=== PATIENT | female | born 1945 | race Caucasian/White ===

== ENCOUNTER 2018-06-12 16:43 | Observation (INO) | payer MEDICARE ==
--- NOTE | 2018-06-12 18:15 | RAD ---
CHEST ONE VIEW: INDICATIONS: Chest pressure. Back pain. Shortness of breath. COMPARISON: Prior exam dated 12/14/2016. FINDINGS: There is severe COPD change and moderate cardiomegaly. There is pleural and parenchymal scarring anahi aterally that is stable. A multilead pacemaker is stable. There is new blunting of the right costop hrenic angle. There is diffuse osteopenia. Scattered degenerative change. There is some ACDF invol ving the cervical spine. There is mild thoracolumbar scoliosis. The bowel gas pattern of the upper abdomen is unremarkable. IMPRESSION: 1. New suspected small right pleural effusion. 2. Stable chronic obstructive pulmonary disease change. 3. Stable cardiomegaly without pulmonary vascular congestion. 4. Stable pacemaker. 5. Stable ununited right distal clavicle fracture. POS: [facility]
[2018-06-12 18:31] LABS: CKMB 0.9 ng/mL (0-6.6); Troponin I Less than 0.010 ng/mL (< 0.028)
[2018-06-12 18:34] LABS: ALT (SGPT) 7 U/L (8-55); AST (SGOT) 14 U/L (5-34); Albumin 3.7 g/dL (3.4-4.8); Alkaline Phosphatase 54 U/L (40-150); Anion Gap 15 mmol/L (10-20); BUN (Urea Nitrogen) 14 mg/dL (9.8-20.1); Bilirubin, Total 0.5 mg/dL (0.2-1.2); Calc. Creatinine Clearance 0 mL/min (70-130); Calcium 8.9 mg/dL (7.8-10.44); Carbon Dioxide 20 mmol/L (23-31); Chloride 107 mmol/L (98-107); Estimated GFR-MDRD 72; Globulin 2.8 g/dL (2.4-3.5); Glucose 83 mg/dL (83-110); Potassium 4.4 mmol/L (3.5-5.1); Protein, Total 6.5 g/dL (6.0-8.3); Sodium 138 mmol/L (136-145)
[2018-06-12] MEDS ORDERED: HYDROcodone/Acetaminophen 5/325 mg Tablet ONE (18:44)
[2018-06-12 18:52] LABS: Anisocytosis SLIGHT = 6-15 cells (100X) (0-5/hpf); Band 1 % (5-11); Eosinophils 1 % (0-10); Hemoglobin 13.3 g/dL (12.0-16.0); Lymphocytes 31 % (21-51); MDiff Complete? YES; Macrocytosis SLIGHT = 6-15 cells (100X) (0-5/hpf); Mean Corpuscular HGB CONC 31.9 g/dL (32.0-36.0); Mean Corpuscular Hemoglobin 36.7 pg (27.0-31.0); Mean Platelet Volume 6.9 fL (7.4-10.4); Monocytes 8 % (0-10); Neutrophil 56 % (42-75); PLT Morphology Comment Appears Adequate; Platelet Count 257 thou/uL (130-400); Polychromasia SLIGHT = 2-3 cells (100X) (0-2/hpf); Reactive Lymphocytes 2 % (0-10); Red Blood Cell (RBC) Count 3.61 mill/uL (4.20-5.40); White Blood Cell (WBC) Count 8.3 thou/uL (4.8-10.8)
[2018-06-12] MEDS ORDERED: Lorazepam 1 MG TAB PO PRN (21:33)
[2018-06-12] MEDS ORDERED: traMADol HCl 50 MG TAB PO PRN (21:33)
[2018-06-12] MEDS ORDERED: Ondansetron PF 4 MG/2 ML Vial IVP PRN (21:34)
[2018-06-12] MEDS ORDERED: Ondansetron ODT 4 MG TAB PO PRN (21:34)
[2018-06-12 21:39] LABS: Troponin I Less than 0.010 ng/mL (< 0.028)
[2018-06-13 00:33] LABS: #Lymphocytes 2.4 thou/uL (1.20-3.40); #Monocytes 0.4 thou/uL (0.11-0.59); #Neutrophils 2.6 thou/uL (1.40-6.50); %Basophils 0.3 % (0.0-1.0); %Eosinophils 0.8 % (0.0-10.0); %Lymphocytes 43.6 % (21.0-51.0); %Monocytes 7.9 % (0.0-10.0); %Neutrophils 47.4 % (42.0-75.0); Hemoglobin 15.1 g/dL (12.0-16.0); Mean Corpuscular HGB CONC 30.2 g/dL (32.0-36.0); Mean Platelet Volume 6.9 fL (7.4-10.4); Platelet Count 249 thou/uL (130-400); RBC Distribution Width 17.8 % (11.5-14.5); White Blood Cell (WBC) Count 5.5 thou/uL (4.8-10.8)
[2018-06-13 00:46] LABS: Troponin I Less than 0.010 ng/mL (< 0.028)
[2018-06-13 00:53] LABS: Anion Gap 14 mmol/L (10-20); BUN (Urea Nitrogen) 11 mg/dL (9.8-20.1); Calc. Creatinine Clearance 40 mL/min (70-130); Calcium 9.7 mg/dL (7.8-10.44); Carbon Dioxide 21 mmol/L (23-31); Chloride 106 mmol/L (98-107); Estimated GFR-MDRD 79; Glucose 111 mg/dL (83-110); Potassium 4.1 mmol/L (3.5-5.1); Sodium 137 mmol/L (136-145)
[2018-06-13] MEDS ORDERED: tiZANidine HCl 4 MG TAB PO PRN (00:55)
[2018-06-13] MEDS: HYDROcodone/Acetaminophen 7.5/325 mg Tablet PO PRN ×3 (01:08→18:06)
--- NOTE | 2018-06-13 06:27 | HP ---
CHIEF COMPLAINT: Chest pain. HISTORY OF PRESENT ILLNESS: This is a 73-year-old female with past medical history significant for atrial fibrillation treated with ablation, status post pacemaker, hypertension, COPD, chronic back pain, presenting with chest pain. Per patient, she had chest pain on the day of admission around 1500 when the patient was sitting in her recliner. The patient stated that the chest pain was associated with dizziness and shortness of breath. The patient described chest pain as pressure-like in nature, which radiated to her back. Patient also has some numbness and tingling sensation in her feet. Per patient, severity of her pain was 8/10 and it was sudden and intermittent. Of note, the patient had NE 2 years ago. Denies any stent placement. Per record, patient was in the hospital on 08/10/2016 and was seen by Dr. Arriola. Per records, the patient had sinus bradycardia and pauses that were documented and left ventricular ejection fraction at that time was estimated to be about 30%. On JUAN, the patient's ejection fraction was estimated to be about 40% and the patient has a left bundle branch block at that time. During that time, the patient underwent AV susan ablation procedure. The patient denies any fevers, chills, vision changes, nausea, vomiting, palpitations, abdominal pain, dysuria , hematuria, constipation, diarrhea. REVIEW OF SYSTEMS: Positive for shortness of breath, chest pain, dizziness, lightheadedness, otherwise as documented in the HPI. All other systems were reviewed and are negative. PAST MEDICAL HISTORY: Atrial fibrillation, status post pacemaker, GERD, diverticulitis, hypertension, seizure, COPD, chronic back pain, cardiomyopathy status post pacemaker. PAST SURGICAL HISTORY: Bilateral cataract removal, bilateral trigger fingers surgery, surgical history of , hysterectomy, and neck surgery. FAMILY HISTORY: reviewed and noncontributory PSYCHIATRIC HISTORY: Anxiety. SOCIAL HISTORY: Patient denies alcohol use. The patient denies any drug use and the patient uses tobacco, smokes cigarettes occasionally. ALLERGIES: ERYTHROMYCIN, PENICILLIN, XANAX. CURRENT MEDICATIONS: Lisinopril 20 mg, nitroglycerin 0.4 mg tab, amiodarone 200 mg daily, amlodipine 10 mg daily, Symbicort, buspirone 5 mg p.o. b.i.d., carvedilol 25 mg p.o. b.i.d., gabapentin 600 mg p.o. t.i.d., N[place]ezi t.i.d. and tizanidine 2 mg p.o. t.i.d. PHYSICAL EXAMINATION: VITAL SIGNS: Blood pressure is 95/59, pulse 82, respiratory rate of 14, O2 sat is 99 on 4 liter oxygen. GENERAL: The patient is lying in bed, states that she is very sleepy, does not want the lights on. Alert and oriented x3. HEENT: Normocephalic, atraumatic. Pupils are equal, round, react to light. Extraocular movements are intact. No scleral icterus. Mucous membranes are moist. NECK: Supple. Trachea midline. No tenderness. LUNGS: Clear to auscultation bilaterally. No wheezing, no rales, no rhonchi appreciated. CARDIOVASCULAR: Positive S1, S2, regular rate and rhythm. No murmurs, no gallops or rubs appreciated. ABDOMEN: Soft, nontender, nondistended, positive bowel sounds in all quadrants. EXTREMITIES: The patient has 5/5 upper extremity strength, good pulses bilaterally at the radial pulse. Lower extremity, 5/5 lower extremity strength. Good pulses bilaterally in the lower extremities. NEUROLOGIC: Cranial nerves II through XII grossly intact. No neurologic deficits noted. SKIN: Warm, dry, and intact. IMAGING: EKG shows ventricular paced rhythm. LABORATORY DATA: WBC is 8.3, hemoglobin is 13.3, hematocrit is 41.6, MCV 115.0 , RDW is 18.0, platelet count is 257. Sodium 138, potassium is 4.4, chloride 107, carbon dioxide of 20, BUN is 14, creatinine 0.7, AST 14, ALT 7. Troponin is less than 0.010. ASSESSMENT AND PLAN: This is a 73-year-old female with multiple comorbidities being admitted for: 1. Chest pain, rule out acute coronary syndrome. At this point, we started the patient on her home medications of aspirin, carvedilol. We will continue these medications. We have consulted Cardiology. We referred Cardiology for their recommendations. 1. History of atrial fibrillation, status post ablation. Patient states that she does not take anticoagulation at this time due to her frequent bleed. At this point, we are going to hold off patient's anticoagulation. We will follow up with Cardiology regarding further evaluation on the patient's history of atrial fibrillation. 2. Cardiomyopathy with ejection fraction of 35%, status post pacemaker. At this point, the patient is stable. We are going to continue current management. 3. History of chronic obstructive pulmonary disease. We will continue patient on current management. 4. Dyslipidemia. We will continue the patient on current management. 5. Hypertension. We will monitor the patient's blood pressure closely and we will continue to treat the patient accordingly. 6. Deep venous thrombosis and gastrointestinal prophylaxis. MTDD
[2018-06-13] MEDS: Mometasone/Formoterol 120 PUFF INHALER INH SCH ×2 (07:34→19:28)
[2018-06-13] MEDS ORDERED: Carvedilol 3.125 MG TAB PO SCH (08:00)
[2018-06-13] MEDS ORDERED: Apixaban 5 MG TAB PO SCH (09:00)
[2018-06-13] MEDS ORDERED: Non-Formulary Item 1 EACH (Budesonide-Formoterol [Symbicort 160-4.5] 2 PUFF) INH SCH (09:00)
[2018-06-13] MEDS: Amlodipine 10 MG TAB PO SCH (09:08)
[2018-06-13] MEDS: Amiodarone 200 MG TAB PO SCH (09:08)
[2018-06-13] MEDS: busPIRone HCl 5 MG TAB PO SCH ×2 (09:09→20:38)
[2018-06-13] MEDS: Aspirin 81 mg Enteric Coated Tablet PO SCH (09:09)
[2018-06-13] MEDS: Gabapentin 300 MG CAP PO SCH ×3 (09:09→20:38)
[2018-06-13] MEDS: Docusate 100 MG CAP PO SCH (09:10)
[2018-06-13] MEDS: Carvedilol 25 MG TAB PO SCH ×2 (09:21→20:38)
--- NOTE | 2018-06-13 14:43 | CON ---
DATE OF CONSULTATION: 06/13/2018 CARDIOLOGY CONSULTATION INDICATION FOR CONSULTATION: A 72-year-old female with a history of chest pain. HISTORY OF PRESENT ILLNESS: This is a 73-year-old female who has had a past medical history of cardioversion due to atrial fibrillation. There is some question of ablation for atrial flutter in the past. Perhaps done in [place]. She has also had a biventricular pacemaker placed. She has multiple medical problems, which include chronic back pain, COPD, chest pain. She continues to smoke. Yesterday, she said that around 3:00 in the afternoon when she was sitting down, she noticed some chest tightness or heaviness in her chest with pressure. She described it to be more of a pressure. It radiated to the back and then she had some nausea associated with it, but she has had some recent nausea and vomiting. She also complains of occasional tingling. She said that the pain became more severe and she became somewhat worried. Her son called 911. She states that she did have a heart attack about 2 years ago; however, she did have a cardiac catheterization by Dr. Tamez in 12/2015, which showed only mild disease noted in the right coronary artery and no indication of significant stenosis was noted. Ejection fraction at that time was 35%-40%. She did undergo an ablation for atrial fibrillation. She was noted to have some flutter. She has actually undergone a cardioversion of the flutter and she also had a biventricular pacemaker placed due to the cardiomyopathy. She seems to think that she has had a myocardial infarction in the past and she has also had a recent cardiac catheterization she says about a year ago, but there was no intervention performed. She was routinely followed by a dial lathe operator in [place] and I assume that he is also the one who has been checking her biventricular pacemaker. She also has a history of a left bundle branch block in the past and as noted, she has possibly undergone an AV susan ablation due to the atrial fibrillation. REVIEW OF SYSTEMS: A 12-point review of systems is positive for the COPD, shortness of breath, occasional nausea and vomiting. She has lost more weight. She has been actually down to 70 something pounds, but she is now back up to the 80s. She appears to be very emaciated, ill-appearing female. Unfortunately , she continues to smoke. She denied any significant coughing. She does have some shortness of breath and she describes a tightness in her chest. Otherwise , her review of systems is unremarkable. PAST SURGICAL HISTORY: She has had bilateral cataract surgery. She has had finger surgeries performed due to trigger fingers. She has had a , hysterectomy and neck surgery. Atrial fib/flutter with cardioversion and possible ablation in the past. PAST MEDICAL HISTORY: She has a history of diverticulitis. She has a history of anxiety. SOCIAL HISTORY: She continues to smoke 1/4 pack a day. She smoked up to 50 years and as much as 2 packs a day. She has no significant alcohol use. ALLERGIES: She is allergic to PENICILLIN, ERYTHROMYCIN and XANAX. MEDICATIONS PRIOR TO ADMISSION: Included lisinopril, nitroglycerin, amlodipine , amiodarone, Symbicort, Coreg, [place], gabapentin, tizanidine. PHYSICAL EXAMINATION: GENERAL: Reveals a well-developed, well-nourished female, in no acute distress. VITAL SIGNS: Her blood pressure is 118/64, heart rate is 77 and shows 100% pacing at the time I am seeing her and this is ventricular pacing, respiratory rate is 20. She is afebrile. HEENT: Shows the head to be normocephalic and atraumatic. She has bilateral carotid bruits, the left being more significant than the right. CHEST: Has decreased breath sounds throughout. She did have some left basilar rales. CARDIOVASCULAR: Reveals a regular rate and rhythm at this time. She has a well -healed surgical incision over the pacemaker site. ABDOMEN: Soft, flat and nontender. EXTREMITIES: Showed no clubbing, cyanosis or edema. I cannot palpate any pulses in the right lower extremity from the groin all the way down to the foot. NEUROLOGIC: The patient appears to be intact. SKIN: Warm and dry. IMAGING: Her EKG shows ventricular pacing. There are some P waves noted, but this may be underlying atrial fibrillation also. It is hard to determine. LABORATORY DATA: Shows no evidence of myocardial infarction and her creatinine is 0.72. Sodium is 137. Hemoglobin is 15.1, WBC of 5.5. Her platelet count was 249,000. Cardiac enzymes show a troponin I of less than 0.01. IMPRESSION AND PLAN: 1. Elderly female with chest pain, which most likely is noncardiac in nature. We will try to obtain the records from [facility] in regard to her last cardiac catheterization, which she says was within the last year and see whether or not there is any indication that she has any coronary disease. As I noted above, she did have a cardiac catheterization in 12/2015, which showed mild plaque in the right coronary artery. 2. Decrease in left ventricular systolic function with cardiomyopathy. We will obtain an echocardiogram for evaluation of left ventricular systolic function to see whether or not this is improved status post a biventricular pacemaker, which was implanted by Dr. Arriola also back in, I believe, August 2016 and see whether her ejection fraction has improved after implanting the biventricular device. 3. History of tobacco abuse. She was encouraged to stop smoking. 4. History of atrial fibrillation. It appears that she may have again underlying atrial fibrillation. We will ask the pacemaker technicians to perform interrogation of the pacemaker to see whether or not she is having significant bouts of atrial fibrillation and whether or not she remains in chronic atrial fibrillation. If so, we will need to reset the monitor to the VVIR mode unless this has already been performed. 5. Chronic obstructive pulmonary disease. Unfortunately, the patient continues to smoke. 6. Deconditioning and weight loss. This lady weighs under 100 pounds. She weighs actually about 82 pounds. We will be more than happy to continue to follow the patient with you, but at this time, she does not appear to be having any acute cardiac events from what I can determine. [facility] CENTERAgustin
--- NOTE | 2018-06-13 15:12 | PDOC.PN ---
- Subjective Encounter Start Date: 06/13/18 Encounter Start Time: 10:00 -: f/u on admission for chest pain -: Denies chest pain currently - Objective Vital Signs & Weight: Vital Signs (12 hours) Temp Pulse Resp BP BP Pulse Ox 06/13/18 11:23 98.0 F 77 20 118/64 93 L 06/13/18 09:08 92 136/66 06/13/18 07:34 92 16 93 L 06/13/18 07:02 97.8 F 89 24 H 136/66 92 L 06/13/18 04:19 98.8 F 97 19 110/52 L 93 L Weight Admit Weight 37.603 kg Weight 37.603 kg I&O: 06/12/18 06/13/18 06/14/18 06:59 06:59 06:59 Intake Total 450 240 Output Total 700 Balance -250 240 Result Diagrams: 06/13/18 00:19 06/13/18 00:19 Phys Exam - Physical Examination HEENT: PERRLA Neck: no nodes, no JVD Respiratory: no rhonchi, clear to auscultation bilateral Cardiovascular: RRR Gastrointestinal: soft, non-tender Musculoskeletal: no edema, pulses present Neurological: non-focal Lymphatic: no nodes Psychiatric: normal affect, A&O x 3 Skin: no rash, normal turgor, cap refill <2 seconds Dx/Plan (1) Chest pain Code(s): R07.9 - CHEST PAIN, UNSPECIFIED Status: Acute (2) SSS (sick sinus syndrome) Code(s): I49.5 - SICK SINUS SYNDROME Status: Chronic Comment: s/p pacemaker/ DIRECTOR DRUG 08/10/16 (3) CAD (coronary artery disease) Code(s): I25.10 - ATHSCL HEART DISEASE OF [place] CORONARY ARTERY W/O ANG PCTRS Status: Chronic Qualifiers: (4) COPD (chronic obstructive pulmonary disease) Status: Chronic Qualifiers: (5) Atrial fibrillation and flutter Code(s): I48.91 - UNSPECIFIED ATRIAL FIBRILLATION; I48.92 - UNSPECIFIED ATRIAL FLUTTER Status: Chronic Comment: s/p ablation in sinus - Plan cont current plan of care -: Cardiology and EP consult -: Dr. Spann requesting records from [facility] -: Echo done, pending results -: Will monitor labs, * .
--- NOTE | 2018-06-13 16:26 | PDOC.EVN ---
Event Note - Event Note Event Note: clinical course reviewed with Agustin Campbell SOLE CONDITIONER. agree with management
--- NOTE | 2018-06-13 17:39 | ULT ---
BILATERAL CAROTID DUPLEX ULTRASOUND: DATE: 06/13/18 HISTORY: Bilateral carotid bruits. TECHNIQUE: Tamez scale ultrasound with color flow and spectral Doppler imaging of the extracranial carotid artery systems performed bilaterally. FINDINGS: There is plaque formation on either side. The peak systolic velocity in the right ICA measures 69 cm/second with an end-diastolic velocity of 1 9 cm/second and a systolic ratio of 0.87. The peak systolic velocity in the left ICA measures 75 cm/second with an end-diastolic velocity of 17 cm/second and a systolic ratio of 0.95. Flow in both vertebral arteries remains antegrade. IMPRESSION: No evidence of hemodynamically significant stenosis. POS: [facility]
[2018-06-13] MEDS: Apixaban 2.5 MG TAB PO SCH (20:38)
[2018-06-14] MEDS: HYDROcodone/Acetaminophen 7.5/325 mg Tablet PO PRN ×3 (04:09→23:21)
[2018-06-14] MEDS: Mometasone/Formoterol 120 PUFF INHALER INH SCH ×2 (08:00→18:18)
[2018-06-14] MEDS: Amiodarone 200 MG TAB PO SCH (08:57)
[2018-06-14] MEDS: Aspirin 81 mg Enteric Coated Tablet PO SCH (08:57)
[2018-06-14] MEDS: Gabapentin 300 MG CAP PO SCH ×3 (08:58→20:09)
[2018-06-14] MEDS: Docusate 100 MG CAP PO SCH (08:58)
[2018-06-14] MEDS: Apixaban 2.5 MG TAB PO SCH ×2 (08:58→20:10)
[2018-06-14] MEDS: busPIRone HCl 5 MG TAB PO SCH ×2 (08:58→20:09)
[2018-06-14] MEDS: Carvedilol 25 MG TAB PO SCH ×2 (08:58→20:09)
[2018-06-14] MEDS: Amlodipine 10 MG TAB PO SCH (08:58)
--- NOTE | 2018-06-14 16:01 | PDOC.PN ---
- Subjective Encounter Start Date: 06/14/18 Encounter Start Time: 10:00 Subjective: f/u on admission for chest pain -: Cardiology/EP was pt yesterday, requested records -: Patient with no c/o today other than being hungry - Objective MAR Reviewed: Yes Vital Signs & Weight: Vital Signs (12 hours) Temp Pulse Resp BP Pulse Ox 06/14/18 11:11 97.9 F 67 16 101/54 L 92 L 06/14/18 08:58 91 06/14/18 08:00 91 20 92 L 06/14/18 07:23 97.5 F L 73 20 156/74 H 93 L 06/14/18 04:00 98.1 F 66 16 106/58 L 92 L Weight Admit Weight 37.603 kg Weight 37.376 kg I&O: 06/13/18 06/14/18 06/15/18 06:59 06:59 06:59 Intake Total 450 1980 720 Output Total 700 1350 Balance -250 630 720 Result Diagrams: 06/13/18 00:19 06/13/18 00:19 Phys Exam - Physical Examination HEENT: PERRLA, moist MMs Neck: no nodes, no JVD Respiratory: no rhonchi, clear to auscultation bilateral Cardiovascular: RRR, no rub Gastrointestinal: soft, non-tender, positive bowel sounds Musculoskeletal: no edema, pulses present Neurological: non-focal, normal sensation, moves all 4 limbs Lymphatic: no nodes Psychiatric: normal affect, A&O x 3 Skin: no rash, normal turgor Dx/Plan (1) Chest pain Code(s): R07.9 - CHEST PAIN, UNSPECIFIED Status: Acute (2) SSS (sick sinus syndrome) Code(s): I49.5 - SICK SINUS SYNDROME Status: Chronic Comment: s/p pacemaker/ BRAND COMMUNICATIONS MANAGER 08/10/16 (3) CAD (coronary artery disease) Code(s): I25.10 - ATHSCL HEART DISEASE OF [place] CORONARY ARTERY W/O ANG PCTRS Status: Chronic Qualifiers: (4) COPD (chronic obstructive pulmonary disease) Status: Chronic Qualifiers: (5) Atrial fibrillation and flutter Code(s): I48.91 - UNSPECIFIED ATRIAL FIBRILLATION; I48.92 - UNSPECIFIED ATRIAL FLUTTER Status: Chronic Comment: s/p ablation in sinus - Plan -: Records requested/sent from [facility] and are on chart -: We are awaiting cardiology recommendations after record review -: Meal supplements ordered per pt request -: Will continue to monitor * .
[2018-06-14] MEDS ORDERED: Loperamide HCl 2 MG CAP PO PRN (17:43)
--- NOTE | 2018-06-14 19:49 | CON ---
DATE OF CONSULTATION: 06/13/2018 ELECTROPHYSIOLOGY CONSULTATION REFERRING PHYSICIAN: Jaymie Spann M.D. REASON FOR CONSULTATION: Atrial arrhythmias. HISTORY OF PRESENT ILLNESS: Ms. Villa is a 73-year-old woman who was initially referred to our servi ce in 07/2016. She has a history of atrial arrhythmias and in 2016 was diagnosed with typical atrial flutter. She was also found to have mild cardiomyopathy with an ejection fraction of 40%-45% with a bifascicular block and underwent biventricular pacemaker placement at that time. The plan was for h er to recover from the pacemaker implantation and then undergo either CTI or AV susan ablation, but u nfortunately, she never followed up with our clinic for further treatment and management of her arrhy thmias. Today, she has been referred back to our service for ongoing atrial arrhythmias and palpitat ions. She came into the hospital reporting chest pain. She continues to smoke. She had some tightn ess in her chest with dizziness and when she stood up to put her sandwich back in the fridge, she jessica rly fell over, but did not pass out. The pain became more severe and her son called 911. When EMS a rrived, they brought her to the emergency room for further evaluation. She also reports that she has had a left heart catheterization by a dairy nutrition consultant in [place] who now we assume has also been checki ng her pacemaker and has possibly done an ablation. We have requested those records, but they are no t currently available for review. Currently, Ms. Villa is feeling well. She denies any current chest pain, heart racing, palpitations, chest pain or pressure, syncope or stroke-like symptoms. She has had recent near syncope. REVIEW OF SYSTEMS: Positive for chronic shortness of breath secondary to chronic obstructive pulmona ry disease and heart failure. Positive for occasional nausea and vomiting. Positive for weight loss , unintentional. Positive for continued tobacco habituation. Positive for recent chest pain. REVIEW OF SYSTEMS: Otherwise, a 12-point review of systems was conducted and is negative other than the above-mentioned and as per HPI. PAST MEDICAL HISTORY: 1. Chronic congestive heart failure with nonischemic cardiomyopathy, LVEF 35%-40% in 12/2015 by left heart catheterization also revealing normal coronary arteries. 2. Chronic COPD. 3. Typical atrial flutter. ALLERGIES: Include PENICILLIN and AZITHROMYCIN. HOME MEDICATIONS: [place] p.r.n., gabapentin 600 t.i.d., amiodarone 100 mg daily, lisinopril 20 mg arcadio ly, Zanaflex 2 mg t.i.d., Norvasc 10 mg daily, buspirone 5 mg b.i.d., Symbicort b.i.d., Nitrostat p.r .n. and carvedilol 25 mg b.i.d. FAMILY HISTORY: Negative for sudden cardiac or early onset coronary artery disease. SOCIAL HISTORY: Negative for alcohol or drug use. Positive for continued tobacco habituation greate r than a [id number] history, currently 1/4 pack a day. OBJECTIVE: VITAL SIGNS: Today, temperature 98.0, pulse 77, blood pressure 118/64, respirations 20, oxygen is 93 % on room air. GENERAL: This is a very petite, frail woman who appears much older than her stated age. She is aler t and oriented. Her speech is clear. Her affect is appropriate. NECK: Supple without jugular venous distention. CHEST: Clear to auscultation bilaterally, but do exhibit chronic COPD changes with inspiration and s cattered rhonchi throughout. Heart rate is regular. PMI is nondisplaced. Pacemaker is seated at th e left infraclavicular fossa and is quite prominent under her frail stature and thin skin and has hea led nicely and there are no open areas. Wires are quite prominent and high risk for . ABDOMEN: Soft and nontender without palpable masses. Hepatojugular reflex is negative. NEUROLOGIC: Grossly intact and nonfocal. EXTREMITIES: Warm and dry to touch without clubbing, cyanosis or edema. DATABASE: EKG and telemetry were all personally reviewed, which reflect atypical atrial flutter with biventricular pacing. LABORATORY DATA: Hematology was reviewed and is unremarkable. Chemistry, potassium 4.1, creatinine 0.72. TSH 2.38. Serial troponins were negative. Chest x-ray did not reveal any acute abnormalities . Carotid Doppler was essentially normal exam. IMPRESSION: 1. Near syncope. 2. Atypical chest pain. 3. History of nonischemic cardiomyopathy with left ventricular ejection fraction of 35%-40% in 2016. 4. Status post biventricular pacemaker implantation in 07/2016. 5. Atypical atrial flutter. 6. Chronic obstructive pulmonary disease. RECOMMENDATIONS: 1. We will have the pacemaker interrogated for further information about the events with any further arrhythmias. 2. Recommend having a 2-dimensional echocardiogram performed to reassess her LV systolic function. 3. Agree with the request for prior records from her dairy nutrition consultant in [place]. She has not had an ab lation with our group, though she may have followed up with her dairy nutrition consultant or group in [place] or [facility] and have this done. We will continue to follow after the following results are available. Thank you for allowing us to participate in the care of this patient.
[2018-06-15] MEDS: Mometasone/Formoterol 120 PUFF INHALER INH SCH ×2 (07:03→18:07)
[2018-06-15] MEDS ORDERED: Amiodarone 200 MG TAB PO SCH (09:00)
[2018-06-15] MEDS: Docusate 100 MG CAP PO SCH (09:04)
[2018-06-15] MEDS: Aspirin 81 mg Enteric Coated Tablet PO SCH (09:05)
[2018-06-15] MEDS: Apixaban 2.5 MG TAB PO SCH (09:05)
[2018-06-15] MEDS: busPIRone HCl 5 MG TAB PO SCH ×2 (09:05→20:10)
[2018-06-15] MEDS: Amlodipine 10 MG TAB PO SCH (09:06)
[2018-06-15] MEDS: HYDROcodone/Acetaminophen 7.5/325 mg Tablet PO PRN ×2 (09:08→20:09)
[2018-06-15] MEDS: Gabapentin 300 MG CAP PO SCH ×3 (09:10→20:10)
[2018-06-15] MEDS: Amiodarone 200 MG TAB PO SCH (09:10)
[2018-06-15] MEDS: Carvedilol 25 MG TAB PO SCH ×2 (09:11→20:10)
[2018-06-15 13:42] VITALS: BMI 15.7
--- NOTE | 2018-06-15 15:20 | PDOC.CTH ---
Cardiology Progress Note - Subjective EP progress note: Patient seen and evaluated. Feeling well today. No cardiac complaints - Objective Vital Signs Temp Pulse Resp BP BP Pulse Ox 06/15/18 11:15 98.3 F 71 18 113/55 L 92 L 06/15/18 09:06 66 124/77 06/15/18 07:17 97.8 F 69 22 H 124/77 92 L 06/15/18 05:19 97.8 F 71 18 101/54 L 93 L Admit Weight 82 lb 14.4 oz Weight 86 lb 06/14/18 06/15/18 06/16/18 06:59 06:59 06:59 Intake Total 1980 1740 Output Total 1350 Balance 630 1740 - Physical Examination General/Neuro: alert & oriented x3, NAD Neck: carotid US brisk, no JVD present Lungs: CTA, unlabored respirations Heart: other: (irreg irreg) Abdomen: NT/ND, soft Other PE findings: thin frail skin. Prominent PPM and wires - Labs Result Diagrams: 06/13/18 00:19 06/13/18 00:19 Troponin/CKMB CK-MB (CK-2) 0.9 ng/mL (0-6.6) 06/12/18 17:54 Troponin I Less than 0.010 ng/mL (< 0.028) 06/13/18 00:19 - Assessment/Plan 1. Atrial arrhythmias - Atypical atrial flutter and atrial fibrillation with occasional RVR 2. CHADS2-VASC: 4 (age, gender, heart failure) -Suboptimal eliquis dose. Increased to 5mg BID. patient has not been taking eliquis at home and refusing in hospital 3. Chronic systolic heart failure -Last EF 35-40%, now 30-35%. Recommend recheck in 3 months after medical management and offering the patient a lifevest in the interrim. 4. Non ischemic cardiomyopathy -Normal LHC according to [place] records 5. Bi Ventricular pacemaker -Suboptimal MODELING ANALYST pacing from AF 6. Chronic Amiodarone - increased to 200mg PO QD. Continue amiodarone. If she will take Eliquis faithfully she can have CV in 4 weeks. Consider AVJ in future if afib recurs and rate control difficult to achieve. Limited PVAI candidate-which option she declines at this point.
--- NOTE | 2018-06-15 16:38 | PDOC.PN ---
- Subjective Encounter Start Date: 06/15/18 Encounter Start Time: 16:30 Subjective: f/u for chest pain, atrial fib and cardiomyopathy -: denies complaints today - Objective Vital Signs & Weight: Vital Signs (12 hours) Temp Pulse Resp BP BP Pulse Ox 06/15/18 15:32 97.4 F L 74 21 H 110/63 91 L 06/15/18 11:15 98.3 F 71 18 113/55 L 92 L 06/15/18 09:06 66 124/77 06/15/18 07:17 97.8 F 69 22 H 124/77 92 L 06/15/18 05:19 97.8 F 71 18 101/54 L 93 L Weight Admit Weight 37.603 kg Weight 39.009 kg I&O: 06/14/18 06/15/18 06/16/18 06:59 06:59 06:59 Intake Total 1980 1740 Output Total 1350 Balance 630 1740 Result Diagrams: 06/13/18 00:19 06/13/18 00:19 Phys Exam - Physical Examination Constitutional: NAD HEENT: PERRLA, moist MMs Neck: no nodes, no JVD Respiratory: no wheezing, no rales, no rhonchi Cardiovascular: RRR, no significant murmur Gastrointestinal: soft, non-tender Musculoskeletal: no edema, pulses present Neurological: non-focal, normal sensation Lymphatic: no nodes Psychiatric: normal affect, A&O x 3 Skin: no rash, normal turgor Dx/Plan (1) Chest pain Code(s): R07.9 - CHEST PAIN, UNSPECIFIED Status: Acute (2) SSS (sick sinus syndrome) Code(s): I49.5 - SICK SINUS SYNDROME Status: Chronic Comment: 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 Arriola and Dr. Spann saw patient today -: Patient initally refused Xarelto but Dr. Spann talked her into taking it -: Will watch overnight, DC in am * .
[2018-06-15] MEDS: Apixaban 5 MG TAB PO SCH (20:10)
[2018-06-16] MEDS: HYDROcodone/Acetaminophen 7.5/325 mg Tablet PO PRN ×2 (05:25→14:12)
[2018-06-16] MEDS: Mometasone/Formoterol 120 PUFF INHALER INH SCH (07:57)
[2018-06-16] MEDS: Amlodipine 10 MG TAB PO SCH (08:13)
[2018-06-16] MEDS: Docusate 100 MG CAP PO SCH (08:13)
[2018-06-16] MEDS: Amiodarone 200 MG TAB PO SCH (08:13)
[2018-06-16] MEDS: Apixaban 5 MG TAB PO SCH (08:13)
[2018-06-16] MEDS: Gabapentin 300 MG CAP PO SCH ×2 (08:14→14:12)
[2018-06-16] MEDS: busPIRone HCl 5 MG TAB PO SCH (08:14)
[2018-06-16] MEDS: Aspirin 81 mg Enteric Coated Tablet PO SCH (08:14)
[2018-06-16] MEDS: Carvedilol 25 MG TAB PO SCH (08:14)
--- NOTE | 2018-06-16 09:36 | PDOC.CTH ---
Cardiology Progress Note - Subjective Feeling good today. Planning to be discharged. - ROS chest pain (none), dizziness (none) - Objective Vital Signs Temp Pulse Resp BP Pulse Ox 06/16/18 07:57 80 12 06/16/18 07:00 99.0 F 73 16 134/60 91 L 06/16/18 04:00 97.6 F 85 18 104/58 L 90 L Admit Weight 82 lb 14.4 oz Weight 86 lb 3.2 oz 06/15/18 06/16/18 06/17/18 06:59 06:59 06:59 Intake Total 1740 500 Balance 1740 500 - Physical Examination General/Neuro: alert & oriented x3, NAD Neck: no JVD present Lungs: CTA Heart: RRR, other: Abdomen: NT/ND, soft - Telemetry Telemetry Rhythm: afib with V pacing - Labs Result Diagrams: 06/13/18 00:19 06/13/18 00:19 Troponin/CKMB CK-MB (CK-2) 0.9 ng/mL (0-6.6) 06/12/18 17:54 Troponin I Less than 0.010 ng/mL (< 0.028) 06/13/18 00:19 - Assessment/Plan 1. Atrial arrhythmias - Atypical atrial flutter and atrial fibrillation with occasional RVR 2. CHADS2-VASC: 4 (age, gender, heart failure) -Suboptimal eliquis dose. Increased to 5mg BID. patient has not been taking eliquis at home and refusing in hospital 3. Chronic systolic heart failure -Last EF 35-40%, now 30-35%. Recommend recheck in 3 months after medical management and offering the patient a lifevest in the interrim. 4. Non ischemic cardiomyopathy -Normal LHC according to [facility] records 5. 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 Chronic Amiodarone - increased to 200mg PO QD. Continue amiodarone 200mg a day. If she will take Eliquis faithfully she can have CV in 4 weeks. Consider AVJ in future if afib recurs and rate control difficult to achieve. Limited PVAI candidate-which option she declines at this point. Plan to see her as outpt in 4-6 weeks after CV by dr Spann. Would sign off. Please call if questions.
[2018-06-16 11:50] VITALS: BP 102/64; TEMP 98.3
--- NOTE | 2018-06-17 01:40 | DIS ---
DATE OF ADMISSION: 06/12/2018 DATE OF DISCHARGE: 06/16/2018 PRIMARY CARE PHYSICIAN: Ryan Potts MD CONSULTANTS: Jaymie Spann MD and Rambo Arriola MD PROCEDURES: The patient had an echocardiogram, which showed a small pericardial effusion, ejection fraction at 30%-35%. EF was difficult to assess due to the atrial fibrillation in this patient. Pacer wire was visualized in the right ventricle. Left atrium is mildly dilated. Normal right atrium size. Pacemaker AICD leads visualized. Mild mitral regurgitation is present. Structurally normal aortic valve, mild tricuspid regurgitation. Carotid Doppler was performed and impression is no evidence of hemodynamically significant stenosis. DISCHARGE DIAGNOSES: 1. Chest pain, most likely noncardiac in nature. 2. Decrease in left ventricular systolic function with cardiomyopathy. 3. History of tobacco abuse. 4. History of atrial fibrillation. 5. Chronic obstructive pulmonary disease. 6. Deconditioning and weight loss. 7. Chronic systolic heart failure, last ejection fraction was 35%-40%. On this visit, it was down to 30%-35%. REVIEW OF SYSTEMS: The patient was examined by me this morning prior to discharge. She denied any shortness of breath, chest pain, dizziness, lightheadedness. All other systems were reviewed and negative. PHYSICAL EXAMINATION: VITAL SIGNS: Temperature 97.8, pulse 71, respirations are 18, blood pressure 110/54, pulse ox 93% on room air. GENERAL: The patient is alert, oriented x3, eating her breakfast. HEENT: Head is normocephalic and atraumatic. Pupils are equal, round, and reactive to light. Extraocular muscles are intact. No scleral icterus. Mucous membranes are moist. NECK: Supple. Trachea midline. No tenderness. LUNGS: Clear to auscultation bilaterally. No wheezes, no rales, no rhonchi appreciated. CARDIOVASCULAR: Positive S1, S2. ABDOMEN: Soft, nontender, nondistended. EXTREMITIES: The patient has 5/5 upper extremity strength and good pulses bilaterally at the radial pulse. Lower extremity, 5/5 lower extremity strength and good pulses bilaterally. No edema noted to lower extremities. NEUROLOGIC: Cranial nerves II-XII are grossly intact. No neurological deficits are noted. SKIN: Warm, dry, and intact. HOSPITAL COURSE: This is a 73-year-old female with a past medical history significant for atrial fibrillation treated with an ablation, status post pacemaker; hypertension; COPD; chronic back pain. The patient on day of admission describes chest pressure that radiated to her back, had some recent nausea and vomiting. She complains of occasional tingling. Her son called 911 at that point. Reports that she did have a heart attack about [address] Tamez performed a cardiac catheterization in 12/2015, which showed only mild disease noted in the right coronary artery. She also had an ejection fraction at that time of 35%-40%. She was admitted to the Observation Unit for further testing, had a carotid Doppler study and an echo, and was seen by Dr. Spann and Dr. Arriola. She was placed on Eliquis in the past, but [place] and has been afraid to take it due to bleeding concerns. On this visit, Dr. Spann was able to talk her into starting it with the idea of doing a cardioversion for her atrial fibrillation in [address] Arriola agreed with that assessment and plan. She was given Eliquis last night, tolerated it well overnight, and she will be discharged home with Eliquis. Dr. Arriola also increased her amiodarone from 100 mg to 200 mg. On day of discharge, the patient denied any complaints. Vital signs have been stable and she will be discharged home. Discharge plan was discussed with Dr. Love, who also agrees with plan. HOME MEDICATIONS: Norvasc 10 mg p.o. daily, budesonide and formoterol 2 puffs b.i.d., buspirone 5 mg p.o. b.i.d., carvedilol 25 mg p.o. b.i.d., gabapentin 600 mg p.o. t.i.d., hydrocodone and Tylenol 1 tab 7.5/325 as needed t.i.d., Zanaflex 2 mg p.o. t.i.d. as needed, Cordarone was increased from 100 mg to 200 mg p.o. daily, Eliquis 5 mg p.o. b.i.d., aspirin 81 mg p.o. daily, lisinopril 20 mg p.o. at noon, Nitrostat 0.4 mg p.o. q.5 minutes as needed for anginal chest pain. ALLERGIES: PENICILLIN, ALPRAZOLAM, AZITHROMYCIN, DOXYCYCLINE, TORADOL, and TRAMADOL. CONDITION: Stable. DISCHARGE INSTRUCTIONS: The patient will be discharged to home. Referred back to see Dr. Potts within the next week. Should call and make an appointment with Dr. Spann and Dr. Arriola in the next 3 to 4 weeks. [facility]
== END 2018-06-16 16:25 | disposition home or self-care (01) ==
LOC: ERS 16:43 → 2SW 21:44
PROVIDERS: ADMIT Internal Medicine; ATTEND Internal Medicine
DX: R07.89 Other chest pain (principal); J44.9 Chronic obstructive pulmonary disease, unspecified; G89.29 Other chronic pain; M54.9 Dorsalgia, unspecified; I25.2 Old myocardial infarction; R56.9 Unspecified convulsions; F41.9 Anxiety disorder, unspecified; F17.210 Nicotine dependence, cigarettes, uncomplicated; I48.2 Chronic atrial fibrillation; I48.3 Typical atrial flutter; I49.5 Sick sinus syndrome; I25.10 Atherosclerotic heart disease of native coronary artery without angina pectoris; R42 Dizziness and giddiness; I11.0 Hypertensive heart disease with heart failure; I50.22 Chronic systolic (congestive) heart failure; I42.8 Other cardiomyopathies; I48.4 Atypical atrial flutter; I31.3 Pericardial effusion (noninflammatory); R63.4 Abnormal weight loss; Z68.1 Body mass index [BMI] 19.9 or less, adult; Z79.51 Long term (current) use of inhaled steroids; Z79.899 Other long term (current) drug therapy; Z88.0 Allergy status to penicillin; Z88.1 Allergy status to other antibiotic agents; Z88.5 Allergy status to narcotic agent; Z88.8 Allergy status to other drugs, medicaments and biological substances; Z95.0 Presence of cardiac pacemaker; Z98.890 Other specified postprocedural states
CPT/HCPCS: 71045; 80048; 82553; 84443; 84484 ×3; 85025; 93005; 93306; 93880; 94640 ×4; 94664; 99285; 99406; G0378 ×3; 36415; 80053; Q0162

== ENCOUNTER 2018-09-26 04:28 | Inpatient (IN) | payer MEDICARE ==
[2018-09-26] MEDS ORDERED: Ondansetron PF 4 MG/2 ML Vial ONE (04:50)
[2018-09-26 05:17] LABS: Bilirubin Small (Negative); Blood, Urine Negative (Negative); Clarity CLOUDY (Clear); Glucose, Urine (Dipstick) Negative (Negative); Leukocyte Negative (Negative); Nitrite Negative (Negative); Protein, Urine (Dipstick) Trace mg/dL (Neg-Trace); Specific Gravity, Urine 1.026 (1.002-1.036); Urobilinogen 0.2 mg/dL (0.2-1.0)
[2018-09-26 05:28] LABS: ALT (SGPT) 7 U/L (8-55); AST (SGOT) 16 U/L (5-34); Albumin 3.8 g/dL (3.4-4.8); Alkaline Phosphatase 63 U/L (40-150); Anion Gap 26 mmol/L (10-20); BUN (Urea Nitrogen) 57 mg/dL (9.8-20.1); Bilirubin, Total 0.2 mg/dL (0.2-1.2); Calc. Creatinine Clearance 0 mL/min (70-130); Calcium 8.5 mg/dL (7.8-10.44); Chloride 105 mmol/L (98-107); Estimated GFR-MDRD 24; Globulin 2.7 g/dL (2.4-3.5); Glucose 191 mg/dL (83-110); Potassium 5.4 mmol/L (3.5-5.1); Protein, Total 6.5 g/dL (6.0-8.3); Sodium 134 mmol/L (136-145)
[2018-09-26 05:31] LABS: Anisocytosis SLIGHT = 6-15 cells (100X) (0-5/hpf); Band 1 % (5-11); Hemoglobin 13.7 g/dL (12.0-16.0); Lymphocytes 23 % (21-51); MDiff Complete? YES; Macrocytosis MODERATE=16-30 cells (100X) (0-5/hpf); Mean Corpuscular HGB CONC 32.4 g/dL (32.0-36.0); Mean Platelet Volume 7.1 fL (7.4-10.4); Monocytes 6 % (0-10); Neutrophil 70 % (42-75); Platelet Count 227 thou/uL (130-400); RBC Distribution Width 16.4 % (11.5-14.5); Red Blood Cell (RBC) Count 3.43 mill/uL (4.20-5.40)
[2018-09-26 05:40] LABS: Carbon Dioxide 8 mmol/L (23-31)
[2018-09-26] MEDS ORDERED: Norepinephrine 8 MG/0.9% NS 250 ML ONE (06:19)
--- NOTE | 2018-09-26 07:36 | ULT ---
ULTRASOUND WITH DOPPLER DUPLEX VENOUS LOWER EXTREMITY RIGHT CPT: 98310 ICD-10-PCS: B54D HISTORY: Pain and edema. TECHNIQUE: Color flow Doppler, spectral waveform analysis of pulsed Doppler, and abraham-scale imaging with clay ursula and augmentation, were used to evaluate the bilateral common femoral, femoral, popliteal, mathematics lecturer ior tibial, and superficial femoral, veins; and the proximal portions of the profunda femoral and gre ater saphenous, veins. FINDINGS: There is appropriate compressibility and flow within the imaged deep vein system of the right lower e xtremity. IMPRESSION: No deep vein thrombosis. POS: TAMARA
--- NOTE | 2018-09-26 07:48 | RAD ---
SINGLE VIEW OF THE CHEST: COMPARISON: 08/14/2018. HISTORY: Chest pain and shortness of breath. FINDINGS: A single view of the chest shows an enlarged but stable cardiomediastinal silhouette. The pacemaker is unchanged in position. There is a right IJ central venous catheter with its tip at the aortocaval junction. No pneumothorax is seen. Increased interstitial lung markings and hyperexpansion of the lungs is likely secondary to COPD. Biapical pleural thickening is stable. IMPRESSION: Cardiomegaly. POS: LATASHA
[2018-09-26] MEDS ORDERED: MEROPENEM 1 GM/50 ML 1 GM in Premix Bag 1 BAG IVPB SCH (08:00)
[2018-09-26] MEDS ORDERED: Acetaminophen 500 MG TAB PO PRN (08:23)
[2018-09-26] MEDS ORDERED: Hydrocortisone Sod Succ/PF 100 mg/2 ml Vial IVP SCH (08:45)
[2018-09-26] MEDS ORDERED: Vasopressin 40 UNIT, Admixture Fee 1 EACH in Sodium Chloride 0.9% 100 ML IV SCH (08:45)
[2018-09-26] MEDS ORDERED: Norepinephrine 8 MG/0.9% NS 250 ML IVPB SCH (09:00)
[2018-09-26] MEDS ORDERED: Morphine 4 MG/ML VIAL SLOW IVP PRN (09:03)
[2018-09-26 09:15] LABS: Actual Bicarbonate (HCO3a) 9.7 mEq/L (22-28); CO2 Tension 36.4 mmHg (35.0-45.0); Calcium, Ionized 1.16 mmol/L (1.12-1.30); Carboxyhemoglobin (COHb) 4.9 gm% (0.0-3.0); O2 Tension (PaO2) 89.3 mmHg (> 70.0); Potassium - ABG Lab 4.78 mmol/L (3.70-5.30)
[2018-09-26 09:17] LABS: Puncture Site L.R.; pH, Arterial 7.04 (7.35-7.45)
[2018-09-26] MEDS ORDERED: Sodium Bicarb 50 MEQ/50 ML VIAL ONE (09:17)
[2018-09-26] MEDS ORDERED: Lactated Ringer's 1,000 ML IV SCH (09:45)
--- NOTE | 2018-09-26 10:04 | CON ---
DATE OF CONSULTATION: 09/26/2018 SERVICE: Pulmonary Medicine. REASON FOR CONSULTATION: Shock. HISTORY OF PRESENT ILLNESS: The patient is a 73-year-old white female with past medical history significant for severe peripheral vascular disease. She was in her usual state of health until about 3 days prior to admission. She noticed that whenever she get up and use the bathroom, she had leg discomfort. It is worse in the right leg compared to the left. She was also having a little bit of nausea without vomiting. She had a couple of episodes of diarrhea started yesterday. Ultimately, she had a food aversion for the last 3 or 4 days. She presented to the emergency department because of the severe discomfort in her back, and her right extremity and a little bit of discomfort in the left extremity. Originally, it only occurred whenever she was walking around, but at this point , it is happening at rest. She has exquisite tenderness to palpation in the right lower extremity at both the calf, and the quadriceps. She also has tenderness to palpation at the lumbar region. She denies having any fevers, cough, sputum production, shortness of breath, or chest pain. She denies having abdominal discomfort, though she clearly has some tenderness there. She has no hot, red swollen joints or arthralgias. PAST MEDICAL HISTORY: 1. Atrial fibrillation, status post pacemaker. 2. Gastroesophageal reflux disease. 3. Diverticulosis with history of diverticulitis. 4. Hypertension. 5. Dyslipidemia. 6. Cardiomyopathy. 7. COPD. 8. Chronic back pain. 9. Peripheral vascular disease. PAST SURGICAL HISTORY: 1. Cataract surgery, bilateral. 2. Trigger finger surgery, bilateral. 3. section. 4. Hysterectomy. 5. Neck surgery. FAMILY HISTORY: Noncontributory. SOCIAL HISTORY: Negative for alcohol. She has greater than a 50-pack year history of smoking and continues to smoke occasionally. Denies any illicit drug use. She has no exposure to chemicals, dust, asbestos, or tuberculosis. ALLERGIES: ERYTHROMYCIN, PENICILLIN, AND XANAX. MEDICATIONS: Inpatient medications was reviewed and modified. PHYSICAL EXAMINATION: VITAL SIGNS: Afebrile, pulse 82 and irregular, blood pressure 89/46, respirations 23, and saturation 96% on room air. CVP 10. HEENT: Normocephalic, atraumatic. Sclerae white. Conjunctivae pink. Oral mucosa is dry. No lesions are identified. NECK: Trachea soft and midline. Pacemaker is on the left anterior chest, which is under the pectoralis muscle. LUNGS: Decent air entry. Minimally prolonged expiratory phase. No wheezing or crackles are appreciated. HEART: Normal rate. Irregular. ABDOMEN: Soft, nontender, and nondistended. Bowel sounds are positive. MUSCULOSKELETAL: No cyanosis or clubbing. There is no pitting in the bilateral lower extremities. SKIN: Tenting is present throughout. I cannot get a pulse in the right DP or in the right foot. I do get a posterior tibialis pulse in the left foot, but no DP pulse. NEUROLOGIC: Nonfocal. GENITOURINARY: Arndt catheter in place. LABORATORY DATA: WBC 5.0, hemoglobin 13.7, platelets 227,000. Neutrophil count is normal with a very low band count. Bicarb 8, potassium 5.4, sodium 134. Creatinine 2.02, significantly increased from baseline of 0.6, less than 2 weeks ago. Liver function studies are essentially unremarkable. Troponin is negative x1. Urinalysis is completely unremarkable. IMAGING STUDIES: 1. Chest x-ray demonstrates no acute cardiopulmonary abnormality. 2. Ultrasound of the right lower extremity demonstrates no evidence of DVT. ASSESSMENT: 1. Leg pain. 2. Back pain. 3. Peripheral vascular disease, severe. 4. Low blood pressure (no SIRS criteria are met). 5. Acute kidney injury associated with significant volume depletion. DISCUSSION AND PLAN: I really do not think we have an infectious process going on here. I agree with panculture, and empiric antibiotic. That being said, I think this is more of a chronic vascular issue. Her claudication is so severe that she is now essentially bed bound. We will get Cardiology involved and get some vascular studies in the lower extremities. Once she clears her acute kidney injury, we will be able to get a CTA of the pelvis and the legs. She has a severe acidosis. We will get a stat ABG to make certain that she is she is compensated well. If she is not, several doses of bicarb will be provided, and we will consider intubating her. It is not lactate in origin. As such, we may need to investigate this further. Pulmonary/Critical Care will continue to follow very closely. We put her on stress dose of steroids, and titrated up the Levophed. Vasopressin is also on board. We will watch her very closely. Critical care time: 30 minutes. Job ID: [id number] [email or web address]
[2018-09-26 10:15] LABS: Magnesium 1.6 mg/dL (1.6-2.6); Phosphorus 5.8 mg/dL (2.3-4.7)
[2018-09-26] MEDS ORDERED: Amiodarone 200 MG TAB PO SCH (10:15)
[2018-09-26] MEDS ORDERED: Sodium Bicarb 50 MEQ/50 ML VIAL IVP SCH (10:15)
[2018-09-26] MEDS: Morphine 2 MG/ML SYRINGE SLOW IVP PRN ×3 (10:17→20:59)
[2018-09-26] MEDS: Amiodarone 200 MG TAB PO SCH (10:19)
[2018-09-26] MEDS: Sodium Bicarbonate 150 MEQ in Dextrose 5% in Water 1,000 ML IV SCH (10:54)
--- NOTE | 2018-09-26 11:21 | HP ---
CHIEF COMPLAINT: Back pain radiating to the lower extremities, generalized weakness, and hypoglycemia. HISTORY OF PRESENT ILLNESS: The patient is a 73-year-old female, who was not doing well for the last few days. Apparently, she started having some chills and no fever. Apparently, her furnace broke at home and it was very cold for several days. She was not able to have anybody to come and fix it. This morning, her son, who lives with her called the EMS, because she was still complaining about a lot of pain and EMS found her to have hypoglycemia and hypotensive, complained about right leg pain. She was given D10, was taken to the emergency room. In the emergency room, first vital signs; blood pressure 108/49, pulse 71, respirations 16, pain 7, and O2 saturation 96% on room air. Her blood pressure gradually went down to 50s and 60s and 70s systolic. She was found to be hypothermic with a rectal temperature down to 95. She was given IV fluids with mild improvement of her blood pressure. She was started on Levophed, but this did not change her blood pressure much. She is getting admitted to the intensive care unit for further management of most likely her sepsis. PAST MEDICAL HISTORY: Positive for; 1. Atrial fibrillation. 2. Pacemaker. 3. GERD. 4. History of diverticulitis. 5. Hypertension. 6. Seizures. 7. COPD. 8. Chronic back pain. 9. Cardiomyopathy. PAST SURGICAL HISTORY: 1. Bilateral cataract removal. 2. Bilateral trigger finger surgery. 3. . 4. Hysterectomy. 5. Neck surgery. FAMILY HISTORY: Reviewed and noncontributory. SOCIAL HISTORY: She denies use any alcohol. Denies any drug use. She smokes cigarettes occasionally. ALLERGIES: ALPRAZOLAM, AZITHROMYCIN, DOXYCYCLINE, KETORALAC, PENICILLIN, AND TRAMADOL. HOME MEDICATIONS: 1. Gabapentin 600 mg 3 times a day. 2. Amiodarone 200 mg tablets 0.5 tablet once a day. 3. Carvedilol 25 mg twice a day. 4. Eliquis 5 mg once a day. 5. Lisinopril 20 mg once a day. 6. Amlodipine 10 mg once a day. 7. Pantoprazole 40 mg once a day. REVIEW OF SYSTEMS: This will be reviewed later, since she is in critical condition and she is about to be moved to intensive care unit as we speak. PHYSICAL EXAMINATION: VITAL SIGNS: Blood pressure is 77/33, pulse is 87, respiratory rate is 29, and O2 saturation 94%. HEENT: Head is atraumatic and normocephalic. Eyes are PERRLA. Sclerae are nonicteric. Oral mucosa is dry. NECK: Supple. There is a central line in the right side of the neck. LUNGS: Emphysematous. No wheezing. No rales. HEART: S1 and S2, somewhat irregular. No S3. No S4. Left upper chest pacer in place. ABDOMEN: Soft and nontender. EXTREMITIES: No clubbing, cyanosis, or edema. She has significant amount of pain on palpation in her lower back and especially left hip area. NEUROLOGIC: She is able to answer my questions. She moves her all 4 extremities. There is no any sensory or motor deficits. Cranial nerves are intact grossly. SKIN: No rash or erythema. LABORATORY DATA: Labs showed white count of 5.0, hemoglobin 13.7, hematocrit 42.3, and platelet count is 227,000. Chemistry showed sodium of 134, potassium 5.4, chloride 105, CO2 of 8, BUN 57, creatinine 2.02, glucose 191, lactic acid 1.1, AST 16, and ALT 7. The rest of chemistry within normal limits. Urinalysis showed trace of ketones and a small amount of bilirubin, otherwise within normal limits. Chest x-ray showed just cardiomegaly and COPD. Vascular Doppler of lower extremities, no DVTs. EKG showed left ventricular pacemaker with regular function. IMPRESSION: 1. Hypothermia with hypoglycemia and hypotension, very likely sepsis, unclear etiology. Apparently, she had some cough in the last several days. She complains about increased back pain. This could be a source of her sepsis. 2. History of atrial fibrillation. 3. Pacemaker. 4. Acute renal failure, most likely secondary to hypotension. 5. Cardiomyopathy with left ventricular ejection fraction of 30% to 35%. 6. Chronic obstructive pulmonary disease. 7. Deconditioning. 8. Hypoglycemia secondary to most likely sepsis. PLAN: She is full code. She is going to be admitted to intensive care unit. Condition is critical. IV fluids. We will keep her on maintenance fluids until the third bolus is completed. She continue to be on Levophed. agricultural specialist, Dr. Desai was called and informed about the case. She is started on meropenem. We will continue the dosing per Pharmacy. Blood cultures and urine cultures to be done. Echocardiogram to assess LVEF and she will have to have some scanning done on her back to rule out abscess, but this is when she is stable hemodynamically and SCDs for DVT prophylaxis. Job ID: [id number]
[2018-09-26] MEDS: Hydrocortisone Sod Succ/PF 100 mg/2 ml Vial IVP SCH ×3 (12:36→23:13)
--- NOTE | 2018-09-26 14:15 | CON ---
DATE OF CONSULTATION: 09/26/2018 INDICATION FOR CONSULTATION: This is a 73-year-old female with right leg pain. We were asked to see her for possible peripheral vascular disease. HISTORY OF PRESENT ILLNESS: This is a very unfortunate 73-year-old female, I have followed for some time now. She was seen by Dr. Tamez, but after his departure, she has now became my patient. She does have a history of atrial fibrillation. She has undergone pacemaker insertion in the past. She has what appears to be chronic atrial fibrillation or flutter. She has had a cardioversion in the past, but looks like she has converted back to her atrial fibrillation. The underlying rhythm appears to be majority of the time in atrial fibrillation with pacing most of the time almost 100% in the ventricle. She was seen previously back in 2016, and had a cardiac catheterization, which showed normal coronary arteries with ejection fraction of 35% to 40% of uncertain etiology. She also had small pericardial effusion at that time. She has been on Eliquis since noting that she has had atrial fibrillation and cardiomyopathy. She had been on amiodarone in the past also. She underwent cardioversion and I believe that was back in 2018. She has also had a chronic cough due to severe COPD. She continues to smoke. She has been counseled many times of stopping smoking, unfortunately she continues to do that. She has carotid artery disease, but had no significant stenosis by a carotid Doppler in June of 2018. At this time, she presented to the emergency room, where she complains of lower back pain and also right leg pain. She is almost unable to walk due to excruciating pain. The leg is also pain painful to touch. Does not appear to be ischemic, and most having just pain from the back and the leg. She also was found to be acidotic with a pH of 7.04, pCO2 of 36, and a pO2 of 89 with 95%. Her bicarbonate is 8 with a potassium of 5.4 and BUN of 57 with a creatinine of 2.02. Blood sugar is 191. At this time, she mainly says that she has not been eating very well. She has not been feeling well for several days. She does have some nausea and also was having some shortness of breath as usual. Does not appear to be worse, but mainly complains of the pain. She also has had some diarrhea. At this time, she denies any cardiac problems such as chest pain, but again she is not having significant coronary artery disease in the past. She has a pacemaker insertion and continues to be pacing. PAST MEDICAL HISTORY: Her past medical history is significant for hypertension, dyslipidemia, cardiomyopathy, atrial fibrillation, status post pacemaker insertion, gastroesophageal reflux disease, history of diverticulosis in the past. She has COPD, chronic back pain, and some peripheral vascular disease. We do not have any vascular studies previously. She did have a venous Doppler performed in the emergency room, which showed no evidence of DVT. The leg does not appear to be edematous or swollen at this time, the leg is actually still warm. PAST SURGICAL HISTORY: Significant for , hysterectomy, cataract surgery. She has had a hand surgery and neck surgery. FAMILY HISTORY: Noncontributory. SOCIAL HISTORY: She continues to smoke. She smoked more than 50-pack year history. She still smokes 4 to 5 cigarettes a day. She has had no significant alcohol use. ALLERGIES: SHE IS ALLERGIC TO PENICILLIN, XANAX, AND ERYTHROMYCIN. MEDICATIONS: Prior to admission included; 1. Pantoprazole. 2. Buspirone. 3. Lisinopril. 4. Amlodipine. 5. Gabapentin. 6. Coreg. 7. Aspirin. 8. Symbicort. 9. Aerosol. 10. Amiodarone. 11. Eliquis. REVIEW OF SYSTEMS: She mainly complains of the leg pain, lower back pain, and some nausea with some recent diarrhea. No vomiting. She was nauseated but did not have any vomiting. She has had no seizures or syncope. No history of depression or hallucinations. She did have some bites on her hands, which she says she does not know what bit her, but she has some necrotic areas on the left hand, which are now wrapped in surgical type dressings. Otherwise, review of systems unremarkable. PHYSICAL EXAMINATION: GENERAL: Reveals an elderly, fragile, ill-appearing female. VITAL SIGNS: Her blood pressure is 97/44, heart rate 80s to 90s and shows ventricular pacing, respiratory rate 28, O2 saturation 95%. HEENT: Shows head to be normocephalic and atraumatic. Bilateral carotid bruits are present. CHEST: Clear. I do not hear any significant rales, rhonchi, or wheezing. CARDIOVASCULAR: Heart sounds were somewhat distant, but she does have an irregular rhythm at this time, but appears to be pacing. She has a systolic murmur of the aortic area, which radiates up to the carotids. She is very thin-chested lady. I did not hear any bruits or S3 nor an S4, but difficult to determine with most likely underlying atrial fibrillation. ABDOMEN: Soft and nontender. Positive bowel sounds are present. Abdominal exam otherwise did not exhibit any palpable mass. She does have some mild tenderness, but no significant abnormalities are noted. EXTREMITIES: Femoral pulses are difficult to palpate, and I do not palpate them as she has significant peripheral vascular disease with most likely calcifications. Extremities show no clubbing or cyanosis. Extremities are warm. I do not see any mottling or any discoloration at this time. I cannot palpate pedal pulses. No popliteal pulses. NEUROLOGICAL: She appears to be grossly intact. SKIN: Warm and dry. LABORATORY DATA: As noted above. WBC was 5.0, hemoglobin 13.7. IMPRESSION: Elderly female with multiple medical problems. 1. Chronic obstructive pulmonary disease. She continues to smoke. 2. Paroxysmal atrial fibrillation. She appears to be back in atrial fibrillation. She is pacing from the ventricle majority of the time. She seems to be tolerating this quite well. We will just ensure that the heart rate remains stable. She has been on Eliquis in the past. We will continue this medicine unless we plan some surgical interventions. 3. Peripheral vascular disease. She does have carotid artery stenosis, but this has not been clinical. She did have a carotid Doppler within the last year or two I believe, did not show any significant stenosis. She has a normal coronary arteries in 2016. 4. Cardiomyopathy, ejection fraction 35% to 40%. We will obtain an echocardiogram for evaluation of left ventricular systolic function. As far as her peripheral vascular disease is concerned that she does have decreased pulses, but I would not think this would account for the presentation and she does have pain on palpation even in the right groin and says she has shooting pains down the legs. We will obtain an arterial Doppler on this lady to see exactly how bad her peripheral vascular disease may be, whether or not she is a candidate for any type of intervention is yet to be determined as she certainly is very ill and feeble elderly lady. 5. Atrial fibrillation. We will continue her medications for the atrial fibrillation. As far as her cardiomyopathy is concerned, she has a biventricular pacemaker, which had been placed previously. We will evaluate further by the echocardiogram to see the exact function of the heart. Her chest x-ray does show some small bilateral pleural effusions, but otherwise, no acute findings were noted on the chest x-ray to indicate her symptoms and also the echocardiogram today showed ejection fraction about 55% to 60% with mild mitral and tricuspid valve regurgitation, very small pericardial effusion without evidence of tamponade. She has dilated left atrium and right atrium, most likely compatible with diastolic dysfunction as well as aortic valve sclerosis but no severe stenosis noted across the aortic valve and she probably has diastolic dysfunction, which cannot be determined with the patient due to the atrial fibrillation. We will be more than happy to continue to follow the patient with you, and further recommendations will depend on the results of the Doppler evaluation. Job ID: [id number]
[2018-09-26] MEDS ORDERED: Magnesium 2 GM/50 ML 2 GM in Premix Bag 1 BAG IVPB SCH (14:30)
[2018-09-26] MEDS: Meropenem 500 MG in Sodium Chloride 0.9% 100 ML IVPB SCH ×2 (15:02→23:13)
[2018-09-26] MEDS ORDERED: VANCOMYCIN IVPB PRN (15:59)
[2018-09-26 16:08] LABS: Anion Gap 21 mmol/L (10-20); BUN (Urea Nitrogen) 29 mg/dL (9.8-20.1); Calc. Creatinine Clearance 67 mL/min (70-130); Calcium 7.5 mg/dL (7.8-10.44); Carbon Dioxide 13 mmol/L (23-31); Chloride 109 mmol/L (98-107); Estimated GFR-MDRD 53; Glucose 246 mg/dL (83-110); Potassium 4.8 mmol/L (3.5-5.1); Sodium 138 mmol/L (136-145)
--- NOTE | 2018-09-26 16:27 | ULT ---
BILATERAL LOWER EXTREMITY ARTERIAL ULTRASOUND WITH DOPPLER: HISTORY: Diminished pulses. Pain. COMPARISON: None. TECHNIQUE: Tamez-scale, color-flow, and Doppler imaging with spectral wave-form analysis was performed in the lef t and right lower extremity arterial system. FINDINGS: There is monophasic flow involving the entire left and right lower extremity arterial system. RIGHT LOWER EXTREMITY PEAK SYSTOLIC VELOCITY COMMON FEMORAL ARTERY 69.0 cm per second PROFUNDAL FEMORAL ARTERY 34.9 cm per second SFA PROXIMAL 34.6 cm per second SFA MID 50.6 cm per second SFA DISTAL 23.3 cm per second POPLITEAL ARTERY 26.0 cm per second ANTERIOR TIBIAL ARTERY 8.3 cm per second POSTERIOR TIBIAL ARTERY 7.8 cm per second DORSALIS PEDIS ARTERY 9.8 cm per second LEFT LOWER EXTREMITY PEAK SYSTOLIC VELOCITY COMMON FEMORAL ARTERY 214.7 cm per second PROFUNDA FEMORAL ARTERY 164.7 cm per second SFA PROXIMAL 164.7 cm per second SFA MID 202.0 cm per second SFA DISTAL 124.6 cm per second POPLITEAL ARTERY 102 cm per second ANTERIOR TIBIAL ARTERY 63.7 cm per second POSTERIOR TIBIAL ARTERY: 68 cm per second DORSALIS PEDIS ARTERY: 11 cm per second IMPRESSION: Significant stenosis of the bilateral lower extremity arterial systems. Conventional angiography is recommended. POS: [facility]
[2018-09-26] MEDS: Vancomycin HCl 750 MG in Sodium Chloride 0.9% 250 ML 250 ML IVPB SCH (17:01)
--- NOTE | 2018-09-26 20:57 | CON ---
DATE OF CONSULTATION: 09/26/2018 REASON FOR CONSULTATION: Acute kidney injury. REASON FOR ADMISSION: Back pain. HISTORY OF PRESENT ILLNESS: A 73-year-old female with a history of atrial fibrillation, hypertension, seizure, COPD, came to the hospital with the above complaints and was found to have acute kidney injury with elevated creatinine of 2.02 from a baseline of 0.6 and severe acidosis with a bicarb of 8 and a pH of 7.04. The patient started on IV hydration and is feeling better. She is making urine, but she is more hungry and is asking for dinner. PAST MEDICAL HISTORY: Positive for atrial fibrillation, hypertension, seizure, COPD, chronic back pain, cardiomyopathy. PAST SURGICAL HISTORY: Pacemaker placement, cataract surgery, trigger finger release, , hysterectomy, neck surgery. HOME MEDICATIONS: Include; 1. Gabapentin. 2. Amiodarone. 3. Carvedilol. 4. Eliquis. 5. Lisinopril. 6. Amlodipine. 7. Pantoprazole. ALLERGIES: ALPRAZOLAM, AZITHROMYCIN, DOXYCYCLINE, KETORALAC, PENICILLIN, AND TRAMADOL. SOCIAL HISTORY: No smoking, alcohol, or illicit drug abuse. FAMILY HISTORY: No history of kidney disease. REVIEW OF SYSTEMS: CONSTITUTIONAL: Negative for weight loss or gain, ability to conduct usual activities. SKIN: Negative for rash, itching. EYES: Negative for double vision, pain. ENT/MOUTH: Negative for nose bleeding, neck stiffness, pain, tenderness. CARDIOVASCULAR: Negative for palpitations, dyspnea on exertion, orthopnea. RESPIRATORY: Negative for shortness of breath, wheezing, cough, hemoptysis, fever or night sweats. GASTROINTESTINAL: Negative for poor appetite, abdominal pain, heartburn, nausea, vomiting, constipation, or diarrhea. GENITOURINARY: Negative for urgency, frequency, dysuria, nocturia. MUSCULOSKELETAL: Negative for pain, swelling. NEUROLOGIC/PSYCHIATRIC: Negative for anxiety, depression. ALLERGY/IMMUNOLOGIC: Negative for skin rash, bleeding tendency. PHYSICAL EXAMINATION: GENERAL: The patient is a thin-built female, in no apparent distress. VITAL SIGNS: Temperature 96.8, pulse 96, respirations 20, blood pressure 112/51. HEENT: Atraumatic and normocephalic. Oral mucosa is moist. NECK: Supple. CVS: S1 and S2 heard. . RESPIRATORY: Clear. GASTROINTESTINAL: Abdomen is soft. MUSCULOSKELETAL: 1+ edema. DERMATOLOGIC: No skin rash. NEUROLOGIC: Alert and awake. PSYCHIATRIC: Normal mood and affect. LABORATORY DATA: Hemoglobin is 13.7, potassium is 4.8, bicarb is 13, BUN is 29, creatinine is 1.01, pH is 7.04. ASSESSMENT AND PLAN: 1. Acute kidney injury, much better. Continue hydration. 2. Metabolic acidosis. Check lactate and monitor. Rule out other causes. Agree with hydration. 3. Edema, controlled. 4. Hypertension, stable. Overall, it seems like renal function seems to be getting better. Monitor bicarb level and monitor her closely in ICU. Avoid nephrotoxins. We will continue to follow. Thank you for the consult. Job ID: [id number]
[2018-09-26] MEDS: busPIRone HCl 5 MG TAB PO SCH (20:59)
[2018-09-27] MEDS: Morphine 2 MG/ML SYRINGE SLOW IVP PRN ×2 (02:35→05:57)
[2018-09-27] MEDS: Sodium Bicarbonate 150 MEQ in Dextrose 5% in Water 1,000 ML IV SCH (05:03)
[2018-09-27] MEDS: Hydrocortisone Sod Succ/PF 100 mg/2 ml Vial IVP SCH ×4 (05:04→23:26)
[2018-09-27] MEDS: Meropenem 500 MG in Sodium Chloride 0.9% 100 ML IVPB SCH ×3 (05:04→21:04)
[2018-09-27 05:29] LABS: Anion Gap 12 mmol/L (10-20); BUN (Urea Nitrogen) 12 mg/dL (9.8-20.1); Calc. Creatinine Clearance 43 mL/min (70-130); Calcium 8.1 mg/dL (7.8-10.44); Carbon Dioxide 30 mmol/L (23-31); Chloride 104 mmol/L (98-107); Estimated GFR-MDRD 67; Glucose 292 mg/dL (83-110); Sodium 143 mmol/L (136-145)
[2018-09-27 05:35] LABS: Potassium 2.9 mmol/L (3.5-5.1)
[2018-09-27 05:44] LABS: Anisocytosis SLIGHT = 6-15 cells (100X) (0-5/hpf); Hemoglobin 11.3 g/dL (12.0-16.0); Lymphocytes 8 % (21-51); MDiff Complete? YES; Macrocytosis SLIGHT = 6-15 cells (100X) (0-5/hpf); Mean Corpuscular HGB CONC 32.3 g/dL (32.0-36.0); Mean Corpuscular Hemoglobin 39.1 pg (27.0-31.0); Mean Platelet Volume 7.3 fL (7.4-10.4); Monocytes 11 % (0-10); Neutrophil 81 % (42-75); Nucleated RBC 1 % (0); Platelet Count 179 thou/uL (130-400); RBC Distribution Width 16.6 % (11.5-14.5); Red Blood Cell (RBC) Count 2.89 mill/uL (4.20-5.40)
[2018-09-27] MEDS ORDERED: Potassium Chloride 40 MEQ in Premix Bag 1 BAG IVPB SCH (07:00)
[2018-09-27] MEDS: Ondansetron ODT 4 MG TAB PO PRN ×2 (07:20→17:46)
[2018-09-27] MEDS: Potassium Chloride 20 MEQ TAB PO SCH ×2 (07:20→12:54)
--- NOTE | 2018-09-27 07:25 | PRG ---
DATE OF SERVICE: 09/27/2018 SERVICE: Pulmonary Medicine. INTERVAL HISTORY: The patient is doing really well from respiratory standpoint. She has been weaned off both pressors. I believe she is maintaining her blood pressure, and her urine output has been excellent. Her only complaint is her chronic discomforts. She has back pain and leg pain. It seems to be a little bit less severe today. That being said, she is frequently asking for her pain medications. PHYSICAL EXAMINATION: VITAL SIGNS: Afebrile, pulse 92, blood pressure 129/68, respirations 23, saturation 95% on room air. GENERAL: The patient is awake and alert, in no apparent distress. LUNGS: Excellent air entry. There is no prolonged expiratory phase or wheezing present. HEART: Normal rate, regular. ABDOMEN: Soft. There is a little bit of guarding. No rebound is present. Diffuse tenderness is present with palpation, but she indicates to me this is chronic ever since she was a baby. Bowel sounds are present. MUSCULOSKELETAL: No cyanosis or clubbing. There is less skin tenting today. GENITOURINARY: Arndt catheter in place. NEUROLOGIC: Grossly nonfocal. LABORATORY DATA: WBC 8.0, hemoglobin 11.3, and platelets 179,000. Potassium 2.9, bicarb 30, anion gap 12. Jerome culture is unremarkable today. IMAGING: Lower extremity ultrasound demonstrates significant stenosis of the bilateral lower extremity arterial systems. Conventional angiography is recommended. ASSESSMENT: 1. Acute kidney injury, resolved. 2. Hypokalemia. 3. Chronic pain. 4. Peripheral vascular disease, severe. 5. Low blood pressure (no SIRS criteria met), resolved. DISCUSSION AND PLAN: We can proceed with a CT of the abdomen and pelvis and also the aorta with an appropriate runoff so that we can more clearly evaluate where her peripheral lesions are located. If they are severe, Cardiothoracic Surgery consultation will be entertained. My suspicion is that much of her presentation is associated with chronic pain in her lower extremities and the bed-bound status that resulted from this. This resulted in her taking in less p.o. intake and increasing her narcotic use. Most likely, that is the reason for her presentation. We will continue our empiric antibiotics, but truthfully, I do not see any evidence of infectious process occurring here. Adrenal insufficiency is a distinct possibility. If this recurs, we may need to consider cosyntropin stimulation test, but she is already on hydrocortisone and so this test would not be accurate. Job ID: [id number]
[2018-09-27] MEDS ORDERED: Aspirin 325 MG TAB PO SCH (09:00)
--- NOTE | 2018-09-27 09:55 | PDOC.CTH ---
Cardiology Progress Note - Subjective The pt seen and examined. No overnight events. No cardiac complaints. She is refusing to drink contrast for CT ABD/Pelvic. - Objective Vital Signs Temp Pulse Ox 09/27/18 08:04 96 09/27/18 08:00 96 09/27/18 07:00 98.2 F 09/27/18 00:00 98.2 F Weight 102 lb 8.239 oz 09/26/18 09/27/18 09/28/18 06:59 06:59 06:59 Intake Total 3709.2 Output Total 4635 310 Balance -925.8 -310 - Physical Examination General/Neuro: alert & oriented x3 Neck: no JVD present Lungs: other: (coarses and wheezing) Heart: other: (irregular) Extremities: other: (no edema) - Telemetry Telemetry Rhythm: AFib with v paced - Labs Result Diagrams: 09/27/18 05:00 09/27/18 05:00 Troponin/CKMB Troponin I 0.019 ng/mL (< 0.028) 09/26/18 04:50 - Assessment/Plan 1. PAD with severe stenosis to BLE by atrial doppler study on 09/26/2018 - Plan for CT with AFRO 2. Afib - well controlled HR with Amiodarone; on ASA 325mg qd for OAC now 3. HTN - stable 4. Hyperlipidemia - 5. COPD - managed by sr. manager corporate communications 6. Current smoker 4-5 cigaretts/day - smoking cessation education given 7. Back and ABD pain - plan for CT ABD/Pelvic today MAR reviewed * Echo on 09/26/2018 showed EF 55-60%, mild MR and TR; dilated bilat. atrium, and diastolic dysfunction. Pt. seen and eval. by me. I agree with the A/P by the TOUCH UP PAINTER. Chest clear. RRR. CT scan indicates severe right iliac-> [employer] DISABLED stenosis. The foot is still warm. She still complains of pain in the leg but this does not appear to be vascular pain. I will ask the CV surgeons for their opinion. Review of Systems - Review of Systems Constitutional: reports: no symptoms reported EENTM: reports: no symptoms reported Respiratory: reports: no symptoms reported Cardiac (ROS): reports: no symptoms reported ABD/GI: reports: no symptoms reported : reports: no symptoms reported Musculoskeletal: reports: no symptoms reported
[2018-09-27] MEDS: HYDROcodone/Acetaminophen 10/325 mg Tablet PO PRN ×3 (10:02→21:05)
[2018-09-27] MEDS: Amiodarone 200 MG TAB PO SCH (10:02)
[2018-09-27] MEDS: Aspirin 325 mg Enteric Coated Tablet PO SCH (10:02)
[2018-09-27] MEDS: busPIRone HCl 5 MG TAB PO SCH ×2 (10:03→21:06)
[2018-09-27] MEDS: Lorazepam 0.5 MG TAB PO PRN ×2 (10:03→21:06)
[2018-09-27] MEDS ORDERED: ISOVUE-370 76%-LOCM 1 ML ONE (10:11)
[2018-09-27] MEDS: Sodium Chloride 0.45% 1,000 ML IV SCH ×2 (10:31→21:04)
--- NOTE | 2018-09-27 11:51 | CT ---
CT ANGIOGRAM OF THE ABDOMINAL AORTA WITH BILATERAL LOWER EXTREMITY RUNOFF: HISTORY: Abnormal bilateral lower extremity arterial ultrasound. Claudication. Diminished pulses. COMPARISON: None. TECHNIQUE: CT angiogram of the abdominal aorta and bilateral lower extremity runoff is performed in the axial pl ane. Three-dimensional reformatted images are submitted for interpretation. FINDINGS: ABDOMEN: Small right and moderate left pleural effusion with adjacent lung parenchymal changes, like ly representing atelectasis or pneumonia. The heart is enlarged. No significant pericardial fluid. There is appropriate arterial phase imaging of the liver, spleen, pancreas, and adrenal glands. Atro phy of the pancreas is noted. Symmetric enhancement of the kidneys. No obstructive uropathy. defined hypodensity in the r ight kidney, measuring 0.7 cm, cannot be further assessed. Bilateral extrarenal pelves are noted. N o obstructive uropathy. Decreased intraabdominal fat limits evaluation for inflammatory change. No mesenteric mass, lymphade nopathy, free air, or free fluid. Small amount of pericholecystic fluid, nonspecific. The visualized alimentary canal is unremarkable. The ileocecal junction is normal. There is fecal m aterial in a nondistended, nondilated colon. Limited evaluation of the alimentary canal due to lack of adequate contrast opacification. There do appear to be diverticula in the sigmoid colon. No defi nite diverticulitis. PELVIS: Arndt catheter decompresses the urinary bladder. Hysterectomy changes are noted. No pelvic mass, lymphadenopathy, free air, or free fluid. No lytic or blastic lesion in the osseous structures. Mild and likely chronic compression deformity at L1. CT ANGIOGRAM: There is atherosclerosis of the descending thoracic aorta. Atherosclerosis of the abd ominal aorta is identified. Atherosclerosis of the aortic bifurcation is noted. No significant sten osis or occlusion in the visualized aorta or aortic bifurcation. The celiac artery origin, superior mesenteric artery origin, and inferior mesenteric artery origin are unremarkable. There is no signif icant stenosis of the left or right renal artery ostium. There appear to be two right and two left r enal arteries. Both common iliac arteries demonstrate atherosclerotic disease with mild stenosis. The left internal iliac artery does have moderate stenosis. There is severe stenosis of the distal right internal faiza ac artery. The right external iliac artery does not have any contrast opacification. Absence of con trast extends into the common femoral artery on the right. The left external iliac artery has multis egment mild stenosis. RIGHT LOWER EXTREMITY: Absence of contrast enhancement involving the common femoral artery. There i s enhancement of the proximal superficial femoral artery and the proximal profunda femoral artery due to collaterals. The mid and distal superficial femoral artery have long-segment moderate stenosis. There is severe stenosis involving the distal superficial femoral artery. Moderate stenosis is note d in multiple segments of the popliteal artery. The arterial trifurcation is patent. There does not appear to be any adequate contrast opacification of the anterior tibial or posterior tibial artery. There is some contrast opacifying the peroneal artery. LEFT LOWER EXTREMITY: Atherosclerosis with at least short-segment mild to moderate narrowing of the common femoral artery. The proximal profunda femoral artery is unremarkable. The proximal superfici al femoral artery is patent. Short-segment moderate narrowing of the mid superficial femoral artery. Additional areas of short-segment mild to moderate narrowing of the mid to distal superficial femor al artery. Mild short-segment stenosis involving the popliteal artery. Arterial trifurcation is unr emarkable. There is calcified plaque at the origin of the peroneal artery. There is good single-ves niurka supply of the left foot by the posterior tibial artery. There is probably multifocal short-segme nt stenosis involving the left anterior tibial artery. The peroneal artery also has areas of stenosi s. IMPRESSION: Extensive atherosclerosis, as detailed above. There is occlusion of the right external iliac artery, down to the level of the common femoral artery. Additional multifocal occlusion involving the left and right lower extremity arterial system, as above. POS: [facility]
--- NOTE | 2018-09-27 13:10 | CON ---
DATE OF CONSULTATION: 09/27/2018 REASON FOR CONSULTATION: Possible sepsis. HISTORY OF PRESENT ILLNESS: A 73-year-old patient who has a history of COPD and probably ischemic cardiomyopathy with atrial fibrillation and a pacemaker, who has had issues with maintenance at home and lack of heating system, and for the past several days before admission, she felt cold and subsequently developed general malaise, pain in various parts of her body. EMS was activated and she was found to have hypoglycemia and hypotension with pain in the right lower extremity. The patient was given D10 and brought to the emergency room. On arrival, she was hypotensive. Initially, systolic 108 and dropped to 70, pulse 71, respirations 16, and O2 saturation 96%. She was hypothermic with a rectal temp of 95, given IV fluids and then started on pressors and admitted to the ICU with broad-spectrum antimicrobial coverage. The patient denied any headaches. No visual symptoms, sore throat, odynophagia, or dysphagia. No vomiting. No diarrhea. No bleeding. No genitourinary symptoms. No back pain. She continued with pain in the right lower extremity as described below in the physical examination section. PAST MEDICAL HISTORY: Atrial fibrillation, pacemaker, probably ischemic cardiomyopathy, probable peripheral vascular disease, which had not been identified in the past. There is a history of diverticulitis, hypertension, seizures, COPD, and chronic current smoking. PAST SURGICAL HISTORY: Cataracts, trigger finger, , hysterectomy, and neck surgery. FAMILY HISTORY: Noncontributory. ALLERGIES: ALPRAZOLAM, DOXYCYCLINE, PENICILLIN, KETORALAC, AND TRAMADOL. SOCIAL HISTORY: Current smoker. CURRENT MEDICATIONS: Include: 1. [place]. 2. DuoNeb. 3. Cordarone. 4. Ecotrin. 5. BuSpar. 6. Solu-Cortef. 7. Meropenem. 8. Electrolytes. 9. Vancomycin. PHYSICAL EXAMINATION: VITAL SIGNS: T-max 98.2, blood pressure 124/64, pulse 84, respirations 16, and O2 saturation 96%. SKIN: With 2 areas of ulceration covered by what appears to be a blister in the left hand ulnar aspect at the fifth MPJ skin site and another one more dorsally located in the same lateral location of the same hand. Actually, it is more likely in the palmar location of the radial aspect of the thenar eminence skin site. GENERAL: The patient has an IJ central line and had a Arndt catheter inserted. The I's and O's have been positive for the past 48 hours. She is disheveled, appears chronically ill. She knows her name, did not know the date. She thought she was in [place] initially, had to be reoriented. A few areas of bruising in the upper extremities. HEAD AND NECK: No lymphadenopathy. Some element of temporal wasting. Ocular movements conjugate. The conjunctivae are somewhat pale. Sclerae are white. Pupils are equal, about 2 mm and reactive, round-shaped and symmetric. Nasal passages are patent. Oral cavity with numerous missing teeth, the remaining ones with marked decay discoloration, lower gum disease. No oral cavity lesions are noted. No jugular venous distention. No thyromegaly. LUNGS: Symmetric air entry with no obvious crackles or wheezing. CHEST: The pacer pocket site, which is under the pectoralis major left-sided, does not have any inflammatory changes. She has a sticking wire of the pacemaker, but that is not compromising the skin on the left side. HEART: The apex impulse is not palpable, though she has S1 and S2 somewhat diminished. A soft aortic murmur. No S3 or S4. Regular rate. ABDOMEN: Flat, soft. No distention. No ascites. No bladder distention. No organomegaly. EXTREMITIES: She has a very tender right thigh along the entire thigh, mostly in the lateral aspect, but also somewhat in the medial aspect. It appears that the muscle substance is the most tender structure during palpation. The patient is able to move the knee and hip joints without major pain elicited. There does not appear to be any joint inflammatory process at this time. No effusion. The remainder aspects of her lower extremities are not painful to palpation. I could not feel any popliteal or dorsalis pedis pulses, although the extremity skin temperature appears to be normal. The cap refill is delayed. She is able to move extremities equally, but she is diffusely weak. Plantar responses are indifferent. No evidence of clonus. NEUROLOGIC: She is awake, knows her name, but somewhat confused regarding her location and time. Recollection is somewhat limited. She follows commands. LABORATORY DATA: White cell count 5.0, hemoglobin 13.7, platelets 227, with 70% neutrophils, 1% bands, 22% lymphocytes. There is moderate macrocytosis. MCV of 123. The blood gas initially with pH 7.04, pCO2 of 36, pO2 of 89. Chemistries; sodium 138, creatinine 1.01, glucose 246, phosphorus was 5.8, magnesium 1.6, bilirubin 0.2, AST 16, ALT 7, alkaline phosphatase was 63. CK was 89. Troponin 0.019. Total protein 6.5, albumin 3.8, globulin 2.7. Cortisol 18. TSH 1.044. Urinalysis fairly unremarkable except for small bilirubin. Microbiology, thus far negative blood cultures at 48 hours. There is a swab from the hand lesions, which we have preliminary results with moderate wbc's, no organisms seen. IMAGING STUDIES: Include a chest x-ray which showed cardiomegaly, but no infiltrates. There is evidence of pleural thickening in the apices. There is an aortic runoff. CTA which is pending at this time. There is a vascular ultrasound of lower extremities, which is venous ultrasound, with no evidence of deep vein thrombosis. There is a lower extremity arterial duplex ultrasound which demonstrates significant blockage of the bilateral lower extremity arterial systems with monophasic flow in the entire left and right lower extremity arterial system. ASSESSMENT: 1. Coronary artery disease with ischemic cardiomyopathy and atrial fibrillation. 2. Likely severe peripheral vascular disease with evidence of lack of triphasic flow in the entire lower extremity system, which points to an upper area of obstruction. 3. General malaise and severe hypotension, requiring IV fluids and vasopressors. 4. Hypothermia. 5. Severe macrocytosis and right lower extremity pain. 6. Skin lesions with ulceration, necrosis, and blistering in the left hand. DISCUSSION: The differential diagnosis includes acute infection associated with sepsis with bacteremia with possible colonization of the pacemaker lead versus noninfective cause of hypotension with hypothermia associated with cardiomyopathy and ischemia in lower extremities with pain in the right lower extremity. In addition to that, the patient has those lesions which could reflect embolic lesions or vasculitis, which could be implicated in the lower extremity symptoms as well, for example, if she has a middle-sized vessel vasculitis. In addition to that, the patient has severe macrocytosis, which could be secondary to vitamin B12 or folate deficiency or chronic liver disease with cirrhosis. Hemolysis appears to be less likely. We will continue monitoring blood cultures and broad-spectrum coverage to be continued until those are finalized. If they are negative, then I would advise discontinuation of antimicrobial therapy. She may need a biopsy of the skin lesions in the left hand to rule out vasculitis and she needs to have probably imaging studies of the liver and the pelvis. We will have to see what the angiogram shows and proceed from there in terms of vascular interventions if felt necessary. Finally, B12 levels will be ordered as well as folate. Job ID: [id number]
--- NOTE | 2018-09-27 13:26 | PRG ---
DATE OF SERVICE: 09/27/2018 SUBJECTIVE: The patient is seen and examined at the bedside. She is tearful. She complains about a lot of medical problems and things going on in her life for the last 2 years. Now, she is asked to drink oral contrast to get ready for the CAT scan of the abdomen and pelvis, and she says that she cannot take this any longer. She is anxious and nervous during my visit. OBJECTIVE: VITAL SIGNS: Blood pressure is 123/86, pulse is 85, respiratory rate is 16, temperature is 98.2, O2 saturation is 95%. HEENT: Her pupils are responding to light properly. Sclerae nonicteric. Oral mucosa is somewhat dry. NECK: Supple. LUNGS: Breath sounds diminished at both bases. HEART: S1, S2, somewhat irregular. No S3. No S4. ABDOMEN: Somewhat tender to palpation all over. There are no masses. Bowel sounds present. EXTREMITIES: No clubbing, cyanosis, or edema. Her left hand is wrapped. NEUROLOGICAL: As I mentioned above, she is tearful. She follows my commands. She is able to answer my questions properly. LABORATORY STUDIES: White count of 8.0, hemoglobin 11.3, hematocrit 35.1, platelet count is 179. Sodium of 143, potassium 2.9, chloride 104, CO2 30, creatinine is 0.83, BUN 12, glucose 292, ranging from 191-292, calcium 8.1, cortisol level 18. Microbiology; bacterial culture from the hand showed Gram stain, few epithelial cells, moderate WBCs, RBCs present. No organisms seen. Urine culture, no growth in 24 hours and blood cultures no growth in 24 hours. Lower extremity ultrasound showed significant stenosis of the bilateral lower extremity arterial systems and angiography was recommended. A CT angiogram of aorta with runoff was done which showed extensive atherosclerosis and occlusion of the right external iliac artery down to the level of the common femoral artery with additional multifocal occlusion involving the left and right lower extremity arterial system. IMPRESSION: 1. Severe sepsis of unclear source. The patient is scheduled for CT of the abdomen and pelvis. ID consultation was requested with Dr. Clements. She is on vancomycin and meropenem. Her blood cultures came back negative so far, urine culture is negative. 2. Atrial fibrillation, well controlled with amiodarone. 3. Pacemaker. 4. Acute renal failure, resolved. 5. Cardiomyopathy with history of left ventricular ejection fraction down to 30% and improved on the echo done yesterday up to 55% left ventricular ejection fraction. 6. Chronic obstructive pulmonary disease. 7. Deconditioning. 8. Anxiety. 9. Hyperglycemia secondary to sepsis. PLAN: As mentioned above, continue both antibiotics. Obtain ID consult. The patient is off Levophed and vasopressin. We will obtain CT of the abdomen and pelvis if the patient allows us. We will start her on lorazepam 0.5 mg twice a day for her anxiety and she will remain in intensive care unit for close monitoring since she is still quite sick, although her general status improved. Job ID: [id number]
[2018-09-27 15:40] LABS: Vancomycin, Random 3.6 ug/mL (See Comment)
[2018-09-27] MEDS ORDERED: Vancomycin HCl 1 GM in Premix Bag 1 BAG IVPB SCH (15:45)
[2018-09-27] MEDS: Vancomycin HCl 750 MG in Sodium Chloride 0.9% 250 ML 250 ML IVPB SCH (16:11)
--- NOTE | 2018-09-27 16:53 | PRG ---
DATE OF SERVICE: 09/27/2018 SUBJECTIVE: Allen is still in the ICU. She had the angiogram, which is described below. She is still having pain in the right lower extremities somewhat in the back as well, some abdominal pain as well. No respiratory symptoms. OBJECTIVE: VITAL SIGNS: T-max 98.2, blood pressure 140/70, heart rate 96, and O2 saturation 94%. GENERAL: Still with skin lesions with little more ulcerative today than before. LABORATORY DATA: White cell count 8.0, hemoglobin 11, platelets 179. Sodium 143, creatinine 0.83. Cortisol 18. Microbiology with negative blood cultures thus far. DIAGNOSTIC DATA: CT angiogram showed atherosclerosis of descending thoracic aorta, abdominal aorta, and aortic bifurcation without any stenosis or occlusion. Celiac artery, superior mesenteric artery, and inferior mesenteric artery origins appear unremarkable. Renal artery ostium without stenosis. The iliac arteries show atherosclerotic disease with mild stenosis. The left internal iliac artery does have moderate stenosis, and then there is severe stenosis of the distal right internal iliac artery. The right external iliac artery does not have any contrast opacification. There is absence of contrast, which extends to the common femoral artery on the right side and the left external iliac artery has multisegment mild stenosis. There is absence of contrast of the common femoral artery. There was enhancement of the proximal superior femoral artery and the proximal profunda femoral artery due to collaterals. The mid and distal superficial femoral artery have long segment moderate stenosis, severe stenosis involving the distal superficial femoral artery, and moderate stenosis noted in the multiple segments of popliteal artery. Arterial trifurcation is patent. There is no adequate contrast opacification of the anterior tibial, posterior tibial artery. ASSESSMENT AND DISCUSSION: Coronary artery disease, ischemic cardiomyopathy, atrial fibrillation, severe peripheral vascular disease with most involvement localized to the right lower extremity with multiple areas of severe obstruction. It does not appear that likely the patient has an infectious process going on at this time. By tomorrow, if blood cultures are negative, we would advise discontinuation of antimicrobial therapy. Not sure she would be eligible for any surgical intervention. Consultation with Vascular Surgery to be considered. Job ID: [id number] MTDD
--- NOTE | 2018-09-27 17:20 | PRG ---
DATE OF SERVICE: 09/27/2018 SUBJECTIVE: Patient was seen and examined at bedside and overnight events noted. Patient denies any shortness of breath or chest pain or palpitation. No history of nausea or vomiting or diarrhea or fever or chills or cramps. OBJECTIVE: GENERAL: This is a well-built female, in no apparent distress. VITAL SIGNS: Temperature 97.8. Heart rate 96. Respiratory rate . HEENT: Atraumatic, normocephalic. Oral mucosa is moist NECK: Supple. CARDIOVASCULAR: S1, S2 heard. Rate and rhythm regular. RESPIRATORY: Clear to auscultation. GASTROINTESTINAL: Abdomen is soft. MUSCULOSKELETAL: No tenderness. No edema. DERMATOLOGIC: No skin rash. NEUROLOGIC: Alert and awake and oriented X3. No focal neurologic deficits. Moving all the extremities. PSYCHIATRIC: Mood and affect normal. LABORATORY DATA: Potassium is 2.9, BUN is 12, and creatinine is 0.8. ASSESSMENT: 1. Acute kidney injury, which is better. 2. Metabolic acidosis, better. 3. Hyperkalemia, replaced. 4. Edema, controlled. 5. Hypertension, stable. PLAN: Renal function is back to normal. Replace potassium. I will sign off. Please call back with any questions. Job ID: [id number]
[2018-09-27] MEDS ORDERED: Ondansetron PF 4 MG/2 ML Vial SLOW IVP SCH (19:15)
--- NOTE | 2018-09-28 01:37 | CON ---
DATE OF CONSULTATION: 09/27/2018 OTHER CONSULTING PHYSICIANS: Dr. Desai and Dr. Narayan. CHIEF COMPLAINT: Back and leg pain. HISTORY OF PRESENT ILLNESS: The patient is a 73-year-old woman who is a long- term heavy smoker in spite of having COPD that at times requires oxygen. She has a history of atrial fibrillation and decreased LV function, although she apparently had a heart catheterization in 2016 that demonstrated normal coronaries. She has been maintained on amiodarone and Eliquis and has had a biventricular pacemaker placed. For quite sometime, she has had problems with low back pain with pain going down into her right leg wrapping around the outer aspect of the hip and thigh. She apparently for sometime was maintained on narcotic-based pain medications, but over the last 2 months has been relying on generic Tylenol. Although she apparently has been taking about 300 of those a month, she has not been taking any other nonsteroidals or [id number] preparations with salicylates. Over the last few days leading up to presentation, her back and leg had been hurting her quite a bit more and she was starting to develop some nausea, while she cannot give a very detailed history because of her distress. She apparently had very poor p.o. intake for 2 or even 3 days. It reached a point, where family insisted she seek medical attention and EMS was summoned. She, by report, was hypoglycemic and hypotensive upon arrival. Her blood sugar was 40 that came up to 160 with dextrose. Her systolic blood pressure was initially in the 60s, but was 108/49 upon initial arrival in the emergency room. However, over the next very few minutes, her blood pressure drifted on down as far as 64/36 and then on down to 59/28. She had an anion gap of 26 and a CO2 of 8 with a chloride of 105 on her initial chemistries and a blood gas that was done just a few hours later showed a pH of 7.04, pCO2 of 36 , O2 of 89.3, and a base excess of -20. Her lactate, however, was normal initially at 1.1 on followup, at the time the blood gas was 0.6 . She was started on pressors and volume resuscitated and now roughly 36 hours later is hemodynamically stable , off pressors. PAST MEDICAL HISTORY: Significant for atrial fibrillation, GE reflux disease, diverticulosis, hypertension, COPD, chronic back pain, and peripheral vascular disease. She has undergone previous cataract extractions, section, and hysterectomy. MEDICATIONS: Her home medications are listed as; 1. Eliquis 5 mg b.i.d. 2. Baby aspirin a day. 3. Coreg 25 mg b.i.d. 4. Norvasc 10 mg a day. 5. Lisinopril 20 mg a day. 6. Amiodarone 200 mg a day. 7. Symbicort inhaler b.i.d. 8. Dulera inhaler b.i.d. 9. Zanaflex p.r.n. 10. BuSpar 5 mg b.i.d. 11. P.r.n. Zofran. ALLERGIES: SHE REPORTS ALLERGIES TO PENICILLIN. HER SON ESTIMATES THAT SHE SMOKES A PACK OF CIGARETTES A DAY. FAMILY HISTORY: Significant for both of her parents having heart attacks. REVIEW OF SYSTEMS: Notable for some black fluctuant areas on her left hand having recently developed, positive for her chronic back pain, positive for shortness of breath. She occasionally has chest pressure. Her legs hurt when she walks, the right is worse than the left. She has had nausea of late. She has had some diarrhea of late. PHYSICAL EXAMINATION: GENERAL: She is 5 feet 2 inches, weighs 102.5 pounds. Heart rate is 93, blood pressure 118/68, nasal cannula O2 saturations are 94%. Her temperature 97.9, and the T-max this hospitalization is 98.2. GENERAL: She has wasting and is almost inconsolable related to the combination of nausea with dry heaves and back and leg pain. NECK: She has no obvious carotid bruits, but I could not get her to hold her breath. LUNGS: She has distant breath sounds. HEART: Fairly regular rate and rhythm, but I was not able to assess for gallops because her intercostal spaces were sunken. ABDOMEN: Soft and nontender. She had no peritoneal signs on abdominal exam. EXTREMITIES: She has a palpable left femoral pulse. I was not able to palpate a right femoral pulse. She initially said that it was exquisitely tender; when distracted, however, I was able to palpate it and she has a Doppler pulse there. She has a palpable left popliteal, fairly strong palpable left posterior tibial , and a faintly palpable left dorsalis pedis. I was not able to palpate pedal pulses or popliteal pulses on the right leg. I was able to get a modest signal in her right posterior tibial and a strong signal in her right dorsalis pedis with a doppler, while the veins in the left foot and ankle are obviously hazel than on the right. Both feet are pink with brisk capillary refill. Compartments are soft and nontender and ankles are freely mobile. She is able to actively move her toes. She has no obvious edema. LABORATORY DATA: Initially, her white count was 5.0 and this morning it was 8.0 ; hemoglobin was 13.7 initially and is 11.3 this morning; hematocrit 42.3 fell to 35.1; platelets went from 227,000 to 179,000. On initial chemistries, her sodium is 134, potassium 5.4, chloride 105, CO2 of 8, glucose 191, BUN 57, creatinine 2.02. Lactate 1.1. Calcium 8.5, bilirubin 0.2, alkaline phosphatase 63, AST 16, ALT 7. Protein 6.5, albumin 3.8. Phosphorus is 5.8, magnesium 1.6. Followup chemistries later in the day showed a potassium falling to 4.8, BUN 29, and creatinine 1.01 and this morning, sodium is 143, potassium 2.9, chloride 104, CO2 of 30, BUN 12, creatinine 0.83. TSH was 1.0442. Her blood gas yesterday morning pH 7.04, pCO2 of 36.4, pO2 of 89.3, base excess -20 on 2 L nasal cannula. Chest x-ray is consistent with COPD, has a biventricular pacemaker in place. Arterial doppler described monophasic flow throughout both legs yesterday. CT angiography showed extensive plaquing throughout the aortoiliac system with probable chronic occlusion of the distal right iliac system, has network of collaterals, that level could be appreciated. There is extensive amount of bowel gas that mostly appears to be colonic but she has bowel gas that essentially fills her pelvis. I am not able to appreciate any bowel gas going outside the pelvis or any obvious bowel gas going down the femoral sheath. IMPRESSION AND RECOMMENDATIONS: I think her back and leg pain is neuropathic pain. This does not really explain her metabolic disorders; however, I will defer that to Critical Care. Job ID: [id number] [facility]
[2018-09-28] MEDS: HYDROcodone/Acetaminophen 10/325 mg Tablet PO PRN ×3 (02:59→15:18)
[2018-09-28] MEDS: Lorazepam 0.5 MG TAB PO PRN ×2 (02:59→15:19)
[2018-09-28] MEDS ORDERED: Vancomycin HCl 500 MG in Sodium Chloride 0.9% 100 ML IVPB SCH (04:00)
[2018-09-28] MEDS: Meropenem 500 MG in Sodium Chloride 0.9% 100 ML IVPB SCH (05:00)
[2018-09-28] MEDS: Hydrocortisone Sod Succ/PF 100 mg/2 ml Vial IVP SCH ×3 (05:26→17:15)
[2018-09-28 06:52] LABS: BUN (Urea Nitrogen) 5 mg/dL (9.8-20.1); Calc. Creatinine Clearance 55 mL/min (70-130); Calcium 9.1 mg/dL (7.8-10.44); Estimated GFR-MDRD 89; Glucose 148 mg/dL (83-110); Magnesium 1.3 mg/dL (1.6-2.6); Phosphorus 1.4 mg/dL (2.3-4.7)
[2018-09-28 07:06] LABS: Anion Gap 18 mmol/L (10-20); Carbon Dioxide 39 mmol/L (23-31); Chloride 86 mmol/L (98-107); Sodium 140 mmol/L (136-145)
[2018-09-28 07:16] LABS: #Lymphocytes 0.9 thou/uL (1.20-3.40); #Monocytes 0.6 thou/uL (0.11-0.59); #Neutrophils 6.1 thou/uL (1.40-6.50); %Basophils 0.2 % (0.0-1.0); %Eosinophils 0.1 % (0.0-10.0); %Lymphocytes 11.5 % (21.0-51.0); %Monocytes 8.1 % (0.0-10.0); %Neutrophils 80.2 % (42.0-75.0); Hemoglobin 12.5 g/dL (12.0-16.0); Mean Corpuscular HGB CONC 30.9 g/dL (32.0-36.0); Mean Platelet Volume 7.9 fL (7.4-10.4); Platelet Count 161 thou/uL (130-400); RBC Distribution Width 16.5 % (11.5-14.5); White Blood Cell (WBC) Count 7.6 thou/uL (4.8-10.8)
[2018-09-28] MEDS: Ondansetron ODT 4 MG TAB PO PRN ×2 (08:09→13:08)
[2018-09-28] MEDS: Amiodarone 200 MG TAB PO SCH (08:12)
[2018-09-28] MEDS: busPIRone HCl 5 MG TAB PO SCH ×2 (08:14→20:57)
[2018-09-28] MEDS: Aspirin 325 mg Enteric Coated Tablet PO SCH (08:27)
[2018-09-28] MEDS ORDERED: Magnesium Sulfate 4 GM in Sodium Chloride 0.9% 250 ML 250 ML IVPB SCH (08:45)
[2018-09-28] MEDS ORDERED: Potassium Phosphate 30 MMOL in Sodium Chloride 0.9% 250 ML 250 ML IVPB SCH (09:15)
--- NOTE | 2018-09-28 09:19 | PDOC.CTH ---
Cardiology Progress Note - Subjective The pt seen and examined. No cardiac complaints. No overnight events. She cont chronic severe back pain. - Objective Vital Signs Temp Pulse Resp Pulse Ox 09/28/18 08:00 98.2 F 93 L 09/28/18 04:00 98.6 F 09/27/18 23:12 89 22 H 99 Admit Weight 102 lb 8.239 oz Weight 102 lb 8.239 oz 09/27/18 09/28/18 09/29/18 06:59 06:59 06:59 Intake Total 3709.2 2673 100 Output Total 4635 4285 775 Balance -925.8 -9223 -795 - Physical Examination General/Neuro: alert & oriented x3 Neck: no JVD present Lungs: other: (coarses and diminihsed at bases) Heart: other: (irregular) Abdomen: soft Extremities: other: (No edema) - Telemetry Telemetry Rhythm: AFib with V paced - Labs Result Diagrams: 09/28/18 06:16 09/28/18 06:16 Troponin/CKMB Troponin I 0.019 ng/mL (< 0.028) 09/26/18 04:50 - Assessment/Plan 1. PAD with plaque throughout the aortoiliac system with severe chronic right iliac-> [employer] stenosis. - already consulted by Dr Yanez 2. Afib - well controlled HR with Amiodarone; on ASA 325mg qd for OAC now (may resume Eliquis 5mg BID if no procedure/Sx) 3. HTN - stable 4. Hyperlipidemia - 5. COPD - managed by licensed psychologist 6. Current smoker 4-5 cigaretts/day - smoking cessation education given 7. Back and ABD pain - MAR reviewed * Echo on 09/26/2018 showed EF 55-60%, mild MR and TR; dilated bilat. atrium, and diastolic dysfunction. Pt. seen and eval. by me. I agree with the A/P by the TOGGLER. Continue rate control with the Afib. Poor prognosis. Chest: decreased BS throughout. Irreg. rhythm. No edema. Hurts everywhere. Review of Systems - Review of Systems Respiratory: reports: no symptoms reported Cardiac (ROS): reports: no symptoms reported ABD/GI: reports: no symptoms reported Musculoskeletal: reports: no symptoms reported Skin: reports: no symptoms reported
[2018-09-28] MEDS: Potassium Chloride 20 MEQ TAB PO SCH ×2 (09:29→12:20)
[2018-09-28] MEDS: Gabapentin 300 MG CAP PO SCH ×3 (09:33→20:56)
[2018-09-28] MEDS ORDERED: Metoprolol Tartrate 25 MG TAB PO SCH (10:45)
[2018-09-28] MEDS ORDERED: Enoxaparin Sodium 30 MG/0.3 ML SYRINGE SC SCH (10:45)
[2018-09-28] MEDS ORDERED: Famotidine 20 MG TAB PO SCH (10:45)
[2018-09-28] MEDS ORDERED: Lactated Ringer's 1,000 ML IV SCH (10:45)
[2018-09-28] MEDS: Sodium Chloride 0.45% 1,000 ML IV SCH (11:29)
--- NOTE | 2018-09-28 14:20 | PRG ---
DATE OF SERVICE: 09/28/2018 SUBJECTIVE: The patient is seen and examined at bedside. She is still in ICU C2. She is not very happy. She does not want to do things we asked her to do. Her appetite is not good. She tries to drink some supplements. She complains about back pain. OBJECTIVE: VITAL SIGNS: Blood pressure is 109/88, pulse is 97, respiratory rate is 22, and O2 saturation is 100%. HEENT: Pupils are responding to light properly. Sclerae nonicteric. Conjunctivae somewhat palish. LUNGS: Breath sounds somewhat diminished at both bases. HEART: S1 and S2. Irregularly irregular. No S3. No S4. ABDOMEN: Soft. Somewhat tender on palpation. Bowel sounds are present. EXTREMITIES: No clubbing, cyanosis, or edema. NEUROLOGICAL: She is able to follow my commands, but she is very reluctant to do anything. She states that her some anxiety is improved. LABORATORY DATA: Labs showed white count of 7.6, hemoglobin 12.5, hematocrit 40.5, and platelet count is 161,000. Sodium 140, potassium 3.0, chloride 86, CO2 of 39, BUN 5, creatinine 0.65, glucose 148, phosphorus 1.4, and magnesium 1.3. IMAGING STUDIES: Echocardiogram showed LVEF of 50% to 55%, restrictive filling pattern suggestive of some diastolic dysfunction, twmlicmz-[id number] dilated left atrium, moderately enlarged right atrium. Pacemaker/AICD leads in place in right atrium cavity. Also, there was mild mitral regurgitation and wjjg-[id number]-[id number] tricuspid regurgitation. IMPRESSION: 1. Hypotension with hypothermia, felt to be secondary to sepsis, but after a consultation with Infectious Disease and negative cultures, brass pourer stopped antibiotics. 2. Atrial fibrillation, controlled on amiodarone. 3. Pacemaker. 4. Acute renal failure, resolved. 5. Cardiomyopathy with recent echo read at left ventricular ejection fraction of 55%, which is improved compared to the previous one. 6. Chronic obstructive pulmonary disease. 7. Deconditioning. 8. Chronic back pain. 9. Anxiety. 10. Hypomagnesemia. 11. Hypokalemia for replacement. PLAN: The patient is not doing well. She does not eat much. We are replacing her magnesium and potassium, going to get medical consult with Pain Management doctor, Dr. Vieira. I am going to start her on Movantik 25 mg once a day to prevent her constipation from opiates. We are using opioids p.r.n. for the pain control. She has very extensive atherosclerotic disease in her vessels, but based on consultation with a cardiothoracic surgeon, this is less likely cause of her pain located in the back and the right leg. Being so, follow up with serial magnesium levels and BMP levels. Job ID: [id number]
--- NOTE | 2018-09-28 14:28 | PRG ---
DATE OF SERVICE: 09/28/2018 SERVICE: Pulmonary Medicine. INTERVAL HISTORY: The patient is doing poorly from a pain standpoint. She denies any current chest pain, fevers, or chills. Otherwise, there has been no interval change to her condition. She is breathing comfortably. Overnight, she has gone in and out of a nonsustained ventricular tachycardia. We have an echocardiogram for review otherwise. She had multiple electrolyte abnormalities, which were being corrected as we speak. PHYSICAL EXAMINATION: VITAL SIGNS: Afebrile, pulse 97, blood pressure 109/88, respirations 22, and saturation 100% on 4 L nasal cannula. GENERAL: The patient is awake and alert, in no apparent distress. LUNGS: Decent air entry. There is a slightly prolonged expiratory phase. I do not hear any wheezing. Rhonchi are present, but clear with cough. No crackles. HEART: Normal rate, regular. ABDOMEN: Soft, nontender, and nondistended. Bowel sounds are positive. MUSCULOSKELETAL: No cyanosis or clubbing. No pitting in the bilateral lower extremities. NEUROLOGIC: Grossly nonfocal. LABORATORY DATA: WBC 7.6, hemoglobin 12.5, and platelets 161,000. Potassium 3.0, chloride 86, bicarb 39, and creatinine 0.65. Phosphorus and magnesium are both reduced. Cortisol was 18.0. I confirmed with the lab and this was ran off the specimen that predated her first dose of hydrocortisone. Blood cultures x2. Urine culture negative to date. ASSESSMENT: 1. Peripheral vascular disease, horrendous. 2. Chronic back pain. 3. Hypokalemia. 4. Hypomagnesemia. 5. Hypophosphatemia. 6. Non-sustained ventricular tachycardia. DISCUSSION AND PLAN: We will proceed with an MRI of the lumbar spine. Our vascular surgeon believes that her pain is not related to any type of ischemia, or claudication. Her urine output has simply been way too robust and now she has a contraction alkalosis despite the fact that we are not giving anything to precipitate polyuria. I will give her a liter of fluid and increase her IV fluids to 75 mL/h. Pulmonary Critical Care will continue to follow along. Because she is having nonsustained ventricular tachycardia, I will initiate a small dose of metoprolol. I want a shy away from any significant tight blood pressure control as this will decrease her perfusion of her legs. Job ID: [id number] [facility]ALTH SYSTEMAgustin
--- NOTE | 2018-09-28 15:53 | RAD ---
THREE VIEWS LEFT HAND: COMPARISON: None. HISTORY: Tender to palpation in the left base of the 5th digit. FINDINGS: Three views of the left hand show no evidence of acute fracture or dislocation. Swelling is seen emy rounding the metacarpal phalangeal joint of the small finger. No osseous erosions are seen. IMPRESSION: No evidence of acute osseous abnormality. POS: C
[2018-09-28] MEDS: Famotidine 20 MG TAB PO SCH (20:56)
[2018-09-28] MEDS: Metoprolol Tartrate 25 MG TAB PO SCH (20:57)
[2018-09-29] MEDS: Sodium Chloride 0.45% 1,000 ML IV SCH ×2 (00:06→15:29)
[2018-09-29] MEDS: Hydrocortisone Sod Succ/PF 100 mg/2 ml Vial IVP SCH ×4 (00:07→18:14)
[2018-09-29] MEDS: Lorazepam 0.5 MG TAB PO PRN ×2 (01:34→08:12)
[2018-09-29] MEDS: HYDROcodone/Acetaminophen 10/325 mg Tablet PO PRN ×2 (01:49→08:13)
[2018-09-29 03:47] LABS: BUN (Urea Nitrogen) 12 mg/dL (9.8-20.1); Calc. Creatinine Clearance 64 mL/min (70-130); Calcium 9.1 mg/dL (7.8-10.44); Estimated GFR-MDRD Greater than 90; Glucose 172 mg/dL (83-110); Magnesium 2.1 mg/dL (1.6-2.6)
[2018-09-29 03:56] LABS: Anion Gap 12 mmol/L (10-20); Carbon Dioxide 40 mmol/L (23-31); Chloride 87 mmol/L (98-107); Potassium 3.4 mmol/L (3.5-5.1); Sodium 136 mmol/L (136-145)
[2018-09-29 04:04] LABS: #Lymphocytes 0.5 thou/uL (1.20-3.40); #Monocytes 0.4 thou/uL (0.11-0.59); #Neutrophils 5.2 thou/uL (1.40-6.50); %Basophils 0.1 % (0.0-1.0); %Eosinophils 0.1 % (0.0-10.0); %Lymphocytes 8.6 % (21.0-51.0); %Monocytes 6.6 % (0.0-10.0); %Neutrophils 84.6 % (42.0-75.0); Mean Corpuscular HGB CONC 30.2 g/dL (32.0-36.0); Mean Corpuscular Hemoglobin 37.8 pg (27.0-31.0); Mean Platelet Volume 7.7 fL (7.4-10.4); Platelet Count 150 thou/uL (130-400); RBC Distribution Width 16.2 % (11.5-14.5); Red Blood Cell (RBC) Count 3.45 mill/uL (4.20-5.40); White Blood Cell (WBC) Count 6.1 thou/uL (4.8-10.8)
[2018-09-29] MEDS: Metoprolol Tartrate 25 MG TAB PO SCH ×3 (07:56→20:40)
[2018-09-29] MEDS ORDERED: Potassium Phosphate 30 MMOL in Sodium Chloride 0.9% 500 ML IVPB SCH (08:00)
[2018-09-29] MEDS ORDERED: Enoxaparin Sodium 30 MG/0.3 ML SYRINGE SC SCH (09:00)
[2018-09-29] MEDS: busPIRone HCl 5 MG TAB PO SCH ×2 (09:13→20:40)
[2018-09-29] MEDS: Gabapentin 300 MG CAP PO SCH ×3 (09:14→20:40)
[2018-09-29] MEDS: Famotidine 20 MG TAB PO SCH ×2 (09:17→20:40)
[2018-09-29] MEDS: Aspirin 325 mg Enteric Coated Tablet PO SCH (09:18)
[2018-09-29] MEDS: Amiodarone 200 MG TAB PO SCH (09:18)
[2018-09-29] MEDS: Potassium Chloride 20 MEQ TAB PO SCH ×2 (09:24→13:16)
--- NOTE | 2018-09-29 09:40 | PRG ---
DATE OF SERVICE: 09/29/2018 SERVICE: Pulmonary Medicine. INTERVAL HISTORY: The patient is doing great from respiratory standpoint. Breathing comfortably. There has been no interval change to her condition. She has been having runs of tachyarrhythmias on and off. She did not have any chest pain with this, is not experiencing any shortness of breath. PHYSICAL EXAMINATION: VITAL SIGNS: Afebrile. Pulse 95, blood pressure 145/93, respirations 21, saturation 100% on 1 L nasal cannula. GENERAL: The patient is awake and alert, in no apparent distress. LUNGS: Excellent air entry. Slightly prolonged expiratory phase, but no rhonchi or crackles are appreciated. HEART: Normal rate, regular. ABDOMEN: Soft, nontender, nondistended. Bowel sounds are positive. MUSCULOSKELETAL: No cyanosis or clubbing. There is no pitting in the bilateral lower extremities. Pulses are absent from the right lower extremity. I can only get the DP pulse on the left lower extremity. LABORATORY DATA: WBC 6.1, hemoglobin 13.0, platelets 150,000. Potassium 3.4. Basic metabolic profile is otherwise unremarkable. Phosphorus is 2.0 and improving. Blood cultures x2, urine culture are negative. IMAGING: Hand x-ray demonstrates no evidence of osseous abnormalities. ASSESSMENT: 1. Peripheral vascular disease, horrendous. 2. Chronic back pain. 3. Hypokalemia, improved. 4. Hypomagnesemia, resolved. 5. Hypophosphatemia, improved. DISCUSSION AND PLAN: The MRI of the back should be at some point today. I will escalate her dose of metoprolol because of her ongoing tachyarrhythmias. Eliquis will be resumed. Fentanyl patch will be placed. Hopefully, this will decrease our dependence on [place]. Pulmonary Critical Care will continue to follow but from my perspective, she is stable for transition to the intermediate care unit. Job ID: [id number]
--- NOTE | 2018-09-29 09:53 | CON ---
DATE OF CONSULTATION: 09/28/2018 REASON FOR CONSULTATION: Back pain and right lower extremity pain. HISTORY OF PRESENT ILLNESS: This is a 73-year-old female, admitted on 09/26/2018, after EMS was called to her home due to decline, poor oral intake, decline in function and complaints of right leg pain. She was found to be hypotensive and hypothermic on admission, admitted for possible sepsis. She has been evaluated by multiple disciplines including Cardiology, Pulmonary, Nephrology, Vascular Surgery as well as Infectious Disease. She has required vasopressor therapy initially for hypotension and has been treated prophylactically with antibiotic therapy for possible sepsis until this was recently ruled out. The patient does have a history of COPD, atrial fib, peripheral vascular disease, and the patient was considered critical, has been admitted to critical care for management. Since her admission, she has reported pain in bilateral low back and right lower extremity and continues to report pain in the lateral, anterior right thigh that is constant, dull, achy pain that does not improve with any factors noted in the history as well as reported today. She reports that the pain has been chronic for greater than 6 months. She has been taking gabapentin 1800 mg at home as well as occasional narcotic medications for the pain with some relief reported. Most recently, she has been taking igkw-odb-suzutow acetaminophen with her pain not being controlled. She denies any weakness in the right lower extremity, however, she reports the need for assistive devices at home for ambulation due to instability in the lower extremities and increase in that right leg pain. The low back hurts bilaterally across the back in a band like pattern that typically is chronic for her. The right lower extremity pain radiates down again anterior, lateral, right lower extremity just passed the right knee. There is no reports of bowel or bladder dysfunction or incontinence in her previous history to suggest any cauda equina symptoms. Lumbar CT scan from 2017 indicates multilevel degenerative changes in the lumbar spine with some chronic-appearing vertebral compression fractures, most noted at L1. At L1-L2, there is a broad-based disk osteophyte with paracentral disk protrusion, however, she has patent neuroforaminal narrowing openings on that side. At L2-L3, there is loss of disk space, degenerative changes with mild narrowing of central spinal canal and mild left neuroforaminal narrowing. At L2-L3, there is mild left-sided neuroforaminal narrowing with minimal right-sided neuroforaminal narrowing. At L3-L4, she has some degenerative disk with loss of height, mild narrowing of central spinal canal. At L4-L5, there is a broad-based disk osteophyte with some facet hypertrophy with associated mild narrowing of central canal and bilateral neuroforaminal narrowing, which is greater on the right versus left. PAST MEDICAL HISTORY: Atrial fibrillation, pacemaker placement, cardiomyopathy, GERD, diverticulitis, hypertension, COPD, seizures, chronic pain, and peripheral vascular disease. PAST SURGICAL HISTORY: , bilateral cataract removal, bilateral trigger finger, hysterectomy, and a neck surgery. FAMILY HISTORY: Positive for heart disease in both parents. ALLERGIES: TO ALPRAZOLAM, DOXYCYCLINE, PENICILLIN, KETOROLAC, AND TRAMADOL. SOCIAL HISTORY: Apparently, the patient lives at home with the son, ambulates with use of assistive device at most times. She does have history of smoking. No EtOH or drug use reported. MEDICATIONS: Medications reviewed as well as home medications from previous documentation and E-clinical, it appears that the patient was taking gabapentin 1800 mg at home, this has been resumed since admission as well as hydrocodone tablet 1 tablet as needed q.4 to 6 hours for pain. She has required 2 tablets today in the last 24 hours for pain. REVIEW OF SYSTEMS: Negative except for above HPI. PHYSICAL EXAMINATION: VITAL SIGNS: Blood pressure 119/72, heart rate is 89, temperature is 98.6, respirations 18, and she has oxygen per nasal cannula at 96%. GENERAL: The patient is resting comfortably with her eyes closed. She appears to be in no distress. She is difficult to arouse due to sedation. She is thin, chronically-ill appearance. She does have a dressing to her left hand. LUNGS: She has bilateral breath sounds diminished bilaterally. CARDIOVASCULAR: No edema. There is an S1 and S2. ABDOMEN: Thin. Bowel sounds x4. There is no distention. No abdominal pain. Soft and nontender. SPINE ASSESSMENT: Cervical spine; she has central line noted to the right side. She appears to be able to have full range of motion of the cervical spine. She has resistance against upper extremity testing due to her increased sedation. Thoracic spine; range of motion is limited due to her physician in bed. There is no thoracic tenderness on the vertebral bodies. No paraspinal tenderness as well. Lumbar spine; she does have some pain in bilateral low backs, starting at L2 to about L5. No SI pain. Lumbar facet pain bilaterally. EXTREMITIES: She does have some tenderness with touch to the right lateral lower extremity as well as the right anterior thigh, hypersensitivity. Plantar flexion and dorsiflexion bilaterally are intact. Reflexes are not assessed due to the patient's inability to participate in assessment secondary to sedation. There is diminished sensation to right lower extremity as well. NEUROLOGICAL: She is alert and oriented x2. She seems a bit confused, however, drowsy. Again, difficult to assess. No clonus. DIAGNOSTIC DATA: Imaging and labs reviewed. Previous lumbar Ct review is noted in HPI. CTA that indicates peripheral vascular disease as hsxqizhz-lc-eywyla with reports of severe peripheral stenosis to right distal internal iliac artery in addition of the vessels. Vascular has been consulted and is following the patient. IMPRESSION AND PLAN: Lumbar radicular pain versus peripheral vascular disease. The patient has a history of lumbar degenerative disk with history of old vertebral compression fracture at L1 and foraminal narrowing at multiple area in lumbar spine with foraminal narrowing on the right at L4, L5 as well as L2 and L3 with a right paracentral disk. This was noted in [address] In light of these findings, her pain could be stemming from radiculopathy, however, vascular studies indicate deficits in the right lower extremity as well. There is a new lumbar image that is pending for the a.m. We will review for any changes and further recommendations to follow. For now, continue neuropathic medications. Increasing gabapentin to 600 mg t.i.d. as she was managed at home as well as adding a mild narcotic for her pain. I would not recommend any extended release narcotic medications at this time to her pulmonary comorbidities and the patient's current fragile state of health. At this time as well, she appears not to be a candidate for interventional injection until she further stabilizes. Further recommendations to follow after new lumbar imaging in the a.m. We will continue to follow. Job ID: [id number]
[2018-09-29] MEDS ORDERED: Metoprolol Tartrate 25 MG TAB PO SCH (10:30)
[2018-09-29] MEDS: fentaNYL 50 mcg/hour Patch TD SCH (11:10)
[2018-09-29] MEDS ORDERED: Digoxin 0.5 MG/2 ML AMP SLOW IVP SCH (12:30)
[2018-09-29] MEDS ORDERED: Digoxin 0.5 MG/2 ML AMP ONE ×3 (12:56→23:16)
--- NOTE | 2018-09-29 13:27 | PDOC.CTH ---
Cardiology Progress Note - Subjective The pt seen and examined. No cardiac complaints. Several Afib/Aflutter with RVR episodes this AM when she was moving and/or having pain. She cont chronic severe back pain. - Objective Vital Signs Temp Pulse Resp Pulse Ox 09/29/18 13:18 98.6 F 09/29/18 12:59 107 H 09/29/18 12:34 107 H 18 100 09/29/18 08:06 95 09/29/18 08:00 98.3 F 95 Admit Weight 102 lb 8.239 oz Weight 87 lb 8.376 oz 09/28/18 09/29/18 09/30/18 06:59 06:59 06:59 Intake Total 2673 4577 150 Output Total 4285 4485 775 Balance -1612 92 -625 - Physical Examination General/Neuro: other: (confused) Lungs: other: (corases and diminished at bases) Heart: other: (irregular) Abdomen: soft Extremities: other: (No edema) - Telemetry Telemetry Rhythm: AFib/ V paced - Labs Result Diagrams: 09/29/18 03:22 09/29/18 03:22 Troponin/CKMB Troponin I 0.019 ng/mL (< 0.028) 09/26/18 04:50 - Assessment/Plan 1. PAD with plaque throughout the aortoiliac system with severe chronic right iliac-> MEDICAL INFORMATION SPECIALIST stenosis. - Cont. medical tx. 2. Afib with several episodes of Afib/Aflutter with RVR on 09/29/2018 - Digoxin 0.5mg IV push x 1 now, 0.25mg IV q6hrs x2, and change to PO 0.125mg qd; On Amiodarone 200mg qd; on ASA 325mg qd for OAC now (may resume Eliquis 5mg BID if no procedure/Sx) 3. HTN - stable 4. Hyperlipidemia - 5. COPD - managed by outside solar sales consultant 6. Current smoker 4-5 cigaretts/day - smoking cessation education given 7. Back and ABD pain - MAR reviewed * Echo on 09/26/2018 showed EF 55-60%, mild MR and TR; dilated bilat. atrium, and diastolic dysfunction. Pt. seen and eval. by me. I agree with the A/P by the RETAIL DIRECTOR. She received pain medications today and is more fatigued. She has multiple medical problems and a poor prognosis. She continue to have atrial arrhythmias and atrial fibrillation. Continue with rate control and OAC. Chest: poor inspiratory effort. Irreg/irreg. rhythm. No edema.
--- NOTE | 2018-09-29 13:40 | PRG ---
DATE OF SERVICE: 09/29/2018 SUBJECTIVE: Ms. Delmy Villa has been transferred to the [facility]. She is awake, a bit drowsy. Denied any pain at this time. It is not very easy to get a review of systems from her. OBJECTIVE: VITAL SIGNS: Temperature max 98.6, blood pressure 130/70, pulse 107, respirations 18, O2 saturation 100%. GENERAL: Thin, does not appear in acute distress, but she is chronically ill appearing. LUNGS: Symmetric air entry with no obvious crackles or wheezing. HEART: S1, S2. Diminished heart sounds. ABDOMEN: Not distended or tender. EXTREMITIES: Tender in the right thigh region is less than before. She is able to move extremities. The lower extremities are cooler than before. LABORATORY DATA: White cell count 6.1, hemoglobin 13, platelets 150, 84% neutrophils. Chemistry with a sodium 136, creatinine 0.56, phosphorus 2.0, albumin 3.8, globulin 2.7. The microbiology data with negative blood cultures. The patient had a hand x-ray, which did not show any osseous abnormality. ASSESSMENT: 1. Peripheral vascular disease. 2. Coronary artery disease, ischemic cardiomyopathy, atrial fibrillation. 3. Hypothermia. 4. Hypotension, which has resolved. 5. Malnutrition. DISCUSSION: The patient again without evidence of infectious source at this point in time. She does have the episode of hypothermia that probably precipitated to all the hemodynamic changes on top of her severe peripheral vascular disease. Apparently, Palliative Care has been consulted and decision to be made regarding the aggressiveness of care. Job ID: [id number]
--- NOTE | 2018-09-29 13:53 | PRG ---
DATE OF SERVICE: 09/29/2018 SUBJECTIVE: The patient is seen and examined at bedside. She is tearful. She complains about the back pain. OBJECTIVE: VITAL SIGNS: Blood pressure is 132/70, pulse is 107, respiratory rate is 18, and O2 saturation is 100% on 2.5 L by nasal cannula. HEENT: Her sclerae are nonicteric. Pupils are responding to light. Oral mucosa is somewhat dry. NECK: Supple. LUNGS: Clear. HEART: S1 and S2. Tachycardic. Not regular. ABDOMEN: Soft. Tender all over. EXTREMITIES: No clubbing, cyanosis, or edema. NEUROLOGIC: She is able to move all four extremities. Very difficult to finish examination because she is tearful and she does not want to be touched. LABORATORY DATA: Labs showed white count of 6.1, hemoglobin of 13.0, hematocrit of 43.2, and platelet count of 150,000. Sodium of 136, potassium 3.4, chloride 87, CO2 of 40, BUN 12, creatinine 0.56, glucose 172, and phosphorus 2.0. X-ray of the right hand did not show any abnormalities. IMPRESSION: 1. Hypotension with hypothermia, felt to be secondary not to sepsis, but to a situation in which she stayed in her house for several days without any heating. 2. Atrial fibrillation. 3. Pacemaker. 4. Peripheral vascular disease, very severe. 5. Cardiomyopathy with recent echo read at left ventricular ejection fraction of 55%. 6. Chronic obstructive pulmonary disease. 7. Chronic back pain, still unclear etiology. The patient is going to have MRI of the spine sometime today. 8. Anxiety. 9. Hypomagnesemia. 10. Hypokalemia. PLAN: Dr. Desai recommends to transfer her to [facility]. The patient was seen by Pain Management Services. Her gabapentin was increased to 600 mg three times a day and she will continue on her p.r.n. opioids plus fentanyl patch. Her antibiotics were stopped yesterday and continue her benzodiazepines for her anxiety. Job ID: [id number]
[2018-09-29] MEDS: Digoxin 0.5 MG/2 ML AMP SLOW IVP SCH (18:14)
[2018-09-29] MEDS: Apixaban 5 MG TAB PO SCH (20:40)
[2018-09-30] MEDS: Hydrocortisone Sod Succ/PF 100 mg/2 ml Vial IVP SCH ×5 (00:21→23:53)
[2018-09-30] MEDS: Digoxin 0.5 MG/2 ML AMP SLOW IVP SCH (00:22)
--- NOTE | 2018-09-30 03:19 | CON ---
DATE OF CONSULTATION: 09/29/2018 DATE OF SURGERY: 09/29/2018. CHIEF COMPLAINT: Left hand wound. HISTORY OF PRESENT ILLNESS: The patient is now in the neuro CCU for evaluation of cardiac rhythm abnormality after being in the other portion ICU for the last 4 days. We were consulted because of possibility of wound with underlying structural damage. Radiographs were already taken, did not show any evidence of fracture, but at her left hand over the direct ulna small finger metacarpal head, there is an excoriation, which appears to have intact dermis, erythema, and had a dressing from the wound care team when I evaluated her, but no infection, lymphangitis, or fluctuance. There is no visible tendon. No Tinel's. She has nearly full digit motion at the MP joint, IP joint, and wrist. ASSESSMENT AND RECOMMENDATION: Probable wound down to and maybe including dermis, but no exposed bone: If the patient does not respond to dressing changes as ordered, we will recommend without a small skin graft. We will follow the patient in approximate 48 to 72 hours. Continue present regimen for dressing changes as ordered by Job ID: [id number]
[2018-09-30] MEDS: Sodium Chloride 0.45% 1,000 ML IV SCH ×2 (04:30→20:58)
[2018-09-30 04:48] LABS: #Lymphocytes 0.7 thou/uL (1.20-3.40); #Monocytes 0.8 thou/uL (0.11-0.59); #Neutrophils 8.3 thou/uL (1.40-6.50); %Basophils 0.1 % (0.0-1.0); %Eosinophils 0.1 % (0.0-10.0); %Lymphocytes 7.1 % (21.0-51.0); %Monocytes 8.3 % (0.0-10.0); %Neutrophils 84.4 % (42.0-75.0); Hemoglobin 13.8 g/dL (12.0-16.0); Mean Corpuscular HGB CONC 30.6 g/dL (32.0-36.0); Mean Corpuscular Hemoglobin 37.8 pg (27.0-31.0); Mean Platelet Volume 7.8 fL (7.4-10.4); Platelet Count 177 thou/uL (130-400); RBC Distribution Width 15.8 % (11.5-14.5); Red Blood Cell (RBC) Count 3.66 mill/uL (4.20-5.40); White Blood Cell (WBC) Count 9.8 thou/uL (4.8-10.8)
[2018-09-30 04:58] LABS: BUN (Urea Nitrogen) 13 mg/dL (9.8-20.1); Calc. Creatinine Clearance 55 mL/min (70-130); Calcium 9.6 mg/dL (7.8-10.44); Estimated GFR-MDRD Greater than 90; Glucose 142 mg/dL (83-110); Magnesium 1.6 mg/dL (1.6-2.6)
[2018-09-30 05:07] LABS: Anion Gap 13 mmol/L (10-20); Carbon Dioxide 38 mmol/L (23-31); Chloride 90 mmol/L (98-107); Sodium 137 mmol/L (136-145)
[2018-09-30] MEDS ORDERED: Calcium Carbonate 500 MG ChewTAB PO PRN (10:48)
[2018-09-30] MEDS ORDERED: Sodium Chloride 0.9% (PF) 10 ML VIAL FS PRN (10:51)
--- NOTE | 2018-09-30 10:51 | PDOC.PN ---
- Subjective Encounter Start Date: 09/30/18 (f/u abd pain) Encounter Start Time: 10:49 Subjective: Pt moaning in pain this morning, nurse notes she is intermittently -: responsive - no change from yesterday. She has n/v -: normal bp reported this morning - Objective Resuscitation Status - Order Detail: 09/26/18 07:52 Resuscitation Status Routine Resuscitation Status: FULL: Full Resuscitation Vital Signs & Weight: Vital Signs (12 hours) Temp Pulse Resp Pulse Ox 09/30/18 09:48 99 09/30/18 09:45 74 23 H 99 09/30/18 07:30 98 09/30/18 07:26 98.2 F 09/30/18 03:48 99.0 F 09/30/18 00:22 82 09/29/18 23:38 98.3 F 09/29/18 23:09 82 16 100 Weight Admit Weight 102 lb 8.239 oz Weight 85 lb 9 oz Most Recent Monitor Data Heart Rate from ECG 75 NIBP 130/71 NIBP BP-Mean 90 Respiration from ECG 14 SpO2 100 I&O: 09/29/18 09/30/18 10/01/18 06:59 06:59 06:59 Intake Total 4577 2534 Output Total 7285 3275 Balance 92 -741 Result Diagrams: 09/30/18 04:22 09/30/18 04:22 EKG Reviewed by me: Yes (a fib/flutter with paced rhythm 80's) Phys Exam - Physical Examination Constitutional: NAD cachectic, appears uncomfortable Respiratory: no wheezing, no rales, no rhonchi distant breath sounds Cardiovascular: no significant murmur, irregular Gastrointestinal: soft ttp throughout, unable to adequately assess due to pain Musculoskeletal: no edema Deviation from normal: unable to adequately assess Dx/Plan (1) Abdominal pain Code(s): R10.9 - UNSPECIFIED ABDOMINAL PAIN Status: Acute Qualifiers: Abdominal location: generalized Qualified Code(s): R10.84 - Generalized abdominal pain (2) Chronic pain Code(s): G89.29 - OTHER CHRONIC PAIN Status: Acute Qualifiers: Chronic pain type: chronic pain syndrome Qualified Code(s): G89.4 - Chronic pain syndrome (3) Atrial fibrillation Code(s): I48.91 - UNSPECIFIED ATRIAL FIBRILLATION Status: Acute Qualifiers: Atrial fibrillation type: chronic Qualified Code(s): I48.2 - Chronic atrial fibrillation (4) Peripheral vascular disease Code(s): I73.9 - PERIPHERAL VASCULAR DISEASE, UNSPECIFIED Status: Acute (5) Cardiomyopathy Code(s): I42.9 - CARDIOMYOPATHY, UNSPECIFIED Status: Acute (6) COPD (chronic obstructive pulmonary disease) Status: Chronic Qualifiers: Chronic bronchitis type: unspecified - Plan * abd pain - uncertain if new as pt's son reports this is chronic as well as diarrhea, and pt takes diarrhea med frequently at home. manage nausea with tums prn, holding on zofran/phenergan as she is on amiodarone to avoid prolonging QT interval. Will order low dose reglan as it does not have that potential - although can cause other problems. Start IV protonix - is on this at home but not ordered here. Obtain non-contrast CT of abdomen to eval for critical process. Pt with renal issues on admission - hold on contrast study * chronic back/leg pain - has fentanyl patch and prn meds, and gabapentin * continue home meds as ordered * oxygen supplementation - add inhaler as pt takes symbicort at home * pt with cachexia likely secondary to co-morbidities - when able to take PO will need dietary recommendations * * discussed with patient's son what is occurring today, that I'm concerned pt may not improve from this and may continue to get worse. [facility] has met with him - encouraged continuing the discussions. Son notes that pt was on hospice 2 years ago and survived. He does note the last 2 years have been difficulty for her * * appreciate multiple specialty involvement in care * * dvt prophy - on eliquis * gi prophy - add pantoprazole IV * code status full for now - will need to continue to ask and work with son who reports he is the MPOA - there is some handwritten documentation in the chart * pt at high risk of decompensation to include in-hospital * * reviewed plan of care with son, no questions or further needs at end of eval.
[2018-09-30] MEDS ORDERED: Metoclopramide HCl 10 MG/2 ML VIAL IVP PRN (10:57)
--- NOTE | 2018-09-30 10:59 | PRG ---
DATE OF SERVICE: 09/30/2018 SUBJECTIVE: The patient is doing okay, had no acute complaints. OBJECTIVE: VITAL SIGNS: Temperature 98.2, pulse 79, blood pressure 133/74, sats 98%. HEENT: Unremarkable. NECK: No JVD. CHEST: Clear. CARDIAC: S1, S2. Regular. ABDOMEN: Soft. EXTREMITIES: No edema. LABORATORY DATA: White blood cell count 9.8, hematocrit 45, platelet count 177. Sodium 137, potassium 4, chloride 92, CO2 38, BUN 13, creatinine 0.5 glucose 142. ASSESSMENT: 1. Peripheral vascular disease. 2. Chronic back pain. 3. Hypokalemia. 4. Hypomagnesemia. 5. Hypophosphatemia. PLAN: Can transfer out to telemetry. Telemetry is needed because of problems with tachyarrhythmias. Job ID: [id number]
[2018-09-30] MEDS: Apixaban 5 MG TAB PO SCH ×2 (11:34→20:44)
[2018-09-30] MEDS: Amiodarone 200 MG TAB PO SCH (11:34)
[2018-09-30] MEDS: Digoxin 0.125 MG TAB PO SCH (11:35)
[2018-09-30] MEDS: Aspirin 325 mg Enteric Coated Tablet PO SCH (11:35)
[2018-09-30] MEDS: busPIRone HCl 5 MG TAB PO SCH ×2 (11:35→20:44)
[2018-09-30] MEDS: Gabapentin 300 MG CAP PO SCH ×3 (11:36→20:44)
[2018-09-30] MEDS: Famotidine 20 MG TAB PO SCH ×2 (11:36→20:44)
[2018-09-30] MEDS: Metoprolol Tartrate 25 MG TAB PO SCH ×2 (11:37→20:44)
--- NOTE | 2018-09-30 12:52 | CT ---
CT ABDOMEN WITHOUT CONTRAST CT PELVIS WITHOUT CONTRAST: HISTORY: Abdominal pain. Nausea and vomiting. History of diverticulitis. COMPARISON: CT angiogram aorta 09/27/2018. FINDINGS: ABDOMEN CT: Chronic changes in the left lung base. A small left-sided effusion. Heart is enlarged. There is pe ricardial fluid. Atherosclerosis of a nonaneurysmal aorta. Limited evaluation of the solid organs due to lack of IV contrast. Hepatomegaly is noted. The dimin utive spleen is again identified. No gastrohepatic, retrocrural, or periportal lymphadenopathy. Unremarkable gallbladder. Stable atrophy of the pancreas. Bilaterally, no obstructive uropathy. Ri ght renal cyst is redemonstrated. No mesenteric mass, lymphadenopathy, free air, or free fluid. Limited evaluation of the alimentary canal by lack of oral contrast. Rectal contrast was administere d. Gastric mucosa and small bowel loops are unremarkable. Ileocecal junction is normal. Appendix i s not appreciated. No inflammation of the cecal apex. There is diffuse colonic mucosal thickening which may in part be due to inadequate distention. Refer ence is made to previous CT, done 3 days ago, does not demonstrate any mucosal thickening. Correlate for an infection, or inflammatory process. There is also thickening of the rectal mucosa. CT PELVIS: No mass, lymphadenopathy, free air, or significant free fluid. A Arndt catheter is noted in the urin jimmy bladder. There is air in the nondependent portion. Correlate for recent manipulation of the Fol ey catheter. No lytic or blastic lesions in the osseous structures. IMPRESSION: Diffuse colonic wall thickening which may be due to infectious or inflammatory process. Ischemic pro cess is less favored given involvement of the majority of the colon. POS: LATASHA
[2018-09-30] MEDS: Pantoprazole 40 MG VIAL IVP SCH (12:56)
--- NOTE | 2018-09-30 15:04 | PDOC.EVN ---
Event Note - Event Note Event Note: Reviewed CT scan - thickening of colon wall throughout colon, uncertain etiology. pt is complicated - is already on hydrocortisone started earlier in this hospitalization - will lower to half (hydrocortisone 25 mg IV Q6h) .. Hold on antibiotics and await GI consult.
--- NOTE | 2018-09-30 15:13 | PRG ---
DATE OF SERVICE: 09/29/2018 SUBJECTIVE: The patient is examined in CCU bed, no family presenting at bedside. The patient is more alert to verbal commands today. Continues to report chronic pain all over her body, greater in the low back. Rates her pain as 10/10. She is drowsy, yet communicable. Fentanyl 50 mcg (Duragesic) patch was started this a.m. by [facility]. The patient reports no change in her pain level thus far with addition of Duragesic patch. OBJECTIVE: VITAL SIGNS: Stable. Blood pressure is 143/90. Heart rate is 107. She is 98% oxygen saturation on room air. Temperature is 98.6. GENERAL: The patient is drowsy. Eyes closed, yet opens her eyes on command. Remains drowsy, yet able to communicate. She does follow commands. HEENT: Normocephalic and atraumatic. RESPIRATORY: Respirations are symmetric and nonlabored. EXTREMITIES: She is able to move all extremities, however, feels like her lower extremities are becoming a bit more contracted. ABDOMEN: Soft, nontender, and nondistended. MUSCULOSKELETAL: Again, moving all extremities against gravity. Lumbar pain with palpation. No definite vertebral body tenderness on exam. Diffuse pain in the lumbar, thoracic spine. Bilateral lower extremity plantar, dorsiflexion intact against resistance. Bilateral straight leg from the supine position is negative for radicular pain, positive for low back pain. NEUROLOGIC: Arouses with verbal stimulation, oriented x2. IMAGING DATA: No new imaging on lumbar spine. This continues to be pending. ASSESSMENT: Lumbar degenerative disk disease with history of lumbar foraminal stenosis. PLAN: Recommend to continue with medication management at this time. Continue to wait further lumbar imaging for any interventional recommendations that can be made; however, the patient remains high risk for any type of interventional procedure for lumbar pain. Agree with fentanyl (Duragesic) as well as hydrocodone for breakthrough pain and continue neuropathic medications for continued medication management. Apparently, palliative care is a consideration for the patient at this time as well. We will continue to follow as needed after lumbar imaging has been completed, and we will review this, consider interventions if applicable. It appears Medicine is covering her medication regimen at this time. Plan to continue. Of note, it appears also the patient was on hospice 2 years ago, this may be another consideration for the patient given her current state of health. Job ID: [id number]
[2018-09-30] MEDS: Lorazepam 2 MG/ML VIAL SLOW IVP PRN (15:26)
--- NOTE | 2018-09-30 16:31 | PDOC.CTH ---
Cardiology Progress Note - Subjective No new issues. - Objective Vital Signs Temp Pulse Resp Pulse Ox 09/30/18 13:28 81 20 95 09/30/18 12:00 99.0 F 09/30/18 09:48 99 09/30/18 09:45 74 23 H 99 09/30/18 07:30 98 09/30/18 07:26 98.2 F Admit Weight 102 lb 8.239 oz Weight 85 lb 9 oz 09/29/18 09/30/18 10/01/18 06:59 06:59 06:59 Intake Total 3905 3034 Output Total 9044 0955 Balance 92 -741 - Physical Examination General/Neuro: NAD Neck: no JVD present Lungs: unlabored respirations Heart: other: Abdomen: NT/ND Extremities: other: (no edema) - Labs Result Diagrams: 09/30/18 04:22 09/30/18 04:22 Troponin/CKMB Troponin I 0.019 ng/mL (< 0.028) 09/26/18 04:50 - Assessment/Plan 1. PAD 2. Afib/flutter. 3. HTN 4. Hyperlipidemia 5. COPD 6. Current smoker 4-5 cigaretts/day 7. Back and ABD pain PLAN: - Continue amiodarone, Eliquis and digoxin. - Stable.
[2018-09-30] MEDS: Budesonide 0.5 MG/2 ML NEB INH SCH (19:05)
--- NOTE | 2018-09-30 20:11 | PDOC.EVN ---
Event Note - Event Note Event Note: Called to check on patient - RN reports she was c/o chest pain and asking for help. Some intermittent tachy to 150's on monitor and remains in a fib. Will order troponins, prn ntg, and RN to continue checking on patient. Pt with chronic pain, abd pain/n/v earlier today. To page hospital doc tonight with any concerns.
[2018-09-30] MEDS: Lorazepam 0.5 MG TAB PO PRN (20:44)
[2018-09-30] MEDS: Nitroglycerin 0.4 MG TAB (25 Tab Bottle) SL PRN ×3 (20:53→21:03)
[2018-09-30 20:54] LABS: Troponin I 0.017 ng/mL (< 0.028)
--- NOTE | 2018-09-30 21:00 | CON ---
DATE OF CONSULTATION: 09/30/2018 REASON FOR CONSULTATION: Diarrhea, abnormal GI imaging, abdominal pain. CONSULTING PHYSICIAN: Yamilka Guerin MD HISTORY OF PRESENT ILLNESS: The patient is a 73-year-old female with past medical history of atrial fibrillation, GERD, hypertension, seizures, COPD, cardiomyopathy status post pacemaker placement, chronic lower back pain, diverticulitis, and peripheral arterial disease, who initially presented to the hospital with increased pain. During my interview with the patient this afternoon, she was fairly unresponsive to questioning and repeatedly answering either no or I do not know to the majority of the questions. She would not follow commands nor was she amenable to further questioning, so all information was obtained through chart review and interview with nursing staff. Per chart review, the patient was initially admitted for increasing whole-body pain and right leg pain. With this increasing pain, she was brought by EMS to [facility] where in the emergency room, she experienced significant hypotension with systolic blood pressure going as low as in the 50s that required aggressive IV fluid resuscitation, as well as pressor support. This was felt to be due to a septic type picture with no discernible etiology least initially. During the course of this hospitalization, she has improved with fairly aggressive resuscitation and was ultimately transferred to the floor today. However, she did complain of increased diarrhea and abdominal pain for the last 24 to 48 hours during this admission, which prompted the ordering of a CT of the abdomen and pelvis. CT showed diffuse colonic wall thickening throughout the entire colon, as well as within the rectal mucosa concerning for possible infectious versus inflammatory process. When coupled with her chronic diarrhea, Gastroenterology was consulted for further evaluation. As above, the patient was not amenable to questioning and was not answering review of systems questions as well. Per review of the patient's chart, she has had approximately 3 to 4 bowel movements within the last 24 hours of unknown consistency. REVIEW OF SYSTEMS: Could not be obtained due to the patient's agitation and/or noncompliance with further interview. PAST MEDICAL HISTORY: Per HPI. PAST SURGICAL HISTORY: Bilateral cataract repair, bilateral trigger finger surgery, , hysterectomy and neck surgery. FAMILY HISTORY: No mention of any GI malignancies. SOCIAL HISTORY: Denies any alcohol or illicit drug use. However, there is mentioned that she continues to smoke cigarettes occasionally. ALLERGIES: ALPRAZOLAM, AZITHROMYCIN, DOXYCYCLINE, KETORALAC, PENICILLIN, AND TRAMADOL. OUTPATIENT MEDICATIONS: Reviewed. PHYSICAL EXAMINATION: VITAL SIGNS: Temperature 98.8, pulse 83, blood pressure 122/58, respiratory rate 16, saturating 98% on 2 L nasal cannula. GENERAL: The patient was lying in bed, in no acute distress, unable to determine sensorium due to lack of cooperation for interview. HEENT: Normocephalic, atraumatic. NECK: Supple with no JVD or scleral icterus noted. CARDIOVASCULAR: Regular rate and rhythm with no discernible murmurs, gallops, or rubs. RESPIRATORY: Clear to auscultation bilaterally with no discernible wheezes or rales. ABDOMEN: Normoactive bowel sounds. Soft, nontender, nondistended. EXTREMITIES: Cachectic in appearance but no cyanosis, clubbing, or edema. LABORATORY DATA: CBC with a white blood cell count of 9.8, hemoglobin 13.8, hematocrit 45.2, platelets 177. Chemistry with a sodium of 137, potassium 4, chloride 90, CO2 of 38, BUN 13, creatinine 0.55, glucose 142. IMAGING DATA: CT of the abdomen and pelvis was obtained on September 30, 2018, which showed cardiomegaly with existing pericardial fluid. Hepatomegaly was also noted along with atrophic pancreas. However, diffuse colonic wall thickening was seen, which may have been due to under distention but may reflect an inflammatory infectious process. Thickening of the rectal mucosa was also seen. ASSESSMENT AND PLAN: The patient is a 73-year-old female with past medical history of atrial fibrillation, gastroesophageal reflux disease, hypertension, seizures, chronic obstructive pulmonary disease, cardiomyopathy status post pacemaker, chronic lower back pain, diverticulitis, and peripheral arterial disease, presenting with abdominal pain and abnormal GI imaging. Abdominal pain/abnormal GI imaging. The patient is presenting with a recent change in her clinical status, characterized as increased whole-body pain. On admission, she was noted to have significant hypotension that required aggressive IV fluid resuscitation as well as pressor support to maintain normotensive pressures. She has responded well to therapy and is currently been downgraded from the IMCU as a result. However, over the last 24 to 48 hours, per chart review, the patient had been complaining of increased abdominal pain that was not reflected upon interview with the patient today nor on her physical exam. There was also mention of diarrhea per chart review, but the patient did not endorse this toward the nursing staff and per ins and outs evaluation within the last 24 hours, she has had approximately 3 to 4 bowel movements during that time. Along with this, she did have a CT of the abdomen and pelvis obtained today that showed diffuse colonic wall thickening throughout the entire colon, but mention was also made that the wall thickening may have been due to underdistention due to lack of oral contrast. CT scan obtained on September 27, 2018, did not see the colonic wall thickening that was seen today. At this time, the etiology of this colonic wall thickening and her abdominal pain is unclear with the differential including radiological artifact (more likely) ischemic colitis affecting the entire colon due to significant hypotension on admission and the patient already with peripheral arterial disease, infectious etiology, inflammatory bowel disease and/or GI neoplasm (much less likely given the diffuse nature of the thickening). RECOMMENDATIONS: 1. We would obtain infectious stool studies given her debilitated status and hospitalizations, which could potentially raise the possibility of infectious etiology of her diarrhea including Clostridium difficile. 2. We would consider repeating the CT scan, but with oral contrast if the patient is amenable to administration. 3. We would continue to maintain normotensive pressures given the possibility of ischemic colitis. 4. Given the patient's recent hypotension and debilitated status, colonoscopic evaluation is not necessarily indicated at this time, especially in light of a possible infectious etiology, which could increase the risk of perforation. 5. We will continue to follow. Please call with any questions. Job ID: [id number]
[2018-10-01 03:11] LABS: Troponin I 0.019 ng/mL (< 0.028)
[2018-10-01] MEDS: Hydrocortisone Sod Succ/PF 100 mg/2 ml Vial IVP SCH ×2 (06:00→11:59)
[2018-10-01 06:43] LABS: BUN (Urea Nitrogen) 10 mg/dL (9.8-20.1); Calc. Creatinine Clearance 56 mL/min (70-130); Calcium 9.8 mg/dL (7.8-10.44); Estimated GFR-MDRD Greater than 90; Glucose 116 mg/dL (83-110); Magnesium 1.7 mg/dL (1.6-2.6); Phosphorus 2.8 mg/dL (2.3-4.7)
[2018-10-01 06:53] LABS: Anion Gap 15 mmol/L (10-20); Carbon Dioxide 37 mmol/L (23-31); Chloride 90 mmol/L (98-107); Potassium 3.6 mmol/L (3.5-5.1); Sodium 138 mmol/L (136-145)
[2018-10-01 06:57] LABS: #Lymphocytes 1.5 thou/uL (1.20-3.40); #Neutrophils 11.7 thou/uL (1.40-6.50); %Basophils 0.1 % (0.0-1.0); %Eosinophils 0.1 % (0.0-10.0); %Lymphocytes 10.3 % (21.0-51.0); %Monocytes 6.7 % (0.0-10.0); %Neutrophils 82.8 % (42.0-75.0); Hemoglobin 13.9 g/dL (12.0-16.0); Mean Corpuscular HGB CONC 30.5 g/dL (32.0-36.0); Mean Corpuscular Hemoglobin 38.2 pg (27.0-31.0); Mean Platelet Volume 8.3 fL (7.4-10.4); Platelet Count 173 thou/uL (130-400); RBC Distribution Width 15.6 % (11.5-14.5); Red Blood Cell (RBC) Count 3.64 mill/uL (4.20-5.40); White Blood Cell (WBC) Count 14.1 thou/uL (4.8-10.8)
[2018-10-01 08:19] LABS: Troponin I 0.019 ng/mL (< 0.028)
[2018-10-01] MEDS: Amiodarone 200 MG TAB PO SCH (08:34)
[2018-10-01] MEDS: Budesonide 0.5 MG/2 ML NEB INH SCH ×2 (08:55→19:02)
[2018-10-01] MEDS: Sodium Chloride 0.45% 1,000 ML IV SCH ×2 (10:29→14:56)
[2018-10-01] MEDS: Apixaban 5 MG TAB PO SCH ×2 (10:33→19:59)
[2018-10-01] MEDS: Digoxin 0.125 MG TAB PO SCH (10:45)
[2018-10-01] MEDS: Gabapentin 300 MG CAP PO SCH ×4 (10:45→19:59)
[2018-10-01] MEDS: Aspirin 325 mg Enteric Coated Tablet PO SCH (10:45)
[2018-10-01] MEDS: Metoprolol Tartrate 25 MG TAB PO SCH ×2 (10:45→19:59)
[2018-10-01] MEDS: busPIRone HCl 5 MG TAB PO SCH ×2 (10:45→19:59)
[2018-10-01] MEDS: Famotidine 20 MG TAB PO SCH ×2 (10:45→19:59)
--- NOTE | 2018-10-01 11:42 | PRG ---
DATE OF SERVICE: 10/01/2018 SUBJECTIVE: The patient does not voice any complaints, but then again, I do not believe she speaks much at baseline. OBJECTIVE: VITAL SIGNS: Temperature 97.7, pulse 81, respirations 24, O2 saturation 92% on 2.5 L, and blood pressure 168/83. GENERAL: She is an emaciated female. HEENT: Unremarkable. NECK: No JVD. CHEST: Clear anteriorly. CARDIAC: S1 and S2, regular. ABDOMEN: Soft. EXTREMITIES: Severe muscle wasting. LABORATORY DATA: White cell count 14.1, hematocrit 45.7, and platelet count 173. Sodium 138, potassium 3.6, chloride 90, CO2 of 37, BUN 10, creatinine 0.5, and glucose 116. ASSESSMENT: 1. Peripheral vascular disease. 2. Chronic back pain. 3. Electrolyte abnormalities, which have corrected. PLAN: Continuing monitoring for tachyarrhythmias. Pulmonary status is currently stable. Job ID: [id number]
[2018-10-01] MEDS: Pantoprazole 40 MG VIAL IVP SCH (11:59)
--- NOTE | 2018-10-01 16:08 | PRG ---
DATE OF SERVICE: 10/01/2018 SUBJECTIVE: The patient is seen and examined at bedside. Her son came to the hospital to see his mother. She is still complaining about a lot of back pain despite of all treatment we are giving her. She is not eating. She is on IV fluids. OBJECTIVE: VITAL SIGNS: Blood pressure is 161/103, temperature is 97.4, pulse is 90, respiratory rate 20, and O2 saturation is 96% on room air. GENERAL: She is able to answer my simple questions. She tries to follow my commands. She gets irritated quickly. HEENT: Her pupils are responding to light properly. Sclerae are nonicteric. NECK: Supple. Thyroid is not palpable. LUNGS: Breath sounds somewhat diminished at both bases. HEART: S1 and S2, normal. No S3. No S4. ABDOMEN: Soft, although tender on deeper palpation. EXTREMITIES: No clubbing, cyanosis, or edema. NEUROLOGIC: She follows my commands. She moves her all four extremities. There are no any obvious motor deficits. All cranial nerves are grossly intact. SKIN: No rash or erythema. LABORATORY DATA: White count is up to 14.1, hemoglobin 13.9, hematocrit 45.5, platelet count is 173,000. Sodium of 138, potassium 3.6, chloride 90, CO2 of 39, BUN 10, creatinine 0.53, glucose 116, magnesium 1.7, phosphorus 2.8, calcium 9.8. Three sets of troponins are within normal limits. IMPRESSION: 1. Hypotension with hypothermia of unclear etiology. Blood cultures came back negative, antibiotics were stopped, but her white count is up today, which raises the question whether her sepsis is coming back. 2. Atrial fibrillation/atrial flutter. 3. Pacemaker. 4. Peripheral vascular disease, very severe. 5. Cardiomyopathy, with recent echo, LVEF improvement. 6. Chronic obstructive pulmonary disease. 7. Chronic back pain, still unclear etiology. MRI was not done since she has noncompatible pacer. 8. Anxiety. 9. Dyselectrolytemia, corrected. DISCUSSION: The patient is on gabapentin 600 mg three times a day. She is on fentanyl 50 mcg patch, change every 3 days. She is on p.r.n. opioids and she still complains about pain, discomfort. The CT of the abdomen showed some inconsistency, which showed some thickening of the intestinal wall. GI was consulted. Dr. Duong saw the patient and he recommends more conservative approach. The patient is at high risk for complications. She is on narcotics and benzodiazepines p.r.n.. Going to decrease her IV fluids of her steroids, which were used for hypotension. Continue her amiodarone, Eliquis, aspirin, buspirone, digoxin, fentanyl, gabapentin, hydrocodone p.r.n., lorazepam p.r.n., metoprolol tartrate, pantoprazole. We will try physical therapy. Job ID: [id number]
[2018-10-01] MEDS: Lorazepam 2 MG/ML VIAL SLOW IVP PRN (20:00)
--- NOTE | 2018-10-01 22:54 | PRG ---
DATE OF SERVICE: 10/01/2018 REASON FOR CONSULTATION: Diarrhea, abnormal GI imaging, and abdominal pain. SUBJECTIVE: There were no acute events or problems overnight. However, the patient does still continued to have significant back pain/whole-body pain; however upon questioning, she does deny any abdominal pain, but rather was fixated/perseverating on the need to have a bedside commode to urinate and obtaining pain medication even though she had just received her pain medication. Per patient and per nursing staff, the patient had not had a bowel movement, so infectious stool studies had not been collected. Otherwise, she denies any nausea, vomiting, fevers, chills, diarrhea or GI bleeding. OBJECTIVE: VITAL SIGNS: Temperature 97.5, pulse 109, blood pressure 139/68, respiratory rate 22, saturating 3 L on nasal cannula. GENERAL: The patient was lying in bed, in mild distress. Alert and oriented x2. CARDIOVASCULAR: Regular rate and rhythm. RESPIRATORY: Clear to auscultation bilaterally. ABDOMEN: Normoactive bowel sounds. Soft, nontender, nondistended. EXTREMITIES: Cachectic in appearance, but no cyanosis, clubbing or edema. LABORATORY DATA: CBC with white blood cell count of 14.1, hemoglobin 13.9, hematocrit 45.7, platelets 173. Chemistry with a sodium of 138, potassium 3.6, chloride 90, CO2 37, BUN 10, creatinine 0.53, glucose 116. IMAGING DATA: No current GI imaging is available for review. ASSESSMENT AND PLAN: The patient is a 73-year-old female with past medical history of atrial fibrillation, gastroesophageal reflux disease, hypertension, seizures, chronic obstructive pulmonary disease, cardiomyopathy, status post pacemaker, chronic lower back pain/chronic pain syndrome, diverticulitis, and peripheral arterial disease, presenting with abnormal gastrointestinal imaging. Abnormal GI imaging. Per chart review and per the consultation request, the patient had a recent change in her clinical status, characterized as increased whole-body pain with increased abdominal pain, diarrhea. Subsequently a CT scan was obtained of the abdomen and pelvis on September 30, 2018, which showed diffuse colonic wall thickening of the entire colon that was not seen on a prior CT scan obtained on September 272018. At this time, the patient does not complain of any abdominal pain nor has she had any additional bowel movements to suggest pathology within the colon/GI tract. However, she does still have that abnormal imaging showing the thickening throughout the colon, which could be due to radiological artifact. At this time, the most likely etiology for the abnormal GI imaging would be underdistention of the colon resulting in the appearance of diffuse colonic wall thickening especially when not seen on CT imaging obtained three days prior. She has had complete resolution of her abdominal pain nor has she had any diarrhea like bowel movements that would confer a higher likelihood of an infectious etiology. RECOMMENDATION: 1. We would obtain infectious stool studies given the possibility of an infectious etiology. 2. We would continue to try to maintain normotensive pressures given the possibility of ischemic colitis (although this diagnosis is unlikely). If strong concern remains about colonic pathology, I would recommend repeating the CT scan with oral contrast to get a more accurate evaluation of the colon at the current time. 3. Given the patient's confusing clinical history with lack of abdominal pain, lack of diarrhea symptoms, colonoscopic evaluation is not necessarily indicated at this time. 4. We will continue to follow peripherally. 5. Please call with any change in the patient's clinical status or with any additional questions. Job ID: [id number]
[2018-10-02] MEDS: Sodium Chloride 0.45% 1,000 ML IV SCH ×2 (01:46→20:31)
[2018-10-02] MEDS: Budesonide 0.5 MG/2 ML NEB INH SCH ×3 (06:56→18:44)
[2018-10-02] MEDS: busPIRone HCl 5 MG TAB PO SCH ×2 (08:16→20:30)
[2018-10-02] MEDS: Digoxin 0.125 MG TAB PO SCH (08:16)
[2018-10-02] MEDS: Apixaban 5 MG TAB PO SCH ×2 (08:16→20:30)
[2018-10-02] MEDS: Aspirin 325 mg Enteric Coated Tablet PO SCH (08:16)
[2018-10-02] MEDS: Famotidine 20 MG TAB PO SCH ×2 (08:16→20:30)
[2018-10-02] MEDS: Gabapentin 300 MG CAP PO SCH ×3 (08:17→20:30)
[2018-10-02] MEDS: Amiodarone 200 MG TAB PO SCH (08:17)
[2018-10-02] MEDS: Metoprolol Tartrate 25 MG TAB PO SCH ×2 (08:17→20:30)
[2018-10-02] MEDS: fentaNYL 50 mcg/hour Patch TD SCH (10:20)
[2018-10-02] MEDS ORDERED: Vancomycin HCl 25 MG/ML Oral PO SCH (10:30)
[2018-10-02] MEDS: Vancomycin HCl 25 MG/ML Oral PO SCH ×4 (11:26→20:31)
[2018-10-02] MEDS: Pantoprazole 40 MG VIAL IVP SCH (11:29)
--- NOTE | 2018-10-02 13:07 | PQF ---
CLINICAL DOCUMENTATION IMPROVEMENT CLARIFICATION FORM: ICD-10 Updated PLEASE DO AN ADDENDUM TO THE PROGRESS NOTE WITH ANY DOCUMENTATION UPDATES OR ADDITIONS AND CARRY THROUGH TO DC SUMMARY. THANK YOU. Date: 10/02/2018 ATTN: Dr. Chilel Please exercise your independent, professional judgment in responding to the clarification form. Clinical indicators are provided on the bottom of this form for your review Please check appropriate box(s): [ ] Protein Calorie Malnutrition: [ ] Mild [ X] Moderate [ ] Severe [ ] Other Malnutrition (please specify) [ ] Cachexia [ ] Other diagnosis [ ] Unable to determine In addition, please specify: Present on Admission (POA): [ X] Yes [ ] No [ ] Unable to determine CLINICAL INDICATORS - SIGNS / SYMPTOMS / LABS Glaze Handler Assessment 09/27: Per hospital records, pt was 82.9# on 06/12/2018, currently is 102.5#, gain of 24 % Nutrition dx: Malnutrition related to recent illness as evidenced by muscle and fat wasting of temporal region, arms, and chest; significant decrease in PO for 2 weeks 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 PN 10/01 (Pavel) Extremities: Severe muscle wasting RISKS: H&P 09/26: Hypothermia with hypoglycemia and hypotension, very likely sepsis, unclear etiology. Cough in the last several day. increased back pain. Acute renal failure. most likely 2/2 hypotension. Cardiomyopathy. COPD TREATMENT: Glaze Handler Assessment : Received WCC. Triggered for BMI Moderate Malnutrition (in acute illness) Energy Intake: <75% of estimated energy requirement for > 7 days Weight Loss: 1-2%/1 week; 5%/ 1 month; 7.5%/3 months Other: mild body fat loss; mild muscle mass loss; mild fluid accumulation; Severe Malnutrition (in acute illness) Energy Intake: < 50% of estimated energy requirement for > 5 days Weight Loss: >1-2%/1 week; >5%/1 month; >7.5%/3 months Other: moderate body fat loss; moderate muscle mass loss; moderate- severe fluid accumulation; measurably reduced hop weigher strength Moderate Malnutrition (in chronic illness) Energy Intake: <75% of estimated energy requirement for >1 month Weight Loss: 5%/1 month; 7.5%/3 months; 10%/6 months; 20%/1 year Other: mild body fat loss; mild muscle mass loss; mild fluid accumulation Severe Malnutrition (in chronic illness) Energy Intake: <75% of estimated energy requirement for >1 month Weight Loss: >5%/1 month; >7.5%/3 months; >10%/6 months; >20%/1 year Other: severe body fat loss; severe muscle mass loss; severe fluid accumulation; measurably reduced hop weigher strength Thank you, Ruby (This form is maintained as a part of the permanent medical record) 2015 [employer] All Rights Reserved Ruby Jurado RN, BSN [email or web address] Office: [phone] [facility]
[2018-10-02 13:11] VITALS: BMI 15.0
--- NOTE | 2018-10-02 14:24 | PDOC.PN ---
- Subjective Encounter Start Date: 10/02/18 Encounter Start Time: 14:22 Subjective: does not feel good. multiple loose stools and continued back pain -: poor appetite due to diarrhea - Objective Resuscitation Status - Order Detail: 09/26/18 07:52 Resuscitation Status Routine Resuscitation Status: FULL: Full Resuscitation MAR Reviewed: Yes Vital Signs & Weight: Vital Signs (12 hours) Temp Pulse Resp BP Pulse Ox 10/02/18 13:34 56 L 16 92 L 10/02/18 11:33 98.0 F 69 20 131/61 94 L 10/02/18 08:17 96 10/02/18 07:39 97.3 F L 67 24 H 132/60 96 10/02/18 06:57 72 16 96 10/02/18 06:56 72 16 96 10/02/18 04:00 97.7 F 65 20 145/65 H 100 Weight Admit Weight 102 lb 8.239 oz Weight 82 lb 9 oz Most Recent Monitor Data Heart Rate from ECG 88 NIBP 122/58 NIBP BP-Mean 79 Respiration from ECG 20 SpO2 100 I&O: 10/01/18 10/02/18 10/03/18 06:59 06:59 06:59 Intake Total 1726 1245 Output Total 1700 1800 Balance 26 -555 Result Diagrams: 10/01/18 06:05 10/01/18 06:05 Additional Labs: Microbiology 10/02/18 02:00 Stool Campylobacter Antigen Assay - Final 10/02/18 02:00 Stool Shiga Toxin Test - Final 10/02/18 02:00 Stool C. difficile GDH Antigen & Toxins - Final 09/26/18 Unknown Hand - Drainage Bacterial Culture - Final 09/26/18 14:06 Urine benavides catheter Urine Culture - Final NO GROWTH AT 48 HOURS 09/26/18 09:09 Venous blood - Right Hand Blood Culture - Final NO GROWTH IN 5 DAYS 09/26/18 09:05 Central Line - Right external jugular vein Blood Culture - Final NO GROWTH IN 5 DAYS Laboratory Tests 09/26/18 09/26/18 09/26/18 04:50 09:09 09:09 Magnesium 1.6 Troponin I 0.019 Retinol Vitamin B1 Vitamin B12 Vitamin C TSH 3rd Generation 1.0442 Cortisol 09/27/18 09/27/18 09/27/18 09:25 12:02 12:02 Magnesium Troponin I Retinol Vitamin B1 140.6 Vitamin B12 827 Vitamin C TSH 3rd Generation Cortisol 18.00 09/27/18 09/27/18 09/28/18 12:02 15:36 06:16 Magnesium 1.3 L Troponin I Retinol 30.0 Vitamin B1 Vitamin B12 Vitamin C 0.1 L TSH 3rd Generation Cortisol 09/29/18 09/30/18 09/30/18 03:22 04:22 20:24 Magnesium 2.1 1.6 Troponin I 0.017 Retinol Vitamin B1 Vitamin B12 Vitamin C TSH 3rd Generation Cortisol 10/01/18 10/01/18 10/01/18 02:37 06:05 06:05 Magnesium 1.7 Troponin I 0.019 0.019 Retinol Vitamin B1 Vitamin B12 Vitamin C TSH 3rd Generation Cortisol Phys Exam - Physical Examination Constitutional: NAD thin and cachectic HEENT: PERRLA, sclera anicteric, oral pharynx no lesions dry mucosa Neck: no nodes, no JVD, supple, full ROM Respiratory: no wheezing, no rales, no rhonchi, clear to auscultation bilateral Cardiovascular: RRR, no significant murmur Gastrointestinal: soft, non-tender, no distention, positive bowel sounds Musculoskeletal: no edema, pulses present Neurological: non-focal, normal sensation, moves all 4 limbs Psychiatric: normal affect, A&O x 3 Skin: no rash, normal turgor, cap refill <2 seconds Dx/Plan (1) Clostridium difficile diarrhea Code(s): A04.72 - ENTEROCOLITIS D/T CLOSTRIDIUM DIFFICILE, NOT SPCF RECUR Status: Acute (2) Atrial fibrillation Code(s): I48.91 - UNSPECIFIED ATRIAL FIBRILLATION Status: Acute Qualifiers: Atrial fibrillation type: chronic Qualified Code(s): I48.2 - Chronic atrial fibrillation Comment: HR controlled on Amiodarone and BB. on Eliquis .Monitor for low BP and/ or Low HR (3) Peripheral vascular disease Code(s): I73.9 - PERIPHERAL VASCULAR DISEASE, UNSPECIFIED Status: Chronic Comment: ASA 325 daily. (4) CAD (coronary artery disease) Code(s): I25.10 - ATHSCL HEART DISEASE OF [place] CORONARY ARTERY W/O ANG PCTRS Status: Chronic Qualifiers: (5) COPD (chronic obstructive pulmonary disease) Status: Chronic Qualifiers: Chronic bronchitis type: unspecified (6) HLD (hyperlipidemia) Code(s): E78.5 - HYPERLIPIDEMIA, UNSPECIFIED Status: Chronic Qualifiers: Hyperlipidemia type: unspecified Qualified Code(s): E78.5 - Hyperlipidemia , unspecified (7) HTN (hypertension) Code(s): I10 - ESSENTIAL (PRIMARY) HYPERTENSION Status: Chronic Qualifiers: Hypertension type: essential hypertension Qualified Code(s): I10 - Essential (primary) hypertension (8) Nonischemic cardiomyopathy Code(s): I42.9 - CARDIOMYOPATHY, UNSPECIFIED Status: Chronic Comment: with ef of around 35% (9) SSS (sick sinus syndrome) Code(s): I49.5 - SICK SINUS SYNDROME Status: Chronic Comment: s/p pacemaker/ HYDROTHERAPIST 08/10/16 (10) Moderate protein-calorie malnutrition Code(s): E44.0 - MODERATE PROTEIN-CALORIE MALNUTRITION Status: Chronic - Plan PT/OT, incentive spirometry, DVT proph w/SCDs Start PO Vancomycin for new dx of CDiff. add probiotics.supportive care. IV -: cont rest as before. -: OT/PT. pain control. -: Labs in am -: follow final Cx results * . Review of Systems - Review of Systems Constitutional: weakness, malaise. negative: fever, chills, sweats, other ENT: negative: Ear Pain, Ear Discharge, Nose Pain, Nose Discharge, Nose Congestion, Mouth Pain, Mouth Swelling, Throat Pain, Throat Swelling, Other Respiratory: negative: Cough, Dry, Shortness of Breath, Hemoptysis, SOB with Excertion, Pleuritic Pain, Sputum, Wheezing Cardiovascular: negative: chest pain, palpitations, orthopnea, paroxysmal nocturnal dyspnea, edema, light headedness, other Gastrointestinal: Nausea, Diarrhea Genitourinary: negative: Dysuria, Frequency, Incontinence, Hematuria, Retention , Other Musculoskeletal: Back Pain. negative: Neck Pain, Shoulder Pain, Arm Pain, Hand Pain, Leg Pain, Foot Pain, Other Neurological: negative: Weakness, Numbness, Incoordination, Change in Speech, Confusion, Seizures, Other - Medications/Allergies Allergies/Adverse Reactions: Allergies Allergy/AdvReac Type Severity Reaction Status Date / Time alprazolam Allergy Verified 08/14/18 23:48 azithromycin Allergy Verified 08/14/18 21:17 doxycycline Allergy Verified 08/14/18 21:17 ketorolac Allergy Verified 08/14/18 21:17 Penicillins Allergy Verified 08/14/18 21:17 tramadol Allergy Verified 08/14/18 21:17 Medications: Current Medications Acetaminophen (Tylenol) 500 mg PO Q4H PRN PRN Reason: Headache/Fever or Pain Last Admin: 10/01/18 15:51 Dose: 500 mg Hydrocodone Bitart/Acetaminophen ([place] 10/325) 1 tab PO Q4H PRN PRN Reason: Pain Last Admin: 09/29/18 08:13 Dose: 1 tab Albuterol/Ipratropium (Duoneb) 3 ml NEB [id number] [facility] Last Admin: 10/02/18 13:34 Dose: 3 ml Amiodarone HCl (Cordarone) 200 mg PO DAILY [facility] Last Admin: 10/02/18 08:17 Dose: 200 mg Apixaban (Eliquis) 5 mg PO BID [facility] Last Admin: 10/02/18 08:16 Dose: 5 mg Aspirin (Ecotrin) 325 mg PO DAILY [facility] Last Admin: 10/02/18 08:16 Dose: 325 mg Budesonide (Pulmicort Neb Solution) 0.5 mg INH BID-RT [facility] Last Admin: 10/02/18 06:56 Dose: 0.5 mg Buspirone HCl (Buspar) 5 mg PO BID [facility] Last Admin: 10/02/18 08:16 Dose: 5 mg Calcium Carbonate (Tums) 1,000 mg PO Q4H PRN PRN Reason: Heartburn or Indigestion Digoxin (Lanoxin) 0.125 mg PO QAM [facility] Last Admin: 10/02/18 08:16 Dose: 0.125 mg Famotidine (Pepcid) 20 mg PO BID [facility] Last Admin: 10/02/18 08:16 Dose: 20 mg Fentanyl (Duragesic) 0 mcg TD Q3D [facility] Last Admin: 10/02/18 10:20 Dose: 50 mcg Gabapentin (Neurontin) 600 mg PO TID [facility] Last Admin: 10/02/18 08:17 Dose: 600 mg Sodium Chloride (1/2 Normal Saline) 1,000 mls @ 50 mls/hr IV .Q20H [facility] Last Admin: 10/02/18 01:46 Dose: 1,000 mls Lorazepam (Ativan) 0.5 mg PO Q4H PRN PRN Reason: Anxiety Last Admin: 09/30/18 20:44 Dose: 0.5 mg Lorazepam (Ativan) 0.5 mg SLOW IVP Q6H PRN PRN Reason: Anxiety/Agitation Last Admin: 10/01/18 20:00 Dose: 0.5 mg Metoclopramide HCl (Reglan) 5 mg IVP Q6H PRN PRN Reason: Nausea/Vomiting Metoprolol Tartrate (Lopressor) 25 mg PO BID [facility] Last Admin: 10/02/18 08:17 Dose: 25 mg Miscellaneous Medication (Movantik) 25 mg PO DAILY-[facility] Last Admin: 10/02/18 08:17 Dose: 25 mg Nitroglycerin (Nitrostat) 0.4 mg SL Q5MIN PRN PRN Reason: Chest Pain Last Admin: 09/30/18 21:03 Dose: 0.4 mg Ondansetron HCl (Zofran Odt) 4 mg PO Q6H PRN PRN Reason: Nausea/Vomiting Last Admin: 09/28/18 13:08 Dose: 4 mg Pantoprazole Sodium (Protonix) 40 mg PO DAILY [facility] Sodium Chloride (Flush - Normal Saline) 10 ml IVF Q12HR [facility] Last Admin: 10/02/18 08:18 Dose: 10 ml Sodium Chloride (Flush - Normal Saline) 10 ml IVF PRN PRN PRN Reason: Saline Flush Vancomycin HCl (First Vancomycin) 125 mg PO QID [facility] Last Admin: 10/02/18 13:59 Dose: 125 mg
--- NOTE | 2018-10-02 14:27 | PRG ---
DATE OF SERVICE: 10/02/2018 SUBJECTIVE: Ms. Villa has been diagnosed with C diff colitis. She is still having quite a bit of abdominal pain. She is not complaining more of the right lower extremity pain. She denies any shortness of breath or chest pain. OBJECTIVE: VITAL SIGNS: T-max 99, blood pressure 130/60, pulse 69. GENERAL: Lying in left lateral decubitus. Awake. LUNGS: Symmetric lung sound without crackles or wheezing. ABDOMEN: Abdomen is flat. Bowel sounds are somewhat diminished. Diffuse tenderness. EXTREMITIES: Did not complain of tenderness in the lower extremities. Feet skin is warm to touch and could not feel any pulses. LABORATORY DATA: White cell count is up to 14.1, hemoglobin 13, platelets 173. Sodium 138, creatinine 0.53. DIAGNOSTIC DATA: Abdomen and pelvis CT with diffuse colitis findings. ASSESSMENT AND DISCUSSION: Peripheral vascular disease, coronary artery disease, Clostridium difficile colitis, hypotension, mild nutrition. The Clostridium difficile antigen test was positive, and she has been started on oral vancomycin. May need to add IV Flagyl depending on clinical, and I would advise increasing the dosage of vancomycin to at least 250 times daily. Job ID: [id number]
[2018-10-02] MEDS ORDERED: Metoclopramide HCl 10 MG TAB PO PRN (14:54)
--- NOTE | 2018-10-02 17:07 | PRG ---
DATE OF SERVICE: 10/02/2018 SERVICE: Pulmonary Medicine. INTERVAL HISTORY: The patient is doing fine from respiratory standpoint. She started having some diarrhea yesterday. Ultimately, C. diff colitis was identified. Appropriate antibiotic therapy was initiated. Otherwise, she has no specific complaints of nausea, vomiting, or diarrhea. She seems to be tolerating p.o. She has no respiratory concerns. PHYSICAL EXAMINATION: VITAL SIGNS: Afebrile, pulse 89, blood pressure 151/77, respirations 22, and saturation 94% on room air. GENERAL: The patient is awake and alert, in no apparent distress. LUNGS: Decent air entry with no prolonged expiratory phase. No wheezing or rhonchi appreciated. There are no crackles. HEART: Normal rate. Regular. ABDOMEN: Soft, nontender, and nondistended. Bowel sounds are positive. MUSCULOSKELETAL: No cyanosis or clubbing. There is no pitting in the bilateral lower extremities. SKIN: Tenting has improved dramatically. GENITOURINARY: Arndt catheter in place. NEUROLOGIC: Grossly nonfocal. LABORATORY DATA: WBC 14.1, hemoglobin 13.9, and platelets 173,000. Basic metabolic profile is otherwise unremarkable. Magnesium and phosphorous fall within normal limits. Troponin is negative x3. Campylobacter, stool cultures, and E. coli cultures are negative. C. diff antigen and toxin are both positive. ASSESSMENT: 1. Clostridium difficile colitis. 2. Peripheral vascular disease, horrendous. 3. Electrolyte derangements, resolved. DISCUSSION AND PLAN: The patient is doing fine from respiratory standpoint. At this point, she has no further requirements for inpatient Pulmonary or Critical Care opinion. As such, I will sign off. Please call with additional questions or concerns through time. Job ID: [id number]
--- NOTE | 2018-10-02 17:15 | PDOC.CTH ---
Cardiology Progress Note - Subjective The pt seen and examined. No overnight events. No cardiac complaints. she cont complaining of chronic back pain; however, she can sit having breakfast this AM. - Objective Vital Signs Temp Pulse Pulse Pulse Resp BP BP 10/02/18 15:05 97.9 F 89 22 H 10/02/18 13:34 56 L 16 10/02/18 11:33 98.0 F 69 20 10/02/18 10:20 65 65 129/61 146/65 H 10/02/18 08:17 10/02/18 07:39 97.3 F L 67 24 H 10/02/18 06:57 72 16 10/02/18 06:56 72 16 BP Pulse Ox 10/02/18 15:05 151/77 H 94 L 10/02/18 13:34 92 L 10/02/18 11:33 131/61 94 L 10/02/18 10:20 10/02/18 08:17 96 10/02/18 07:39 132/60 96 10/02/18 06:57 96 10/02/18 06:56 96 Admit Weight 102 lb 8.239 oz Weight 82 lb 9 oz 10/01/18 10/02/18 10/03/18 06:59 06:59 06:59 Intake Total 1726 1245 Output Total 1700 1800 Balance 26 -555 - Physical Examination General/Neuro: alert & oriented x3 Neck: no JVD present Lungs: other: (diminished at bases) Heart: other: (irregular) Abdomen: soft Extremities: other: (No edema) - Telemetry Telemetry Rhythm: Afib - Labs Result Diagrams: 10/01/18 06:05 10/01/18 06:05 Troponin/CKMB Troponin I 0.019 ng/mL (< 0.028) 10/01/18 06:05 - Assessment/Plan 1. 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 - Cont. medical tx. 2. Afib with several episodes of Afib/Aflutter with RVR on 09/29/2018 - well controlled HR with Digoxin PO 0.125mg qd and Amiodarone 200mg qd; on Eliquis 5mg BID 3. HTN - stable 4. Hyperlipidemia - 5. COPD - managed by reporting lead 6. Current smoker 4-5 cigaretts/day - smoking cessation education given 7. Back and ABD pain - 8. C diff - isolation; managed by JACQUELINE WARD reviewed * Echo on 09/26/2018 showed EF 55-60%, mild MR and TR; dilated bilat. atrium, and diastolic dysfunction. Pt. seen and eval. by me. I agree with the A/P by the LIFE SKILLS CONSULTANT. She has occasional pacing , underying Afib. She did complain of diarhea today and is still on isolation for C.Diff. Chest: decreased BS throughout. Irreg. rhythm. No edema. Review of Systems - Review of Systems Constitutional: reports: no symptoms reported EENTM: reports: no symptoms reported Respiratory: reports: no symptoms reported Cardiac (ROS): reports: no symptoms reported ABD/GI: reports: no symptoms reported : reports: no symptoms reported Musculoskeletal: reports: no symptoms reported Skin: reports: no symptoms reported
[2018-10-03 05:26] LABS: BUN (Urea Nitrogen) 11 mg/dL (9.8-20.1); Calc. Creatinine Clearance 60 mL/min (70-130); Calcium 8.9 mg/dL (7.8-10.44); Estimated GFR-MDRD Greater than 90; Glucose 78 mg/dL (83-110); Magnesium 1.5 mg/dL (1.6-2.6); Phosphorus 2.7 mg/dL (2.3-4.7)
[2018-10-03 05:26] LABS: Hemoglobin 12.2 g/dL (12.0-16.0); Lymphocytes 12 % (21-51); MDiff Complete? YES; Mean Corpuscular HGB CONC 31.8 g/dL (32.0-36.0); Mean Corpuscular Hemoglobin 39.7 pg (27.0-31.0); Mean Platelet Volume 8.1 fL (7.4-10.4); Monocytes 2 % (0-10); Neutrophil 86 % (42-75); Platelet Count 153 thou/uL (130-400); Platelet Morphology Comment Appears Adequate; RBC Distribution Width 15.3 % (11.5-14.5); RBC Morphology Normal; Red Blood Cell (RBC) Count 3.08 mill/uL (4.20-5.40); White Blood Cell (WBC) Count 9.4 thou/uL (4.8-10.8)
[2018-10-03 05:35] LABS: Anion Gap 14 mmol/L (10-20); Carbon Dioxide 34 mmol/L (23-31); Chloride 94 mmol/L (98-107); Sodium 139 mmol/L (136-145)
[2018-10-03 05:37] LABS: Potassium 2.8 mmol/L (3.5-5.1)
[2018-10-03] MEDS: Budesonide 0.5 MG/2 ML NEB INH SCH (06:03)
[2018-10-03] MEDS: Potassium Chloride 20 MEQ in Premix Bag 1 BAG IVPB SCH ×4 (06:09→13:22)
[2018-10-03] MEDS ORDERED: Magnesium Sulfate 2 GM in Sodium Chloride 0.9% 100 ML IVPB SCH (09:15)
[2018-10-03] MEDS ORDERED: Budesonide 0.5 MG/2 ML NEB INH PRN (09:18)
[2018-10-03] MEDS ORDERED: Magnesium 2 GM/50 ML 2 GM in Premix Bag 1 BAG IVPB SCH (09:30)
[2018-10-03] MEDS: HYDROcodone/Acetaminophen 10/325 mg Tablet PO PRN (10:59)
[2018-10-03] MEDS: Gabapentin 300 MG CAP PO SCH ×3 (11:00→20:48)
[2018-10-03] MEDS: Famotidine 20 MG TAB PO SCH ×2 (11:01→20:48)
[2018-10-03] MEDS: Aspirin 325 mg Enteric Coated Tablet PO SCH (11:01)
[2018-10-03] MEDS: Metoprolol Tartrate 25 MG TAB PO SCH ×2 (11:01→20:48)
[2018-10-03] MEDS: Amiodarone 200 MG TAB PO SCH (11:01)
[2018-10-03] MEDS: Digoxin 0.125 MG TAB PO SCH (11:01)
[2018-10-03] MEDS: Apixaban 5 MG TAB PO SCH ×2 (11:02→20:48)
[2018-10-03] MEDS: busPIRone HCl 5 MG TAB PO SCH ×2 (11:02→20:48)
[2018-10-03] MEDS: Vancomycin HCl 25 MG/ML Oral PO SCH ×4 (12:25→22:21)
--- NOTE | 2018-10-03 12:51 | PDOC.CTH ---
Cardiology Progress Note - Subjective The pt seen and examined. No overnight events. No cardiac complaints. - Objective Vital Signs Temp Pulse Resp BP BP Pulse Ox 10/03/18 11:14 97.5 F L 86 18 133/62 92 L 10/03/18 11:01 80 10/03/18 09:00 97.3 F L 80 18 112/57 L 96 10/03/18 04:18 97.3 F L 61 16 123/60 96 Admit Weight 102 lb 8.239 oz Weight 83 lb 6 oz 10/02/18 10/03/18 10/04/18 06:59 06:59 06:59 Intake Total 1245 2990 Output Total 1800 2800 Balance -555 190 - Physical Examination General/Neuro: alert & oriented x3 Neck: no JVD present Lungs: other: (diminihsed at bases) Heart: other: (irregular) Abdomen: soft Extremities: other: (No edema) - Telemetry Telemetry Rhythm: V paced - Labs Result Diagrams: 10/03/18 04:40 10/03/18 03:30 Troponin/CKMB Troponin I 0.019 ng/mL (< 0.028) 10/01/18 06:05 - Assessment/Plan 1. 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 - Cont. medical tx. On ASA 81mg qd. 2. Afib with several episodes of Afib/Aflutter with RVR on 09/29/2018 - well controlled HR with Digoxin PO 0.125mg qd and Amiodarone 200mg qd; on Eliquis 5mg BID 3. HTN - stable 4. COPD - stable with RA; 5. Current smoker 4-5 cigaretts/day - smoking cessation education given 6. Back and ABD pain - stable today. 7. C diff - isolation; managed by ID 8. hx of PM placement - V paced MAR reviewed * Echo on 09/26/2018 showed EF 55-60%, mild MR and TR; dilated bilat. atrium, and diastolic dysfunction. Pt.seen and eval.by me.She is feeling better.No cardiac complaints.She stillcomplains of leg pain but this isnot vascular in nature.the cardiac status is stable.I will sign off.If any new cardiac issues please consult me again. Review of Systems - Review of Systems Constitutional: reports: no symptoms reported EENTM: reports: no symptoms reported Respiratory: reports: no symptoms reported Cardiac (ROS): reports: no symptoms reported ABD/GI: reports: no symptoms reported : reports: no symptoms reported Musculoskeletal: reports: no symptoms reported
--- NOTE | 2018-10-03 13:26 | PDOC.PN ---
- Subjective Encounter Start Date: 10/03/18 Encounter Start Time: 13:25 Subjective: feels much better today -: was able to get to [facility] by herself - Objective Resuscitation Status - Order Detail: 09/26/18 07:52 Resuscitation Status Routine Resuscitation Status: FULL: Full Resuscitation MAR Reviewed: Yes Vital Signs & Weight: Vital Signs (12 hours) Temp Pulse Resp BP BP Pulse Ox 10/03/18 11:14 97.5 F L 86 18 133/62 92 L 10/03/18 11:01 80 10/03/18 09:00 97.3 F L 80 18 112/57 L 96 10/03/18 04:18 97.3 F L 61 16 123/60 96 Weight Admit Weight 102 lb 8.239 oz Weight 83 lb 6 oz Most Recent Monitor Data Heart Rate from ECG 88 NIBP 122/58 NIBP BP-Mean 79 Respiration from ECG 20 SpO2 100 I&O: 10/02/18 10/03/18 10/04/18 06:59 06:59 06:59 Intake Total 1245 2990 Output Total 1800 2800 Balance -555 190 Result Diagrams: 10/03/18 04:40 10/03/18 03:30 Additional Labs: Microbiology 10/02/18 02:00 Stool Escherichia coli 0157 Culture - Final 10/02/18 02:00 Stool Campylobacter Antigen Assay - Final 10/02/18 02:00 Stool Shiga Toxin Test - Final 09/26/18 14:06 Urine benavides catheter Urine Culture - Final NO GROWTH AT 48 HOURS 09/26/18 09:09 Venous blood - Right Hand Blood Culture - Final NO GROWTH IN 5 DAYS 09/26/18 09:05 Central Line - Right external jugular vein Blood Culture - Final NO GROWTH IN 5 DAYS 10/02/18 02:00 Stool Stool Culture - Preliminary Phys Exam - Physical Examination Constitutional: NAD HEENT: PERRLA, moist MMs, sclera anicteric, oral pharynx no lesions Neck: no nodes, no JVD, supple, full ROM Respiratory: no wheezing, no rales, no rhonchi, clear to auscultation bilateral Cardiovascular: RRR, no significant murmur, no rub Musculoskeletal: no edema, pulses present Neurological: non-focal, normal sensation, moves all 4 limbs Psychiatric: normal affect, A&O x 3 Skin: no rash Dx/Plan (1) Clostridium difficile diarrhea Code(s): A04.72 - ENTEROCOLITIS D/T CLOSTRIDIUM DIFFICILE, NOT SPCF RECUR Status: Acute Comment: on Vancomycin PO. Clinically better (2) Hypokalemia Code(s): E87.6 - HYPOKALEMIA Status: Acute (3) Hypomagnesemia Code(s): E83.42 - HYPOMAGNESEMIA Status: Acute (4) Atrial fibrillation Code(s): I48.91 - UNSPECIFIED ATRIAL FIBRILLATION Status: Acute Qualifiers: Atrial fibrillation type: chronic Qualified Code(s): I48.2 - Chronic atrial fibrillation Comment: HR controlled on Amiodarone and BB. on Eliquis .Monitor for low BP and/ or Low HR (5) Peripheral vascular disease Code(s): I73.9 - PERIPHERAL VASCULAR DISEASE, UNSPECIFIED Status: Chronic Comment: ASA 325 daily. (6) CAD (coronary artery disease) Code(s): I25.10 - ATHSCL HEART DISEASE OF [place] CORONARY ARTERY W/O ANG PCTRS Status: Chronic Qualifiers: (7) COPD (chronic obstructive pulmonary disease) Status: Chronic Qualifiers: Chronic bronchitis type: unspecified (8) HLD (hyperlipidemia) Code(s): E78.5 - HYPERLIPIDEMIA, UNSPECIFIED Status: Chronic Qualifiers: Hyperlipidemia type: unspecified Qualified Code(s): E78.5 - Hyperlipidemia , unspecified (9) HTN (hypertension) Code(s): I10 - ESSENTIAL (PRIMARY) HYPERTENSION Status: Chronic Qualifiers: Hypertension type: essential hypertension Qualified Code(s): I10 - Essential (primary) hypertension (10) Nonischemic cardiomyopathy Code(s): I42.9 - CARDIOMYOPATHY, UNSPECIFIED Status: Chronic Comment: with ef of around 35% in 06/2018. Now EF 50% on ECHO 09/2018 (11) SSS (sick sinus syndrome) Code(s): I49.5 - SICK SINUS SYNDROME Status: Chronic Comment: s/p pacemaker/ RN CORRECTIONS 08/10/16 (12) Moderate protein-calorie malnutrition Code(s): E44.0 - MODERATE PROTEIN-CALORIE MALNUTRITION Status: Chronic - Plan plan discussed w/ family, continue antibiotics, PT/OT, out of bed/ambulate, DVT proph w/SCDs Cont vancomycin . -: replace and recheck lytes. on small amount IVf untill PO intake increases -: cont cardiac meds as above, -: DC planning.pt opposed to rehab option but remains high risk for falls@home -: discussed w son at bedside also.they will be filling out [facility] paperwork tod * .am labs Review of Systems - Review of Systems Constitutional: weakness, malaise. negative: fever, chills, sweats, other Gastrointestinal: Diarrhea (much improved) Musculoskeletal: Back Pain (better) - Medications/Allergies Allergies/Adverse Reactions: Allergies Allergy/AdvReac Type Severity Reaction Status Date / Time alprazolam Allergy Verified 08/14/18 23:48 azithromycin Allergy Verified 08/14/18 21:17 doxycycline Allergy Verified 08/14/18 21:17 ketorolac Allergy Verified 08/14/18 21:17 Penicillins Allergy Verified 08/14/18 21:17 tramadol Allergy Verified 08/14/18 21:17 Medications: Current Medications Acetaminophen (Tylenol) 500 mg PO Q4H PRN PRN Reason: Headache/Fever or Pain Last Admin: 10/01/18 15:51 Dose: 500 mg Hydrocodone Bitart/Acetaminophen ([place] 10/325) 1 tab PO Q4H PRN PRN Reason: Pain Last Admin: 10/03/18 10:59 Dose: 1 tab Albuterol/Ipratropium (Duoneb) 3 ml NEB Q4H PRN PRN Reason: SOB Amiodarone HCl (Cordarone) 200 mg PO DAILY [facility] Last Admin: 10/03/18 11:01 Dose: 200 mg Apixaban (Eliquis) 5 mg PO BID [facility] Last Admin: 10/03/18 11:02 Dose: 5 mg Aspirin (Ecotrin) 81 mg PO DAILY [facility] Budesonide (Pulmicort Neb Solution) 0.5 mg INH BIDPRN PRN PRN Reason: SOB Buspirone HCl (Buspar) 5 mg PO BID [facility] Last Admin: 10/03/18 11:02 Dose: 5 mg Calcium Carbonate (Tums) 1,000 mg PO Q4H PRN PRN Reason: Heartburn or Indigestion Digoxin (Lanoxin) 0.125 mg PO QAM [facility] Last Admin: 10/03/18 11:01 Dose: 0.125 mg Famotidine (Pepcid) 20 mg PO BID [facility] Last Admin: 10/03/18 11:01 Dose: 20 mg Fentanyl (Duragesic) 0 mcg TD Q3D [facility] Last Admin: 10/02/18 10:20 Dose: 50 mcg Gabapentin (Neurontin) 600 mg PO TID [facility] Last Admin: 10/03/18 11:00 Dose: 600 mg Sodium Chloride (1/2 Normal Saline) 1,000 mls @ 50 mls/hr IV .Q20H [facility] Last Admin: 10/02/18 20:31 Dose: 1,000 mls Potassium Chloride 20 meq/ (Device) 100 mls @ 50 mls/hr IVPB Q2H [facility] Stop: 10/03/18 13:59 Last Admin: 10/03/18 13:22 Dose: 100 mls Lorazepam (Ativan) 0.5 mg PO Q4H PRN PRN Reason: Anxiety Last Admin: 09/30/18 20:44 Dose: 0.5 mg Lorazepam (Ativan) 0.5 mg SLOW IVP Q6H PRN PRN Reason: Anxiety/Agitation Last Admin: 10/01/18 20:00 Dose: 0.5 mg Metoclopramide HCl (Reglan) 5 mg PO Q6H PRN PRN Reason: Nausea/Vomiting Metoprolol Tartrate (Lopressor) 25 mg PO BID [facility] Last Admin: 10/03/18 11:01 Dose: 25 mg Miscellaneous Medication (Movantik) 25 mg PO DAILY-AC [facility] Last Admin: 10/03/18 11:53 Dose: Not Given Nitroglycerin (Nitrostat) 0.4 mg SL Q5MIN PRN PRN Reason: Chest Pain Last Admin: 09/30/18 21:03 Dose: 0.4 mg Ondansetron HCl (Zofran Odt) 4 mg PO Q6H PRN PRN Reason: Nausea/Vomiting Last Admin: 09/28/18 13:08 Dose: 4 mg Pantoprazole Sodium (Protonix) 40 mg PO DAILY [facility] Last Admin: 10/03/18 11:02 Dose: 40 mg Sodium Chloride (Flush - Normal Saline) 10 ml IVF Q12HR [facility] Last Admin: 10/03/18 11:03 Dose: Not Given Sodium Chloride (Flush - Normal Saline) 10 ml IVF PRN PRN PRN Reason: Saline Flush Vancomycin HCl (First Vancomycin) 250 mg PO QID [facility] Last Admin: 10/03/18 12:26 Dose: 250 mg
[2018-10-03] MEDS: Sodium Chloride 0.45% 1,000 ML IV SCH (20:57)
[2018-10-04 07:40] LABS: Mean Corpuscular HGB CONC 31.2 g/dL (32.0-36.0); Mean Corpuscular Hemoglobin 38.9 pg (27.0-31.0); Mean Platelet Volume 8.2 fL (7.4-10.4); Platelet Count 188 thou/uL (130-400); RBC Distribution Width 15.4 % (11.5-14.5); Red Blood Cell (RBC) Count 3.09 mill/uL (4.20-5.40); White Blood Cell (WBC) Count 9.5 thou/uL (4.8-10.8)
[2018-10-04 08:07] LABS: Band 3 % (5-11); Lymphocytes 18 % (21-51); MDiff Complete? YES; Macrocytosis MODERATE=16-30 cells (100X) (0-5/hpf); Monocytes 15 % (0-10); Neutrophil 64 % (42-75); Platelet Morphology Comment Appears Adequate; Polychromasia SLIGHT = 2-3 cells (100X) (0-2/hpf); Stomatocytes SLIGHT = 2-5 cells (100X) (0-1/hpf)
[2018-10-04 08:19] LABS: Calcium 9.9 mg/dL (7.8-10.44)
[2018-10-04 08:20] LABS: BUN (Urea Nitrogen) 9 mg/dL (9.8-20.1); Calc. Creatinine Clearance 54 mL/min (70-130); Estimated GFR-MDRD Greater than 90; Glucose 102 mg/dL (83-110); Magnesium 1.5 mg/dL (1.6-2.6)
[2018-10-04 08:33] LABS: Anion Gap 13 mmol/L (10-20); Carbon Dioxide 35 mmol/L (23-31); Chloride 92 mmol/L (98-107); Potassium 4.5 mmol/L (3.5-5.1); Sodium 135 mmol/L (136-145)
[2018-10-04] MEDS ORDERED: Aspirin 81 mg Enteric Coated Tablet PO SCH (09:00)
[2018-10-04] MEDS ORDERED: Magnesium 2 GM/50 ML 2 GM in Premix Bag 1 BAG IVPB SCH (09:30)
[2018-10-04] MEDS: Digoxin 0.125 MG TAB PO SCH (09:45)
[2018-10-04] MEDS: busPIRone HCl 5 MG TAB PO SCH (09:45)
[2018-10-04] MEDS: Apixaban 5 MG TAB PO SCH (09:45)
[2018-10-04] MEDS: Gabapentin 300 MG CAP PO SCH ×2 (09:45→16:49)
[2018-10-04] MEDS: Metoprolol Tartrate 25 MG TAB PO SCH (09:46)
[2018-10-04] MEDS: Amiodarone 200 MG TAB PO SCH (09:48)
[2018-10-04] MEDS: Famotidine 20 MG TAB PO SCH (09:50)
[2018-10-04] MEDS: Vancomycin HCl 25 MG/ML Oral PO SCH ×3 (10:00→16:49)
[2018-10-04] MEDS: HYDROcodone/Acetaminophen 10/325 mg Tablet PO PRN (10:01)
[2018-10-04 13:48] VITALS: BP 105/52; TEMP 97.5
--- NOTE | 2018-10-05 05:05 | DIS ---
DATE OF ADMISSION: 09/26/2018 DATE OF DISCHARGE: 10/04/2018 DISCHARGE DISPOSITION: [facility] bed. PRIMARY CARE PHYSICIAN: Dr. Ryan Potts. DISCHARGE DIAGNOSES: 1. Clostridium difficile colitis. 2. Chronic atrial fibrillation, on anticoagulation. 3. Hypokalemia, resolved. 4. Hypomagnesemia, resolved. 5. Peripheral vascular disease. 6. Coronary artery disease. 7. Chronic obstructive pulmonary disease. 8. Hypertension. 9. Dyslipidemia. 10. History of nonischemic cardiomyopathy with most recent echo showing EF of 50% during this hospitalization. 11. History of sick sinus syndrome, status post pacemaker in August 2016. 12. Moderate protein-calorie malnutrition. DISCHARGE MEDICATIONS: 1. Neurontin 600 mg p.o. t.i.d. 2. Sublingual nitroglycerin q.5 minutes as needed for chest pain. 3. Coreg 12.5 mg p.o. b.i.d. 4. Eliquis 5 mg p.o. b.i.d. 5. Norvasc 10 mg daily. 6. Symbicort 160/4.5 two puffs b.i.d. 7. Protonix 40 mg daily. 8. Lisinopril 20 mg daily. 9. Duragesic patch every 3 days. 10. Buspirone 5 mg p.o. b.i.d. 11. Vancomycin 250 mg p.o. b.i.d. for a total of 14 days. 12. Reglan 5 mg p.o. every 6 hours p.r.n. 13. DuoNeb p.r.n. 14. Clio p.r.n. 15. Digoxin 0.125 mg every morning. 16. Tums p.r.n. 17. Pulmicort b.i.d. p.r.n. 18. Amiodarone 200 mg daily. IN-HOUSE CONSULTATION: 1. Cardiology, Dr. Spann and Dr. Peter. 2. Pain Medicine, Dr. Cabral and group. 3. Infectious Disease, Dr. Clements. 4. Pulmonary Medicine, Dr. Desai and Dr. Zhao. 5. Gastroenterology, Dr. Duong. 6. Hand Surgery, Dr. Pool. 7. Vascular Surgery, Dr. Machado. 8. Nephrology, Dr. Narayan. PROCEDURES DONE IN THE HOSPITAL: 1. Vascular ultrasound on 09/26/2018, which is negative for any DVT on the right leg. 2. Lower extremity arterial ultrasound, which showed significant stenosis of bilateral lower extremity arterial systems. 3. Lower extremity angiogram which shows extensive atherosclerosis and occlusion of right external iliac artery down to the level of common femoral artery and additional multifocal occlusion involving the left and right lower extremity arterial system. 4. Transthoracic echocardiogram which shows EF of 50% to 55% with restrictive filling pattern. 5. CT scan of the abdomen and pelvis shows diffuse colonic wall thickening due to infectious or inflammatory process. 6. Hand x-ray which shows no evidence of acute osseous abnormality. HISTORY OF PRESENTING ILLNESS: Ms. Villa is a 73-year-old female with past medical history of atrial fibrillation on chronic anticoagulation as well as history of sick sinus syndrome status post pacemaker placement, COPD, chronic back pain, history of cardiomyopathy with poor EF in the past, who presented to the emergency room with intractable back pain going down to lower extremity with generalized weakness and hypoglycemia. She was found to be hypotensive and hypoglycemic per EMS when they went to pick her up. In the emergency room, her blood pressure was 108/49, and she was otherwise stable. She was found to be hypothermic as well upon presentation with a rectal temperature of 95. She did develop hypotension in the emergency room with systolic blood pressure as low as 50s. She was started on Levophed, was given IV fluid and was admitted to CCU for further management with a presumptive diagnosis of sepsis of unclear etiology. Please see admission history and physical for further details. Appropriate cultures were sent and Pulmonary Medicine was consulted. Echocardiogram was ordered given her history of cardiomyopathy. Dr. Desai saw the patient in the CCU setting, and Pulmonary and Critical Care Medicine followed the patient along. All of her cultures remain negative, but she started to have significant pain in the abdomen. CT scan of the abdomen and pelvis was done, which showed colitis. Gastroenterology was consulted and Dr. Duong saw the patient and recommended stool studies. Stool studies did come back positive for C diff and she was started on oral vancomycin 250 mg q.i.d. to finish a total of 14-day course. She had significant improvement in her symptoms as soon as oral vancomycin was started. All of her oral antibiotics were discontinued when the rest of her cultures were negative and Infectious Disease was consulted and Dr. Clements was following the patient along while in the hospital. With regard to her complaints of significant pain in the lower extremity, she underwent venous and then arterial Doppler ultrasound. She was found to have significant peripheral arterial disease. For this reason, Vascular Surgery was consulted and Dr. Machado saw the patient. In his opinion, she was not a surgical candidate. Pain Medication team was also consulted because of intractable back pain and leg pain, and Ms. Maddy Braga saw the patient for Dr. Cabral. The patient is given referral to see them in the clinic setting as well. Current pain medications as above were started and she was discharged on same with outpatient followup. Cardiology will also follow the patient along with her history of cardiomyopathy, atrial fibrillation, possible peripheral arterial disease. She was maintained on amiodarone at 200 mg daily and Eliquis 5 mg p.o. b.i.d. She was also started on digoxin and continued on carvedilol for rate control. She remained rate controlled throughout her hospitalization and was in and out of sinus rhythm as well. She was briefly seen by Nephrology for acute renal insufficiency, which quickly resolved. She was also seen by Hand Surgery, Dr. Pool, as she was found to have some skin lesions on the left hand and given her presentation with a sepsis-like picture, Dr. Pool saw the patient, but he has also recommended wound care and medical management. The patient has had a prolonged and complicated hospitalization with multiple medical teams taking care of her including multiple specialists. Eventually, the patient is stabilized and it seems like most of her problems are stemming from C difficile infection as well as severe peripheral arterial disease among her other comorbidities. She is stable enough to be transitioned to next level of care. The patient and family have chosen [facility] and they have accepted the patient, and she will be discharged. Electrolyte was replaced and will be checked in the outpatient setting. Her diarrhea has abated and she was seen and examined this morning and is in good spirits. PHYSICAL EXAMINATION: VITAL SIGNS: This morning, vital signs, temperature 97.5, pulse of 67, respirations 17, saturating 94% on room air, blood pressure 105/52. GENERAL: No acute distress. Awake, alert, and oriented x3. CHEST: Clear to auscultation without any wheezing, rales or rhonchi. HEART: Rhythm is regular. ABDOMEN: Soft, nondistended. Mildly tender to palpation. LABORATORY DATA: Lab examination of bacterial culture from the hand. Urine culture and blood culture remain negative to date. DISCHARGE PLAN: Discharge plan was discussed with the patient and her son, who verbalized understanding. TIME SPENT: Total time spent in the discharge of this patient, 38 minutes. Job ID: [id number]
== END 2018-10-04 17:07 | disposition swing bed (61) | DRG 372 ==
LOC: ERS 04:28 → CCU 07:40 → IMCU/EMU 09-29 11:38 → 2NO 09-30 18:05
PROVIDERS: ADMIT Hospitalist; ATTEND Hospitalist
PROC: 3E033XZ Introduction of Vasopressor into Peripheral Vein, Percutaneous Approach (ICD-10-PCS; principal; 2018-09-26)
DX: A04.72 Enterocolitis due to Clostridium difficile, not specified as recurrent (principal); N17.9 Acute kidney failure, unspecified; E87.2 Acidosis; I47.2 Ventricular tachycardia; L98.498 Non-pressure chronic ulcer of skin of other sites with other specified severity; E44.0 Moderate protein-calorie malnutrition; Z68.1 Body mass index [BMI] 19.9 or less, adult; I42.8 Other cardiomyopathies; I70.213 Atherosclerosis of native arteries of extremities with intermittent claudication, bilateral legs; I10 Essential (primary) hypertension; I65.29 Occlusion and stenosis of unspecified carotid artery; I25.10 Atherosclerotic heart disease of native coronary artery without angina pectoris; J44.9 Chronic obstructive pulmonary disease, unspecified; T68.XXXA Hypothermia, initial encounter; I48.2 Chronic atrial fibrillation; F17.210 Nicotine dependence, cigarettes, uncomplicated; M51.16 Intervertebral disc disorders with radiculopathy, lumbar region; E16.2 Hypoglycemia, unspecified; G89.4 Chronic pain syndrome; Z95.0 Presence of cardiac pacemaker; K21.9 Gastro-esophageal reflux disease without esophagitis; E83.42 Hypomagnesemia; E87.6 Hypokalemia; F32.9 Major depressive disorder, single episode, unspecified; X31.XXXA Exposure to excessive natural cold, initial encounter; Y92.009 Unspecified place in unspecified non-institutional (private) residence as the place of occurrence of the external cause; Z79.01 Long term (current) use of anticoagulants; Z88.1 Allergy status to other antibiotic agents; Z88.0 Allergy status to penicillin; Z88.8 Allergy status to other drugs, medicaments and biological substances
CPT/HCPCS: 36415; 36416; 36556; 51702; 71045; 74176; 75635; 80048; 80053; 80202; 81003; 82180; 82533; 82550; 82607; 82805; 83605; 83735; 84100; 84425; 84443; 84484; 84590; 85025; 87040; 87045; 87046; 87070; 87086; 87205; 87324; 87449; 87899; 93005; 93306; 93923; 94640; 96361; 96365; 96366; 96375; A4353; C9113; J1160; J1650; J1720; J2060; J2185; J2270; J2405; J3370; J3475; J3480; J7050; J7070; J7620; J7626; Q0162; Q9966

== ENCOUNTER 2018-10-13 21:27 | Emergency (ER) | payer MEDICARE ==
[~2018-10-13 21:27] MED LIST: ISOVUE-370 76%-LOCM 1 ML ONE
[2018-10-13 23:24] LABS: #Basophils 0.1 thou/uL (0.0-0.2); #Eosinphils 0.1 thou/uL (0.0-0.7); #Lymphocytes 2.1 thou/uL (1.20-3.40); #Monocytes 0.8 thou/uL (0.11-0.59); %Basophils 1.6 % (0.0-1.0); %Eosinophils 0.7 % (0.0-10.0); %Lymphocytes 23.2 % (21.0-51.0); %Monocytes 8.5 % (0.0-10.0); Hemoglobin 11.8 g/dL (12.0-16.0); Mean Corpuscular HGB CONC 30.6 g/dL (32.0-36.0); Mean Corpuscular Hemoglobin 37.5 pg (27.0-31.0); Mean Platelet Volume 7.2 fL (7.4-10.4); Platelet Count 382 thou/uL (130-400); RBC Distribution Width 14.8 % (11.5-14.5); Red Blood Cell (RBC) Count 3.16 mill/uL (4.20-5.40); White Blood Cell (WBC) Count 9.1 thou/uL (4.8-10.8)
[2018-10-13 23:46] LABS: ALT (SGPT) 20 U/L (8-55); AST (SGOT) 21 U/L (5-34); Albumin 3.7 g/dL (3.4-4.8); Alkaline Phosphatase 96 U/L (40-150); Anion Gap 16 mmol/L (10-20); BUN (Urea Nitrogen) 12 mg/dL (9.8-20.1); Bilirubin, Total 0.4 mg/dL (0.2-1.2); Calc. Creatinine Clearance 0 mL/min (70-130); Carbon Dioxide 23 mmol/L (23-31); Chloride 102 mmol/L (98-107); Estimated GFR-MDRD Greater than 90; Globulin 3.5 g/dL (2.4-3.5); Glucose 82 mg/dL (83-110); Lipase 16 U/L (8-78); Potassium 3.8 mmol/L (3.5-5.1); Protein, Total 7.2 g/dL (6.0-8.3); Sodium 137 mmol/L (136-145)
[2018-10-14 01:05] LABS: Bacteria/HPF 4+ HPF (None Seen); Hyaline Casts/LPF 0-3 HYALINE CAST LPF (0-3 Hyaline); Squamous Epithelial None Seen HPF (0-3)
[2018-10-14 01:06] LABS: Bilirubin Negative (Negative); Blood, Urine Trace (Negative); Clarity CLOUDY (Clear); Glucose, Urine (Dipstick) Negative (Negative); Leukocyte Large (Negative); Nitrite Positive (Negative); Protein, Urine (Dipstick) Negative (Neg-Trace); Specific Gravity, Urine 1.025 (1.002-1.036); Urobilinogen 0.2 mg/dL (0.2-1.0); pH, Urine 7.5 (5.0-9.0)
[2018-10-14] MEDS ORDERED: HYDROcodone/Acetaminophen 10/325 mg Tablet ONE (01:54)
--- NOTE | 2018-10-14 07:40 | CT ---
CT OF THE ABDOMEN AND PELVIS WITH IV CONTRAST: INDICATION: History of nausea and vomiting. COMPARISON: Prior CT dated 09/30/2018 and CTA dated 09/27/2018. Comparisons are also made with a CT of the abdomen and pelvis dated 12/31/2015. FINDINGS: There is a prominent amount of retained stool within the colon. The bladder demonstrates some mild w all thickening. There are scattered vascular calcifications. There are stable bilateral renal cysts. The liver, gilbert creas, and adrenal glands appear within normal limits. The spleen is within normal limits. There is severe vascular calcification involving the abdominopelvic vasculature. There is osteonecrosis of both femoral heads without evidence of subchondral collapse. There is scat tered degenerative change. There is dextroscoliosis of the lumbar spine. There is mild wedge compre ssion abnormality of L1 stable to the prior exam. There is diffuse osteopenia. IMPRESSION: 1. Prominent amount of retained stool. 2. Wall thickening involving the bladder may reflect a component of chronic bladder outlet obstructi on versus cystitis. Recommend correlation with urinary laboratory. 3. Bilateral renal cysts. 4. Stable L1 compression fracture. POS: BH
== END 2018-10-14 03:15 | disposition home or self-care (01) ==
LOC: ERS 21:27
DX: K59.00 Constipation, unspecified (principal); N39.0 Urinary tract infection, site not specified; I48.91 Unspecified atrial fibrillation; I10 Essential (primary) hypertension; J44.9 Chronic obstructive pulmonary disease, unspecified; F41.9 Anxiety disorder, unspecified; F17.210 Nicotine dependence, cigarettes, uncomplicated; Z79.899 Other long term (current) drug therapy
CPT/HCPCS: 36415; 74177; 80053; 81001; 83690; 84484; 85025; 87077; 87086; 87186; 93005; Q9966

== ENCOUNTER 2018-11-20 22:32 | Inpatient (IN) | payer MEDICARE ==
[2018-11-20] MEDS ORDERED: Gentamicin 80 MG/2 ML VIAL ONE (22:52)
[2018-11-20] MEDS ORDERED: Dexamethasone 10 MG/ML VIAL ONE (22:52)
[2018-11-20 23:37] LABS: Digoxin Less than 0.15 ng/mL (0.8-2.0)
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
[2018-11-21] MEDS ORDERED: Albuterol Sulfate 2.5 mg/3 ml Neb NEB PRN (00:07)
[2018-11-21] MEDS ORDERED: Senokot S 8.6-50 MG TAB PO PRN (00:34)
[2018-11-21] MEDS ORDERED: Acetaminophen 325 MG TAB PO PRN (00:34)
[2018-11-21] MEDS ORDERED: Acetaminophen 650 MG Suppository PR PRN (00:34)
[2018-11-21] MEDS ORDERED: Budesonide 0.5 MG/2 ML NEB NEB PRN (01:13)
[2018-11-21] MEDS ORDERED: Nitroglycerin 0.4 MG TAB (25 Tab Bottle) SL SCH (01:15)
[2018-11-21] MEDS: HYDROcodone/Acetaminophen 10/325 mg Tablet PO PRN ×4 (01:29→19:35)
[2018-11-21] MEDS: Lactated Ringer's 1,000 ML IV SCH ×2 (01:29→15:54)
[2018-11-21] MEDS ORDERED: Nitroglycerin 0.4 MG TAB (25 Tab Bottle) SL PRN (02:00)
[2018-11-21 03:17] LABS: Anion Gap 16 mmol/L (10-20); BUN (Urea Nitrogen) 10 mg/dL (9.8-20.1); Calc. Creatinine Clearance 39 mL/min (70-130); Calcium 8.6 mg/dL (7.8-10.44); Carbon Dioxide 17 mmol/L (23-31); Chloride 105 mmol/L (98-107); Estimated GFR-MDRD Greater than 90; Glucose 136 mg/dL (83-110); Potassium 4.2 mmol/L (3.5-5.1); Sodium 134 mmol/L (136-145)
[2018-11-21 03:27] LABS: Troponin I Less than 0.010 ng/mL (< 0.028)
[2018-11-21 03:32] LABS: Hemoglobin 13.3 g/dL (12.0-16.0); Mean Corpuscular HGB CONC 31.2 g/dL (32.0-36.0); Mean Corpuscular Hemoglobin 36.1 pg (27.0-31.0); Mean Platelet Volume 7.9 fL (7.4-10.4); Platelet Count 327 thou/uL (130-400); RBC Distribution Width 16.8 % (11.5-14.5); Red Blood Cell (RBC) Count 3.68 mill/uL (4.20-5.40); White Blood Cell (WBC) Count 10.4 thou/uL (4.8-10.8)
[2018-11-21 03:33] LABS: Anisocytosis SLIGHT = 6-15 cells (100X) (0-5/hpf); Band 6 % (5-11); Lymphocytes 7 % (21-51); MDiff Complete? YES; Neutrophil 87 % (42-75); Platelet Morphology Comment Appears Adequate
[2018-11-21 06:50] LABS: Troponin I Less than 0.010 ng/mL (< 0.028)
--- NOTE | 2018-11-21 06:54 | PDOC.FM ---
- Subjective Subjective: Ms. Villa is feeling better overall. No more nausea or vomiting. Requesting home fentanyl patch for chronic back pain. - Objective Vital Signs & Weight: Vital Signs (12 hours) Temp Pulse Resp BP Pulse Ox 11/21/18 04:00 98.0 F 88 18 100/55 L 93 L 11/21/18 00:30 97.8 F 79 16 113/60 97 Weight Weight 30.3 kg Result Diagrams: 11/21/18 09:46 11/21/18 09:46 Phys Exam - Physical Examination Constitutional: NAD (thin) Respiratory: no wheezing, clear to auscultation bilateral Cardiovascular: RRR, no significant murmur Gastrointestinal: soft (thin), non-tender, positive bowel sounds Musculoskeletal: no edema Neurological: non-focal Psychiatric: normal affect Dx/Plan (1) Prolonged QT interval Code(s): R94.31 - ABNORMAL ELECTROCARDIOGRAM [ECG] [EKG] Status: Acute (2) Sepsis Code(s): A41.9 - SEPSIS, UNSPECIFIED ORGANISM Status: Acute (3) UTI (urinary tract infection) Status: Acute (4) Hx of Clostridium difficile infection Code(s): Z86.19 - PERSONAL HISTORY OF OTHER INFECTIOUS AND PARASITIC DISEASES Status: Chronic (5) Malnutrition Code(s): E46 - UNSPECIFIED PROTEIN-CALORIE MALNUTRITION Status: Chronic (6) Abdominal pain Code(s): R10.9 - UNSPECIFIED ABDOMINAL PAIN Status: Acute Qualifiers: Abdominal location: generalized Qualified Code(s): R10.84 - Generalized abdominal pain (7) Chronic pain Code(s): G89.29 - OTHER CHRONIC PAIN Status: Chronic Qualifiers: Chronic pain type: chronic pain syndrome Qualified Code(s): G89.4 - Chronic pain syndrome (8) HLD (hyperlipidemia) Code(s): E78.5 - HYPERLIPIDEMIA, UNSPECIFIED Status: Chronic Qualifiers: Hyperlipidemia type: unspecified Qualified Code(s): E78.5 - Hyperlipidemia , unspecified (9) HTN (hypertension) Code(s): I10 - ESSENTIAL (PRIMARY) HYPERTENSION Status: Chronic Qualifiers: Hypertension type: essential hypertension Qualified Code(s): I10 - Essential (primary) hypertension - Plan Plan: Concern for sepsis 2/2 UTI -reports fever, WBC 5, tachycardic, BP 105/56 -UA + for UTI -Continue Rocephin (4/15) -Continue MIVF LR @ 70ml -U cx, blood cx pending -Continue to monitor -If patient re-fevers, consider abdominal CT as hx of diverticulitis Severe physical deconditioning -PT/OT consulted Malnutrition -Start supplements BID -Manager Business Process/magazine grinder loader consulted Hyponatremia, mild -continue to monitor Atrial fibrillation -pacemaker in place -continue home eliquis, amiodarone, digoxin Macrocytosis -Folate vs B12 deficiency -Multivitamin COPD -Nebs q4h PRN for sob/wheezing -s/p decadron in ED HTN -hold home meds, as patient borderline hypotensive Chronic pain -patient on fentanyl 50 mcg patch q3 days -Continue norco 10/325 po q6h PRN pain, tylenol PRN QT prolonged -hold QT prolonging medications, including zofran -QTc 579 -patient has pacemaker in place History of C Diff infection -aware. No diarrhea currently. DVT ppx: home eliquis Diet: HH, +nutritional supplement GI ppx: pantoprazole Dispo: pending sensitivities Addendum - Attending - Attending Attestation Date/Time: 11/21/18 1140 I personally evaluated the patient and discussed the management with Dr. Herbert. I agree with the History, Examination, Assessment and Plan documented above with any addition or exceptions noted below. UTI- continue rocephin and await cx results Deconditioning and Protein Calorie Malnutrition- BMI 12. nutrition consult and CM consult for SNF placement.
[2018-11-21] MEDS: busPIRone HCl 5 MG TAB PO SCH ×2 (07:49→19:36)
[2018-11-21] MEDS: Carvedilol 25 MG TAB PO SCH ×2 (07:51→15:53)
[2018-11-21] MEDS: Amiodarone 200 MG TAB PO SCH (07:52)
[2018-11-21] MEDS: Gabapentin 300 MG CAP PO SCH ×3 (07:52→19:36)
[2018-11-21] MEDS: Digoxin 0.125 MG TAB PO SCH (07:52)
[2018-11-21] MEDS: Apixaban 5 MG TAB PO SCH ×2 (07:52→19:36)
[2018-11-21] MEDS: Amlodipine 10 MG TAB PO SCH (07:53)
[2018-11-21] MEDS: Famotidine 20 MG TAB PO SCH ×2 (07:53→19:36)
[2018-11-21] MEDS: Multivitamin W/ Minerals 1 TAB PO SCH (07:53)
[2018-11-21] MEDS ORDERED: fentaNYL 50 mcg/hour Patch TD SCH (10:00)
[2018-11-21 10:44] LABS: Hemoglobin 11.9 g/dL (12.0-16.0); Platelet Count 308 thou/uL (130-400)
[2018-11-21 11:46] VITALS: BMI 14.9
[2018-11-21 16:34] LABS: Amphetamine Not Detected (NotDetected); Barbiturates Screen Not Detected (NotDetected); Benzodiazepine Screen Not Detected (NotDetected); Cocaine Metabolite Screen Not Detected (NotDetected); Medtox Control Line Valid? VALID (VALID); Medtox Reader # READER 1; Methadone Not Detected (NotDetected); Methamphetamine Not Detected (NotDetected); Opiate Screen Detected (NotDetected); Oxycodone Screen Not Detected (NotDetected); Phencyclidine (PCP) Not Detected (NotDetected); THC/Cannabinoid Screen Not Detected (NotDetected); Tricyclic Screen Not Detected (NotDetected)
[2018-11-21] MEDS ORDERED: cefTRIAXone\\ROCEPHIN 1 GM in Sodium Chloride 0.9% 100 ML IVPB SCH (22:00)
[2018-11-22] MEDS: HYDROcodone/Acetaminophen 10/325 mg Tablet PO PRN ×3 (02:21→14:20)
[2018-11-22] MEDS: Lactated Ringer's 1,000 ML IV SCH (05:35)
[2018-11-22 05:58] VITALS: TEMP 97.5
--- NOTE | 2018-11-22 06:36 | PDOC.FM ---
- Subjective Subjective: Ms. Villa is feeling so much better this morning. She has been able to get to bathroom. Has fears about going to home alone and how she can manage. Does not desire SNF. Has had home health in past. - Objective MAR Reviewed: Yes Vital Signs & Weight: Vital Signs (12 hours) Temp Pulse Resp BP Pulse Ox 11/22/18 04:00 97.5 F L 91 18 129/66 91 L 11/22/18 00:00 98.3 F 76 18 93 L 11/21/18 20:00 98.7 F 80 18 115/61 91 L 11/21/18 19:50 94 L Weight Admit Weight 30.3 kg Weight 37.013 kg I&O: 11/20/18 11/21/18 11/22/18 06:59 06:59 06:59 Intake Total 1680 Balance 1680 Result Diagrams: 11/22/18 05:51 11/22/18 05:51 Phys Exam - Physical Examination Constitutional: NAD Respiratory: no wheezing, clear to auscultation bilateral Cardiovascular: RRR, no significant murmur Gastrointestinal: soft, non-tender, positive bowel sounds Musculoskeletal: no edema Neurological: non-focal Psychiatric: normal affect Skin: normal turgor Dx/Plan (1) Prolonged QT interval Code(s): R94.31 - ABNORMAL ELECTROCARDIOGRAM [ECG] [EKG] Status: Acute (2) Sepsis Code(s): A41.9 - SEPSIS, UNSPECIFIED ORGANISM Status: Acute (3) UTI (urinary tract infection) Status: Acute (4) Hx of Clostridium difficile infection Code(s): Z86.19 - PERSONAL HISTORY OF OTHER INFECTIOUS AND PARASITIC DISEASES Status: Chronic (5) Malnutrition Code(s): E46 - UNSPECIFIED PROTEIN-CALORIE MALNUTRITION Status: Chronic (6) Abdominal pain Code(s): R10.9 - UNSPECIFIED ABDOMINAL PAIN Status: Acute Qualifiers: Abdominal location: generalized Qualified Code(s): R10.84 - Generalized abdominal pain (7) Chronic pain Code(s): G89.29 - OTHER CHRONIC PAIN Status: Chronic Qualifiers: Chronic pain type: chronic pain syndrome Qualified Code(s): G89.4 - Chronic pain syndrome (8) HLD (hyperlipidemia) Code(s): E78.5 - HYPERLIPIDEMIA, UNSPECIFIED Status: Chronic Qualifiers: Hyperlipidemia type: unspecified Qualified Code(s): E78.5 - Hyperlipidemia , unspecified (9) HTN (hypertension) Code(s): I10 - ESSENTIAL (PRIMARY) HYPERTENSION Status: Chronic Qualifiers: Hypertension type: essential hypertension Qualified Code(s): I10 - Essential (primary) hypertension - Plan Plan: Concern for sepsis 2/2 UTI -initial fever, WBC 5, tachycardic, BP 105/56 -UA + for UTI -Continue Rocephin (11/20), will transition to PO when culture available -LR @ 70ml, will d/c today -U cx, blood cx pending -Continue to monitor Severe physical deconditioning -PT/OT consulted - recommended home with HH Malnutrition -Start supplements BID -Architectural Sales Consultant/stonemason apprentice consulted Hyponatremia, mild -continue to monitor Atrial fibrillation -pacemaker in place -continue home eliquis, amiodarone, digoxin Macrocytosis -Folate vs B12 deficiency -Multivitamin COPD -Nebs q4h PRN for sob/wheezing -s/p decadron in ED HTN -hold home meds, as patient borderline hypotensive Chronic pain -patient on fentanyl 50 mcg patch q3 days -Continue norco 10/325 po q6h PRN pain, tylenol PRN QT prolonged -hold QT prolonging medications, including zofran -QTc 579 -patient has pacemaker in place History of C Diff infection -aware. No diarrhea currently. DVT ppx: home eliquis Diet: HH, +nutritional supplement GI ppx: pantoprazole Dispo: pending sensitivities, plan for discharge with HH Addendum - Attending - Attending Attestation Date/Time: 11/22/18 5482 I personally evaluated the patient and discussed the management with Dr. Herbert I agree with the History, Examination, Assessment and Plan documented above with any addition or exceptions noted below. UTI- home on oral abx and f/u urine cx results. Deconditioning and protein calorie malnutrition- home with HH and increased caloric intake.
[2018-11-22 06:43] LABS: #Monocytes 0.9 thou/uL (0.11-0.59); #Neutrophils 7.1 thou/uL (1.40-6.50); %Eosinophils 0.2 % (0.0-10.0); %Lymphocytes 10.9 % (21.0-51.0); %Monocytes 10.4 % (0.0-10.0); %Neutrophils 78.4 % (42.0-75.0); Hemoglobin 12.5 g/dL (12.0-16.0); MDiff Complete? YES; Macrocytosis MODERATE=16-30 cells (100X) (0-5/hpf); Mean Corpuscular HGB CONC 31.4 g/dL (32.0-36.0); Mean Corpuscular Hemoglobin 36.4 pg (27.0-31.0); Mean Platelet Volume 7.7 fL (7.4-10.4); Platelet Count 315 thou/uL (130-400); Red Blood Cell (RBC) Count 3.44 mill/uL (4.20-5.40)
[2018-11-22 07:05] LABS: Anion Gap 13 mmol/L (10-20); BUN (Urea Nitrogen) 15 mg/dL (9.8-20.1); Calc. Creatinine Clearance 47 mL/min (70-130); Carbon Dioxide 25 mmol/L (23-31); Chloride 105 mmol/L (98-107); Estimated GFR-MDRD Greater than 90; Glucose 103 mg/dL (83-110); Potassium 4.5 mmol/L (3.5-5.1); Sodium 138 mmol/L (136-145)
[2018-11-22 08:00] VITALS: BP 129/67
[2018-11-22] MEDS: Gabapentin 300 MG CAP PO SCH ×2 (08:18→14:21)
[2018-11-22] MEDS: Apixaban 5 MG TAB PO SCH (08:18)
[2018-11-22] MEDS: Multivitamin W/ Minerals 1 TAB PO SCH (08:18)
[2018-11-22] MEDS: busPIRone HCl 5 MG TAB PO SCH (08:18)
[2018-11-22] MEDS: Amlodipine 10 MG TAB PO SCH (08:18)
[2018-11-22] MEDS: Amiodarone 200 MG TAB PO SCH (08:18)
[2018-11-22] MEDS: Digoxin 0.125 MG TAB PO SCH (08:18)
[2018-11-22] MEDS: Carvedilol 25 MG TAB PO SCH (08:19)
--- NOTE | 2018-11-22 11:43 | PQF ---
CLINICAL DOCUMENTATION IMPROVEMENT CLARIFICATION FORM: ICD-10 Updated PLEASE DO AN ADDENDUM TO THE PROGRESS NOTE WITH ANY DOCUMENTATION UPDATES OR ADDITIONS AND CARRY THROUGH TO DC SUMMARY. THANK YOU. Date: 11/22/2018 ATTN: Dr. Herbert/ Attending Dr. Perla Please exercise your independent, professional judgment in responding to the clarification form. Clinical indicators are provided on the bottom of this form for your review Please check appropriate box(s): [x ] Protein Calorie Malnutrition: [ ] Mild [ ] Moderate [ x ] Severe [ ] Other Malnutrition (please specify) [ ] Other diagnosis [ ] Unable to determine In addition, please specify: Present on Admission (POA): [ x ] Yes [ ] No [ ] Unable to determine CLINICAL INDICATORS - SIGNS / SYMPTOMS / LABS PN 11/21: Unspecified protein-calorie malnutrition. Chronic Attending: Deconditioning and Protein Calorie Malnutrtion - BMI 12. Creasing And Cutting Press Feeder Assessment 11/21: Nutrition dx: Malnutrition related to COPD, prolonged N/V /D as evidenced by a BMI of 14.9, limited fat stores, muscle wasting, report of N/V/D x 2 months, 11.3% weight loss in 2 months. RISKS: H&P 11/20: 73 yo. PMHx: Atrial fib s/p pacemaker, HTN, COPD. Problem list: UTI. Sepsis. Unspecified protein-calorie malnutrition TREATMENT: Order 11/21: Diet Supplement: Glucerna bid Order 11/21: Diet Supplement: Ensure Enlive TID Moderate Malnutrition (in acute illness) Energy Intake: <75% of estimated energy requirement for > 7 days Weight Loss: 1-2%/1 week; 5%/ 1 month; 7.5%/3 months Other: mild body fat loss; mild muscle mass loss; mild fluid accumulation; Severe Malnutrition (in acute illness) Energy Intake: < 50% of estimated energy requirement for > 5 days Weight Loss: >1-2%/1 week; >5%/1 month; >7.5%/3 months Other: moderate body fat loss; moderate muscle mass loss; moderate- severe fluid accumulation; measurably reduced head of housekeeping strength Moderate Malnutrition (in chronic illness) Energy Intake: <75% of estimated energy requirement for >1 month Weight Loss: 5%/1 month; 7.5%/3 months; 10%/6 months; 20%/1 year Other: mild body fat loss; mild muscle mass loss; mild fluid accumulation Severe Malnutrition (in chronic illness) Energy Intake: <75% of estimated energy requirement for >1 month Weight Loss: >5%/1 month; >7.5%/3 months; >10%/6 months; >20%/1 year Other: severe body fat loss; severe muscle mass loss; severe fluid accumulation; measurably reduced head of housekeeping strength Thank you, Ruby (This form is maintained as a part of the permanent medical record) 2015 [employer]. All Rights Reserved Ruby Jurado RN, BSN [email or web address] Office: [phone] [facility] HOSPITALAgustin
[2018-11-22] MEDS ORDERED: Famotidine 20 MG TAB PO SCH (21:00)
== END 2018-11-22 14:35 | disposition home health service (06) | DRG 871 ==
LOC: ERS 22:32 → 2NO 22:45 → T4-A 11-21 18:24
PROVIDERS: ADMIT Family Medicine; ATTEND Family Medicine
DX: A41.9 Sepsis, unspecified organism (principal); E43 Unspecified severe protein-calorie malnutrition; I42.9 Cardiomyopathy, unspecified; N39.0 Urinary tract infection, site not specified; I48.92 Unspecified atrial flutter; E87.1 Hypo-osmolality and hyponatremia; Z68.1 Body mass index [BMI] 19.9 or less, adult; I10 Essential (primary) hypertension; G40.909 Epilepsy, unspecified, not intractable, without status epilepticus; J44.9 Chronic obstructive pulmonary disease, unspecified; F17.210 Nicotine dependence, cigarettes, uncomplicated; I48.2 Chronic atrial fibrillation; I25.10 Atherosclerotic heart disease of native coronary artery without angina pectoris; G89.29 Other chronic pain; I45.81 Long QT syndrome; D75.89 Other specified diseases of blood and blood-forming organs; Z88.0 Allergy status to penicillin; Z86.19 Personal history of other infectious and parasitic diseases; Z88.1 Allergy status to other antibiotic agents; Z88.8 Allergy status to other drugs, medicaments and biological substances; Z88.6 Allergy status to analgesic agent; Z95.0 Presence of cardiac pacemaker; Z90.710 Acquired absence of both cervix and uterus; Z79.01 Long term (current) use of anticoagulants; Z79.899 Other long term (current) drug therapy
CPT/HCPCS: 36415; 80048; 80162; 80306; 82550; 84484; 85025; 93005; J0696; J1100; J1580; J3490

== ENCOUNTER 2018-12-04 15:08 | Inpatient (IN) | payer MEDICARE ==
[2018-12-04] MEDS ORDERED: Ondansetron ODT 4 MG TAB ONE (16:27)
[2018-12-04 16:36] LABS: #Lymphocytes 1.1 thou/uL (1.20-3.40); #Monocytes 0.6 thou/uL (0.11-0.59); #Neutrophils 2.5 thou/uL (1.40-6.50); %Basophils 0.9 % (0.0-1.0); %Eosinophils 0.6 % (0.0-10.0); %Lymphocytes 25.7 % (21.0-51.0); %Monocytes 14.1 % (0.0-10.0); %Neutrophils 58.8 % (42.0-75.0); Hemoglobin 13.5 g/dL (12.0-16.0); Mean Corpuscular HGB CONC 31.3 g/dL (32.0-36.0); Mean Corpuscular Hemoglobin 35.2 pg (27.0-31.0); Mean Platelet Volume 6.8 fL (7.4-10.4); Platelet Count 280 thou/uL (130-400); RBC Distribution Width 17.1 % (11.5-14.5); Red Blood Cell (RBC) Count 3.83 mill/uL (4.20-5.40); White Blood Cell (WBC) Count 4.3 thou/uL (4.8-10.8)
[2018-12-04 16:48] LABS: Chloride 101 mmol/L (98-107); Potassium 4.6 mmol/L (3.5-5.1); Sodium 133 mmol/L (136-145)
[2018-12-04 16:59] LABS: ALT (SGPT) Less than 7 U/L (8-55); AST (SGOT) 12 U/L (5-34); Albumin 3.7 g/dL (3.4-4.8); Alkaline Phosphatase 71 U/L (40-150); Anion Gap 15 mmol/L (10-20); BUN (Urea Nitrogen) 10 mg/dL (9.8-20.1); Bilirubin, Total 0.5 mg/dL (0.2-1.2); Calc. Creatinine Clearance 0 mL/min (70-130); Carbon Dioxide 21 mmol/L (23-31); Estimated GFR-MDRD Greater than 90; Globulin 2.8 g/dL (2.4-3.5); Glucose 75 mg/dL (83-110); Protein, Total 6.5 g/dL (6.0-8.3)
--- NOTE | 2018-12-04 18:28 | RAD ---
CHEST PA AND LATERAL TWO VIEWS: History: Chronic low back pain, increasing over days. Comparison: 11-20-18 FINDINGS: Left ICD. Marked biapical pleural thickening with stable area of parenchymal density in the lateral r ight upper lobe as well as some upper lobe volume loss bilaterally. Hyperinflation and chronic lung c hanges. Diffuse bony demineralization. No confluent pneumonia, overt edema, or pleural effusion. IMPRESSION: Stable hyperinflation and chronic lung changes with some volume loss in the apices and marked biapica l pleural thickening as well as a stable parenchymal density, probably a scar in the right upper lobe . Diffuse bony demineralization. No significant change dating back to 12-14-16. POS: [facility]
--- NOTE | 2018-12-04 18:41 | PDOC.FPRHP ---
- History of Present Illness Chief Complaint: SOB History of Present Illness: 73yo F with pmh of COPD presents with increased SOB for 3 days now. Pt has home O2 that she uses prn, this time her O2 has not alleviated her SOB as much as it has. Reports she ran out of her symbicort yesterda. She has associated dry cough , decreased PO intake and nausea. Vomiting x1 (non bloody). No fevers, endorses subjective chills. ED Course: methylprednisolone, duoneb, morphine, zofran - Allergies/Adverse Reactions Allergies Allergy/AdvReac Type Severity Reaction Status Date / Time alprazolam Allergy Verified 11/21/18 00:59 azithromycin Allergy Verified 11/21/18 00:59 doxycycline Allergy Verified 11/21/18 00:59 ketorolac Allergy Verified 11/21/18 00:59 Penicillins Allergy Verified 11/21/18 00:59 tramadol Allergy Verified 11/21/18 00:59 - Home Medications Medication Instructions Recorded Confirmed Type Gabapentin [Neurontin] 600 mg PO TID cap 08/15/18 12/04/18 Rx Amlodipine [Norvasc] 10 mg PO DAILY 09/30/18 12/04/18 History Apixaban [Eliquis] 5 mg PO BID 09/30/18 12/04/18 History Carvedilol [Coreg] 12.5 mg PO BID 09/30/18 12/04/18 History Nitroglycerin [Nitrostat] 0.4 mg SL Q5MIN 09/30/18 12/04/18 History Pantoprazole [Protonix] 40 mg PO DAILY 09/30/18 12/04/18 History Amiodarone [Cordarone] 200 mg PO DAILY tab 10/04/18 12/04/18 Rx Budesonide [Pulmicort Neb Solution] 0.5 mg INH BIDPRN PRN ampule 10/04/1812/04 Rx Digoxin [Lanoxin] 0.125 mg PO QAM tab 10/04/18 12/04/18 Rx Famotidine [Pepcid] 20 mg PO BID tab 10/04/18 12/04/18 Rx HYDROcodone Bit/APAP 10/325 [[place]] 1 tab PO Q4H PRN tab 10/04/18 12/04/18 Rx Ipratropium/Albuterol Sulfate 3 ml NEB Q4H PRN neb 10/04/18 12/04/18 Rx [DuoNeb] busPIRone HCl [Buspar] 5 mg PO BID tab 10/04/18 12/04/18 Rx fentaNYL [Duragesic] 50 mcg TD Q3D #0 patch 10/10/18 12/04/18 Rx Acetaminophen [Tylenol Regular 650 mg PO Q6H PRN 11/21/18 12/04/18 History Strength] Multivitamin W/ Minerals 1 tab PO DAILY #0 tab 11/22/18 12/04/18 Rx [Theragran M] Sulfamethoxazole/Trimethoprim 1 tab PO BID #4 tab 11/22/18 12/04/18 Rx [Bactrim DS] - History PMHx: Atrial fib s/p pacemaker, diverticulosis, hypertension, seizures, COPD, chronic back and thigh pain, cardiomyopathy, hx of 2 pneumothoraces (over 20 years ago) PSHx: carpal tunnel (Rt), hernia repair, bilateral cataract, bilat trigger finger, , hysterectomy, neck surgery FHx: COPD, DM Social: reports 1 to 1.5 packs cigarettes for 60 years. She currently smokes 4 cig/day. Denies drug or alcohol use. ALLERGY: azithromycin, doxycycline, ketorolac, penicillins, tramadol CODE: FULL- per pt. She also has MPOA (Lazaro- son) - Review of Systems General: denies: fever/chills, fatigue ENT: denies: nasal congestion, rhinorrhea Respiratory: reports: cough, shortness of breath Cardiovascular: denies: chest pain, palpitation Gastrointestinal: denies: nausea, vomiting Genitourinary: denies: incontinence, dysuria Skin: denies: rashes, lesions Musculoskeletal: denies: pain, tenderness Neurological: denies: syncope, seizure Psychological: denies: anxiety, depression - Vital signs BP: 121/61, Pulse: 84, Resp: 28, Temp: 97.6, Pain: 9, O2 sat: 97 on 2L, Time: 16:24. weight: 36kg - Physical Exam Constitutional: NAD, awake, alert and oriented HEENT: EOMI, grossly normal vision, grossly normal hearing Neck: supple, trachea midline Chest: no-tender to palpation Heart: RRR, normal S1/S2 Lungs: other (bilateral wheezing on expiration, slight decrease in breath sounds ) Abdomen: soft, non-tender Musculoskeletal: normal tone, other (cachectic) Neurological: no focal deficit, normal sensation Skin: no rash/lesions, good turgor Heme/Lymphatic: no purpura, no petechia Psychiatric: normal mood and affect, good judgment and insight FMR H&P: Results - Labs Result Diagrams: 12/05/18 04:10 12/04/18 16:19 Lab results: WBC 4.3 thou/uL (4.8-10.8) L 12/04/18 16:19 Hgb 13.5 g/dL (12.0-16.0) 12/04/18 16:19 Hct 43.2 % (36.0-47.0) 12/04/18 16:19 MCV 113.0 fL (78.0-98.0) H 12/04/18 16:19 Plt Count 280 thou/uL (130-400) 12/04/18 16:19 Neutrophils % 58.8 % (42.0-75.0) 12/04/18 16:19 Sodium 133 mmol/L (136-145) L 12/04/18 16:19 Potassium 4.6 mmol/L (3.5-5.1) 12/04/18 16:19 Chloride 101 mmol/L (98-107) 12/04/18 16:19 Carbon Dioxide 21 mmol/L (23-31) L 12/04/18 16:19 BUN 10 mg/dL (9.8-20.1) 12/04/18 16:19 Creatinine 0.59 mg/dL (0.6-1.1) L 12/04/18 16:19 Glucose 75 mg/dL (83-110) L 12/04/18 16:19 Calcium 9.0 mg/dL (7.8-10.44) 12/04/18 16:19 Total Bilirubin 0.5 mg/dL (0.2-1.2) 12/04/18 16:19 AST 12 U/L (5-34) 12/04/18 16:19 ALT Less than 7 U/L (8-55) L 12/04/18 16:19 Alkaline Phosphatase 71 U/L (40-150) 12/04/18 16:19 Serum Total Protein 6.5 g/dL (6.0-8.3) 12/04/18 16:19 Albumin 3.7 g/dL (3.4-4.8) 12/04/18 16:19 FMR H&P: A/P - Problem List (1) COPD exacerbation Current Visit: Yes Status: Acute Code(s): J44.1 - CHRONIC OBSTRUCTIVE PULMONARY DISEASE W (ACUTE) EXACERBATION (2) COPD (chronic obstructive pulmonary disease) Current Visit: No Status: Chronic Qualifiers: Chronic bronchitis type: unspecified (3) Prolonged QT interval Current Visit: No Status: Acute Code(s): R94.31 - ABNORMAL ELECTROCARDIOGRAM [ECG] [EKG] (4) Anxiety Current Visit: No Status: Chronic Code(s): F41.9 - ANXIETY DISORDER, UNSPECIFIED (5) Atrial fibrillation Current Visit: No Status: Chronic Code(s): I48.91 - UNSPECIFIED ATRIAL FIBRILLATION Qualifiers: Atrial fibrillation type: chronic Qualified Code(s): I48.2 - Chronic atrial fibrillation Comment: HR controlled on Amiodarone and BB. on Eliquis .Monitor for low BP and/ or Low HR (6) HTN (hypertension) Current Visit: No Status: Chronic Code(s): I10 - ESSENTIAL (PRIMARY) HYPERTENSION Qualifiers: Hypertension type: essential hypertension Qualified Code(s): I10 - Essential (primary) hypertension - Plan Acute hypoxic respiratory failure 2/2 COPD exacerbation A- Pt has home O2 prn but has had increased SOB despite that O2, reported sats down to 80% in ED, looking improved on exam on admitting teams evaluation with good sats at 96% on 2L. Pt has on long acting steroid and duonebs but ran out of steroid on day prior to admission. P- duonebs -continue steroids -procal -will hold ABX for now -recommend considering adding long acting anticholinergic to home regimen as plans for DC are made Afib -continue home meds HTN home meds Hx of QT prolongation -MD aware, will avoid qt prolonging meds if posible. CODE: FULL FMR H&P: Upper Level - Pertinent history 73 yr old female with COPD, hx of Afib and 60+ pack year smoking hx presents with increased SOB and non productive cough for 2 days. Denies fevers. Has chills. She has felt nauseated with eating for the last several days. In the ER she was found to be 80 % on RA that improved to 96% on 2 lts. This is per checkout from ER doc. Do not see sats below 89% documented in ER notes. She does have home PRN O2. - Pertinent findings Gen: no acute distress, sitting up in bed eating a sandwich, cachectic appearing Heart: RRR, no M/R/G Lungs: CTAB, no W/R/R Abd: soft, nontender Ext: No edema in BLE, post popliteal pulse 2+ in RLE, absent post popliteal in LLE. Post tibial 2+ in BLE Neuro: no focal deficits CXR: stable hyperinflation and chronic lung changes EKG: Ventricularly paced, QTc 509 - Plan Date/Time: 12/04/181839 I, [Mi Modi], have evaluated this patient and agree with findings/plan as outlined by electrical engineering intern resident. Pertinent changes/additions are listed here. 73 yr old female with PMH of COPD and chronic pain presents for worsening SOB, cough, and acute hypoxic respiratory distress 2/2 COPD exacerbation -given no fever/sepsis, no productive sputum, will defer antibiotics and obtain procal -steroids and duonebs (scheduled) -No concern for PNA Hx of A-fib -pacemaker in place -cont eliquis, amiodarone, and dig PVD -further outpatient workup Chronic Low back pain -cont home meds PCP: Gurjit Dispo: Likely 2 midnights.
[2018-12-04] MEDS ORDERED: Morphine 4 MG/ML VIAL ONE (18:59)
[2018-12-04] MEDS ORDERED: methylPREDNISolone Sod Succ/PF 125 MG/2 ML VIAL ONE (18:59)
[2018-12-04] MEDS ORDERED: Calcium Carbonate 500 MG ChewTAB PO PRN (20:33)
[2018-12-04] MEDS ORDERED: Lactated Ringer's 500 ML IV SCH (20:33)
[2018-12-04 20:39] VITALS: BMI 13.6
[2018-12-04] MEDS: Nicotine 14 MG PATCH TD SCH (22:02)
[2018-12-05] MEDS ORDERED: HYDROcodone/Acetaminophen 10/325 mg Tablet PO SCH (02:15)
[2018-12-05 05:01] LABS: #Lymphocytes 0.3 thou/uL (1.20-3.40); #Monocytes 0.1 thou/uL (0.11-0.59); #Neutrophils 1.6 thou/uL (1.40-6.50); %Eosinophils 0.2 % (0.0-10.0); %Lymphocytes 15.5 % (21.0-51.0); %Monocytes 2.5 % (0.0-10.0); %Neutrophils 81.7 % (42.0-75.0); Hemoglobin 13.2 g/dL (12.0-16.0); Mean Corpuscular Hemoglobin 34.9 pg (27.0-31.0); Mean Platelet Volume 7.1 fL (7.4-10.4); Platelet Count 271 thou/uL (130-400); RBC Distribution Width 17.3 % (11.5-14.5); Red Blood Cell (RBC) Count 3.77 mill/uL (4.20-5.40)
--- NOTE | 2018-12-05 06:56 | PDOC.FM ---
- Subjective Subjective: Breathing much improved. still coughing. No fevers or chills. Not quite back to baseline. Very out of breath while talking - Objective MAR Reviewed: Yes Vital Signs & Weight: Vital Signs (12 hours) Temp Pulse Resp BP Pulse Ox 12/05/18 06:40 83 16 94 L 12/05/18 03:30 97.9 F 89 18 108/56 L 100 12/05/18 02:35 74 16 97 12/04/18 23:37 98.1 F 93 18 105/52 L 98 12/04/18 22:32 81 16 98 12/04/18 20:30 97.3 F L 84 18 114/75 94 L Weight Weight 33.929 kg I&O: 12/03/18 12/04/18 12/05/18 06:59 06:59 06:59 Intake Total 740 Balance 740 Result Diagrams: 12/05/18 12:57 12/05/18 12:57 Phys Exam - Physical Examination Constitutional: NAD HEENT: PERRLA, moist MMs Respiratory: no wheezing, clear to auscultation bilateral dec breath sounds at bases Cardiovascular: RRR, no significant murmur Gastrointestinal: soft, non-tender Neurological: non-focal, moves all 4 limbs Psychiatric: normal affect, A&O x 3 Dx/Plan (1) COPD exacerbation Code(s): J44.1 - CHRONIC OBSTRUCTIVE PULMONARY DISEASE W (ACUTE) EXACERBATION Status: Acute (2) COPD (chronic obstructive pulmonary disease) Status: Chronic Qualifiers: Chronic bronchitis type: unspecified (3) Chronic pain Code(s): G89.29 - OTHER CHRONIC PAIN Status: Chronic Qualifiers: Chronic pain type: chronic pain syndrome Qualified Code(s): G89.4 - Chronic pain syndrome (4) HLD (hyperlipidemia) Code(s): E78.5 - HYPERLIPIDEMIA, UNSPECIFIED Status: Chronic Qualifiers: Hyperlipidemia type: unspecified Qualified Code(s): E78.5 - Hyperlipidemia , unspecified (5) HTN (hypertension) Code(s): I10 - ESSENTIAL (PRIMARY) HYPERTENSION Status: Chronic Qualifiers: Hypertension type: essential hypertension Qualified Code(s): I10 - Essential (primary) hypertension (6) Physical deconditioning Code(s): R53.81 - OTHER MALAISE Status: Chronic - Plan Plan: 73 yr old female with PMH of COPD and chronic pain presents for worsening SOB, cough, and acute hypoxic respiratory distress 2/2 COPD exacerbation -ED 80% o2 saturation, currently non hypoxic on 2L, which is an increase from her home O2 baseline requirement -no fever, no WBC, negative procal, neg CXR, no abx- less concern for PNA-will not initiate abx -steroids and duonebs (scheduled) -will space out duonebs to q6hr -counseled on tobacco cessation Physical deconditioning -PT eval Hx of A-fib -pacemaker in place -cont eliquis, amiodarone, and dig PVD -further outpatient workup Chronic Low back pain -cont home meds Tobacco abuse -certified credit counselor on cessation dvt ppx: lovenox PCP: Gurjit Dispo: 1) AHRF 2/2 COPD exacerbation- pt. clinically not too improved. Continue duonebs & steroids. D/c tmrw pending clinical course. Addendum - Attending - Attending Attestation Date/Time: 12/05/18 1537 I personally evaluated the patient and discussed the management with Dr. Roche. I agree with the History, Examination, Assessment and Plan documented above with any addition or exceptions noted below. Pt with acute on chronic hypoxic hypercapnic respiratory failure and copd exacerbation. She is still requiring oxygen which she doesn't routinely require at home and isn't able to speak in complete sentences. Will continue nebs, steroids, supportive care.
[2018-12-05] MEDS: predniSONE 20 MG TAB PO SCH (08:34)
[2018-12-05] MEDS ORDERED: Non-Formulary Item 1 EACH (Carvedilol [Coreg] 12.5 MG) PO SCH (09:00)
[2018-12-05] MEDS ORDERED: Carvedilol 6.25 MG TAB PO SCH (10:00)
[2018-12-05] MEDS: Digoxin 0.125 MG TAB PO SCH (10:20)
[2018-12-05] MEDS: Amiodarone 200 MG TAB PO SCH (10:20)
[2018-12-05] MEDS: Apixaban 5 MG TAB PO SCH ×2 (10:21→20:08)
[2018-12-05] MEDS: HYDROcodone/Acetaminophen 10/325 mg Tablet PO PRN ×3 (10:21→20:11)
[2018-12-05] MEDS: fentaNYL 50 mcg/hour Patch TD SCH (10:22)
[2018-12-05] MEDS: Ondansetron ODT 4 MG TAB PO PRN (12:25)
[2018-12-05 13:12] LABS: Hemoglobin 13.2 g/dL (12.0-16.0); Platelet Count 268 thou/uL (130-400)
[2018-12-05] MEDS: Gabapentin 300 MG CAP PO SCH ×2 (15:18→20:09)
[2018-12-05] MEDS: busPIRone HCl 5 MG TAB PO SCH (20:08)
[2018-12-05] MEDS: Nicotine 14 MG PATCH TD SCH (20:08)
[2018-12-05] MEDS: Famotidine 20 MG TAB PO SCH (20:09)
[2018-12-05] MEDS: Carvedilol 6.25 MG TAB PO SCH (20:16)
[2018-12-06] MEDS: HYDROcodone/Acetaminophen 10/325 mg Tablet PO PRN ×4 (02:16→18:23)
--- NOTE | 2018-12-06 07:30 | PDOC.FM ---
- Subjective Subjective: NAEO. Breathing much improved, able to walk to bathroom. Sitting up in bed non- hypoxic on room air. Used oxygen PRN at night if feels SOB. - Objective MAR Reviewed: Yes Vital Signs & Weight: Vital Signs (12 hours) Temp Pulse Resp BP BP Pulse Ox 12/06/18 06:35 82 16 95 12/06/18 04:00 98.1 F 70 20 94/57 L 100 12/06/18 00:37 74 16 94 L 12/06/18 00:00 98.0 F 71 20 94/50 L 94 L 12/05/18 20:27 76 16 96 12/05/18 20:16 95/53 L 12/05/18 20:00 97.5 F L 76 20 95/53 L 95 Weight Admit Weight 33.929 kg Weight 33.929 kg I&O: 12/05/18 12/06/18 12/07/18 06:59 06:59 06:59 Intake Total 740 1400 Output Total 0 Balance 740 1400 Result Diagrams: 12/06/18 07:47 12/05/18 12:57 Phys Exam - Physical Examination Constitutional: NAD HEENT: PERRLA, moist MMs, sclera anicteric Respiratory: no wheezing, clear to auscultation bilateral dec breath sounds at bases Cardiovascular: RRR, no significant murmur Gastrointestinal: soft, non-tender Neurological: non-focal, moves all 4 limbs Psychiatric: normal affect, A&O x 3 Skin: cap refill <2 seconds Dx/Plan (1) COPD exacerbation Code(s): J44.1 - CHRONIC OBSTRUCTIVE PULMONARY DISEASE W (ACUTE) EXACERBATION Status: Acute (2) COPD (chronic obstructive pulmonary disease) Status: Chronic Qualifiers: Chronic bronchitis type: unspecified (3) Chronic pain Code(s): G89.29 - OTHER CHRONIC PAIN Status: Chronic Qualifiers: Chronic pain type: chronic pain syndrome Qualified Code(s): G89.4 - Chronic pain syndrome (4) HLD (hyperlipidemia) Code(s): E78.5 - HYPERLIPIDEMIA, UNSPECIFIED Status: Chronic Qualifiers: Hyperlipidemia type: unspecified Qualified Code(s): E78.5 - Hyperlipidemia , unspecified (5) HTN (hypertension) Code(s): I10 - ESSENTIAL (PRIMARY) HYPERTENSION Status: Chronic Qualifiers: Hypertension type: essential hypertension Qualified Code(s): I10 - Essential (primary) hypertension (6) Physical deconditioning Code(s): R53.81 - OTHER MALAISE Status: Chronic - Plan Plan: 73 yr old female with PMH of COPD and chronic pain presents for worsening SOB, cough, and Acute hypoxic respiratory distress 2/2 COPD exacerbation -ED 80% o2 saturation, currently non hypoxic on 2L, which is an increase from her home O2 baseline requirement -no fever, no WBC, negative procal, neg CXR, no abx- less concern for PNA-will not initiate abx -steroids x5 day course -duonebs PRN, nonhypoxic on RA, O2 use at night, pt much improved -counseled on tobacco cessation -will ensure has home maintenance and rescue meds Physical deconditioning -PT eval, home health -consulted CM Hx of A-fib -pacemaker in place -cont eliquis, amiodarone, and dig PVD -further outpatient workup Chronic Low back pain -cont home meds Tobacco abuse -grief counsellor on cessation dvt ppx: lovenox PCP: Gurjit Dispo: 1) AHRF 2/2 COPD exacerbation- Imrpoved, close to baseline. D/c today pending clinical course. Will send home with 5 day steroid course completion and ensure patient has oxygen & home meds. Home health. Addendum - Attending - Attending Attestation Date/Time: 12/06/18 6927 I personally evaluated the patient and discussed the management with Dr. Roche. I agree with the History, Examination, Assessment and Plan documented above with any addition or exceptions noted below. The patient is feeling better. She was able to take her oxygen off this morning. Will monitor sats today. Continue nebs. Adding spiriva.
[2018-12-06] MEDS: Famotidine 20 MG TAB PO SCH ×2 (08:04→20:22)
[2018-12-06] MEDS: Gabapentin 300 MG CAP PO SCH ×3 (08:04→20:22)
[2018-12-06] MEDS: busPIRone HCl 5 MG TAB PO SCH ×2 (08:04→20:22)
[2018-12-06] MEDS: predniSONE 20 MG TAB PO SCH (08:04)
[2018-12-06] MEDS: Apixaban 5 MG TAB PO SCH ×2 (08:04→20:22)
[2018-12-06] MEDS: Amiodarone 200 MG TAB PO SCH (08:05)
[2018-12-06] MEDS: Digoxin 0.125 MG TAB PO SCH (08:05)
[2018-12-06] MEDS: Amlodipine 10 MG TAB PO SCH (08:10)
[2018-12-06] MEDS: Carvedilol 6.25 MG TAB PO SCH ×2 (08:11→20:23)
[2018-12-06 08:58] LABS: Hemoglobin 12.5 g/dL (12.0-16.0); Mean Corpuscular HGB CONC 30.7 g/dL (32.0-36.0); Mean Corpuscular Hemoglobin 35.9 pg (27.0-31.0); Mean Platelet Volume 7.2 fL (7.4-10.4); Platelet Count 267 thou/uL (130-400); RBC Distribution Width 17.6 % (11.5-14.5); Red Blood Cell (RBC) Count 3.49 mill/uL (4.20-5.40)
[2018-12-06 10:31] LABS: #Lymphocytes 0.8 thou/uL (1.20-3.40); #Monocytes 0.8 thou/uL (0.11-0.59); #Neutrophils 6.4 thou/uL (1.40-6.50); %Eosinophils 0.1 % (0.0-10.0); %Lymphocytes 9.7 % (21.0-51.0); %Monocytes 10.2 % (0.0-10.0); %Neutrophils 80.1 % (42.0-75.0); Band 2 % (5-11); Hypochromia SLIGHT = 6-15 cells (100X) (0-5/hpf); Lymphocytes 12 % (21-51); MDiff Complete? YES; Macrocytosis MODERATE=16-30 cells (100X) (0-5/hpf); Monocytes 10 % (0-10); Neutrophil 75 % (42-75); Platelet Morphology Comment Appears Adequate; Polychromasia SLIGHT = 2-3 cells (100X) (0-2/hpf); Reactive Lymphocytes 1 % (0-10)
[2018-12-06] MEDS: Ondansetron ODT 4 MG TAB PO PRN ×2 (13:01→20:31)
[2018-12-06] MEDS: Nicotine 14 MG PATCH TD SCH (20:23)
[2018-12-07] MEDS: HYDROcodone/Acetaminophen 10/325 mg Tablet PO PRN ×5 (00:48→20:45)
--- NOTE | 2018-12-07 05:51 | PDOC.FM ---
Addendum entered and electronically signed by Marcela Roche MD 12/07/18 10:45 : Plan: -spiriva, dulera, levaquin and oral prednisone for 5 day completion -will BRANDY jillian q4hrs -keep one more day to observe due to regression in respiratory status Original Note: - Subjective Subjective: NAEO. Patient feeling worse but ready to go home. Discussed possibility of SNF/ Inpt rehab-pt declines, prefers HH. - Objective MAR Reviewed: Yes Vital Signs & Weight: Vital Signs (12 hours) Temp Pulse Resp BP BP BP Pulse Ox 12/07/18 04:00 97.5 F L 80 16 97/59 L 91 L 12/07/18 00:00 98.0 F 82 16 111/63 95 12/06/18 20:28 97.9 F 80 18 96/50 L 93 L 12/06/18 20:23 96/50 L 12/06/18 19:10 81 16 94 L Weight Admit Weight 33.929 kg Weight 33.929 kg I&O: 12/05/18 12/06/18 12/07/18 06:59 06:59 06:59 Intake Total 740 1400 1460 Output Total 0 Balance 740 1400 1460 Result Diagrams: 12/07/18 07:05 12/07/18 12:13 Phys Exam - Physical Examination Constitutional: NAD HEENT: PERRLA, oral pharynx no lesions end expiratory wheezing Cardiovascular: RRR, no significant murmur Musculoskeletal: no edema, edema present Neurological: non-focal, moves all 4 limbs Dx/Plan (1) COPD exacerbation Code(s): J44.1 - CHRONIC OBSTRUCTIVE PULMONARY DISEASE W (ACUTE) EXACERBATION Status: Acute (2) COPD (chronic obstructive pulmonary disease) Status: Chronic Qualifiers: Chronic bronchitis type: unspecified (3) Chronic pain Code(s): G89.29 - OTHER CHRONIC PAIN Status: Chronic Qualifiers: Chronic pain type: chronic pain syndrome Qualified Code(s): G89.4 - Chronic pain syndrome (4) HLD (hyperlipidemia) Code(s): E78.5 - HYPERLIPIDEMIA, UNSPECIFIED Status: Chronic Qualifiers: Hyperlipidemia type: unspecified Qualified Code(s): E78.5 - Hyperlipidemia , unspecified (5) HTN (hypertension) Code(s): I10 - ESSENTIAL (PRIMARY) HYPERTENSION Status: Chronic Qualifiers: Hypertension type: essential hypertension Qualified Code(s): I10 - Essential (primary) hypertension (6) Physical deconditioning Code(s): R53.81 - OTHER MALAISE Status: Chronic - Plan Plan: 73 yr old female with PMH of COPD and chronic pain presents for worsening SOB, cough, and Acute hypoxic respiratory distress 2/2 COPD exacerbation -ED 80% o2 saturation, currently non hypoxic on 2L, which is an increase from her home O2 baseline requirement -no fever, no WBC, negative procal, neg CXR, no abx- less concern for PNA-will not initiate abx -steroids x5 day course -duonebs PRN, nonhypoxic on RA, O2 use at night, pt much improved -counseled on tobacco cessation -will ensure has home maintenance and rescue meds -continue spiriva Physical deconditioning -PT eval, home health -consulted CM Hx of A-fib -pacemaker in place -cont eliquis, amiodarone, and dig PVD -further outpatient workup Chronic Low back pain -cont home meds Tobacco abuse -service counselor on cessation dvt ppx: lovenox PCP: Gurjit Dispo: 1) AHRF 2/2 COPD exacerbation- continue spiriva, prednisone, duonebs. D/ c today pending clinical course. Will send home with 5 day steroid course completion and ensure patient has oxygen & home meds. Home health. Working w/ case mgmt to get spiriva. Addendum - Attending - Attending Attestation Date/Time: 12/07/18 1289 I personally evaluated the patient and discussed the management with Dr. Roche. I agree with the History, Examination, Assessment and Plan documented above with any addition or exceptions noted below. Pt has had to go back on oxygen due to hypoxia. Her shortness of breath is worse. She now has a thick productive cough. Will start levaquin. Increase frequency of nebs. Continue steroids and supportive care.
[2018-12-07] MEDS ORDERED: Ipratropium Bromide 2.5 ml Neb NEB PRN (05:59)
[2018-12-07 07:31] LABS: #Lymphocytes 0.9 thou/uL (1.20-3.40); #Neutrophils 6.3 thou/uL (1.40-6.50); %Eosinophils 0.2 % (0.0-10.0); %Lymphocytes 10.7 % (21.0-51.0); %Neutrophils 77.1 % (42.0-75.0); Hemoglobin 14.7 g/dL (12.0-16.0); Mean Corpuscular HGB CONC 30.3 g/dL (32.0-36.0); Mean Corpuscular Hemoglobin 34.5 pg (27.0-31.0); Mean Platelet Volume 7.5 fL (7.4-10.4); Platelet Count 210 thou/uL (130-400); RBC Distribution Width 17.4 % (11.5-14.5); Red Blood Cell (RBC) Count 4.27 mill/uL (4.20-5.40); White Blood Cell (WBC) Count 8.2 thou/uL (4.8-10.8)
[2018-12-07] MEDS ORDERED: Budesonide 0.5 MG/2 ML NEB FS PRN (08:37)
[2018-12-07] MEDS: Amlodipine 10 MG TAB PO SCH (09:06)
[2018-12-07] MEDS: Carvedilol 6.25 MG TAB PO SCH ×2 (09:06→20:50)
[2018-12-07] MEDS: predniSONE 20 MG TAB PO SCH (09:07)
[2018-12-07] MEDS: busPIRone HCl 5 MG TAB PO SCH ×2 (09:07→20:44)
[2018-12-07] MEDS: Apixaban 5 MG TAB PO SCH ×2 (09:07→20:45)
[2018-12-07] MEDS: Digoxin 0.125 MG TAB PO SCH (09:07)
[2018-12-07] MEDS: Famotidine 20 MG TAB PO SCH ×2 (09:08→20:45)
[2018-12-07] MEDS: Amiodarone 200 MG TAB PO SCH (09:08)
[2018-12-07] MEDS: Gabapentin 300 MG CAP PO SCH ×3 (09:08→20:45)
[2018-12-07] MEDS: Ipratropium Bromide 2.5 ml Neb NEB SCH ×2 (12:41→19:18)
[2018-12-07] MEDS: Mometasone/Formoterol 120 PUFF INHALER INH SCH (19:18)
[2018-12-07] MEDS: Nicotine 14 MG PATCH TD SCH (20:45)
[2018-12-07] MEDS: guaiFENesin ER 600 MG TAB PO SCH (20:45)
[2018-12-08] MEDS: Ipratropium Bromide 2.5 ml Neb NEB SCH ×4 (00:10→19:20)
[2018-12-08] MEDS: HYDROcodone/Acetaminophen 10/325 mg Tablet PO PRN ×4 (04:43→21:51)
[2018-12-08] MEDS: Mometasone/Formoterol 120 PUFF INHALER INH SCH ×2 (07:50→19:18)
[2018-12-08] MEDS: predniSONE 20 MG TAB PO SCH (08:15)
[2018-12-08] MEDS: busPIRone HCl 5 MG TAB PO SCH ×2 (08:15→20:47)
[2018-12-08] MEDS: Amiodarone 200 MG TAB PO SCH (08:15)
[2018-12-08] MEDS: Gabapentin 300 MG CAP PO SCH ×3 (08:15→20:49)
[2018-12-08] MEDS: Digoxin 0.125 MG TAB PO SCH (08:15)
[2018-12-08] MEDS: Apixaban 5 MG TAB PO SCH ×2 (08:15→20:47)
[2018-12-08] MEDS: Amlodipine 10 MG TAB PO SCH (08:16)
[2018-12-08] MEDS: guaiFENesin ER 600 MG TAB PO SCH ×2 (08:16→20:50)
[2018-12-08] MEDS: Carvedilol 6.25 MG TAB PO SCH ×2 (08:16→20:49)
[2018-12-08] MEDS: Famotidine 20 MG TAB PO SCH ×2 (08:16→20:49)
--- NOTE | 2018-12-08 08:45 | PDOC.FM ---
- Subjective Subjective: The patient had to put her oxygen on early this morning but is starting to feel better. Cough is a little improved. She is having increased back pain this morning - Objective Vital Signs & Weight: Vital Signs (12 hours) Temp Pulse Resp BP BP Pulse Ox 12/08/18 08:16 80 129/69 12/08/18 08:15 80 12/08/18 07:56 97.4 F L 80 20 91 L 12/08/18 07:38 88 L 12/08/18 07:37 82 16 12/08/18 04:00 97.9 F 83 18 123/65 90 L 12/07/18 20:50 95/59 L Weight Admit Weight 33.929 kg Weight 33.929 kg I&O: 12/07/18 12/08/18 12/09/18 06:59 06:59 06:59 Intake Total 2059 500 Balance 2059 500 Result Diagrams: 12/07/18 07:05 12/07/18 12:13 Dx/Plan (1) COPD exacerbation Code(s): J44.1 - CHRONIC OBSTRUCTIVE PULMONARY DISEASE W (ACUTE) EXACERBATION Status: Acute (2) COPD (chronic obstructive pulmonary disease) Status: Chronic Qualifiers: Chronic bronchitis type: unspecified (3) Chronic pain Code(s): G89.29 - OTHER CHRONIC PAIN Status: Chronic Qualifiers: Chronic pain type: chronic pain syndrome Qualified Code(s): G89.4 - Chronic pain syndrome (4) HLD (hyperlipidemia) Code(s): E78.5 - HYPERLIPIDEMIA, UNSPECIFIED Status: Chronic Qualifiers: Hyperlipidemia type: unspecified Qualified Code(s): E78.5 - Hyperlipidemia , unspecified (5) HTN (hypertension) Code(s): I10 - ESSENTIAL (PRIMARY) HYPERTENSION Status: Chronic Qualifiers: Hypertension type: essential hypertension Qualified Code(s): I10 - Essential (primary) hypertension (6) Physical deconditioning Code(s): R53.81 - OTHER MALAISE Status: Chronic - Plan Plan: 73 yr old female with PMH of COPD and chronic pain presents for worsening SOB, cough, and Acute hypoxic respiratory distress 2/2 COPD exacerbation -ED 80% o2 saturation, currently non hypoxic on 2L, which is an increase from her home O2 baseline requirement -no fever, no WBC, negative procal, neg CXR, no abx- less concern for PNA-will not initiate abx -steroids x5 day course -duonebs PRN, nonhypoxic on RA, O2 use at night, pt improved -counseled on tobacco cessation -will ensure has home maintenance and rescue meds -continue spiriva Physical deconditioning -PT eval, home health -consulted CM Hx of A-fib -pacemaker in place -cont eliquis, amiodarone, and dig PVD -further outpatient workup Chronic Low back pain -cont home meds Tobacco abuse -mental health counselor on cessation dvt ppx: lovenox PCP: Gurjit Dispo: 1) AHRF 2/2 COPD exacerbation- continue spiriva, dulera, prednisone, duonebs. D/c today pending clinical course. Will send home with 5 day steroid course completion and ensure patient has maintenance home meds. Working w/ case mgmt to get spiriva, pulmicort, duonebs vials Addendum - Attending - Attending Attestation Date/Time: 12/08/18 0906 I personally evaluated the patient and discussed the management with Dr. Roche. I agree with the History, Examination, Assessment and Plan documented above with any addition or exceptions noted below. The patient is feeling a little better. O2 sats are 90% sitting still and 87% when she is moving around and talking. Wheezing is improved. Working with case mgmt to find affordable meds for pt.
--- NOTE | 2018-12-08 11:48 | PDOC.FM ---
- Subjective Subjective: Feels okay, not back to baseline. Coughing improved. No fevers, able to walk to bathroom. Needs help with affording meds. - Objective MAR Reviewed: Yes Vital Signs & Weight: Vital Signs (12 hours) Temp Pulse Resp BP BP Pulse Ox 12/08/18 08:16 80 129/69 12/08/18 08:15 80 12/08/18 07:56 97.4 F L 80 20 91 L 12/08/18 07:38 88 L 12/08/18 07:37 82 16 12/08/18 04:00 97.9 F 83 18 123/65 90 L Weight Admit Weight 33.929 kg Weight 33.929 kg I&O: 12/07/18 12/08/18 12/09/18 06:59 06:59 06:59 Intake Total 2059 500 Balance 2059 500 Result Diagrams: 12/07/18 07:05 12/07/18 12:13 Phys Exam - Physical Examination Constitutional: NAD cachectic appearing HEENT: PERRLA, moist MMs Neck: full ROM Respiratory: no wheezing, clear to auscultation bilateral dec respiratory effort Cardiovascular: RRR, no significant murmur Gastrointestinal: soft, non-tender Musculoskeletal: no edema Neurological: non-focal, moves all 4 limbs Psychiatric: normal affect, A&O x 3 Skin: no rash, cap refill <2 seconds Dx/Plan (1) COPD exacerbation Code(s): J44.1 - CHRONIC OBSTRUCTIVE PULMONARY DISEASE W (ACUTE) EXACERBATION Status: Acute (2) COPD (chronic obstructive pulmonary disease) Status: Chronic Qualifiers: Chronic bronchitis type: unspecified (3) Chronic pain Code(s): G89.29 - OTHER CHRONIC PAIN Status: Chronic Qualifiers: Chronic pain type: chronic pain syndrome Qualified Code(s): G89.4 - Chronic pain syndrome (4) HLD (hyperlipidemia) Code(s): E78.5 - HYPERLIPIDEMIA, UNSPECIFIED Status: Chronic Qualifiers: Hyperlipidemia type: unspecified Qualified Code(s): E78.5 - Hyperlipidemia , unspecified (5) HTN (hypertension) Code(s): I10 - ESSENTIAL (PRIMARY) HYPERTENSION Status: Chronic Qualifiers: Hypertension type: essential hypertension Qualified Code(s): I10 - Essential (primary) hypertension (6) Physical deconditioning Code(s): R53.81 - OTHER MALAISE Status: Chronic - Plan Plan: 73 yr old female with PMH of COPD and chronic pain presents for worsening SOB, cough, and Acute hypoxic respiratory distress 2/2 COPD exacerbation -ED 80% o2 saturation, currently non hypoxic on 2L, which is an increase from her home O2 baseline requirement -no fever, no WBC, negative procal, neg CXR, no abx- less concern for PNA-will not initiate abx -steroids x5 day course -duonebs PRN, nonhypoxic on RA, O2 use at night, pt improved -counseled on tobacco cessation -will ensure has home maintenance and rescue meds -continue spiriva Physical deconditioning -PT eval, home health -consulted CM Hx of A-fib -pacemaker in place -cont eliquis, amiodarone, and dig PVD -further outpatient workup Chronic Low back pain -cont home meds Tobacco abuse -corporate counselor on cessation dvt ppx: lovenox PCP: Gurjit Dispo: 1) AHRF 2/2 COPD exacerbation- continue spiriva, dulera, prednisone, duonebs, levquin. D/c today pending can get financial assistance with meds. Working with case mgmt on this. Addendum - Attending - Attending Attestation Date/Time: 12/08/182025 I personally evaluated the patient and discussed the management with Dr. Roche. I agree with the History, Examination, Assessment and Plan documented above with any addition or exceptions noted below. Pt is feeling a little better. Getting closer to discharge. Trying to arrange home meds.
--- NOTE | 2018-12-08 12:46 | PQF ---
SHADE GOMEZ CORNELL *juju [id number] -[id number] CLINICAL DOCUMENTATION IMPROVEMENT CLARIFICATION FORM: ICD-10 Updated PLEASE DO AN ADDENDUM TO THE PROGRESS NOTE WITH ANY DOCUMENTATION UPDATES OR ADDITIONS AND CARRY THROUGH TO DC SUMMARY. THANK YOU. Date: 12/08/2018 ATTN: DR. Precious SOUSA Please exercise your independent, professional judgment in responding to the clarification form. Clinical indicators are provided on the bottom of this form for your review. Please check appropriate box(s): [ ] Protein Calorie Malnutrition: [ ] Mild [ ] Moderate [ ] Severe -- ask nutrition to determine this [ ] Cachexia [ ] Other diagnosis [x ] Unable to determine-please ask fire extinguisher tester I am not able to determine this In addition, please specify: Present on Admission (POA): [ x ] Yes [ ] No [ ] Unable to determine CLINICAL INDICATORS - SIGNS / SYMPTOMS / LABS 12/05 NUTRITIONAL ASSESSMENT: DX MALNUTRITION EVIDENCED BY 19% WEIGHT LOSS IN TWO MONTHS, FAT LOSS AND MUSCLE WASTING 12/05 OBJECTIVE ASSESSMENT: PATIENT WITH MINIMAL FAT STORES AND MUSCLE WASTING TO ALL EXTREMITIES AND TEMPLES RISK: TOBACCO ABUSE (H & P) ADVANCED AGE ( 73) COPD EXACERBATION ( H & P) ACUTE RESPIRATORY FAILURE W/ HYPOXIA (H & P) TREATMENTS: NUTRITION ASSESSMENT ENSURE NUTRITIONAL SUPPLEMENT TID Moderate Malnutrition (in acute illness) Energy Intake: <75% of estimated energy requirement for > 7 days 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: 1-2%/1 week; 5%/ 1 month; 7.5%/3 months Other: mild body fat loss; mild muscle mass loss; mild fluid accumulation; Severe Malnutrition (in acute illness) Energy Intake: < 50% of estimated energy requirement for > 5 days Weight Loss: >1-2%/1 week; >5%/1 month; >7.5%/3 months Other: moderate body fat loss; moderate muscle mass loss; moderate- severe fluid accumulation; 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 LALY (This form is maintained as a part of the permanent medical record) 2014 [employer]. All Rights Reserved RAISA [email or web address] [phone] MTDD
[2018-12-08] MEDS: fentaNYL 50 mcg/hour Patch TD SCH (12:48)
[2018-12-08] MEDS: Nicotine 14 MG PATCH TD SCH (20:47)
[2018-12-09] MEDS: Ipratropium Bromide 2.5 ml Neb NEB SCH ×3 (01:42→13:47)
[2018-12-09] MEDS: Ondansetron ODT 4 MG TAB PO PRN (04:02)
[2018-12-09 05:05] VITALS: TEMP 98.5
--- NOTE | 2018-12-09 06:49 | PDOC.FM ---
- Subjective Subjective: NAEO. Patient sleepy this morning. Breathing easy. - Objective MAR Reviewed: Yes Vital Signs & Weight: Vital Signs (12 hours) Temp Pulse Resp BP BP Pulse Ox 12/09/18 04:00 98.5 F 77 18 118/62 99 12/08/18 20:49 113/62 12/08/18 20:00 97.1 F L 82 18 113/62 97 12/08/18 19:08 87 12 Weight Admit Weight 33.929 kg Weight 33.929 kg I&O: 12/07/18 12/08/18 12/09/18 06:59 06:59 06:59 Intake Total 0 500 737 Balance 0 500 737 Result Diagrams: 12/07/18 07:05 12/07/18 12:13 Phys Exam - Physical Examination Constitutional: NAD HEENT: PERRLA, oral pharynx no lesions Respiratory: no wheezing, clear to auscultation bilateral Cardiovascular: RRR, no significant murmur Musculoskeletal: no edema Dx/Plan (1) COPD exacerbation Code(s): J44.1 - CHRONIC OBSTRUCTIVE PULMONARY DISEASE W (ACUTE) EXACERBATION Status: Acute (2) COPD (chronic obstructive pulmonary disease) Status: Chronic Qualifiers: Chronic bronchitis type: unspecified (3) Chronic pain Code(s): G89.29 - OTHER CHRONIC PAIN Status: Chronic Qualifiers: Chronic pain type: chronic pain syndrome Qualified Code(s): G89.4 - Chronic pain syndrome (4) HLD (hyperlipidemia) Code(s): E78.5 - HYPERLIPIDEMIA, UNSPECIFIED Status: Chronic Qualifiers: Hyperlipidemia type: unspecified Qualified Code(s): E78.5 - Hyperlipidemia , unspecified (5) HTN (hypertension) Code(s): I10 - ESSENTIAL (PRIMARY) HYPERTENSION Status: Chronic Qualifiers: Hypertension type: essential hypertension Qualified Code(s): I10 - Essential (primary) hypertension (6) Physical deconditioning Code(s): R53.81 - OTHER MALAISE Status: Chronic - Plan Plan: 73 yr old female with PMH of COPD and chronic pain presents for worsening SOB, cough, and Acute hypoxic respiratory distress 2/2 COPD exacerbation -ED 80% o2 saturation, currently non hypoxic on 2L, which is an increase from her home O2 baseline requirement -no fever, no WBC, negative procal, neg CXR, no abx- less concern for PNA-will not initiate abx -patient doing well on duonebs, steroids, levaquin, spiriva, dulera -meds at pharmacy, ready for d/c today Physical deconditioning -PT eval, home health -consulted CM Hx of A-fib -pacemaker in place -cont eliquis, amiodarone, and dig PVD -further outpatient workup Chronic Low back pain -cont home meds Tobacco abuse -litigation counsel on cessation dvt ppx: lovenox PCP: Gurjit Dispo: d/c today. Patient able to get spiriva for 1 year, combivent until duoneb vials come in, symbicort Addendum - Attending - Attending Attestation Date/Time: 12/09/18 5258 I personally evaluated the patient and discussed the management with Dr. Roche. I agree with the History, Examination, Assessment and Plan documented above with any addition or exceptions noted below. The patient did well overnight. She states breathing is improved and we will discharge home. Spiriva and combivent have been set up at the pharmacy.
[2018-12-09] MEDS: Mometasone/Formoterol 120 PUFF INHALER INH SCH (07:47)
[2018-12-09] MEDS: Carvedilol 6.25 MG TAB PO SCH (09:06)
[2018-12-09] MEDS: Amlodipine 10 MG TAB PO SCH (09:06)
[2018-12-09] MEDS: predniSONE 20 MG TAB PO SCH (09:08)
[2018-12-09] MEDS: Amiodarone 200 MG TAB PO SCH (09:08)
[2018-12-09] MEDS: busPIRone HCl 5 MG TAB PO SCH (09:08)
[2018-12-09] MEDS: Apixaban 5 MG TAB PO SCH (09:08)
[2018-12-09] MEDS: Digoxin 0.125 MG TAB PO SCH (09:08)
[2018-12-09] MEDS: guaiFENesin ER 600 MG TAB PO SCH (09:09)
[2018-12-09] MEDS: Famotidine 20 MG TAB PO SCH (09:09)
[2018-12-09] MEDS: Gabapentin 300 MG CAP PO SCH (09:09)
[2018-12-09 09:12] VITALS: BP 103/59
[2018-12-09] MEDS: HYDROcodone/Acetaminophen 10/325 mg Tablet PO PRN (10:42)
--- NOTE | 2018-12-15 09:42 | PQF ---
SHADE GOMEZ BERNADETTE *r [id number] -[id number] CLINICAL DOCUMENTATION IMPROVEMENT CLARIFICATION FORM: ICD-10 Updated PLEASE DO AN ADDENDUM TO THE PROGRESS NOTE WITH ANY DOCUMENTATION UPDATES OR ADDITIONS AND CARRY THROUGH TO DC SUMMARY. THANK YOU. Date: 12/08/2018 ATTN: DR. Precious SOUSA / DR. DILLON Please exercise your independent, professional judgment in responding to the clarification form. Clinical indicators are provided on the bottom of this form for your review. Please check appropriate box(s): [ X] Protein Calorie Malnutrition: [ X ] Moderate [ ] Severe [X] Cachexia [ ] Other diagnosis [ ] Unable to determine CLINICAL INDICATORS - SIGNS / SYMPTOMS / LABS BMI 13.7 4-- (Rigoberto SOUSA) H&P: PHYSICAL EXAM - CACHECTIC 12-05 NUTRITIONAL ASSESSMENT: * DX MALNUTRITION EVIDENCED BY 19% WEIGHT LOSS IN TWO MONTHS, FAT LOSS AND MUSCLE WASTING * OBJECTIVE ASSESSMENT: PATIENT WITH MINIMAL FAT STORES AND MUSCLE WASTING TO ALL EXTREMITIES AND TEMPLES RISK: -- (Rigoberto SOUSA) H&P: * TOBACCO ABUSE * ADVANCED AGE ( 73) * COPD EXACERBATION * ACUTE RESPIRATORY FAILURE W/ HYPOXIA TREATMENTS: 12-05 NUTRITION ASSESSMENT ENSURE NUTRITIONAL SUPPLEMENT TID Moderate Malnutrition (in acute illness) Energy Intake: <75% of estimated energy requirement for > 7 days Weight Loss: 1-2%/1 week; 5%/ 1 month; 7.5%/3 months Other: mild body fat loss; mild muscle mass loss; mild fluid accumulation; Severe Malnutrition (in acute illness) Energy Intake: < 50% of estimated energy requirement for > 5 days Weight Loss: >1-2%/1 week; >5%/1 month; >7.5%/3 months Other: moderate body fat loss; moderate muscle mass loss; moderate- severe fluid accumulation; measurably reduced hand slitter strength Moderate Malnutrition (in chronic illness) Energy Intake: <75% of estimated energy requirement for >1 month Weight Loss: 5%/1 month; 7.5%/3 months; 10%/6 months; 20%/1 year Other: mild body fat loss; mild muscle mass loss; mild fluid accumulation Severe Malnutrition (in chronic illness) Energy Intake: <75% of estimated energy requirement for >1 month Weight Loss: >5%/1 month; >7.5%/3 months; >10%/6 months; >20%/1 year Other: severe body fat loss; severe muscle mass loss; severe fluid accumulation ; measurably reduced hand slitter strength THANK YOU, LALY (This form is maintained as a part of the permanent medical record) 2015 [employer], [employer]. All Rights Reserved [email or web address] [phone] [facility]
== END 2018-12-09 15:10 | disposition home or self-care (01) | DRG 189 ==
LOC: ERS 15:08 → 2SW 18:16 → OBSVTOIN 12-05 11:48 → T4-B 12-05 15:24
PROVIDERS: ADMIT Family Medicine; ATTEND Family Medicine
DX: J96.21 Acute and chronic respiratory failure with hypoxia (principal); J44.1 Chronic obstructive pulmonary disease with (acute) exacerbation; I42.9 Cardiomyopathy, unspecified; E44.0 Moderate protein-calorie malnutrition; Z68.1 Body mass index [BMI] 19.9 or less, adult; I10 Essential (primary) hypertension; G40.909 Epilepsy, unspecified, not intractable, without status epilepticus; M54.9 Dorsalgia, unspecified; M79.659 Pain in unspecified thigh; F17.210 Nicotine dependence, cigarettes, uncomplicated; I48.2 Chronic atrial fibrillation; E78.5 Hyperlipidemia, unspecified; I49.3 Ventricular premature depolarization; Z79.51 Long term (current) use of inhaled steroids; Z88.0 Allergy status to penicillin; Z90.710 Acquired absence of both cervix and uterus; Z88.1 Allergy status to other antibiotic agents; Z88.8 Allergy status to other drugs, medicaments and biological substances; Z88.5 Allergy status to narcotic agent; Z79.899 Other long term (current) drug therapy; Z95.0 Presence of cardiac pacemaker; Z79.01 Long term (current) use of anticoagulants; R94.31 Abnormal electrocardiogram [ECG] [EKG]; Z99.81 Dependence on supplemental oxygen; I73.9 Peripheral vascular disease, unspecified; G89.4 Chronic pain syndrome; J96.22 Acute and chronic respiratory failure with hypercapnia
CPT/HCPCS: 36415; 71046; 80053; 82565; 84145; 84484; 85025; 87040; 93005; 94640; 96374; 96375; J2270; J2930; J7512; J7620; Q0162

== ENCOUNTER 2018-12-11 08:14 | Emergency (ER) | payer MEDICARE ==
--- NOTE | 2018-12-11 08:49 | RAD ---
Exam: Chest one view HISTORY:Chest pain Comparison: 11/20/2018 FINDINGS: Lungs: Hyperinflated with interstitial prominence bilaterally. Patchy left basilar density Cardiac silhouette:Enlarged. Left-sided cardiac pacing device remains. Pulmonary vessels: Normal Pleural Spaces: Mild pleural-based density, bilaterally Pneumothorax: None Left hemidiaphragm is elevated. Osseous abnormalities: None of acuity. IMPRESSION: COPD Mild pleural-based density bilaterally which may be on the basis of pleural-based thickening versus s mall pleural fluid. Elevation of left hemidiaphragm.
[2018-12-11 09:47] LABS: Hemoglobin 15.8 g/dL (12.0-16.0); Mean Corpuscular HGB CONC 30.8 g/dL (32.0-36.0); Mean Corpuscular Hemoglobin 35.3 pg (27.0-31.0); Mean Platelet Volume 7.3 fL (7.4-10.4); Platelet Count 267 thou/uL (130-400); RBC Distribution Width 17.3 % (11.5-14.5); Red Blood Cell (RBC) Count 4.46 mill/uL (4.20-5.40); White Blood Cell (WBC) Count 16.6 thou/uL (4.8-10.8)
[2018-12-11 09:51] LABS: Anisocytosis SLIGHT = 6-15 cells (100X) (0-5/hpf); Band 7 % (5-11); Lymphocytes 3 % (21-51); Macrocytosis SLIGHT = 6-15 cells (100X) (0-5/hpf); Monocytes 20 % (0-10); Neutrophil 70 % (42-75)
[2018-12-11 10:03] LABS: MDiff Complete? YES
[2018-12-11 10:51] LABS: Anion Gap 23 mmol/L (10-20); BUN (Urea Nitrogen) 12 mg/dL (9.8-20.1); Bilirubin, Total 0.7 mg/dL (0.2-1.2); Calc. Creatinine Clearance 0 mL/min (70-130); Calcium 10.2 mg/dL (7.8-10.44); Carbon Dioxide 28 mmol/L (23-31); Chloride 88 mmol/L (98-107); Estimated GFR-MDRD Greater than 90; Potassium 4.8 mmol/L (3.5-5.1); Protein, Total 7.9 g/dL (5.8-8.1); Sodium 134 mmol/L (136-145)
[2018-12-11 10:52] LABS: AST (SGOT) 24 U/L (5-34); Alkaline Phosphatase 77 U/L (40-150)
[2018-12-11 10:58] LABS: Glucose 55 mg/dL (83-110)
[2018-12-11 11:35] LABS: ALT (SGPT) 26 U/L (8-55); Albumin 4.3 g/dL (3.4-4.8); CK (CPK) 25 U/L (29-168); Globulin 3.6 g/dL (2.4-3.5)
[2018-12-11] MEDS ORDERED: Albuterol Sulfate 2.5 mg/3 ml Neb ONE (12:56)
== END 2018-12-11 14:36 | disposition home or self-care (01) ==
LOC: ERS 08:14
DX: J44.9 Chronic obstructive pulmonary disease, unspecified (principal); I49.9 Cardiac arrhythmia, unspecified; I48.91 Unspecified atrial fibrillation; I10 Essential (primary) hypertension; F41.9 Anxiety disorder, unspecified; F17.210 Nicotine dependence, cigarettes, uncomplicated; Z79.899 Other long term (current) drug therapy; Z79.01 Long term (current) use of anticoagulants; Z91.14 Patient's other noncompliance with medication regimen
CPT/HCPCS: 36415; 36416; 71045; 80053; 82550; 84484; 85025; 93005; 94640; 94760; J7611

== ENCOUNTER 2018-12-25 16:36 | Inpatient (IN) | payer MEDICARE ==
--- NOTE | 2018-12-25 17:59 | PDOC.FPRHP ---
- History of Present Illness Chief Complaint: SOB History of Present Illness: Ms Villa is a 73yo female with pmh of COPD who was directly transferred from [place] for COPD exacerbation and Pneumonia. She reports SOB since Tuesday. Reports seeing her PCP on Tuesday and she was feeling great. Tuesday she started using her home O2 at 2L which she only uses every 6-8 weeks for around 30min at a time. She was taking her medications as prescribed and using PRNs every 4 hours in addition to not being able to wean from O2. She presented to the ED where CXR was preformed suspicious for pneumonia. She has a cough at baseline, reports it has not worsened. She denies fevers, chills, nausea, vomiting, increased sputum production. Reports decreased appetite. PCP: Dr Cagle ED Course: Ceftriaxone 1g, CXR with b/l small pleural effusions and LLL infiltrate, albuterol neb, methylpred, [place] - Allergies/Adverse Reactions Allergies Allergy/AdvReac Type Severity Reaction Status Date / Time alprazolam Allergy Verified 11/21/18 00:59 azithromycin Allergy Verified 11/21/18 00:59 doxycycline Allergy Verified 11/21/18 00:59 ketorolac Allergy Verified 11/21/18 00:59 Penicillins Allergy Verified 11/21/18 00:59 tramadol Allergy Verified 11/21/18 00:59 - Home Medications Medication Instructions Recorded Confirmed Type Gabapentin [Neurontin] 600 mg PO TID cap 08/15/18 12/25/18 Rx Amlodipine [Norvasc] 10 mg PO DAILY 09/30/18 12/25/18 History Apixaban [Eliquis] 5 mg PO BID 09/30/18 12/25/18 History Carvedilol [Coreg] 12.5 mg PO BID 09/30/18 12/25/18 History Nitroglycerin [Nitrostat] 0.4 mg SL Q5MIN 09/30/18 12/25/18 History Pantoprazole [Protonix] 40 mg PO DAILY 09/30/18 12/25/18 History Amiodarone [Cordarone] 200 mg PO DAILY tab 10/04/18 12/25/18 Rx Digoxin [Lanoxin] 0.125 mg PO QAM tab 10/04/18 12/25/18 Rx Famotidine [Pepcid] 20 mg PO BID tab 10/04/18 12/25/18 Rx HYDROcodone Bit/APAP 10/325 [[place]] 1 tab PO Q4H PRN tab 10/04/18 12/25/18 Rx busPIRone HCl [Buspar] 5 mg PO BID tab 10/04/18 12/25/18 Rx fentaNYL [Duragesic] 50 mcg TD Q3D #0 patch 10/10/18 12/25/18 Rx Acetaminophen [Tylenol Regular 650 mg PO Q6H PRN 11/21/18 12/25/18 History Strength] Multivitamin W/ Minerals 1 tab PO DAILY #0 tab 11/22/18 12/25/18 Rx [Theragran M] Budesonide [Pulmicort Neb Solution] 0.5 mg INH BIDPRN #10 ampule 12/08/18 Rx Calcium Carbonate [Tums] 1,000 mg PO Q4H PRN tab 12/08/18 12/25/18 Rx Ipratropium/Albuterol Sulfate 3 ml NEB [id number] #1 neb 12/08/18 12/25/18 Rx [DuoNeb] Nicotine [Nicoderm CQ] 14 mg TD Q24HR patch 12/08/18 12/25/18 Rx Tiotropium [Spiriva Handihaler] 18 mcg INH DAILY #1 box 12/08/18 12/25/18 Rx guaiFENesin ER [Mucinex] 1,200 mg PO Q12HR tab 12/08/18 12/25/18 Rx Ipratropium/Albuterol Sulfate 3 ml NEB Q4H PRN #20 ampule 12/09/18 12/25/18 Rx [DuoNeb] Tiotropium [Spiriva Handihaler] 18 mcg INH DAILY #1 box 12/09/18 12/25/18 Rx Ventolin HFA Inhaler 1 puff INH Q4HR PRN #1 inh 12/09/18 12/25/18 Rx - History PMHx: Atrial fib s/p pacemaker, hypertension, COPD, cardiomyopathy PSHx: carpal tunnel (Rt), hernia repair, bilateral cataract, bilat trigger finger, , hysterectomy, neck surgery FHx: COPD, DM Social: Tobacco use1-1.5 packs for 60 years. Currently smokes 4 cig/day. Denies drug or alcohol use. - Review of Systems General: reports: weight/appetite/sleep changes. denies: fever/chills Eyes: denies: eye pain, vision changes ENT: denies: nasal congestion, rhinorrhea Respiratory: reports: cough, shortness of breath. denies: congestion Cardiovascular: denies: chest pain, palpitation Gastrointestinal: denies: nausea, vomiting, abdominal pain Genitourinary: denies: dysuria, other (hematuria) Skin: denies: rashes, lesions Musculoskeletal: denies: pain, tenderness Neurological: denies: syncope, weakness - Vital signs BP: HR: 116 RR: 24 Tmax: 97.8 Pox: 96% on 2L Wt: 40kg - Physical Exam Constitutional: NAD, awake, alert and oriented, other (thin) HEENT: normocephalic and atraumatic, conjunctiva clear, MMM, oropharynx clear, other (talking in full sentences) Neck: supple, trachea midline Heart: RRR, no murmurs/rubs/gallops Lungs: other (Diffuse expiratory wheezing with prolonged expiration phase.) Abdomen: soft, non-tender, bowel sounds present Musculoskeletal: normal structure, normal tone Neurological: no focal deficit Skin: no rash/lesions, capillary refill <2 seconds Heme/Lymphatic: no unusual bruising or bleeding, no purpura Psychiatric: normal mood and affect, good judgment and insight, intact recent and remote memory FMR H&P: Results - Radiology Interpretation Chest x-ray Status: report reviewed by me Additional comment: Wosening cardiomegaly, pulm vascular congestion and perihilar opacities suspicious for CHF. small b/l pleural effusions L>R. Increased opacity in LLL FMR H&P: A/P - Problem List (1) Pneumonia Current Visit: Yes Status: Acute Code(s): J18.9 - PNEUMONIA, UNSPECIFIED ORGANISM (2) COPD exacerbation Current Visit: No Status: Acute Code(s): J44.1 - CHRONIC OBSTRUCTIVE PULMONARY DISEASE W (ACUTE) EXACERBATION (3) Cardiomyopathy Current Visit: No Status: Acute Code(s): I42.9 - CARDIOMYOPATHY, UNSPECIFIED (4) Atrial fibrillation Current Visit: No Status: Chronic Code(s): I48.91 - UNSPECIFIED ATRIAL FIBRILLATION Qualifiers: Atrial fibrillation type: chronic Qualified Code(s): I48.2 - Chronic atrial fibrillation Comment: HR controlled on Amiodarone and BB. on Eliquis .Monitor for low BP and/ or Low HR (5) CAD (coronary artery disease) Current Visit: No Status: Chronic Code(s): I25.10 - ATHSCL HEART DISEASE OF [place] CORONARY ARTERY W/O ANG PCTRS Qualifiers: (6) COPD (chronic obstructive pulmonary disease) Current Visit: No Status: Chronic Qualifiers: Chronic bronchitis type: unspecified (7) HLD (hyperlipidemia) Current Visit: No Status: Chronic Code(s): E78.5 - HYPERLIPIDEMIA, UNSPECIFIED Qualifiers: Hyperlipidemia type: unspecified Qualified Code(s): E78.5 - Hyperlipidemia , unspecified (8) HTN (hypertension) Current Visit: No Status: Chronic Code(s): I10 - ESSENTIAL (PRIMARY) HYPERTENSION Qualifiers: Hypertension type: essential hypertension Qualified Code(s): I10 - Essential (primary) hypertension (9) Malnutrition Current Visit: No Status: Chronic Code(s): E46 - UNSPECIFIED PROTEIN- CALORIE MALNUTRITION - Plan Ms Villa is a 73yo female with pmh of COPD admitted for Acute hypoxic respiratory failure COPD exacerbation and Pneumonia. Acute hypoxic respiratory failure 2/2 COPD exacerbation and possible pneumonia - CXR: LLL infiltrate - Currently on 2L NC, not on O2 at baseline - Will obtain procal - [facility] jillian, with PRNs available - Continue home meds - Starting 5 day course of steroids - s/p Ceftriaxone x1 in ED, will await procal prior to initiating antibiotics - Titrate supplemental O2 to SpO2 88-92% - Admit to medical Atrial fibrillation s/p Pacemaker on AC - Continue home eliquis, amiodarone, digoxin Severe physical deconditioning - Walking program, PT/OT consulted Malnutrition - Ensure supplement TID HTN - Continue home meds Chronic pain - Continue home Fentanyl patch and [place] Hx prolonged QT - Avoid QT prolongation medications History of C Diff infection - Not having diarrhea Code Status: FULL DVT ppx: Ashish PCP: Dr Cagle This pt was discussed with and seen by Dr Saldivar FMR H&P: Upper Level - Pertinent history 73 yo F with PMH of COPD with multiple recent exacerbations requiring hospitalization, chronic afib, and cardiomyopathy s/p pacemaker presenting as transfer from [facility]. Pt presented there via EMS who were called to pt's home for SOB. Pt was found to have initial O2 sats in the mid 80s which improved to 94% on 2L NC. Pt c/o increased cough, SOB, and wheezing for the last two days. - Pertinent findings VSS, afebrile Gen: NAD CV: RRR Resp: coarse ronchi and expiratory wheezing bilaterally, worse LLL - Plan Date/Time: 12/25/18 5108 I, Lazaro Nagy MD PGY3, have evaluated this patient and agree with findings/ plan as outlined by advisory internship resident. Pertinent changes/additions are listed here. 1. Acute hypoxia 2/2 acute COPD exacerbation -Pt presents with third round of exacerbation symptoms in the last month and subsequent third hospitalization. Pt received Ceftriaxone in outside ER. Due to age, multiple recent hospitalizations, and poor functional status, will transition pt to Zosyn for IV abx if indicated by procalcitonin. -Pt's CXR reveals cardiomegaly and concern for vascular congestion, however, BNP normal and pt does not appear hypervolemic. Symptoms more likely associated with COPD exacerbation and possible PNA. -Obtain procalcitonin and trend, if necessary. -Continue with duonebs BRANDY and PRN. Initiate 5 day course of oral steroids. -CM consult for evaluation of placement/discharge planning as pt has required multiple frequent hospitalizations. -Supplemental O2 for goal sat 88-92%. Continue home medications for other chronic issues. Symptomatic medications will be provided. FULL code PPx: Lovenox for VTE, no GI indicated. disposition: Admit to inpatient status for anticipated length of stay greater than two midnights, pending clinical course. Addendum - Attending - Attending Attestation Date/Time: 12/25/18 0372 I personally evaluated the patient and discussed the management with Dr. Miller /Yakov. I agree with the History, Examination, Assessment and Plan documented above with any addition or exceptions noted below. Patient here for acute hypoxic resp failure 2/2 COPD exacerbation. CXR shows patchy b/l infiltrates concerning for PNA, mild elevation in WBC but PCT reassuring. Will trend. Received Rocephin. Continue nebs, steroids. Further mgmt per clinical course overnight.
[2018-12-25 19:05] VITALS: BMI 16.5
[2018-12-25] MEDS ORDERED: PROVENTIL INHALER 6.7 G (200 INHALATIONS) INH PRN (19:10)
[2018-12-25] MEDS ORDERED: Calcium Carbonate 500 MG ChewTAB PO PRN (19:10)
[2018-12-25] MEDS ORDERED: Acetaminophen 325 MG TAB PO PRN (19:10)
[2018-12-25] MEDS ORDERED: fentaNYL 50 mcg/hour Patch TD SCH (20:00)
[2018-12-25] MEDS: Apixaban 5 MG TAB PO SCH (20:15)
[2018-12-25] MEDS: Nicotine 14 MG PATCH TD SCH (20:15)
[2018-12-25] MEDS: Gabapentin 300 MG CAP PO SCH (20:15)
[2018-12-25] MEDS: guaiFENesin ER 600 MG TAB PO SCH (20:15)
[2018-12-25] MEDS: Famotidine 20 MG TAB PO SCH (20:16)
[2018-12-25] MEDS: busPIRone HCl 5 MG TAB PO SCH (20:16)
[2018-12-25] MEDS: Carvedilol 6.25 MG TAB PO SCH (20:16)
[2018-12-25] MEDS: HYDROcodone/Acetaminophen 10/325 mg Tablet PO PRN (20:16)
[2018-12-26] MEDS: HYDROcodone/Acetaminophen 10/325 mg Tablet PO PRN ×4 (01:53→21:11)
[2018-12-26 04:43] LABS: Anion Gap 13 mmol/L (10-20); BUN (Urea Nitrogen) 18 mg/dL (9.8-20.1); Calc. Creatinine Clearance 56 mL/min (70-130); Calcium 9.3 mg/dL (7.8-10.44); Carbon Dioxide 29 mmol/L (23-31); Chloride 97 mmol/L (98-107); Estimated GFR-MDRD Greater than 90; Glucose 142 mg/dL (83-110); Potassium 4.4 mmol/L (3.5-5.1); Sodium 135 mmol/L (136-145)
[2018-12-26] MEDS: Budesonide 0.5 MG/2 ML NEB NEB SCH ×2 (06:34→18:21)
[2018-12-26] MEDS: Mometasone/Formoterol 120 PUFF INHALER INH SCH ×2 (06:36→18:22)
--- NOTE | 2018-12-26 07:24 | PDOC.FM ---
- Subjective Subjective: pt sitting up at bedside tolerating PO, saturating well on RA. reports SOB improved - Objective Vital Signs & Weight: Vital Signs (12 hours) Temp Pulse Resp BP BP BP Pulse Ox 12/26/18 07:16 98 F 80 17 92/55 L 94 L 12/26/18 06:34 103 H 16 94 L 12/26/18 04:00 98.2 F 85 18 112/59 L 91 L 12/26/18 00:45 98.3 F 83 18 93/54 L 92 L 12/25/18 23:21 94 14 91 L 12/25/18 20:16 122/72 12/25/18 20:00 98.0 F 103 H 20 100/60 95 Weight Weight 40.823 kg Result Diagrams: 12/26/18 04:02 Phys Exam - Physical Examination Constitutional: NAD HEENT: moist MMs Neck: no JVD Respiratory: clear to auscultation bilateral Cardiovascular: RRR, no significant murmur Gastrointestinal: soft, no distention Musculoskeletal: no edema Neurological: non-focal Psychiatric: normal affect Skin: no rash Dx/Plan (1) Pneumonia Code(s): J18.9 - PNEUMONIA, UNSPECIFIED ORGANISM Status: Acute (2) COPD exacerbation Code(s): J44.1 - CHRONIC OBSTRUCTIVE PULMONARY DISEASE W (ACUTE) EXACERBATION Status: Acute (3) Chest pain Code(s): R07.9 - CHEST PAIN, UNSPECIFIED Status: Acute (4) Prolonged QT interval Code(s): R94.31 - ABNORMAL ELECTROCARDIOGRAM [ECG] [EKG] Status: Acute (5) Atrial fibrillation Code(s): I48.91 - UNSPECIFIED ATRIAL FIBRILLATION Status: Chronic Qualifiers: Atrial fibrillation type: chronic Qualified Code(s): I48.2 - Chronic atrial fibrillation (6) CAD (coronary artery disease) Code(s): I25.10 - ATHSCL HEART DISEASE OF [place] CORONARY ARTERY W/O ANG PCTRS Status: Chronic Qualifiers: (7) Chronic pain Code(s): G89.29 - OTHER CHRONIC PAIN Status: Chronic Qualifiers: Chronic pain type: chronic pain syndrome Qualified Code(s): G89.4 - Chronic pain syndrome (8) HLD (hyperlipidemia) Code(s): E78.5 - HYPERLIPIDEMIA, UNSPECIFIED Status: Chronic Qualifiers: Hyperlipidemia type: unspecified Qualified Code(s): E78.5 - Hyperlipidemia , unspecified (9) Malnutrition Code(s): E46 - UNSPECIFIED PROTEIN-CALORIE MALNUTRITION Status: Chronic - Plan Plan: Acute hypoxic respiratory failure 2/2 COPD exacerbation and possible pneumonia - CXR: LLL infiltrate, new O2 requirement, indeterminate procal - Geri duonebs, with PRNs available - Continue home meds - 5 days oral steriods, consider abx considering frequent hosp. for pna - PRN supplemental O2 titrate to SpO2 88-92% Atrial fibrillation s/p Pacemaker on AC - Continue home eliquis, amiodarone, digoxin Severe physical deconditioning - Walking program, PT/OT consulted - CM, rehab screen Malnutrition - Ensure supplement TID HTN - Continue home meds Chronic pain - Continue home Fentanyl patch and [place] - monitor for increased somnolence Hx prolonged QT - Avoid QT prolongation medications History of C Diff infection - Not having diarrhea Code Status: FULL DVT ppx: Eliquis PCP: Dr Cagle Dispo: continue respiratory support for COPD exac, begin dc planning
[2018-12-26] MEDS: busPIRone HCl 5 MG TAB PO SCH ×2 (08:06→19:38)
[2018-12-26] MEDS: predniSONE 20 MG TAB PO SCH (08:06)
[2018-12-26] MEDS: Carvedilol 6.25 MG TAB PO SCH ×2 (08:06→19:38)
[2018-12-26] MEDS: guaiFENesin ER 600 MG TAB PO SCH ×2 (08:08→19:37)
[2018-12-26] MEDS: Apixaban 5 MG TAB PO SCH ×2 (08:08→19:38)
[2018-12-26] MEDS: Digoxin 0.125 MG TAB PO SCH (08:08)
[2018-12-26] MEDS: Gabapentin 300 MG CAP PO SCH ×3 (08:08→19:38)
[2018-12-26] MEDS: Amlodipine 10 MG TAB PO SCH (08:08)
[2018-12-26] MEDS: Amiodarone 200 MG TAB PO SCH (08:09)
[2018-12-26] MEDS: Multivitamin W/ Minerals 1 TAB PO SCH (08:09)
[2018-12-26] MEDS: Famotidine 20 MG TAB PO SCH ×2 (08:09→19:38)
[2018-12-26] MEDS ORDERED: Spiriva 18 MCG CAP (Box of 5 Caps) INH SCH (09:00)
[2018-12-26] MEDS ORDERED: fentaNYL 50 mcg/hour Patch TD SCH (09:00)
--- NOTE | 2018-12-26 12:20 | PRG ---
DATE OF SERVICE: 12/26/2018 Ms. Villa is a pleasant 73-year-old lady, who was admitted from [place] for an exacerbation of COPD. She uses oxygen also p.r.n. I have suggested at some point we get a room air ABG when she is stable to determine whether she is qualified for home O2 on a 24-hour basis. In the event with her DuoNebs and other treatments, she is feeling better this morning. She is not overtly short of breath, but does become short of breath with exertion. Her labs showed a sodium of 135, potassium 4.4, chloride was 97, her bicarb was 29, with a creatinine of 0.56. We will continue with her steroids, DuoNebs, and add an antibiotic. Job ID: [id number]
[2018-12-26] MEDS: Nicotine 14 MG PATCH TD SCH (19:39)
[2018-12-27] MEDS: HYDROcodone/Acetaminophen 10/325 mg Tablet PO PRN ×4 (03:54→22:01)
--- NOTE | 2018-12-27 06:50 | PDOC.FM ---
- Subjective Subjective: pt resting comfortably in bed, no respiratory dsitress, SOB improved. - Objective Vital Signs & Weight: Vital Signs (12 hours) Temp Pulse Resp BP BP Pulse Ox 12/27/18 04:00 97.6 F 93 20 97/61 93 L 12/26/18 20:00 95 12/26/18 19:42 98.0 F 107 H 20 101/60 92 L 12/26/18 19:38 101/60 Weight Admit Weight 40.823 kg Weight 40.823 kg I&O: 12/25/18 12/26/18 12/27/18 06:59 06:59 06:59 Intake Total 720 Balance 720 Result Diagrams: 12/26/18 04:02 Phys Exam - Physical Examination Constitutional: NAD HEENT: moist MMs Neck: full ROM Respiratory: no wheezing, clear to auscultation bilateral Cardiovascular: RRR, no significant murmur Gastrointestinal: soft, non-tender Musculoskeletal: no edema, pulses present Neurological: moves all 4 limbs Psychiatric: normal affect Skin: no rash Dx/Plan (1) Pneumonia Code(s): J18.9 - PNEUMONIA, UNSPECIFIED ORGANISM Status: Acute (2) COPD exacerbation Code(s): J44.1 - CHRONIC OBSTRUCTIVE PULMONARY DISEASE W (ACUTE) EXACERBATION Status: Acute (3) Chest pain Code(s): R07.9 - CHEST PAIN, UNSPECIFIED Status: Acute (4) Prolonged QT interval Code(s): R94.31 - ABNORMAL ELECTROCARDIOGRAM [ECG] [EKG] Status: Acute (5) Atrial fibrillation Code(s): I48.91 - UNSPECIFIED ATRIAL FIBRILLATION Status: Chronic Qualifiers: Atrial fibrillation type: chronic Qualified Code(s): I48.2 - Chronic atrial fibrillation (6) CAD (coronary artery disease) Code(s): I25.10 - ATHSCL HEART DISEASE OF [place] CORONARY ARTERY W/O ANG PCTRS Status: Chronic Qualifiers: (7) Chronic pain Code(s): G89.29 - OTHER CHRONIC PAIN Status: Chronic Qualifiers: Chronic pain type: chronic pain syndrome Qualified Code(s): G89.4 - Chronic pain syndrome (8) HLD (hyperlipidemia) Code(s): E78.5 - HYPERLIPIDEMIA, UNSPECIFIED Status: Chronic Qualifiers: Hyperlipidemia type: unspecified Qualified Code(s): E78.5 - Hyperlipidemia , unspecified (9) Malnutrition Code(s): E46 - UNSPECIFIED PROTEIN-CALORIE MALNUTRITION Status: Chronic - Plan Plan: Acute hypoxic respiratory failure 2/2 COPD exacerbation and possible pneumonia - CXR: LLL infiltrate, new O2 requirement, indeterminate procal - Geri duonebs, with PRNs available - Continue home meds - 5 days oral steriods, [id number] - PRN supplemental O2 titrate to SpO2 88-92% Atrial fibrillation s/p Pacemaker on AC - Continue home eliquis, amiodarone, digoxin Severe physical deconditioning - Walking program, PT/OT consulted - CM, rehab screen Malnutrition - Ensure supplement TID HTN - Continue home meds Chronic pain - Continue home Fentanyl patch and [place] - monitor for increased somnolence Hx prolonged QT - Avoid QT prolongation medications History of C Diff infection - Not having diarrhea Code Status: FULL DVT ppx: Ashish PCP: Dr Cagle Dispo: walking O2 test today, DC today or tomorrow
[2018-12-27] MEDS: Budesonide 0.5 MG/2 ML NEB NEB SCH ×2 (08:03→18:24)
[2018-12-27] MEDS: Mometasone/Formoterol 120 PUFF INHALER INH SCH ×2 (08:09→18:21)
[2018-12-27] MEDS ORDERED: Ondansetron ORAL SOLN. 4 MG/5 ML UDCUP PO PRN (08:30)
[2018-12-27] MEDS ORDERED: Ondansetron PF 4 MG/2 ML Vial IVP SCH (08:30)
[2018-12-27] MEDS: Amiodarone 200 MG TAB PO SCH (11:01)
[2018-12-27] MEDS: Multivitamin W/ Minerals 1 TAB PO SCH (11:01)
[2018-12-27] MEDS: Digoxin 0.125 MG TAB PO SCH (11:01)
[2018-12-27] MEDS: Amlodipine 10 MG TAB PO SCH (11:01)
[2018-12-27] MEDS: Carvedilol 6.25 MG TAB PO SCH ×2 (11:02→20:07)
[2018-12-27] MEDS: Apixaban 5 MG TAB PO SCH ×2 (11:02→20:15)
[2018-12-27] MEDS: busPIRone HCl 5 MG TAB PO SCH ×2 (11:02→20:15)
[2018-12-27] MEDS: Gabapentin 300 MG CAP PO SCH ×3 (11:02→20:15)
[2018-12-27] MEDS: Famotidine 20 MG TAB PO SCH ×2 (11:02→20:15)
[2018-12-27] MEDS: predniSONE 20 MG TAB PO SCH (11:02)
[2018-12-27] MEDS: guaiFENesin ER 600 MG TAB PO SCH ×2 (11:02→20:15)
--- NOTE | 2018-12-27 11:48 | PRG ---
DATE OF SERVICE: Ms. Villa is sitting in bed resting quietly. She demonstrates no respiratory distress. Her room air pulse ox is 92%. We are awaiting a "walk test" to determine if she will qualify for home O2. Job ID: [id number]
[2018-12-27] MEDS: Nicotine 14 MG PATCH TD SCH (20:15)
[2018-12-28] MEDS ORDERED: Ondansetron PF 4 MG/2 ML Vial IVP PRN (03:38)
[2018-12-28] MEDS: HYDROcodone/Acetaminophen 10/325 mg Tablet PO PRN ×2 (04:42→13:13)
[2018-12-28] MEDS: Budesonide 0.5 MG/2 ML NEB NEB SCH (05:47)
[2018-12-28] MEDS: Mometasone/Formoterol 120 PUFF INHALER INH SCH (05:49)
--- NOTE | 2018-12-28 06:46 | PDOC.FM ---
- Subjective Subjective: pt resting comfortably in bed, no acute events overnight, no O2 requirement. reports some nausea and emesis, associates with oral abx - Objective Vital Signs & Weight: Vital Signs (12 hours) Temp Pulse Resp BP BP Pulse Ox 12/28/18 04:00 97.9 F 98 22 H 94/51 L 92 L 12/27/18 22:15 96 18 91 L 12/27/18 20:07 101/60 12/27/18 20:00 94 L 12/27/18 19:38 97.6 F 95 22 H 102/49 L 92 L Weight Admit Weight 40.823 kg Weight 40.823 kg I&O: 12/26/18 12/27/18 12/28/18 06:59 06:59 06:59 Intake Total 720 300 Balance 720 300 Result Diagrams: 12/26/18 04:02 Phys Exam - Physical Examination Constitutional: NAD HEENT: moist MMs Neck: full ROM Respiratory: no wheezing, clear to auscultation bilateral Cardiovascular: RRR, no significant murmur Gastrointestinal: no distention Musculoskeletal: pulses present Neurological: moves all 4 limbs Psychiatric: normal affect Skin: no rash Dx/Plan (1) Pneumonia Code(s): J18.9 - PNEUMONIA, UNSPECIFIED ORGANISM Status: Acute (2) COPD exacerbation Code(s): J44.1 - CHRONIC OBSTRUCTIVE PULMONARY DISEASE W (ACUTE) EXACERBATION Status: Acute (3) Chest pain Code(s): R07.9 - CHEST PAIN, UNSPECIFIED Status: Acute (4) Prolonged QT interval Code(s): R94.31 - ABNORMAL ELECTROCARDIOGRAM [ECG] [EKG] Status: Acute (5) Atrial fibrillation Code(s): I48.91 - UNSPECIFIED ATRIAL FIBRILLATION Status: Chronic Qualifiers: Atrial fibrillation type: chronic Qualified Code(s): I48.2 - Chronic atrial fibrillation (6) CAD (coronary artery disease) Code(s): I25.10 - ATHSCL HEART DISEASE OF [place] CORONARY ARTERY W/O ANG PCTRS Status: Chronic Qualifiers: (7) Chronic pain Code(s): G89.29 - OTHER CHRONIC PAIN Status: Chronic Qualifiers: Chronic pain type: chronic pain syndrome Qualified Code(s): G89.4 - Chronic pain syndrome (8) HLD (hyperlipidemia) Code(s): E78.5 - HYPERLIPIDEMIA, UNSPECIFIED Status: Chronic Qualifiers: Hyperlipidemia type: unspecified Qualified Code(s): E78.5 - Hyperlipidemia , unspecified (9) Malnutrition Code(s): E46 - UNSPECIFIED PROTEIN-CALORIE MALNUTRITION Status: Chronic - Plan Plan: Acute hypoxic respiratory failure 2/2 COPD exacerbation and possible pneumonia - CXR: LLL infiltrate, new O2 requirement, indeterminate procal - Geri duonebs, with PRNs available - Continue home meds - 5 days oral steriods, [id number] - PRN supplemental O2 titrate to SpO2 88-92% - no O2 requirement for 3 days, no wheezing on exam, seems to be back to baseline Atrial fibrillation s/p Pacemaker on AC - Continue home eliquis, amiodarone, digoxin Severe physical deconditioning - Walking program, PT/OT consulted - CM, rehab screen Malnutrition - Ensure supplement TID HTN - Continue home meds Chronic pain - Continue home Fentanyl patch and [place] - monitor for increased somnolence Hx prolonged QT - Avoid QT prolongation medications History of C Diff infection - Not having diarrhea Code Status: FULL DVT ppx: Ashish PCP: Dr Cagle Dispo: DC today
[2018-12-28] MEDS: Carvedilol 6.25 MG TAB PO SCH (08:31)
[2018-12-28] MEDS: Digoxin 0.125 MG TAB PO SCH (08:31)
[2018-12-28] MEDS: Famotidine 20 MG TAB PO SCH (08:32)
[2018-12-28] MEDS: Multivitamin W/ Minerals 1 TAB PO SCH (08:32)
[2018-12-28] MEDS: Amiodarone 200 MG TAB PO SCH (08:32)
[2018-12-28] MEDS: predniSONE 20 MG TAB PO SCH (08:32)
[2018-12-28] MEDS: Gabapentin 300 MG CAP PO SCH ×2 (08:32→15:38)
[2018-12-28] MEDS: guaiFENesin ER 600 MG TAB PO SCH (08:32)
[2018-12-28] MEDS: busPIRone HCl 5 MG TAB PO SCH (08:33)
[2018-12-28] MEDS: Amlodipine 10 MG TAB PO SCH (08:33)
[2018-12-28] MEDS: Apixaban 5 MG TAB PO SCH (08:33)
--- NOTE | 2018-12-28 12:35 | PRG ---
DATE OF SERVICE: 12/28/2018 Ms. Villa is clinically remaining stable. She has no increased shortness of breath or cough. We had wanted to obtained an ABG to determine her CO2 status as well as her degree of hypoxemia to see if she qualifies for home O2. She refuses the ABG draw. She will be discharged on her usual inhaled medications for followup with her PCP. Job ID: [id number]
--- NOTE | 2018-12-28 14:22 | PQF ---
Date: 12-28-18 ATTN: DR. CHAPARRITA ROSS Please exercise your independent, professional judgment in responding to the clarification form. Clinical indicators are provided on the bottom of this form for your review Please check appropriate box(s): [ ] Protein Calorie Malnutrition: [ ] Mild [ ] Moderate [ ] Severe [ ] Other Malnutrition (please specify) __ [ ] Other diagnosis [ x] Unable to determine In addition, please specify: Present on Admission (POA): [ ] Yes [ ] No [ ] Unable to determine CLINICAL INDICATORS - SIGNS / SYMPTOMS / LABS BMI: 16.5 H&P: UNSPECIFIED PROTEIN CALORIE MALNUTRITION, ENSURE SUPPLEMENT TID [employer] W[employer] HAND CONSULT 12-28-18: Pt reports decreased appetite d/t illness. Pt reports taking Ensure Enlive TID; hx COPD, BMI 16.5, Her appetite goes up and down and is quite variable - like her weight. She reports UBW ~100 lb, but it has ranged recently from 72 lb 3 weeks ago to 90 lb at the doctor's office on 12/20. 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 CHAPARRITA ROSS 12-27-18: SEVERE PHYSICAL DECONDITIONING TREATMENT: DIETITIAN CONSULT 12-28-18: 1. Continue HEART HEALTHY diet during admit. Texture/consistency per [employer]. 2. Continue Ensure Enlive TID. 3. Recommend [employer] consult per pt report of occasional difficulty swallowing. 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 Moderate Malnutrition (in chronic illness) Energy Intake: <75% of estimated energy requirement for >1 month Weight Loss: 5%/1 month; 7.5%/3 months; 10%/6 months; 20%/1 year Other: mild body fat loss; mild muscle mass loss; mild fluid accumulation Severe Malnutrition (in chronic illness) Energy Intake: <75% of estimated energy requirement for >1 month Weight Loss: >5%/1 month; >7.5%/3 months; >10%/6 months; >20%/1 year Other: severe body fat loss; severe muscle mass loss; severe fluid accumulation ; 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 All Rights Reserved RAISA [email or web address] Office: [phone] ARI
[2018-12-28 16:47] VITALS: BP 132/67; TEMP 97.5
--- NOTE | 2018-12-30 03:43 | DIS ---
DATE OF ADMISSION: 12/25/2018 DATE OF DISCHARGE: 12/28/2018 ADMITTING ATTENDING: Pavan Saldivar MD RESIDENT: Otf Nugent DO CONSULTS: None. PROCEDURES: None. IMAGING: Chest x-ray shows moderate suspicion for lower lobe infiltrate, cannot rule out pneumonia. MEDICATIONS: 1. Gabapentin 600 mg p.o. t.i.d. 2. Nitroglycerin 0.4 mg SL q.5 minutes. 3. Protonix 40 mg p.o. daily. 4. Eliquis 5 mg p.o. b.i.d. 5. Amlodipine 10 mg p.o. daily. 6. Coreg 12.5 mg p.o. b.i.d. 7. Digoxin 0.125 mg p.o. q.a.m. 8. Famotidine 20 mg p.o. b.i.d. 9. [place] 10 one tab p.o. q.4 hours p.r.n. 10. Amiodarone 200 mg p.o. daily. 11. Fentanyl 50 mcg transdermal patch q.3 days. 12. Tylenol 650 mg p.o. q.6 hours p.r.n. 13. Multivitamin one tab p.o. daily. 14. Tums 1000 mg p.o. q.4 hours p.r.n. 15. Mucinex 1200 mg p.o. q.12 hours. 16. DuoNeb 3 mL nebulized q.4 hours p.r.n. 17. Nicoderm CQ 14 mg transdermal q.24 hours. 18. Spiriva 18 mcg inhaled daily. 19. Pulmicort 0.5 mg inhaled b.i.d. p.r.n. 20. Ventolin one puff inhaled q.4 hours p.r.n. 21. Levaquin 750 mg p.o. at 0600 hours for 2 days. 22. Prednisone 40 mg p.o. for two days. 23. Zoloft 25 mg p.o. daily. PRIMARY DIAGNOSIS: Chronic obstructive pulmonary disease exacerbation. SECONDARY DIAGNOSES: 1. Atrial fibrillation status post pacemaker. 2. Physical deconditioning. 3. Malnutrition. 4. Hypertension. 5. Chronic pain. 6. Prolonged QT. 7. History of Clostridium difficile. HISTORY OF PRESENT ILLNESS/HOSPITAL COURSE: Ms. Villa is a 73-year-old female with a past medical history significant for COPD, who was transferred from [place] for hypoxia. She reports that she has had shortness of breath for a few days prior to admission and was using her inhalers and nebulizer treatments more than usual, p.r.n. oxygen at home more than usual and earlier that day prior to arrival, had passed out while sitting with her son there. Her son decided to bring her in to the hospital at that point. Workup and evaluation completed in outside hospital and [place] [facility] revealed most likely hypoxia related to COPD exacerbation and a possible pneumonia present. The patient was started on oral and nebulized steroids at that time, transferred to medical floor for monitoring and respiratory support. The patient remained stable throughout hospital stay, did not have any more hypoxic events and was deemed stable for discharge on home steroids and antibiotics. DISCHARGE INSTRUCTIONS: Location: Home. Diet: Heart healthy, low-sodium. Activity: As tolerated. Followup: Follow up with PCP, Dr. Cagle in the next week. Job ID: [id number]
== END 2018-12-28 17:13 | disposition home or self-care (01) | DRG 193 ==
LOC: T4-A 17:48
PROVIDERS: ADMIT Family Medicine; ATTEND Family Medicine
DX: J18.9 Pneumonia, unspecified organism (principal); J96.01 Acute respiratory failure with hypoxia; J44.1 Chronic obstructive pulmonary disease with (acute) exacerbation; J44.0 Chronic obstructive pulmonary disease with (acute) lower respiratory infection; I42.9 Cardiomyopathy, unspecified; E46 Unspecified protein-calorie malnutrition; Z68.1 Body mass index [BMI] 19.9 or less, adult; I10 Essential (primary) hypertension; I25.10 Atherosclerotic heart disease of native coronary artery without angina pectoris; E78.5 Hyperlipidemia, unspecified; F17.210 Nicotine dependence, cigarettes, uncomplicated; G89.29 Other chronic pain; I45.81 Long QT syndrome; I48.2 Chronic atrial fibrillation; Z79.01 Long term (current) use of anticoagulants; Z79.51 Long term (current) use of inhaled steroids; Z95.0 Presence of cardiac pacemaker; Z79.899 Other long term (current) drug therapy
CPT/HCPCS: 36415; 80048; 84145; 94640; 94664; J2405; J7512; J7620; J7626

== ENCOUNTER 2019-01-09 14:18 | Inpatient (IN) | payer MEDICARE ==
--- NOTE | 2019-01-09 15:03 | RAD ---
Exam: Chest one view HISTORY:Shortness of breath. Nausea. COPD. Comparison: 12/25/2018 FINDINGS: Cardiac silhouette:Enlarged. Atherosclerosis of the aorta. Stable left-sided triple lead transvenous pacemaker. Pulmonary vessels: Slightly prominent. Costophrenic angles: Persistent blunting of the costophrenic angles. Persistent elevation of the left hemidiaphragm. LUNGS: Hyperinflation. Right upper lobe infiltrate cannot be excluded. Presumed chronic changes are i n the left lung base and throughout the remainder of the lung parenchyma. Pneumothorax: None Osseous abnormalities: None IMPRESSION: 1. COPD. Hyperinflation. 2. Atherosclerotic. 3. Chronic changes. Focal infiltrate in the right upper lobe is suspected.
[2019-01-09 15:17] LABS: Hemoglobin 13.8 g/dL (12.0-16.0); Mean Corpuscular HGB CONC 31.8 g/dL (32.0-36.0); Mean Corpuscular Hemoglobin 34.9 pg (27.0-31.0); Mean Platelet Volume 6.5 fL (7.4-10.4); Platelet Count 301 thou/uL (130-400); RBC Distribution Width 18.1 % (11.5-14.5); Red Blood Cell (RBC) Count 3.95 mill/uL (4.20-5.40); White Blood Cell (WBC) Count 10.1 thou/uL (4.8-10.8)
[2019-01-09 15:24] LABS: ALT (SGPT) 11 U/L (8-55); AST (SGOT) 15 U/L (5-34); Albumin 3.7 g/dL (3.4-4.8); Alkaline Phosphatase 81 U/L (40-150); Anion Gap 14 mmol/L (10-20); BUN (Urea Nitrogen) 6 mg/dL (9.8-20.1); Bilirubin, Total 0.7 mg/dL (0.2-1.2); Calc. Creatinine Clearance 0 mL/min (70-130); Calcium 9.7 mg/dL (7.8-10.44); Carbon Dioxide 27 mmol/L (23-31); Chloride 95 mmol/L (98-107); Estimated GFR-MDRD Greater than 90; Globulin 3.1 g/dL (2.4-3.5); Glucose 78 mg/dL (83-110); Potassium 4.8 mmol/L (3.5-5.1); Protein, Total 6.8 g/dL (6.0-8.3); Sodium 131 mmol/L (136-145)
[2019-01-09 15:27] LABS: #Lymphocytes 0.9 thou/uL (1.20-3.40); #Monocytes 0.7 thou/uL (0.11-0.59); #Neutrophils 8.5 thou/uL (1.40-6.50); %Basophils 0.2 % (0.0-1.0); %Eosinophils 0.2 % (0.0-10.0); %Lymphocytes 9.1 % (21.0-51.0); %Monocytes 6.5 % (0.0-10.0); %Neutrophils 84.1 % (42.0-75.0); Anisocytosis SLIGHT = 6-15 cells (100X) (0-5/hpf); Lymphocytes 8 % (21-51); MDiff Complete? YES; Macrocytosis SLIGHT = 6-15 cells (100X) (0-5/hpf); Monocytes 4 % (0-10); Neutrophil 86 % (42-75); Platelet Morphology Comment Appears Adequate; Polychromasia SLIGHT = 2-3 cells (100X) (0-2/hpf); Target Cells SLIGHT = 2-5 cells (100X) (0-1/hpf)
[2019-01-09] MEDS ORDERED: Ondansetron ODT 4 MG TAB ONE (15:35)
[2019-01-09] MEDS ORDERED: methylPREDNISolone Sod Succ/PF 125 MG/2 ML VIAL ONE (16:45)
[2019-01-09] MEDS ORDERED: Doxycycline 100 MG CAP PO SCH (17:00)
[2019-01-09 17:09] LABS: Bilirubin Negative (Negative); Blood, Urine Negative (Negative); Clarity CLEAR (Clear); Glucose, Urine (Dipstick) Negative (Negative); Leukocyte Negative (Negative); Nitrite Negative (Negative); Protein, Urine (Dipstick) Negative (Neg-Trace); Specific Gravity, Urine 1.012 (1.002-1.036); Urobilinogen 0.2 mg/dL (0.2-1.0)
[2019-01-09] MEDS ORDERED: Acetaminophen 500 MG TAB ONE (18:39)
[2019-01-09 19:58] VITALS: BMI 16.4
[2019-01-09] MEDS ORDERED: Senokot S 8.6-50 MG TAB PO PRN (21:26)
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
[2019-01-09] MEDS ORDERED: Calcium Carbonate 500 MG ChewTAB PO PRN (21:41)
[2019-01-09] MEDS ORDERED: Nitroglycerin 0.4 MG TAB (25 Tab Bottle) SL SCH (21:45)
[2019-01-09] MEDS ORDERED: fentaNYL 50 mcg/hour Patch TD SCH (22:00)
[2019-01-09] MEDS: Ondansetron ODT 4 MG TAB PO PRN (22:20)
[2019-01-09] MEDS: HYDROcodone/Acetaminophen 10/325 mg Tablet PO PRN (22:20)
[2019-01-09] MEDS: Aztreonam 2 GM in Sodium Chloride 0.9% 100 ML IVPB SCH (22:21)
[2019-01-09] MEDS: Nicotine 14 MG PATCH TD SCH (22:21)
[2019-01-09] MEDS: Lactated Ringer's 1,000 ML IV SCH (22:22)
[2019-01-10] MEDS: HYDROcodone/Acetaminophen 10/325 mg Tablet PO PRN ×5 (04:30→20:51)
[2019-01-10] MEDS: Ondansetron ODT 4 MG TAB PO PRN ×2 (04:39→10:16)
[2019-01-10 05:02] LABS: Legionella Urinary Ag Negative (Negative); Strep pneumo Urine Ag NEGATIVE (NEGATIVE)
[2019-01-10] MEDS: Aztreonam 2 GM in Sodium Chloride 0.9% 100 ML IVPB SCH ×3 (05:18→22:14)
[2019-01-10 06:13] LABS: #Lymphocytes 0.3 thou/uL (1.20-3.40); #Monocytes 0.1 thou/uL (0.11-0.59); #Neutrophils 5.6 thou/uL (1.40-6.50); %Basophils 0.1 % (0.0-1.0); %Eosinophils 0.3 % (0.0-10.0); %Monocytes 1.8 % (0.0-10.0); %Neutrophils 92.8 % (42.0-75.0); Hemoglobin 12.6 g/dL (12.0-16.0); Mean Corpuscular HGB CONC 31.6 g/dL (32.0-36.0); Mean Corpuscular Hemoglobin 34.7 pg (27.0-31.0); Mean Platelet Volume 6.8 fL (7.4-10.4); Platelet Count 260 thou/uL (130-400); RBC Distribution Width 17.9 % (11.5-14.5); Red Blood Cell (RBC) Count 3.64 mill/uL (4.20-5.40)
[2019-01-10 06:20] LABS: Anion Gap 12 mmol/L (10-20); BUN (Urea Nitrogen) 7 mg/dL (9.8-20.1); Calc. Creatinine Clearance 55 mL/min (70-130); Calcium 8.8 mg/dL (7.8-10.44); Carbon Dioxide 25 mmol/L (23-31); Chloride 99 mmol/L (98-107); Estimated GFR-MDRD Greater than 90; Glucose 172 mg/dL (83-110); Potassium 4.9 mmol/L (3.5-5.1); Sodium 131 mmol/L (136-145)
--- NOTE | 2019-01-10 07:28 | PDOC.FM ---
- Subjective Subjective: Breathing slightlly improved. Some cough. Not walking around. - Objective MAR Reviewed: Yes Vital Signs & Weight: Vital Signs (12 hours) Temp Pulse Resp BP Pulse Ox 01/10/19 07:08 90 14 01/10/19 04:00 97.6 F 86 20 109/70 99 01/10/19 00:00 98.0 F 101 H 20 102/59 L 98 01/09/19 22:07 97 16 95 01/09/19 20:00 95 Weight Weight 40.8 kg I&O: 01/09/19 01/10/19 01/11/19 06:59 06:59 06:59 Intake Total 1000 Balance 1000 Result Diagrams: 01/10/19 05:51 01/10/19 05:51 Phys Exam - Physical Examination Constitutional: NAD HEENT: PERRLA dry appearing dec breath sounds throughout Cardiovascular: RRR, no significant murmur Musculoskeletal: no edema Neurological: non-focal, moves all 4 limbs Psychiatric: normal affect, A&O x 3 Dx/Plan (1) Pneumonia Code(s): J18.9 - PNEUMONIA, UNSPECIFIED ORGANISM Status: Acute (2) COPD exacerbation Code(s): J44.1 - CHRONIC OBSTRUCTIVE PULMONARY DISEASE W (ACUTE) EXACERBATION Status: Acute (3) Prolonged QT interval Code(s): R94.31 - ABNORMAL ELECTROCARDIOGRAM [ECG] [EKG] Status: Acute (4) Atrial fibrillation Code(s): I48.91 - UNSPECIFIED ATRIAL FIBRILLATION Status: Chronic Qualifiers: Atrial fibrillation type: chronic Qualified Code(s): I48.2 - Chronic atrial fibrillation (5) Chronic pain Code(s): G89.29 - OTHER CHRONIC PAIN Status: Chronic Qualifiers: Chronic pain type: chronic pain syndrome Qualified Code(s): G89.4 - Chronic pain syndrome (6) HLD (hyperlipidemia) Code(s): E78.5 - HYPERLIPIDEMIA, UNSPECIFIED Status: Chronic Qualifiers: Hyperlipidemia type: unspecified Qualified Code(s): E78.5 - Hyperlipidemia , unspecified (7) HTN (hypertension) Code(s): I10 - ESSENTIAL (PRIMARY) HYPERTENSION Status: Chronic Qualifiers: Hypertension type: essential hypertension Qualified Code(s): I10 - Essential (primary) hypertension - Plan Plan: [facility] 2/2 HAP - Continue vanc, levaquin and aztreoname to cover for HAP microbes - Breathing improved, continue supplemental O2, duonebs, prednisone for 5 day course - Consider pulmonology consult with frequent exacerbations - O2 range 88-92% Hyponatremia - Na 131 on admission which is lower than normal per chart review. Likely 2/2 decreased PO intake. Will continue to monitor and consider workup for possible SIADH in setting of acute PNA as well in the AM. Macrocytosis - MCV of 110 on admission which appears to be within baseline limits per chart review. Hgb WNLs. Needs an outpatient workup if one has not already been completed. atrial fibrillation s/p pacemaker placement - Aware, will resume home meds. HTN - Patients BP has been low/normal since admission likely 2/2 poor PO intake and in setting of acute infection. Will continue to monitor & hold AM meds if remains low in the AM. chronic back pain - Will resume home pain regimen with a stool softener PRN for constipation. Depression/anxiety - Will resume home meds. dvt ppx: marilee pcp: margaux sahuo: continue course of care
[2019-01-10] MEDS: Digoxin 0.125 MG TAB PO SCH (08:11)
[2019-01-10] MEDS: Apixaban 5 MG TAB PO SCH (08:12)
[2019-01-10] MEDS: Famotidine 20 MG TAB PO SCH ×2 (08:12→20:49)
[2019-01-10] MEDS: predniSONE 20 MG TAB PO SCH (08:12)
[2019-01-10] MEDS: Gabapentin 300 MG CAP PO SCH ×3 (08:12→20:50)
[2019-01-10] MEDS: Carvedilol 6.25 MG TAB PO SCH ×2 (08:13→20:49)
[2019-01-10] MEDS: Amiodarone 200 MG TAB PO SCH (08:13)
[2019-01-10] MEDS: guaiFENesin ER 600 MG TAB PO SCH ×2 (08:13→20:50)
[2019-01-10] MEDS: Amlodipine 10 MG TAB PO SCH (08:13)
[2019-01-10] MEDS ORDERED: Furosemide 20 MG/2 ML VIAL SLOW IVP SCH (14:45)
[2019-01-10] MEDS: Lactated Ringer's 1,000 ML IV SCH (16:04)
--- NOTE | 2019-01-10 17:51 | CON ---
DATE OF CONSULTATION: 01/10/2019 SERVICE: Pulmonary Medicine. REASON FOR CONSULTATION: Respiratory failure, recurrent. HISTORY OF PRESENT ILLNESS: The patient is a 73-year-old white female with past medical history significant for COPD. I have no PFTs in our record. She was in her usual state of health when she started having increasing shortness of breath. It gradually got worse over a period of 1 week. She also notes having orthopnea, and cough in the middle of the night. Sometimes, she will wake up with nighttime symptoms. She typically uses a rescue inhalers once daily. For the last week, she has had increasing dependence on these things. She is not bringing up any sputum. She currently denies any fevers or chills. She has a lack of energy, and lacks an appetite. She is very tearful. She is not breathing in a pattern consistent with advanced lung disease. She has extreme anxiety and is tearful multiple times throughout our visit with very simple questions that I ask. PAST MEDICAL HISTORY: 1. COPD. 2. Chronic hypoxic respiratory failure. 3. Hypertension. 4. Chronic diastolic heart failure. 5. Atrial fibrillation, status post pacemaker placement. 6. Chronic back pain. PAST SURGICAL HISTORY: 1. Right carpal tunnel surgery. 2. Herniorrhaphy. 3. Cataract surgery, bilateral. 4. Trigger finger surgery, bilateral. 5. section x2. 6. Total abdominal hysterectomy. 7. Neck surgery. FAMILY HISTORY: Noncontributory. SOCIAL HISTORY: Negative for alcohol or illicit drug use. She smokes a quarter pack on a daily basis, but has greater than 50-pack year history of smoking. She has no exposure to chemicals, dust, asbestos, or tuberculosis. ALLERGIES: ALPRAZOLAM, AZITHROMYCIN, KETOROLAC, PENICILLIN, AND TRAMADOL. MEDICATIONS: List of her inpatient medications was reviewed. Multiple updates were made at this time. REVIEW OF SYSTEMS: General; head, ears, eyes, nose, throat; cardiovascular; respiratory; GI; ; musculoskeletal; neurologic; and skin are negative except as mentioned is the HPI. PHYSICAL EXAMINATION: VITAL SIGNS: Afebrile, pulse 78, blood pressure 119/64, respirations 24, and saturation 95% on 2 L nasal cannula. GENERAL: The patient is awake and alert, in no apparent distress. LUNGS: There is a slightly reduced air entry with a minimally prolonged expiratory phase. Rhonchi are present. Crackles are also noted. Wheezing is not present. HEART: Normal rate. Regular. ABDOMEN: Soft, nontender, and nondistended. Bowel sounds are positive. MUSCULOSKELETAL: No cyanosis or clubbing. There is trace to 1+ pitting in the bilateral lower extremities. NEUROLOGIC: Grossly nonfocal. LABORATORY DATA: WBC 6.0, hemoglobin 12.6, platelets 260,000. Neutrophil count is 92%. This jumped up significantly after initiation of high-dose prednisone. Basic metabolic profile is unremarkable except for sodium of 131, lactate 1.0. BNP is well above baseline at 314, lipase negative, procalcitonin downtrending to 0.05, lactate 1.0. Liver function studies are unremarkable. IMAGING DATA: Chest x-ray shows a minimum infiltrate in the right upper lobe. Lung thrasher are hyperexpanded. She has bilateral pleural effusions, slightly worse on the right, and much more severe than it had been previously demonstrated. ASSESSMENT: 1. Acute on chronic hypoxic respiratory failure. 2. Chronic obstructive pulmonary disease with acute exacerbation. 3. Acute on chronic diastolic heart failure with current volume overload. 4. History of pulmonary infiltrate on CT of the chest back in 2014. 5. History of pulmonary nodules. DISCUSSION AND PLAN: I will repeat a CT of the chest. I would like to re- evaluate these pulmonary nodules, and better characterize her right upper lobe lesion. We can compare to the CT of the chest from 2014 to see whether or not this infiltrate is stable or changed. She has minimal volume overload. I will provide her with a dose of Lasix today and tomorrow morning. TSH will be checked. I will discontinue the IV fluids. The patient does not strike me as having acute exacerbation of chronic lung disease. I feel that some of her respiratory issues are of psychiatric origin. That being said, this is a diagnosis of exclusion. I would certainly like to see the patient in the outpatient setting, so that we get formal pulmonary function studies on her to characterize the severity of her underlying lung disease. Pulmonary will continue to follow for now. 70 minutes have been devoted to this patient in various activities. I personally reviewed all imaging studies and laboratory data noted within this document. For fifty percent of this time, I was interacting with the patient at the bedside or coordinating care with the care team. For the remainder of the time I was immediately available to the patient in the hospital unit. Job ID: [id number] [facility]
[2019-01-10] MEDS ORDERED: Vancomycin HCl 750 MG in Sodium Chloride 0.9% 250 ML 250 ML IVPB SCH (18:00)
[2019-01-10] MEDS: Nicotine 14 MG PATCH TD SCH (20:55)
[2019-01-11] MEDS: HYDROcodone/Acetaminophen 10/325 mg Tablet PO PRN ×6 (01:24→21:40)
[2019-01-11] MEDS: Aztreonam 2 GM in Sodium Chloride 0.9% 100 ML IVPB SCH ×3 (05:10→21:49)
[2019-01-11 08:15] LABS: Hemoglobin 11.2 g/dL (12.0-16.0); Mean Corpuscular HGB CONC 30.9 g/dL (32.0-36.0); Mean Corpuscular Hemoglobin 34.4 pg (27.0-31.0); Mean Platelet Volume 6.9 fL (7.4-10.4); Platelet Count 258 thou/uL (130-400); Red Blood Cell (RBC) Count 3.27 mill/uL (4.20-5.40); White Blood Cell (WBC) Count 13.3 thou/uL (4.8-10.8)
[2019-01-11 08:21] LABS: Anion Gap 13 mmol/L (10-20); BUN (Urea Nitrogen) 16 mg/dL (9.8-20.1); Calc. Creatinine Clearance 57 mL/min (70-130); Calcium 9.5 mg/dL (7.8-10.44); Carbon Dioxide 29 mmol/L (23-31); Chloride 95 mmol/L (98-107); Estimated GFR-MDRD Greater than 90; Glucose 95 mg/dL (83-110); Potassium 5.2 mmol/L (3.5-5.1); Sodium 132 mmol/L (136-145)
[2019-01-11 08:45] LABS: #Lymphocytes 0.9 thou/uL (1.20-3.40); #Neutrophils 11.4 thou/uL (1.40-6.50); %Basophils 0.2 % (0.0-1.0); %Eosinophils 0.1 % (0.0-10.0); %Lymphocytes 6.7 % (21.0-51.0); %Monocytes 7.8 % (0.0-10.0); %Neutrophils 85.2 % (42.0-75.0); Band 3 % (5-11); Hypochromia SLIGHT = 6-15 cells (100X) (0-5/hpf); Lymphocytes 19 % (21-51); MDiff Complete? YES; Macrocytosis MODERATE=16-30 cells (100X) (0-5/hpf); Monocytes 3 % (0-10); Neutrophil 75 % (42-75); Ovalocytes SLIGHT = 2-5 cells (100X) (0-1/hpf); Platelet Morphology Comment Appears Adequate; Polychromasia SLIGHT = 2-3 cells (100X) (0-2/hpf); Stomatocytes SLIGHT = 2-5 cells (100X) (0-1/hpf); Target Cells SLIGHT = 2-5 cells (100X) (0-1/hpf)
[2019-01-11] MEDS ORDERED: Spiriva 18 MCG CAP (Box of 5 Caps) INH SCH (09:00)
[2019-01-11] MEDS: Amlodipine 10 MG TAB PO SCH (09:25)
[2019-01-11] MEDS: Apixaban 5 MG TAB PO SCH (09:27)
[2019-01-11] MEDS: Gabapentin 300 MG CAP PO SCH ×3 (09:27→20:30)
[2019-01-11] MEDS: Digoxin 0.125 MG TAB PO SCH (09:27)
[2019-01-11] MEDS: Famotidine 20 MG TAB PO SCH ×2 (09:27→20:30)
[2019-01-11] MEDS: guaiFENesin ER 600 MG TAB PO SCH ×2 (09:27→20:33)
[2019-01-11] MEDS: Carvedilol 6.25 MG TAB PO SCH ×2 (09:27→20:32)
[2019-01-11] MEDS: predniSONE 20 MG TAB PO SCH (09:28)
[2019-01-11] MEDS: Amiodarone 200 MG TAB PO SCH (09:28)
[2019-01-11] MEDS: Furosemide 20 MG/2 ML VIAL SLOW IVP SCH (09:33)
--- NOTE | 2019-01-11 10:12 | CT ---
CONTRAST ENHANCED CT IMAGES OF CHEST: HISTORY: Lung parenchymal nodule. FINDINGS: Contrast-enhanced CT of the chest performed. Comparison is made to a previous exam from 05/17/2014. Contrast-enhanced CT of the chest demonstrates a left sided intracardiac pacing device. Moderate cardiomegaly seen. Coronary artery calcifications seen. Marked calcification of the aorta seen. 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 The right and left common carotid arteries have origins from the aortic arch superiorly. A small left-sided pleural effusion is present and has developed. There is bilateral apical lung parenchymal scarring unchanged since the previous exam. No evidence of mediastinal or hilar lymphadenopathy seen. There is a right upper lobe pleural-based nodule measuring 14 mm seen on axial image #17 unchanged si nce the previous exam. Right upper pole renal cortical cyst or cystic lesion is present unchanged since the 2014 exam. IMPRESSION: Stable right upper lobe pulmonary parenchymal nodule. Lung parenchymal scarring seen bilaterally in t he upper lobes bilaterally. Transcribed Date/Time: 01/11/2019 11:48 AM
--- NOTE | 2019-01-11 11:14 | PDOC.FM ---
- Subjective Subjective: NAEO. Breathing improved but not quite at baseline. No fevers, chills, still with cough. Using O2 PRN - Objective Vital Signs & Weight: Vital Signs (12 hours) Temp Pulse Resp BP BP BP Pulse Ox 01/11/19 09:27 88 103/65 01/11/19 09:25 88 94/56 L 01/11/19 08:26 91 L 01/11/19 07:37 98.0 F 88 18 94/56 L 91 L 01/11/19 06:31 80 16 01/11/19 05:00 98.2 F 88 19 116/60 94 L Weight Admit Weight 40.8 kg Weight 40.8 kg I&O: 01/10/19 01/11/19 01/12/19 06:59 06:59 06:59 Intake Total 1000 1880 Balance 1000 1880 Result Diagrams: 01/11/19 07:49 01/11/19 07:49 Phys Exam - Physical Examination Constitutional: NAD HEENT: PERRLA, moist MMs cachectic appearing Respiratory: no wheezing, clear to auscultation bilateral dec breath sounds througout Cardiovascular: RRR, no significant murmur Gastrointestinal: soft, non-tender Neurological: non-focal, moves all 4 limbs Psychiatric: A&O x 3 Dx/Plan (1) Pneumonia Code(s): J18.9 - PNEUMONIA, UNSPECIFIED ORGANISM Status: Acute (2) COPD exacerbation Code(s): J44.1 - CHRONIC OBSTRUCTIVE PULMONARY DISEASE W (ACUTE) EXACERBATION Status: Acute (3) Prolonged QT interval Code(s): R94.31 - ABNORMAL ELECTROCARDIOGRAM [ECG] [EKG] Status: Acute (4) Atrial fibrillation Code(s): I48.91 - UNSPECIFIED ATRIAL FIBRILLATION Status: Chronic Qualifiers: Atrial fibrillation type: chronic Qualified Code(s): I48.2 - Chronic atrial fibrillation (5) Chronic pain Code(s): G89.29 - OTHER CHRONIC PAIN Status: Chronic Qualifiers: Chronic pain type: chronic pain syndrome Qualified Code(s): G89.4 - Chronic pain syndrome (6) HLD (hyperlipidemia) Code(s): E78.5 - HYPERLIPIDEMIA, UNSPECIFIED Status: Chronic Qualifiers: Hyperlipidemia type: unspecified Qualified Code(s): E78.5 - Hyperlipidemia , unspecified (7) HTN (hypertension) Code(s): I10 - ESSENTIAL (PRIMARY) HYPERTENSION Status: Chronic Qualifiers: Hypertension type: essential hypertension Qualified Code(s): I10 - Essential (primary) hypertension - Plan Plan: AHRF 2/2 HAP - Continue vanc, levaquin and aztreonam to cover for HAP microbes. Afebrile but elevated procal. Pending blood cultures. - Breathing improved, continue supplemental O2, duonebs, prednisone for 5 day course - CT chest with scarring and stable right upper lobe infiltrate - Pending ABG - Could be anxiety component triggers, will discuss this - Keep O2 range 88-92% Acute COPD exacerbations -continue COPD meds- spiriva (LAMA), dulera (LABA/ICS), albueterol PRN Hyponatremia, stable Macrocytosis - MCV of 110 on admission which appears to be within baseline limits per chart review. Hgb WNLs. Needs an outpatient workup if one has not already been completed. atrial fibrillation s/p pacemaker placement - Aware, will resume home meds. HTN - Patients BP has been low/normal since admission likely 2/2 poor PO intake and in setting of acute infection. Will continue to monitor & hold AM meds if remains low in the AM. chronic back pain - Will resume home pain regimen with a stool softener PRN for constipation. Depression/anxiety - Will resume home meds. dvt ppx: marilee pcp: margaux dispo: continue course of care
[2019-01-11] MEDS ORDERED: Budesonide 0.5 MG/2 ML NEB NEB SCH (11:30)
--- NOTE | 2019-01-11 11:35 | PRG ---
DATE OF SERVICE: 01/11/2019 SUBJECTIVE: Ms. Villa is awake and alert, in no distress. OBJECTIVE: VITAL SIGNS: Temperature 98.0, pulse 78, respirations 18, O2 saturation 91%, and blood pressure 94/56. HEENT: Unremarkable. NECK: No JVD. LUNGS: Clear, but distant breath sounds. CARDIAC: S1 and S2, regular. ABDOMEN: Soft. EXTREMITIES: No edema. LABORATORY DATA: White blood cell count 13, hematocrit 36.4, platelet count 258. Sodium 132, potassium 5.2, BUN 16, creatinine 0.5, and glucose 95. ASSESSMENT: 1. Chronic obstructive pulmonary disease with exacerbation. 2. History of pulmonary nodules on the CT scan from 2013 - followup CT pending. A CT of the chest is pending for today. My guess is that is to compare size of nodules. Her clinical status seems to be otherwise stable, and I think she could probably be safely discharged to home with outpatient followup. Job ID: [id number]
[2019-01-11 11:52] LABS: Vancomycin, Trough 6.6 ug/mL
[2019-01-11] MEDS ORDERED: Vancomycin HCl 1.25 GM in Sodium Chloride 0.9% 250 ML 250 ML IVPB SCH (13:00)
[2019-01-11] MEDS: Mometasone/Formoterol 120 PUFF INHALER INH SCH (19:00)
[2019-01-11] MEDS: Nicotine 14 MG PATCH TD SCH (20:33)
[2019-01-12] MEDS ORDERED: Acetaminophen 500 MG TAB PO PRN (00:04)
[2019-01-12] MEDS: HYDROcodone/Acetaminophen 10/325 mg Tablet PO PRN ×5 (01:26→19:52)
[2019-01-12] MEDS: Aztreonam 2 GM in Sodium Chloride 0.9% 100 ML IVPB SCH (05:40)
[2019-01-12] MEDS: Mometasone/Formoterol 120 PUFF INHALER INH SCH ×2 (07:12→18:52)
--- NOTE | 2019-01-12 07:29 | PDOC.FM ---
- Subjective Subjective: Breathing much improved, not walking yet but only requiring O2 at night to feel better. Eating well, no nausea. Feeling close to baseline. NO fevers or cough. - Objective Vital Signs & Weight: Vital Signs (12 hours) Temp Pulse Resp BP BP BP Pulse Ox 01/12/19 07:17 97.5 F L 86 20 122/71 92 L 01/12/19 07:12 83 16 94 L 01/12/19 04:52 98.2 F 94 18 106/66 90 L 01/12/19 00:01 97.9 F 96 18 122/67 90 L 01/11/19 20:46 93 L 01/11/19 20:32 106/64 01/11/19 20:00 93 L Weight Admit Weight 40.8 kg Weight 40.8 kg I&O: 01/11/19 01/12/19 01/13/19 06:59 06:59 06:59 Intake Total 1880 1700 Balance 1880 1700 Result Diagrams: 01/11/19 07:49 01/11/19 07:49 Phys Exam - Physical Examination Constitutional: NAD cacectic appearing HEENT: PERRLA, moist MMs Respiratory: no wheezing, clear to auscultation bilateral dec breath sounds Cardiovascular: RRR, no significant murmur Musculoskeletal: no edema Neurological: non-focal, moves all 4 limbs Psychiatric: A&O x 3 Skin: no rash, cap refill <2 seconds Dx/Plan (1) Pneumonia Code(s): J18.9 - PNEUMONIA, UNSPECIFIED ORGANISM Status: Acute (2) COPD exacerbation Code(s): J44.1 - CHRONIC OBSTRUCTIVE PULMONARY DISEASE W (ACUTE) EXACERBATION Status: Acute (3) Prolonged QT interval Code(s): R94.31 - ABNORMAL ELECTROCARDIOGRAM [ECG] [EKG] Status: Acute (4) Atrial fibrillation Code(s): I48.91 - UNSPECIFIED ATRIAL FIBRILLATION Status: Chronic Qualifiers: Atrial fibrillation type: chronic Qualified Code(s): I48.2 - Chronic atrial fibrillation (5) Chronic pain Code(s): G89.29 - OTHER CHRONIC PAIN Status: Chronic Qualifiers: Chronic pain type: chronic pain syndrome Qualified Code(s): G89.4 - Chronic pain syndrome (6) HLD (hyperlipidemia) Code(s): E78.5 - HYPERLIPIDEMIA, UNSPECIFIED Status: Chronic Qualifiers: Hyperlipidemia type: unspecified Qualified Code(s): E78.5 - Hyperlipidemia , unspecified (7) HTN (hypertension) Code(s): I10 - ESSENTIAL (PRIMARY) HYPERTENSION Status: Chronic Qualifiers: Hypertension type: essential hypertension Qualified Code(s): I10 - Essential (primary) hypertension - Plan Plan: AHRF 2/2 HAP - Blood cultures NGTD, afebrile, clinically improved. Will d/c IV abx. Continue PO levaquin - Breathing improved, continue supplemental O2, duonebs, prednisone for 5 day course - CT chest with scarring and stable right upper lobe infiltrate - Pending ABG - Could be anxiety component triggers, will discuss this - Keep O2 range 88-92% Acute COPD exacerbations -continue COPD meds- spiriva (LAMA), dulera (LABA/ICS), duonebs/ventolin PRN -levaquin Hyponatremia, stable Macrocytosis - MCV of 110 on admission which appears to be within baseline limits per chart review. Hgb WNLs. Needs an outpatient workup if one has not already been completed. atrial fibrillation s/p pacemaker placement - Aware, will resume home meds. HTN - Patients BP has been low/normal since admission likely 2/2 poor PO intake and in setting of acute infection. Will continue to monitor & hold AM meds if remains low in the AM. chronic back pain - Will resume home pain regimen with a stool softener PRN for constipation. Depression/anxiety - Will resume home meds. dvt ppx: eliquis pcp: margaux dispo: continue course of care, likely d/c later home today patient walking back to baseline. Addendum - Attending - Attending Attestation Date/Time: 01/12/19 1002 I personally evaluated the patient and discussed the management with Dr. Roche I agree with the History, Examination, Assessment and Plan documented above with any addition or exceptions noted below. Pt is now stable and doing well, COPD stable. Pending ambulation today will be ready for discharge home with medication regimen per assessment and plan section.
[2019-01-12] MEDS: Gabapentin 300 MG CAP PO SCH ×2 (08:31→16:10)
[2019-01-12] MEDS: Furosemide 20 MG/2 ML VIAL SLOW IVP SCH (08:31)
[2019-01-12] MEDS: Famotidine 20 MG TAB PO SCH (08:32)
[2019-01-12] MEDS: Digoxin 0.125 MG TAB PO SCH (08:32)
[2019-01-12] MEDS: Amlodipine 10 MG TAB PO SCH (08:32)
[2019-01-12] MEDS: Apixaban 5 MG TAB PO SCH (08:32)
[2019-01-12] MEDS: predniSONE 20 MG TAB PO SCH (08:32)
[2019-01-12] MEDS: Amiodarone 200 MG TAB PO SCH (08:33)
[2019-01-12] MEDS: guaiFENesin ER 600 MG TAB PO SCH (08:33)
[2019-01-12] MEDS: Carvedilol 6.25 MG TAB PO SCH (08:33)
--- NOTE | 2019-01-12 10:09 | PRG ---
DATE OF SERVICE: 01/12/2019 SUBJECTIVE: The patient seems to be doing better, had no acute complaints. OBJECTIVE: VITAL SIGNS: Temperature 97.5, pulse 86, respirations 20, and O2 saturation 92% on 2 L. HEENT: Unremarkable. NECK: No adenopathy or JVD. LUNGS: Clear, but distant breath sounds. CARDIAC: S1 and S2. Regular. ABDOMEN: Soft. EXTREMITIES: No edema. LABORATORY DATA: No labs were done today. ASSESSMENT: Chronic obstructive pulmonary disease with exacerbation. PLAN: Probably at the point, where she can go home or to rehab. Would wean steroids over a week or two and finish out seven days of antibiotics. Smoking cessation has been advised. Job ID: [id number]
[2019-01-12] MEDS: Ondansetron ODT 4 MG TAB PO PRN (12:24)
[2019-01-12 19:03] VITALS: BP 118/66; TEMP 97.9
--- NOTE | 2019-01-13 03:55 | DIS ---
DATE OF ADMISSION: 01/09/2019 DATE OF DISCHARGE: 01/12/2019 ADMITTING ATTENDING: Shailesh Tierney MD DISCHARGE ATTENDING: Erwin Bill MD RESIDENT: Marcela Roche MD, PGY-1. CONSULT: Pulmonology, Dr. Desai. PROCEDURES AND IMAGIN. Chest x-ray 01/09/2019: Chronic obstructive pulmonary disease, hyperinflation. Atherosclerotic. Chronic changes, focal infiltrate in the right upper lobe is suspected. 2. Chest CT. This is obtained to follow up on lung parenchymal nodule seen on 05/17/2014, CT. Stable right upper lobe pulmonary parenchymal nodule. Lung parenchymal scarring seen bilaterally in the upper lobes. PRIMARY DIAGNOSES: 1. Acute on chronic obstructive pulmonary disease exacerbation. 2. Sepsis secondary to suspected healthcare acquired pneumonia, ruled out. SECONDARY DIAGNOSES: 1. Chronic hyponatremia. 2. Macrocytosis. 3. Atrial fibrillation, status post pacemaker placement. 4. Hypertension. 5. Chronic back pain. 6. Depression, anxiety. DISCHARGE MEDICATIONS: New medications: 1. Levaquin 750 mg p.o. daily for 5 more days. 2. Prednisone taper 40 mg for 3 days, 30 mg for 3 days, 20 mg for 3 days, and 10 mg for 3 days. Resume home medications: 1. Ventolin inhaler one puff inhaled q.4 hours p.r.n. for shortness of breath and wheezing. 2. Pulmicort 0.5 mg inhaled b.i.d. 3. DuoNeb 3 mL nebs q.4 hours p.r.n. for shortness of breath and wheezing. 4. Senokot 2 tabs p.o. b.i.d. p.r.n. 5. Spiriva 18 mcg inhaled daily. 6. Gabapentin 600 mg p.o. t.i.d. 7. Nitrostat 0.4 mg sublingual q.5 minutes. 8. Protonix 40 mg p.o. daily. 9. Eliquis 5 mg p.o. daily. 10. Norvasc 10 mg p.o. daily. 11. Coreg 25 mg p.o. b.i.d. 12. Digoxin 0.125 mg p.o. q.a.m. 13. Pepcid 20 mg p.o. b.i.d. 14. [place] 10/325 one tab p.o. q.4 hours p.r.n. for pain. 15. Fentanyl 50 mcg transdermal q.3 days patch. 16. Tylenol. 17. Multivitamins one tab p.o. daily. 18. Tums 1000 mg p.o. q.4 hours p.r.n. for indigestion. 19. Mucinex 1200 mg p.o. q.12 hours p.r.n. for congestion and cough. 20. Nicotine 14 mg patch transdermal q.24 hours. 21. Zoloft 25 mg p.o. daily. 22. Amiodarone 100 mg p.o. daily. HISTORY OF PRESENT ILLNESS/HOSPITAL COURSE: Delmy Villa is a 73-year-old female with severe COPD requiring intermittent O2, who presented with worsening shortness of breath for the past week. She was sent over from the PCPs office hypoxic and ill appearing. Per patient, she has been requiring increased use of her home O2, typically only needing 2L every 6 weeks. She was just recently discharged for COPD exacerbation and has been in the hospital multiple times this year for the same thing. She is currently smoking. She did not have a documented hypoxic episode but due to inc. in O2 requirement to 2L she was admitted for acute hypoxic respiratory insufficiency. She was empirically started on abx since Chest x-ray showed suspected right upper lobe infiltrate. Over the course of couple of days, her antibiotics were de-escalated as the patient's white count resolved and she remained fever free. Pulmonology was consulted just to her multiple hospitalization to see if there was any further recommendations. Upon talking with Dr. Desai, he believes that part of her breathing issues were not entirely attributed to her intrinsic lung disease and that there could be underlying depression and anxiety that could be contributing to this. A CT was repeated to follow up on a solitary lung nodule in the right upper lobe seen on CT in 2013, which appeared stable on repeat. It was thought that the right upper lobe infiltrate seen on chest x-ray could have been the stable pulmonary nodule. H She was given specific instructions to continue followup care with Dr. Cagle and to make arrangements to see second operator outpatient. Refills were sent for her home maintenance medications, she was unsure what she needed more refill of. CONDITION: Stable. DISCHARGE INSTRUCTIONS: 1. Location: Home. 2. Activity: Cardiopulmonary, advance as tolerated. 3. Diet: Heart healthy. 4. Followup: Follow up with Dr. Cagle in 1 to 2 days. Please follow up with Dr. Desai in 1 to 2 weeks. Please continue steroid taper and 7-day course of Levaquin per Pulmonology's recommendations. Job ID: [id number] MTDD
== END 2019-01-12 19:54 | disposition home or self-care (01) | DRG 291 ==
LOC: ERS 14:18 → T4-B 19:51
PROVIDERS: ADMIT Family Medicine; ATTEND Family Medicine
DX: I11.0 Hypertensive heart disease with heart failure (principal); J96.21 Acute and chronic respiratory failure with hypoxia; J44.1 Chronic obstructive pulmonary disease with (acute) exacerbation; E87.1 Hypo-osmolality and hyponatremia; E46 Unspecified protein-calorie malnutrition; Z68.1 Body mass index [BMI] 19.9 or less, adult; I50.33 Acute on chronic diastolic (congestive) heart failure; I42.9 Cardiomyopathy, unspecified; G89.29 Other chronic pain; M54.9 Dorsalgia, unspecified; F17.210 Nicotine dependence, cigarettes, uncomplicated; I48.2 Chronic atrial fibrillation; D75.89 Other specified diseases of blood and blood-forming organs; F41.9 Anxiety disorder, unspecified; F32.9 Major depressive disorder, single episode, unspecified; K21.9 Gastro-esophageal reflux disease without esophagitis; I73.9 Peripheral vascular disease, unspecified; I49.5 Sick sinus syndrome; E78.5 Hyperlipidemia, unspecified; R94.31 Abnormal electrocardiogram [ECG] [EKG]; R91.1 Solitary pulmonary nodule; Z90.710 Acquired absence of both cervix and uterus; Z95.1 Presence of aortocoronary bypass graft; Z79.01 Long term (current) use of anticoagulants; Z88.1 Allergy status to other antibiotic agents; Z86.19 Personal history of other infectious and parasitic diseases; Z88.5 Allergy status to narcotic agent; Z88.0 Allergy status to penicillin; Z88.8 Allergy status to other drugs, medicaments and biological substances; Z79.52 Long term (current) use of systemic steroids; Z79.899 Other long term (current) drug therapy; Z98.1 Arthrodesis status
CPT/HCPCS: 36415; 71045; 71260; 80048; 80053; 80202; 81003; 83605; 83690; 83880; 84145; 84484; 85025; 87040; 87899; 93005; 94640; 96361; 96365; 96375; J1940; J1956; J2930; J3370; J3490; J7050; J7512; J7620; Q0162

== ENCOUNTER 2019-02-05 11:11 | Inpatient (IN) | payer MEDICARE ==
[2019-02-05] MEDS ORDERED: methylPREDNISolone Sod Succ 40 MG VIAL ONE (11:20)
[2019-02-05 11:32] LABS: Analyzer IN Cardio ER; Calcium, Ionized 1.13 mmol/L (1.12-1.30); Carboxyhemoglobin (COHb) 2.2 gm% (0.0-3.0); Hemoglobin (Hb) 11.4 g/dL (12.0-16.0); O2 Tension (PaO2) 73.5 mmHg (> 70.0); Potassium - ABG Lab 3.61 mmol/L (3.70-5.30); pH, Arterial 7.26 (7.35-7.45)
[2019-02-05 11:34] LABS: CO2 Tension 62.2 mmHg (35.0-45.0); Puncture Site RBRACH
[2019-02-05 11:45] LABS: Hemoglobin 11.1 g/dL (12.0-16.0); Mean Corpuscular HGB CONC 30.4 g/dL (32.0-36.0); Mean Corpuscular Hemoglobin 33.1 pg (27.0-31.0); Mean Platelet Volume 7.6 fL (7.4-10.4); Platelet Count 224 thou/uL (130-400); Red Blood Cell (RBC) Count 3.36 mill/uL (4.20-5.40); White Blood Cell (WBC) Count 6.5 thou/uL (4.8-10.8)
--- NOTE | 2019-02-05 11:45 | RAD ---
Exam: Portable spine chest one view: HISTORY: Dyspnea COMPARISON: 01/09/2019 FINDINGS: Endotracheal tube in satisfactory location. Left ICD. Extensive biapical pleural thickening. Increase d interstitial and linear parenchymal changes bilaterally with some vascular congestion concerning for asymmetric edema versus bilateral atypical pneumonitis. Hyperinflation and chronic changes partic ularly in the left base. No significant cardiomegaly. IMPRESSION: Patchy interstitial parenchymal changes bilaterally somewhat more prominent particularly in the right perihilar region and lower lobe raising concern for right lower lobe atypical pneumonia or pneumonitis. Extensive chronic lung changes bilaterally. Endotracheal tube in satisfactory location. Continued short-term follow-up for clearing or stability.
[2019-02-05 11:50] LABS: ALT (SGPT) 14 U/L (8-55); AST (SGOT) 22 U/L (5-34); Albumin 2.8 g/dL (3.4-4.8); Alkaline Phosphatase 57 U/L (40-150); Anion Gap 16 mmol/L (10-20); BUN (Urea Nitrogen) 34 mg/dL (9.8-20.1); Bilirubin, Total 0.6 mg/dL (0.2-1.2); Calc. Creatinine Clearance 0 mL/min (70-130); Calcium 7.8 mg/dL (7.8-10.44); Carbon Dioxide 24 mmol/L (23-31); Chloride 102 mmol/L (98-107); Estimated GFR-MDRD 60; Globulin 2.2 g/dL (2.4-3.5); Glucose 73 mg/dL (83-110); Potassium 4.2 mmol/L (3.5-5.1); Sodium 138 mmol/L (136-145)
[2019-02-05 12:12] LABS: Band 17 % (5-11); Lymphocytes 10 % (21-51); MDiff Complete? YES; Macrocytosis SLIGHT = 6-15 cells (100X) (0-5/hpf); Monocytes 11 % (0-10); Neutrophil 62 % (42-75); Platelet Morphology Comment Appears Adequate; Polychromasia SLIGHT = 2-3 cells (100X) (0-2/hpf)
[2019-02-05 12:16] LABS: CKMB 3.1 ng/mL (0-6.6)
[2019-02-05] MEDS ORDERED: Aspirin 300 MG Suppository ONE (12:26)
[2019-02-05 12:30] LABS: Bilirubin Moderate (Negative); Blood, Urine Negative (Negative); Clarity CLOUDY (Clear); Glucose, Urine (Dipstick) Negative (Negative); Leukocyte Negative (Negative); Nitrite Negative (Negative); Protein, Urine (Dipstick) Negative (Neg-Trace)
--- NOTE | 2019-02-05 13:29 | PDOC.FPRHP ---
- History of Present Illness Chief Complaint: Respiratory distress History of Present Illness: 73 yo female hospice patient was brought to the ED via EMS after a call for respiratory distress. Upon arrival patient's son revoked the patient's DNR and subsequently the patient was intubated in route. Patient's family did not accompany her to the ED and she is intubated limiting history. Review of the patient's medical record showed that she was recently discharged on 01/12/19 for a COPD exacerbation and healthcare associated pna. ED Course: Pt received 1L of fluid, 300mg aspirin rectal, and solumedrol 60mg IV. - Allergies/Adverse Reactions Allergies Allergy/AdvReac Type Severity Reaction Status Date / Time alprazolam Allergy Verified 11/21/18 00:59 azithromycin Allergy Verified 11/21/18 00:59 ketorolac Allergy Verified 11/21/18 00:59 Penicillins Allergy Verified 11/21/18 00:59 tramadol Allergy Verified 11/21/18 00:59 - Home Medications Medication Instructions Recorded Confirmed Type Gabapentin [Neurontin] 600 mg PO TID cap 08/15/18 01/09/19 Rx Amlodipine [Norvasc] 10 mg PO DAILY 09/30/18 01/09/19 History Apixaban [Eliquis] 5 mg PO DAILY 09/30/18 01/09/19 History Carvedilol [Coreg] 25 mg PO BID 09/30/18 01/09/19 History Nitroglycerin [Nitrostat] 0.4 mg SL Q5MIN 09/30/18 01/09/19 History Pantoprazole [Protonix] 40 mg PO DAILY 09/30/18 01/09/19 History Digoxin [Lanoxin] 0.125 mg PO QAM tab 10/04/18 01/09/19 Rx Famotidine [Pepcid] 20 mg PO BID tab 10/04/18 01/09/19 Rx HYDROcodone Bit/APAP 10/325 [Ivor] 1 tab PO Q4H PRN tab 10/04/18 01/09/19 Rx fentaNYL [Duragesic] 50 mcg TD Q3D #0 patch 10/10/18 01/09/19 Rx Acetaminophen [Tylenol Regular 650 mg PO Q6H PRN 11/21/18 01/09/19 History Strength] Multivitamin W/ Minerals 1 tab PO DAILY #0 tab 11/22/18 01/09/19 Rx [Theragran M] Calcium Carbonate [Tums] 1,000 mg PO Q4H PRN tab 12/08/18 01/09/19 Rx Ipratropium/Albuterol Sulfate 3 ml NEB [id number] #1 neb 12/08/18 01/09/19 Rx [DuoNeb] Nicotine [Nicoderm CQ] 14 mg TD Q24HR patch 12/08/18 01/09/19 Rx Tiotropium [Spiriva Handihaler] 18 mcg INH DAILY #1 box 12/08/18 01/09/19 Rx guaiFENesin ER [Mucinex] 1,200 mg PO Q12HR tab 12/08/18 01/09/19 Rx Ipratropium/Albuterol Sulfate 3 ml NEB Q4H PRN #20 ampule 12/09/18 01/09/19 Rx [DuoNeb] Sertraline HCl [Zoloft] 25 mg PO DAILY #30 tab 12/28/18 01/09/19 Rx predniSONE 40 mg PO DAILY #4 tab 12/28/18 01/09/19 Rx Amiodarone [Cordarone] 100 mg PO DAILY 01/09/19 01/09/19 History Budesonide [Pulmicort Neb Solution] 0.5 mg INH BIDPRN #10 ampule 01/12/19 Rx Ipratropium/Albuterol Sulfate 3 ml NEB Q4HR PRN #1 neb 01/12/19 Rx [DuoNeb] Levofloxacin [Levaquin] 750 mg PO 1700 #5 tab 01/12/19 Rx Nicotine [Nicoderm CQ] 14 mg TD Q24HR #1 box 01/12/19 Rx Ondansetron [Zofran ODT] 4 mg PO Q6H PRN tab 01/12/19 Rx Sennosides/Docusate Sodium 2 tab PO BID PRN tab 01/12/19 Rx [Senokot S] Ventolin HFA Inhaler 1 puff INH Q4HR PRN #1 inh 01/12/19 Rx predniSONE 10 mg PO DAILY #30 tab 01/12/19 Rx - History PMHx: COPD, HTN, Afib, cardiomyopathy, chronic back pain PSHx: Right carpal tunnel, hernia repair, bilateral cataract, bilateral trigger fingers, C/S x2, ADILSON, neck surgery FHx: Paternal COPD, DM; Aunt COPD; Grandmother DM Social: 1-1.5ppd smoker x60 years, no alcohol or drug use, living at home with son - Review of Systems ROS unobtainable: due to endotracheal tube - Vital signs BP: 94/59 HR: 66 RR: 16 Tmax: 97.2 Pox: 93% on vent Wt: 38kg - Physical Exam Constitutional: other (Cachectic) Heart: no murmurs/rubs/gallops, no edema -Heart: Bradycardic, regular rhythm Lungs: no wheezing -Lungs: respiratory distress requiring mechanical ventilation Abdomen: soft, non-tender, bowel sounds present -Neurological: unable to be obtained -Skin: numerous senile bruises to extremities -Psychiatric: intubated, not sedated FMR H&P: Results - Labs Result Diagrams: 02/05/19 11:19 02/05/19 11:19 Lab results: WBC 6.5 thou/uL (4.8-10.8) 02/05/19 11:19 Hgb 11.1 g/dL (12.0-16.0) L 02/05/19 11:19 Hct 36.6 % (36.0-47.0) 02/05/19 11:19 MCV 109.0 fL (78.0-98.0) H 02/05/19 11:19 Plt Count 224 thou/uL (130-400) 02/05/19 11:19 Band Neuts % (Manual) 17 % (5-11) H 02/05/19 11:19 ABG pH 7.26 (7.35-7.45) L 02/05/19 11:30 ABG pCO2 62.2 mmHg (35.0-45.0) H* 02/05/19 11:30 ABG pO2 73.5 mmHg (> 70.0) H 02/05/19 11:30 Sodium 138 mmol/L (136-145) 02/05/19 11:19 Potassium 4.2 mmol/L (3.5-5.1) 02/05/19 11:19 Chloride 102 mmol/L (98-107) 02/05/19 11:19 Carbon Dioxide 24 mmol/L (23-31) 02/05/19 11:19 BUN 34 mg/dL (9.8-20.1) H 02/05/19 11:19 Creatinine 0.91 mg/dL (0.6-1.1) 02/05/19 11:19 Glucose 73 mg/dL (83-110) L 02/05/19 11:19 Lactic Acid 0.8 mmol/L (0.5-2.2) 02/05/19 11:19 Calcium 7.8 mg/dL (7.8-10.44) 02/05/19 11:19 Total Bilirubin 0.6 mg/dL (0.2-1.2) 02/05/19 11:19 AST 22 U/L (5-34) 02/05/19 11:19 ALT 14 U/L (8-55) 02/05/19 11:19 Alkaline Phosphatase 57 U/L (40-150) 02/05/19 11:19 CK-MB (CK-2) 3.1 ng/mL (0-6.6) 02/05/19 11:19 B-Natriuretic Peptide 572.9 pg/mL (0-100) H 02/05/19 11:19 Serum Total Protein 5.0 g/dL (6.0-8.3) L 02/05/19 11:19 Albumin 2.8 g/dL (3.4-4.8) L 02/05/19 11:19 Urine Ketones Negative mg/dL (Negative) 02/05/19 11:50 Urine Blood Negative (Negative) 02/05/19 11:50 Urine Nitrite Negative (Negative) 02/05/19 11:50 Ur Leukocyte Esterase Negative (Negative) 02/05/19 11:50 - EKG Interpretation EKG: V paced at 82 bpm QT 400 QTc 467 - Radiology Interpretation Chest x-ray Status: image reviewed by me, report reviewed by me (Chronic lung changes bilaterally, ET tube in place, right perihilar region patchy interstitial changes) FMR H&P: A/P - Problem List (1) Acute on chronic respiratory failure with hypoxia and hypercapnia Current Visit: Yes Status: Acute Code(s): J96.21 - ACUTE AND CHRONIC RESPIRATORY FAILURE WITH HYPOXIA; J96.22 - ACUTE AND CHRONIC RESPIRATORY FAILURE WITH HYPERCAPNIA (2) Elevated brain natriuretic peptide (BNP) level Current Visit: Yes Status: Acute Code(s): R79.89 - OTHER SPECIFIED ABNORMAL FINDINGS OF BLOOD CHEMISTRY (3) COPD exacerbation Current Visit: No Status: Acute Code(s): J44.1 - CHRONIC OBSTRUCTIVE PULMONARY DISEASE W (ACUTE) EXACERBATION (4) Atrial fibrillation Current Visit: No Status: Chronic Code(s): I48.91 - UNSPECIFIED ATRIAL FIBRILLATION Qualifiers: Atrial fibrillation type: chronic Qualified Code(s): I48.2 - Chronic atrial fibrillation Comment: HR controlled on Amiodarone and BB. on Eliquis .Monitor for low BP and/ or Low HR (5) Malnutrition Current Visit: No Status: Chronic Code(s): E46 - UNSPECIFIED PROTEIN- CALORIE MALNUTRITION (6) Physical deconditioning Current Visit: No Status: Chronic Code(s): R53.81 - OTHER MALAISE - Plan Acute respiratory failure with hypoxia and hypercapnea - Likely due to COPD exacerbation - Daily chest xray - O2 as needed on mechanical ventilator - Consult pulmonology, appreciate recommendations - Rocephin 02/05 - Steroids - Pepcid Congestive heart failure - Elevated BNP - Strict I/O - Consider diuresis Malnutrition - Dietary consultation PCP: Dr. Cagle Code status: Full Code Disposition: Very poor, will contact family for further planning FMR H&P: Upper Level - Pertinent history 73 yo female with OOH DNR on hospice care who was recently hospitalized with COPD exacerbation presents via EMS due to respiratory distress at home. Patient was found to be tachypneic and O2 sats in 70s. Her son revoked OOH DNR and she was subsequently intubated by ED attending. No other history able to be obtained. Physical exam: General: Cachetic female on ventilator without sedation CV: paced rhythm, no murmurs. Respiratory: CTA, ventilator support Extremities: multiple ecchymosis Neuro: No focal deficits Psych: Intubated - Pertinent findings Please see international first officer note above for more extensive history. - Plan Date/Time: 02/05/19 1322 I, Tacos Sweeney MD, have evaluated this patient and agree with findings/ plan as outlined by international first officer resident. Pertinent changes/additions are listed here. 1. Acute on Chronic Hypercapnic Hypoxic Respiratory Failure - On mechanical ventilation - Rocephin - IV steroids - Diuresis 2. COPD - Likely cause of above - Continue home medications as tolerated 3. A-fib -s/p pacemaker - Continuous cardiac monitoring 4. Malnutrition - Previous hospice care - Will consult palliative care Disposition: Poor, will coordinate with family wishes.
[2019-02-05] MEDS ORDERED: Ondansetron ODT 4 MG TAB SL PRN (13:52)
[2019-02-05] MEDS ORDERED: Ondansetron PF 4 MG/2 ML Vial IVP PRN (13:52)
[2019-02-05] MEDS ORDERED: Acetaminophen 325 MG TAB PO PRN (13:52)
[2019-02-05] MEDS ORDERED: Ventilator Sedation Protocol 1 EACH FS SCH (13:59)
[2019-02-05] MEDS ORDERED: Senokot S 8.6-50 MG TAB PO PRN (13:59)
[2019-02-05] MEDS ORDERED: CCU Electrolyte Replacement 1 EACH IVPB ONE (13:59)
[2019-02-05] MEDS: Sodium Chloride 0.9% 1,000 ML IV SCH (14:00)
[2019-02-05] MEDS ORDERED: Potassium Chloride 40 MEQ in Premix Bag 1 BAG IVPB PRN (14:32)
[2019-02-05] MEDS ORDERED: Potassium Phosphate 12 MMOL in Sodium Chloride 0.9% 250 ML 250 ML IV PRN (14:32)
[2019-02-05] MEDS ORDERED: Magnesium 2 GM/50 ML 2 GM in Premix Bag 1 BAG IVPB PRN (14:32)
[2019-02-05] MEDS ORDERED: PHOS-NAK 1 PKT PACK PO PRN ×2 (14:32)
[2019-02-05] MEDS ORDERED: Potassium Chloride 20 MEQ TAB PO PRN (14:32)
[2019-02-05] MEDS ORDERED: Potassium Phosphate 9 MMOL in Sodium Chloride 0.9% 100 ML IVPB PRN (14:32)
[2019-02-05] MEDS ORDERED: Magnesium Oxide 400 MG TAB PO PRN ×2 (14:32)
[2019-02-05] MEDS ORDERED: Potassium Chloride 40 MEQ in Sodium Chloride 0.9% 250 ML 250 ML IVPB PRN (14:32)
[2019-02-05] MEDS ORDERED: Potassium Phosphate 15 MMOL in Sodium Chloride 0.9% 250 ML 250 ML IV PRN (14:32)
[2019-02-05] MEDS ORDERED: Fentanyl BOLUS 250 ML IVPB PRN (14:33)
[2019-02-05] MEDS ORDERED: Propofol BOLUS 1,000 MG/100 ML VIAL IV PRN (14:33)
[2019-02-05] MEDS ORDERED: Propofol 1,000 MG/100 ML VIAL IV PRN (14:33)
[2019-02-05] MEDS ORDERED: Morphine 2 MG/ML SYRINGE SLOW IVP PRN (14:33)
[2019-02-05] MEDS ORDERED: DISCONTINUE PREVIOUS NARCOTIC PAIN MEDICATIONS AND BENZODIAZEPINES FS SCH (14:33)
[2019-02-05] MEDS ORDERED: cefTRIAXone\\ROCEPHIN 1 GM in Sodium Chloride 0.9% 100 ML IVPB SCH (15:00)
[2019-02-05 15:37] LABS: Potassium 4.4 mmol/L (3.5-5.1)
[2019-02-05] MEDS ORDERED: Fentanyl 100 MCG/2 ML VIAL SLOW IVP PRN (16:02)
--- NOTE | 2019-02-05 17:28 | CON ---
DATE OF CONSULTATION: HISTORY OF PRESENT ILLNESS: Ms. Villa is a 73-year-old female, who has advanced chronic obstructive pulmonary disease. She has been hospitalized multiple times this year. She apparently was sent home with hospice, who is a pe-ypb-[id number] patient. She became short of breath today. EMS was called. She was intubated. Her code status was reversed. PAST MEDICAL HISTORY: Remarkable for; 1. Chronic hypoxic respiratory failure, on home oxygen. 2. Advanced obstructive lung disease. 3. Hypertension. 4. History of diastolic heart failure. 5. History of pacemaker. 6. History of atrial fibrillation. 7. History of carpal tunnel surgery. 8. History of herniorrhaphy. 9. History of cataract surgery. 10. History of trigger finger surgery. 11. History of two C-sections. 12. Status post hysterectomy. 13. History of neck surgery. FAMILY HISTORY: Negative for lung disease in early age. SOCIAL HISTORY: She is a daily smoker. She is not a daily drinker. Does not use drugs. ALLERGIES: SHE REPORTS ALLERGIES TO XANAX, AZITHROMYCIN, KETOROLAC, PENICILLIN, AND TRAMADOL. MEDICATIONS: Have been reviewed. REVIEW OF SYSTEMS: Not obtainable since she is intubated. PHYSICAL EXAMINATION: VITAL SIGNS: Blood pressure is 94/51, heart rate is 65, and respiratory rate is 16. HEENT: Pupils react. Sclerae are anicteric. CHEST: Remarkable for distant breath sounds. HEART: Regular rhythm. S1 and S2 are normal. ABDOMEN: Soft and nontender. EXTREMITIES: Without clubbing, cyanosis, or edema. NEUROLOGIC: She is sedated, so neuro exam could not be performed. LABORATORY DATA: White count 6.5, hemoglobin 11.1, and platelets 224. Sodium 138, potassium 4.2, chloride 102, bicarb 24, BUN 34, and creatinine 0.91. A pH of 7.26, CO2 of 62, and pO2 of 73. IMPRESSION AND PLAN: 1. Acute hypoxic respiratory failure with hypercarbia. 2. Pre-existing cw-hyv-ntutvekmxin status, now we will reverse code status. 3. Advanced obstructive lung disease. 4. Ongoing tobacco use up until last admission. It is unclear if she is smoking since she was discharged on December 29. Chest radiograph shows slight increase in interstitial markings with dramatic hyperinflation. We will follow the other physicians caring for. Obviously her prognosis is quite guarded. Job ID: [id number]
[2019-02-05] MEDS: methylPREDNISolone Sod Succ 40 MG VIAL IVP SCH ×2 (17:36→23:34)
[2019-02-05 19:36] LABS: CKMB 3.3 ng/mL (0-6.6)
[2019-02-05] MEDS: fentaNYL Citrate/PF 2,000 MCG in Sodium Chloride 0.9% 60 ML IV SCH (20:54)
[2019-02-05] MEDS ORDERED: Famotidine/PF 20 mg/2ml Vial SLOW IVP SCH (21:00)
[2019-02-05] MEDS ORDERED: Sodium Chloride 0.9% 500 ML IV SCH (21:30)
[2019-02-06] MEDS: Sodium Chloride 0.9% 1,000 ML IV SCH ×2 (02:51→06:18)
[2019-02-06 04:47] LABS: Anion Gap 22 mmol/L (10-20); BUN (Urea Nitrogen) 22 mg/dL (9.8-20.1); Calc. Creatinine Clearance 44 mL/min (70-130); Calcium 8.4 mg/dL (7.8-10.44); Carbon Dioxide 18 mmol/L (23-31); Chloride 107 mmol/L (98-107); Estimated GFR-MDRD 84; Glucose 91 mg/dL (83-110); Potassium 4.2 mmol/L (3.5-5.1); Sodium 143 mmol/L (136-145)
[2019-02-06 05:03] LABS: Band 58 % (5-11); Hemoglobin 11.3 g/dL (12.0-16.0); Lymphocytes 11 % (21-51); MDiff Complete? YES; Mean Corpuscular HGB CONC 29.4 g/dL (32.0-36.0); Mean Corpuscular Hemoglobin 32.5 pg (27.0-31.0); Mean Platelet Volume 7.9 fL (7.4-10.4); Monocytes 3 % (0-10); Neutrophil 28 % (42-75); Platelet Count 228 thou/uL (130-400); Platelet Morphology Comment Appears Adequate; RBC Distribution Width 17.9 % (11.5-14.5); Red Blood Cell (RBC) Count 3.48 mill/uL (4.20-5.40); White Blood Cell (WBC) Count 6.5 thou/uL (4.8-10.8)
[2019-02-06] MEDS: methylPREDNISolone Sod Succ 40 MG VIAL IVP SCH ×3 (06:17→17:05)
--- NOTE | 2019-02-06 06:41 | PDOC.FM ---
- Subjective Subjective: Patient remained hypotensive overnight and required a 500mL bolus x1 that she responded well too with the exception of worsening pulmonary edema. Otherwise remains in the vent with no other acute events. - Objective MAR Reviewed: Yes Vital Signs & Weight: Vital Signs (12 hours) Temp Pulse Resp BP Pulse Ox 02/06/19 06:29 69 02/06/19 06:00 16 02/06/19 04:00 98.8 F 16 02/06/19 02:00 63 16 85/45 L 02/06/19 00:00 98.8 F 17 02/05/19 22:23 72 88/47 L 02/05/19 22:00 16 02/05/19 20:00 98 F 16 02/05/19 19:51 95 Weight Weight 40 kg Most Recent Monitor Data Heart Rate from ECG 80 NIBP 120/58 NIBP BP-Mean 78 Respiration from ECG 22 SpO2 96 I&O: 02/04/19 02/05/19 02/06/19 06:59 06:59 06:59 Intake Total 2500 Output Total 945 Balance 1555 Result Diagrams: 02/06/19 04:08 02/06/19 04:08 Radiology Reviewed by me: Yes Radiology: CXR this AM: Worsening vascular congestion and R-sided edema vs. pneumonitis compared to admission x-ray. Chronic hyperinflation. Phys Exam - Physical Examination Constitutional: NAD intubated with minimal sedation HEENT: moist MMs Respiratory: no wheezing Decreased breath sounds on expiration throughout Intubated on SIMV mode on 50% FiO2 breathing slightly above set RR of 16 Cardiovascular: RRR grade 2/6 systolic murmur heard best at R sternal border Musculoskeletal: no edema, pulses present Neurological: moves all 4 limbs follows commands Skin: no rash, normal turgor Dx/Plan (1) Acute on chronic respiratory failure with hypoxia and hypercapnia Code(s): J96.21 - ACUTE AND CHRONIC RESPIRATORY FAILURE WITH HYPOXIA; J96.22 - ACUTE AND CHRONIC RESPIRATORY FAILURE WITH HYPERCAPNIA Status: Acute (2) COPD exacerbation Code(s): J44.1 - CHRONIC OBSTRUCTIVE PULMONARY DISEASE W (ACUTE) EXACERBATION Status: Acute (3) Prolonged QT interval Code(s): R94.31 - ABNORMAL ELECTROCARDIOGRAM [ECG] [EKG] Status: Chronic (4) Atrial fibrillation Code(s): I48.91 - UNSPECIFIED ATRIAL FIBRILLATION Status: Chronic Qualifiers: Atrial fibrillation type: chronic Qualified Code(s): I48.2 - Chronic atrial fibrillation (5) COPD (chronic obstructive pulmonary disease) Status: Chronic Qualifiers: Chronic bronchitis type: unspecified (6) Chronic pain Code(s): G89.29 - OTHER CHRONIC PAIN Status: Chronic Qualifiers: Chronic pain type: chronic pain syndrome Qualified Code(s): G89.4 - Chronic pain syndrome (7) HTN (hypertension) Code(s): I10 - ESSENTIAL (PRIMARY) HYPERTENSION Status: Chronic Qualifiers: Hypertension type: essential hypertension Qualified Code(s): I10 - Essential (primary) hypertension (8) Malnutrition Code(s): E46 - UNSPECIFIED PROTEIN-CALORIE MALNUTRITION Status: Chronic (9) Physical deconditioning Code(s): R53.81 - OTHER MALAISE Status: Chronic - Plan Plan: 73YOF with end stage COPD admitting for acute respiratory failure with hypoxia & hypercarbia 2/2 to an acute COPD exacerbation possibly superimposed by a CHF exacerbation. Acute respiratory failure with hypoxia and hypercapnea - Likely due to an acute on chronic COPD exacerbation with possible superimposed CHF exacerbation with pulmonary edema. - Will continue mechanical ventilation & wean as tolerated by the patient vs. wishes of family to de-escalate care in accordance with the patient's previously stated wishes. - Will continue to get daily CXRs & ABGs. - Pulmonology on board. Appreciate recommendations. - Will continue rocephin and IV steroids since patient is still requiring mechanical ventilation. - Will continue to monitor respiratory status closely. Acute on chronic COPD exacerbation - See plan above. HFpEF (EF 50-55% in September of 2018) - Elevated BNP on admission and CXR concerning for asymmetric edema vs. pneumonitis with a worsening CXR this AM. - Will continue strict I&Os and will stop IVFs & consider diuresis 2/2 worsening CXR this AM. HTN - Patient has been hypotensive since admission. Will hold all antihypertensives and gradually restart as tolerated by the patient. afib s/p pacemaker placement - Aware, unable to tolerate PO 2/2 intubation. Will resume home meds as tolerated by the patient. - Lovenox for stroke and DVT PPx and will hold PO meds while intubated. Malnutrition - Dieticians consulted for recs. Abx: Rocephin (02/05) DVT PPx: Lovenox GI PPx: famotidine Diet: Regular pending library technical assistant recs IVFs: none PCP: Dr. Cagle Code status: Full Code Disposition: Poor prognosis. LOS pending decision to maintain vs. de-escalate care per the family's wishes. Addendum - Attending - Attending Attestation Date/Time: 02/06/19 7748 I personally evaluated the patient and discussed the management with Dr. Vazquez. I agree with the History, Examination, Assessment and Plan documented above with any addition or exceptions noted below. Will change antibiotic from rocephin to levaquin to cover for typical organisms as she is allergic to azithromycin. Will try to diurese if blood pressure can tolerate. palliative care has been consulted, we need to clarify code status and goals of care. cultures are pending.
--- NOTE | 2019-02-06 08:16 | RAD ---
XR Chest 1 View Portable History: Ventilated patient Comparison: Radiograph prior day Findings: There are enlarging bilateral layering pleural effusions. Moderate pulmonary edema. Abnorma l fullness of the right hilum. Heart size is enlarged. Endotracheal tube tip is above the toshia approximately 2.7 cm. Enteric tube tip below diaphragm on the out of field of view. Abnormal peripheral nodule in the right upper lobe. Impression: 1. Worsening airspace opacities throughout the right lung and early involvement of the left lung conc erning for atypical infectious process. 2. Enlarging bilateral pleural effusions. 3. Endotracheal tube tip in good position 2.7 cm above the toshia. 4. Enteric tube tip below diaphragm on the out of field of view. 5. Nodule in the peripheral aspect right upper lobe may reflect underlying mass.
[2019-02-06] MEDS ORDERED: Enoxaparin Sodium 30 MG/0.3 ML SYRINGE SC SCH (09:00)
[2019-02-06] MEDS ORDERED: Furosemide 20 MG/2 ML VIAL SLOW IVP SCH (09:30)
[2019-02-06] MEDS: Lorazepam 2 MG/ML VIAL SLOW IVP PRN ×4 (09:34→17:24)
--- NOTE | 2019-02-06 09:58 | HP ---
CHIEF COMPLAINT: Respiratory arrest. HISTORY OF PRESENT ILLNESS: I have reviewed the history and physical of Dr. Nahun Bullock, and agree with his assessment and plan. Ms. Villa is an unfortunate 73-year-old white female, who has end-stage COPD. She had been a DNR on the Hospice Service. She developed respiratory distress on the day of admission and her son revoked her DNR status. She was subsequently seen by EMS and intubated for respiratory distress and brought to our institution. She is currently on a ventilator, has soon to be seen by the employee relations administrator. PHYSICAL EXAMINATION: GENERAL: She is obtunded on the ventilator. VITAL SIGNS: Blood pressure is currently 90/60 and her heart rate is 66. She is on SIMV with a rate of 16. EAR, NOSE, AND THROAT: Negative. NECK: Supple. CARDIAC: Heart rhythm distant, but regular. No gallop or murmur noted. LUNGS: Breath sound very diminished, but clear. No consolidation or wheezing. ABDOMEN: Flat and soft. EXTREMITIES: Very thin, but no edema. Her overall appearance appears to be quite cachectic. NEUROLOGIC: As stated obtunded on the ventilator. LABORATORY DATA: Her ABG on ventilator settings as mentioned previously with the SIMV is 16, FiO2 of 100%, tidal volume of 450, pH of 7.26, pCO2 of 62, and pO2 of 73.5. The gis technician is aware of these blood gases and is managing her ventilator settings. Chemistries; sodium 138, potassium 4.2, chloride 102, bicarb 24, BUN 34, and creatinine 0.91. Her troponins are negative with 0.075. White count 6500, hemoglobin 11.1, and hematocrit 36.6 with an MCV of 109. ASSESSMENT: Respiratory arrest and end-stage chronic obstructive pulmonary disease, on a ventilator. PLAN: We will follow with the Intensive Care Service. Need to have a discussion with family about her DNR status. Job ID: [id number]
--- NOTE | 2019-02-06 11:15 | PRG ---
DATE OF SERVICE: 02/06/2019 SERVICE: Pulmonary Medicine. INTERNAL HISTORY: The patient is doing fine from respiratory standpoint. She is breathing comfortably on mechanical ventilator. She cannot provide any additional elements of the history and is requiring a little bit of sedating medications including Ativan and fentanyl in order to maintain comfort. She had no significant overnight events. Her blood pressure has been marginal, but she is clearing her end-organ damage. PHYSICAL EXAMINATION: VITAL SIGNS: Afebrile, pulse 78, blood pressure 91/44, respirations 19, saturation 96% on 39% FiO2 and a PEEP of 5. GENERAL: The patient is intubated and sedated. HEENT: Normocephalic and atraumatic. Sclerae white. Conjunctivae pink. Oral mucosa is moist without lesions. LUNGS: There is decreased air entry and prolonged expiratory phase. Crackles are predominate, though a little bit of wheezing is appreciated. HEART: Normal rate, regular. ABDOMEN: Soft, nontender, nondistended. Bowel sounds are positive. MUSCULOSKELETAL: No cyanosis or clubbing. There is no pitting in the bilateral lower extremities. NEUROLOGIC: Grossly nonfocal. LABORATORY DATA: WBC 6.5, hemoglobin 11.3, platelets 228,000. Neutrophil count is 28%. Band count is 58%. PH 7.26, pCO2 of 62, PO2 of 73. Creatinine is downtrending to 0.68, anion gap 22, BUN 22, sodium 144. Troponin 0.038. Procalcitonin is up trending. Urinalysis is unremarkable. IMAGING STUDIES: Chest x-ray demonstrates an infiltrate throughout the right lung field. Air bronchograms are noted. There is some interstitial fullness throughout the left lung base. There is a small bilateral pleural effusion present. Carinal angle is large. Cardiac silhouette is quite impressive. Endotracheal tube is 2 cm above the level of toshia. There is an enteric catheter coursing below the level of the diaphragm. Biapical scarring is once again noted. Echocardiogram demonstrates normal ejection fraction. She has a restrictive filling pattern with a severely dilated left atrium. There is still a structurally normal aortic valve. Mild to moderate tricuspid regurgitation is noted. ASSESSMENT: 1. Acute on chronic hypoxic and hypercapnic respiratory failure. 2. Chronic obstructive pulmonary disease with acute exacerbation. 3. Health care associated pneumonia. 4. Acute on chronic diastolic heart failure. 5. Failure to thrive. 6. Severe sepsis. DISCUSSION AND PLAN: We will continue to diurese the patient to euvolemia. Agree with empiric antibiotics. Urinalysis and culture are currently pending. We will perform blood cultures x2 and sputum Gram stain and culture. I will decrease her respiratory support. The patient is approaching readiness for extubation, but she is not quite there yet. Hopefully, we will be able to clear for code status once this occurs. Critical care time: 30 minutes. Job ID: [id number] MTDD
[2019-02-06] MEDS: Vancomycin HCl 1 GM in Premix Bag 1 BAG IVPB SCH (14:17)
[2019-02-06] MEDS ORDERED: Vancomycin HCl 1 GM in Premix Bag 1 BAG IVPB SCH (21:00)
[2019-02-06] MEDS: Aztreonam 2 GM in Sodium Chloride 0.9% 100 ML IVPB SCH (21:04)
[2019-02-06] MEDS: Famotidine/PF 20 mg/2ml Vial SLOW IVP SCH (21:04)
[2019-02-07] MEDS: methylPREDNISolone Sod Succ 40 MG VIAL IVP SCH ×5 (02:59→21:58)
--- NOTE | 2019-02-07 06:37 | PDOC.FM ---
- Subjective Subjective: NAEO. Patient remains intubated and sedated. - Objective MAR Reviewed: Yes Vital Signs & Weight: Vital Signs (12 hours) Temp Pulse Resp Pulse Ox 02/07/19 06:00 13 02/07/19 04:00 99.0 F 13 02/07/19 02:00 13 02/07/19 00:00 98.3 F 13 02/06/19 23:14 78 21 H 98 02/06/19 23:00 97 02/06/19 22:00 13 02/06/19 20:00 15 97 02/06/19 19:00 98.0 F Weight Admit Weight 40 kg Weight 37.7 kg Most Recent Monitor Data Heart Rate from ECG 75 NIBP 111/57 NIBP BP-Mean 75 Respiration from ECG 13 SpO2 99 I&O: 02/05/19 02/06/19 02/07/19 06:59 06:59 06:59 Intake Total 2500 952 Output Total 945 1980 Balance 1555 -1028 Result Diagrams: 02/07/19 08:38 02/07/19 06:47 Radiology Reviewed by me: Yes (improved pulmonary edema and patchy infiltrates compared to imaging on 02/06) Phys Exam - Physical Examination Constitutional: NAD Remains intubated and sedated but does follow commands HEENT: moist MMs Respiratory: no wheezing, no rales, no rhonchi, clear to auscultation bilateral Intubated on SIMV mode on 37% FiO2 and RR set at 13 but breathing @ 20 Decreased breath sounds on expiration throughout Cardiovascular: RRR, no significant murmur Gastrointestinal: soft, non-tender, no distention, positive bowel sounds Musculoskeletal: no edema, pulses present unable to fully assess /2 sedation Skin: no rash Dx/Plan (1) Acute on chronic respiratory failure with hypoxia and hypercapnia Code(s): J96.21 - ACUTE AND CHRONIC RESPIRATORY FAILURE WITH HYPOXIA; J96.22 - ACUTE AND CHRONIC RESPIRATORY FAILURE WITH HYPERCAPNIA Status: Acute (2) COPD exacerbation Code(s): J44.1 - CHRONIC OBSTRUCTIVE PULMONARY DISEASE W (ACUTE) EXACERBATION Status: Acute (3) Prolonged QT interval Code(s): R94.31 - ABNORMAL ELECTROCARDIOGRAM [ECG] [EKG] Status: Chronic (4) Atrial fibrillation Code(s): I48.91 - UNSPECIFIED ATRIAL FIBRILLATION Status: Chronic Qualifiers: Atrial fibrillation type: chronic Qualified Code(s): I48.2 - Chronic atrial fibrillation (5) COPD (chronic obstructive pulmonary disease) Status: Chronic Qualifiers: Chronic bronchitis type: unspecified (6) Chronic pain Code(s): G89.29 - OTHER CHRONIC PAIN Status: Chronic Qualifiers: Chronic pain type: chronic pain syndrome Qualified Code(s): G89.4 - Chronic pain syndrome (7) HTN (hypertension) Code(s): I10 - ESSENTIAL (PRIMARY) HYPERTENSION Status: Chronic Qualifiers: Hypertension type: essential hypertension Qualified Code(s): I10 - Essential (primary) hypertension (8) Malnutrition Code(s): E46 - UNSPECIFIED PROTEIN-CALORIE MALNUTRITION Status: Chronic (9) Physical deconditioning Code(s): R53.81 - OTHER MALAISE Status: Chronic - Plan Plan: 73YOF with end stage COPD admitting for acute respiratory failure with hypoxia & hypercarbia 2/2 to an acute COPD exacerbation possibly superimposed by a CHF exacerbation. Acute respiratory failure with hypoxia and hypercapnea 2/2 suspected atypical pneumonitis and/or pulmonary edema - Likely due to an acute on chronic COPD exacerbation with superimposed pulmonary edema. - Will continue mechanical ventilation & wean as tolerated by patient. - Will continue to get daily CXRs. CXR this AM slightly improved compared to yesterday's s/p initiation of broad spectrum abx and diuresis. Procal also down from 4 to 2 this AM. Cultures pending. - Pulmonology on board. Appreciate recommendations. Will continue vanc, levaquin , and aztreonam, BRANDY IV steroids & Duonebs. - Will continue to monitor respiratory status closely. Acute on chronic COPD exacerbation - See plan above. HFpEF (EF 50-55% in September of 2018) - Elevated BNP on admission and CXR concerning for asymmetric edema vs. pneumonitis. Improved edema s/p diuresis with IV lasix yesterday. - Will continue strict I&Os and QD diuresis as tolerated by the patient. HTN - MAPs have been > 65 since midnight today. Will gradually restart antihypertensives as tolerated by the patient. afib s/p pacemaker placement - Aware, unable to tolerate PO 2/2 intubation. Will resume home meds as tolerated by the patient. - Lovenox for stroke and DVT PPx and will hold PO meds while intubated. Malnutrition - Dieticians consulted for recs. Abx: levaquin, vanc, aztreonam (02/06) DVT PPx: Lovenox GI PPx: famotidine Diet: Regular IVFs: none PCP: Dr. Cagle Code status: DNAR Disposition: Prognosis remains guarded. LOS > 2 midnights pending clinical course. Addendum - Attending - Attending Attestation Date/Time: 02/07/19 2161 I personally evaluated the patient and discussed the management with Dr. Vazquez. I agree with the History, Examination, Assessment and Plan documented above with any addition or exceptions noted below. The patient remains intubated and becomes slightly agitated with stimulation. Lungs sounds are mildly improved. Continue broad spectrum antibiotics. continue goals of care discussions with family. Pt now DNR again.
[2019-02-07 07:11] LABS: Anion Gap 17 mmol/L (10-20); BUN (Urea Nitrogen) 17 mg/dL (9.8-20.1); Calc. Creatinine Clearance 38 mL/min (70-130); Calcium 9.2 mg/dL (7.8-10.44); Carbon Dioxide 27 mmol/L (23-31); Chloride 103 mmol/L (98-107); Estimated GFR-MDRD 73; Glucose 176 mg/dL (83-110); Potassium 4.1 mmol/L (3.5-5.1); Sodium 143 mmol/L (136-145)
--- NOTE | 2019-02-07 08:52 | RAD ---
PORTABLE CHEST: HISTORY: CCU followup. Atypical pneumonia and pulmonary edema. COMPARISON: 02/06/2019. FINDINGS: ET tube and NG Tube remain in place. Pacemaker leads are unchanged. Congestive changes have improved when compared to yesterday. There continues to be mild vascular eng orgement. No confluent infiltrate or consolidation. Blunting of the right CP angle suggests a small effusion. There is bilateral apical opacification suggesting bilateral apical pleural thickening wh ich is again noted. IMPRESSION: Mild improvement in the vascular congestion when compared to yesterday. POS: OFF
[2019-02-07 08:58] LABS: Hemoglobin 12.3 g/dL (12.0-16.0); Mean Corpuscular HGB CONC 30.2 g/dL (32.0-36.0); Mean Platelet Volume 8.1 fL (7.4-10.4); Platelet Count 233 thou/uL (130-400); RBC Distribution Width 18.2 % (11.5-14.5); Red Blood Cell (RBC) Count 3.71 mill/uL (4.20-5.40); White Blood Cell (WBC) Count 10.4 thou/uL (4.8-10.8)
[2019-02-07] MEDS: Enoxaparin Sodium 40 MG/0.4 ML SYRINGE SC SCH (09:10)
[2019-02-07] MEDS: Aztreonam 2 GM in Sodium Chloride 0.9% 100 ML IVPB SCH ×2 (09:10→21:57)
[2019-02-07] MEDS: Furosemide 20 MG/2 ML VIAL SLOW IVP SCH (09:11)
[2019-02-07 09:36] LABS: Band 46 % (5-11); Eosinophils 1 % (0-10); Lymphocytes 3 % (21-51); MDiff Complete? YES; Macrocytosis SLIGHT = 6-15 cells (100X) (0-5/hpf); Monocytes 3 % (0-10); Neutrophil 47 % (42-75); Platelet Morphology Comment Appears Adequate
--- NOTE | 2019-02-07 11:28 | PDOC.PALF ---
Purpose of Conference: Discuss patient status, address previous DNR status and patient wishes. Care Providers Present: John Carballo RN, Jamie Silva [facility]- Family Members Present: Patient son Lazaro, patient sister Meeting Comments: Discussed at length patient wishes and events that lead up to son calling 911 and revocating hospice. Patient son states he did not understand fully the implication of his decision. Goals of Care: Reestablish DNR and OOHDNR, support family and patient. Summary: Son to resign DNR and OOHDNR. Will continue to re-establish goals of care if patient is extubated and able to return home. Total Time Spent with Family: 60 minutes
[2019-02-07] MEDS: Vancomycin HCl 1 GM in Premix Bag 1 BAG IVPB SCH (12:12)
--- NOTE | 2019-02-07 13:11 | PRG ---
DATE OF SERVICE: 02/07/2019 SERVICE: Pulmonary Medicine. INTERVAL HISTORY: The patient did not have any overnight events. There has been no interval change to her condition, otherwise. She remains extraordinarily weak. She cannot provide additional elements of the history at this point. We will place the patient on spontaneous breathing trial throughout the day today. Ultimately, the patient's daughter would like to be here when we ultimately move forward with compassionate extubation. This can occur at 6:00 p.m. or thereabouts. PHYSICAL EXAMINATION: VITAL SIGNS: Afebrile, pulse 100, blood pressure 126/66, respirations 14, and saturation 100% on 37% FiO2 and a PEEP of 5. GENERAL: The patient is intubated and sedated. HEENT: Normocephalic and atraumatic. Sclerae are white. Conjunctivae are pink. Oral mucosa is moist without lesions. LUNGS: Decent air entry. There is a prolonged expiratory phase and polyphonic wheezing as well as crackles present. HEART: Normal rate, regular. ABDOMEN: Soft, nontender, and nondistended. Bowel sounds are positive. MUSCULOSKELETAL: No cyanosis or clubbing. There is no pitting in bilateral lower extremities. NEUROLOGIC: Grossly nonfocal. LABORATORY DATA: WBC 10.4, hemoglobin 12.3, and platelets 233,000. Neutrophils are 47% on top of 46% bands. The band count is actually improving. Basic metabolic profile is essentially unremarkable, otherwise. Procalcitonin is once again downtrending. Blood cultures x2 are unremarkable. IMAGING DATA: X-ray demonstrates mild improvement in the vascular congestion compared to yesterday. Biapical pleural thickening is present. ASSESSMENT: 1. Acute on chronic hypoxic and hypercapnic respiratory failure. 2. Chronic obstructive pulmonary disease with acute exacerbation. 3. Acute on chronic diastolic heart failure. 4. Failure to thrive. 5. Severe sepsis. 6. Healthcare-associated pneumonia, possible. DISCUSSION AND PLAN: We will continue our empiric antibiotics directed at healthcare-associated lung organisms. We will continue steroids and nebulized medications. I will give the patient spontaneous breathing trial today, on 2 or 3 occasions. If she meets criteria, we will extubate her. If she does not, we will talk to the family about terminal extubation when they arrive. Ultimately, when she is extubated, she will not be reintubated. She will likely go back on hospice on discharge from the hospital. Critical care time: 30 minutes. Job ID: [id number] MTDD
[2019-02-07] MEDS: Famotidine/PF 20 mg/2ml Vial SLOW IVP SCH (21:58)
[2019-02-08] MEDS: Lorazepam 2 MG/ML VIAL SLOW IVP PRN ×3 (01:23→19:59)
[2019-02-08] MEDS: fentaNYL Citrate/PF 2,000 MCG in Sodium Chloride 0.9% 60 ML IV SCH (02:29)
[2019-02-08] MEDS: methylPREDNISolone Sod Succ 40 MG VIAL IVP SCH ×2 (03:26→08:35)
[2019-02-08 05:41] VITALS: BMI 14.9
--- NOTE | 2019-02-08 06:35 | PDOC.FM ---
- Subjective Subjective: Patient had runs of Vtach overnight and was not extubated per the family's wishes. Remains intubated and sedated. Plans are to extubate later this AM with all family present and transfer to inpatient hospice. - Objective MAR Reviewed: Yes Vital Signs & Weight: Vital Signs (12 hours) Temp Pulse Resp Pulse Ox 02/08/19 04:00 97.8 F 13 02/08/19 02:17 87 02/08/19 02:00 18 02/08/19 00:00 97.6 F 16 02/07/19 23:29 111 H 21 H 97 02/07/19 22:29 98 02/07/19 22:00 25 H 02/07/19 20:00 97.9 F 16 98 02/07/19 18:58 101 H 02/07/19 18:57 101 H 24 H 92 L Weight Admit Weight 40 kg Weight 36.8 kg Most Recent Monitor Data Heart Rate from ECG 79 NIBP 128/63 NIBP BP-Mean 84 Respiration from ECG 13 SpO2 96 I&O: 02/06/19 02/07/19 02/08/19 06:59 06:59 06:59 Intake Total 2500 952 567.5 Output Total 945 1980 1910 Balance 1555 -1028 -1342.5 Result Diagrams: 02/07/19 08:38 02/07/19 06:47 Phys Exam - Physical Examination Constitutional: NAD intubated and sedated Respiratory: no wheezing intubated on SIMV mode on 37% FiO2 w/ set RR of 13 Cardiovascular: no significant murmur tachycardic with regular rhythm Musculoskeletal: no edema, pulses present unable to assess 2/2 sedation Skin: no rash Deviation from normal: decreased turgor Dx/Plan (1) Acute on chronic respiratory failure with hypoxia and hypercapnia Code(s): J96.21 - ACUTE AND CHRONIC RESPIRATORY FAILURE WITH HYPOXIA; J96.22 - ACUTE AND CHRONIC RESPIRATORY FAILURE WITH HYPERCAPNIA Status: Acute (2) COPD exacerbation Code(s): J44.1 - CHRONIC OBSTRUCTIVE PULMONARY DISEASE W (ACUTE) EXACERBATION Status: Acute (3) Prolonged QT interval Code(s): R94.31 - ABNORMAL ELECTROCARDIOGRAM [ECG] [EKG] Status: Chronic (4) Atrial fibrillation Code(s): I48.91 - UNSPECIFIED ATRIAL FIBRILLATION Status: Chronic Qualifiers: Atrial fibrillation type: chronic Qualified Code(s): I48.2 - Chronic atrial fibrillation (5) COPD (chronic obstructive pulmonary disease) Status: Chronic Qualifiers: Chronic bronchitis type: unspecified (6) Chronic pain Code(s): G89.29 - OTHER CHRONIC PAIN Status: Chronic Qualifiers: Chronic pain type: chronic pain syndrome Qualified Code(s): G89.4 - Chronic pain syndrome (7) HTN (hypertension) Code(s): I10 - ESSENTIAL (PRIMARY) HYPERTENSION Status: Chronic Qualifiers: Hypertension type: essential hypertension Qualified Code(s): I10 - Essential (primary) hypertension (8) Malnutrition Code(s): E46 - UNSPECIFIED PROTEIN-CALORIE MALNUTRITION Status: Chronic (9) Physical deconditioning Code(s): R53.81 - OTHER MALAISE Status: Chronic - Plan Plan: 73YOF with end stage COPD admitting for acute respiratory failure with hypoxia & hypercarbia 2/2 to an acute COPD exacerbation possibly superimposed by a CHF exacerbation. Acute respiratory failure with hypoxia and hypercapnea 2/2 suspected atypical pneumonitis and/or pulmonary edema - Likely due to an acute on chronic COPD exacerbation with superimposed pulmonary edema. - Plan is to extubate later this AM with family present as patient is now DNAR with plans to transfer to inpatient hospice later today. - Pulmonology on board. Appreciate recommendations. Will continue broad spectrum abx, Duonebs, steroids, and diuresis per pulm's recs. Cultures pending. Non-sustained Vtach - Aware, patient is now DNAR. Acute on chronic COPD exacerbation - See plan above. HFpEF (EF 50-55% in September of 2018) - Elevated BNP on admission and CXR concerning for asymmetric edema vs. pneumonitis. - Will continue strict I&Os and QD diuresis as tolerated by the patient. HTN - MAPs have been stable & > 65 for the last 24 hours. Will gradually restart antihypertensives as tolerated by the patient. afib s/p pacemaker placement - Aware, unable to tolerate PO 2/2 intubation. Will resume home meds as tolerated by the patient. - Lovenox for stroke and DVT PPx and will hold PO meds while intubated. Malnutrition - Dieticians consulted for recs. Abx: levaquin, vanc, aztreonam (02/06) DVT PPx: Lovenox GI PPx: famotidine Diet: NPO IVFs: none PCP: Dr. Cagle Code status: DNAR Disposition: Plans to transfer to inpatient hospice later today. Addendum - Attending - Attending Attestation Date/Time: 02/08/19 6371 I personally evaluated the patient and discussed the management with Dr. Vazquez. I agree with the History, Examination, Assessment and Plan documented above with any addition or exceptions noted below. The patient is intubated this morning and has had several runs of vtach overnight. Plan is to extubate patient this morning when family is ready. Will then proceed with inpatient hospice.
--- NOTE | 2019-02-08 08:34 | PRG ---
DATE OF SERVICE: 02/08/2019 SUBJECTIVE: This morning, was intubated in the vent. Remains agitated. She was a DNR, was intubated. Progressive respiratory failure. I am told Hospice is going to be arriving. Family wants extubation and comfort care. OBJECTIVE: VITAL SIGNS: Blood pressure 135/77, temperature 97, respiratory rate 20, O2 saturations _94%. GENERAL: She is sedated . CHEST: Decreased breath sounds. No wheezing. CARDIAC: Normal S1, S2. No gallops. ABDOMEN: No masses. ASSESSMENT: 1. End-stage chronic obstructive pulmonary disease. 2. Substance abuse. 3. Respiratory failure. 4. Probably congestive heart failure. PLAN: She is on broad-spectrum antibiotics, neb treatments, and steroids. Once family arrives, will make a decision about comfort care. One-half hour of critical care time. Job ID: [id number] MTDD
[2019-02-08] MEDS: Aztreonam 2 GM in Sodium Chloride 0.9% 100 ML IVPB SCH (08:35)
[2019-02-08] MEDS: Enoxaparin Sodium 40 MG/0.4 ML SYRINGE SC SCH (08:35)
[2019-02-08] MEDS: Furosemide 20 MG/2 ML VIAL SLOW IVP SCH (08:35)
[2019-02-08] MEDS ORDERED: Morphine 4 MG/ML VIAL SLOW IVP PRN (11:40)
[2019-02-08] MEDS ORDERED: Midazolam HCl 2 mg/2 ml Vial SLOW IVP PRN (11:47)
[2019-02-08] MEDS ORDERED: Scopolamine 1.5 mg/72 hour Patch TD SCH (12:00)
[2019-02-08] MEDS: Vancomycin HCl 1 GM in Premix Bag 1 BAG IVPB SCH (14:14)
[2019-02-08] MEDS: Morphine 2 MG/ML SYRINGE SLOW IVP PRN ×2 (20:00→23:07)
[2019-02-09] MEDS: Morphine 2 MG/ML SYRINGE SLOW IVP PRN ×3 (03:12→10:50)
[2019-02-09] MEDS: Lorazepam 2 MG/ML VIAL SLOW IVP PRN ×2 (03:26→13:26)
--- NOTE | 2019-02-09 06:49 | PDOC.FM ---
- Subjective Subjective: Patient extubated yesterday but was unable to be transferred to inpatient hospice at no family was present to sign the transfer papers. Is now getting comfort care measures only on oncology floor. Clinical status remains guarded. - Objective MAR Reviewed: Yes Vital Signs & Weight: Vital Signs (12 hours) Temp Pulse Resp BP Pulse Ox 02/08/19 20:00 78 L 02/08/19 19:41 97.6 F 108 H 16 153/68 H 72 L Weight Admit Weight 40 kg Weight 36.2 kg Most Recent Monitor Data Heart Rate from ECG 160 NIBP 117/67 NIBP BP-Mean 83 Respiration from ECG 33 SpO2 80 I&O: 02/07/19 02/08/19 02/09/19 06:59 06:59 06:59 Intake Total 952 799.5 100 Output Total 1979 1930 1040 [facility] -1028 -1130.5 -940 Result Diagrams: 02/07/19 08:38 02/07/19 06:47 Phys Exam - Physical Examination Constitutional: NAD frail appearing dry mucus membranes Respiratory: no wheezing decreased breath sounds throughout tachycardic with regular rhythm Musculoskeletal: no edema Neurological: moves all 4 limbs Skin: no rash Deviation from normal: decreased tugor Dx/Plan (1) Acute on chronic respiratory failure with hypoxia and hypercapnia Code(s): J96.21 - ACUTE AND CHRONIC RESPIRATORY FAILURE WITH HYPOXIA; J96.22 - ACUTE AND CHRONIC RESPIRATORY FAILURE WITH HYPERCAPNIA Status: Acute (2) COPD exacerbation Code(s): J44.1 - CHRONIC OBSTRUCTIVE PULMONARY DISEASE W (ACUTE) EXACERBATION Status: Acute (3) Prolonged QT interval Code(s): R94.31 - ABNORMAL ELECTROCARDIOGRAM [ECG] [EKG] Status: Chronic (4) Atrial fibrillation Code(s): I48.91 - UNSPECIFIED ATRIAL FIBRILLATION Status: Chronic Qualifiers: Atrial fibrillation type: chronic Qualified Code(s): I48.2 - Chronic atrial fibrillation (5) COPD (chronic obstructive pulmonary disease) Status: Chronic Qualifiers: Chronic bronchitis type: unspecified (6) Chronic pain Code(s): G89.29 - OTHER CHRONIC PAIN Status: Chronic Qualifiers: Chronic pain type: chronic pain syndrome Qualified Code(s): G89.4 - Chronic pain syndrome (7) HTN (hypertension) Code(s): I10 - ESSENTIAL (PRIMARY) HYPERTENSION Status: Chronic Qualifiers: Hypertension type: essential hypertension Qualified Code(s): I10 - Essential (primary) hypertension (8) Malnutrition Code(s): E46 - UNSPECIFIED PROTEIN-CALORIE MALNUTRITION Status: Chronic (9) Physical deconditioning Code(s): R53.81 - OTHER MALAISE Status: Chronic - Plan Plan: 73YOF with end stage COPD admitted for acute respiratory failure with hypoxia & hypercarbia 2/2 to an acute COPD exacerbation possibly superimposed by a CHF exacerbation. Acute respiratory failure with hypoxia and hypercapnea 2/2 suspected atypical pneumonitis and/or pulmonary edema - Likely due to an acute on chronic COPD exacerbation with superimposed pulmonary edema. - Patient s/p compassionate extubation yesterday and is now DNAR & pending placement to inpatient hospice once MPOA can sign the paperwork. - Pulmonology on board. Appreciate recommendations. Will continue comfort care measures only. Acute on chronic COPD exacerbation - See plan above. Non-sustained Vtach - Aware; however, patient is now DNAR. HFpEF (EF 50-55% in September of 2018) - Elevated BNP on admission and admission CXR concerning for asymmetric edema vs. pneumonitis. - Comfort measures only now as patient is pending inpatient hospice placement. HTN - Aware, BPs have been low/normal since admission. Comfort care measures only. afib s/p pacemaker placement - Aware, comfort care measures only. Malnutrition - Patient NPO on hospice. Abx: none DVT PPx: none GI PPx: none Diet: NPO IVFs: none PCP: Dr. Cgale Code status: DNAR Disposition: Transfer to inpatient hospice pending MPOA completion of transfer paperwork. Addendum - Attending - Attending Attestation Date/Time: 02/09/19 8060 I personally evaluated the patient and discussed the management with Dr. Vazquez. I agree with the History, Examination, Assessment and Plan documented above with any addition or exceptions noted below. The patient is receiving palliative care. Appropriate for inpt hospice but we are waiting for family to sign the paperwork. O2 sats are low, adding oxygen. Pt appears comfortable at this time.
[2019-02-09 08:55] VITALS: BP 143/75; TEMP 97.4
--- NOTE | 2019-02-09 19:46 | DIS ---
DATE OF ADMISSION: 02/05/2019 DATE OF DISCHARGE: 02/09/2019 PROCEDURES PERFORMED: 1. Chest x-ray on 02/05/2019, notable for patchy interstitial parenchymal changes bilaterally, somewhat more prominent in the right perihilar region and lower lobe, raising concern for right lower lobe atypical pneumonia or pneumonitis. Extensive chronic lung changes bilaterally. Endotracheal tube is in satisfactory location. 2. Chest x-ray on 02/06/2019, notable for worsening airspace opacity throughout the right lung and early involvement of the left lung concerning for atypical infectious process. Enlarging bilateral pleural effusions. Endotracheal tube in good position. 3. Chest x-ray on 02/07/2019, notable for mild improvement in the vascular congestion compared to x-ray on 02/06/2019. CONSULT: Pulmonology, Dr. lAejandro Peters. PRIMARY DIAGNOSES: 1. Acute respiratory failure with hypoxia and hypercapnia secondary to end-stage chronic obstructive pulmonary disease. 2. Heart failure with preserved ejection fraction and suspected acute exacerbation. SECONDARY DIAGNOSES: 1. Chronic obstructive pulmonary disease. 2. Hypertension. 3. Atrial fibrillation, status post pacemaker placement. 4. Malnutrition. DISCHARGE MEDICATIONS: 1. Senokot 2 tablets p.o. b.i.d. p.r.n. 2. Lorazepam 1 mg slow IV push q.2 hours p.r.n. 3. Morphine 4 mg slow IV push q.4 hours p.r.n. 4. Scopolamine 1.5 mg transdermal every 3 days. DISCONTINUED MEDICATIONS: 1. Gabapentin 600 mg p.o. t.i.d. 2. Nitroglycerin 0.4 mg sublingual q.5 minutes. 3. Protonix 40 mg p.o. daily. 4. Eliquis 5 mg p.o. daily. 5. Norvasc 10 mg p.o. daily. 6. Coreg 3.125 mg p.o. b.i.d. 7. Digoxin 0.125 mg p.o. q.a.m. 8. Tiotropium 18 mcg inhaled daily. 9. Sertraline 25 mg p.o. daily. 10. Amiodarone 100 mg p.o. daily. 11. Buspirone 7.5 mg p.o. b.i.d. 12. Hyoscyamine sulfate 0.125 mg sublingual q.i.d. p.r.n. 13. Lasix 20 mg p.o. daily. 14. Lorazepam 0.5 mg p.o. q.4 hours p.r.n. 15. Compazine 10 mg p.o. q.4 hours p.r.n. 16. Morphine ER 30 mg p.o. q.12 hours. 17. Combivent 1 puff inhaled q.i.d. 18. Symbicort 1 puff inhaled b.i.d. 19. Risperdal 0.5 mg p.o. b.i.d. 20. Excedrin Tension Headache 1 tablet p.o. daily. HOSPITAL COURSE: The patient is a 73-year-old female with a past medical history significant for end-stage COPD, who was on home hospice care prior to her presentation to the emergency department. The patient was brought in to the ED via EMS after receiving a phone call by the patient's MPOA, her son, for significant respiratory distress. Per the report of EMS and the admitting ER physician, the patient was reportedly extremely hypoxic at home, saturating into the 70s on RA which was witnessed by her son, who then decided to revoke her home hospice care and expressed that he would like the patient to become full code. EMS therefore intubated the patient in route to the emergency department. On presentation to the emergency department, the patient was saturating 92% on the ventilator and all other vitals were noted to be within normal limits. An initial chest x-ray did show some patchy infiltrates suggestive of a possible atypical pneumonia as well as some bilateral pleural effusions. Lab work was notable for a stable macrocytic anemia with a hemoglobin of 11.1 and an MCV of 109 which per chart review was within the patient's baseline range. An ABG was also obtained which showed a severe respiratory acidosis with a pH of 7.26, a pCO2 of 62.2, a PO2 of 73.5, and a base excess of -1. Her BNP was also elevated at 572.9, and an initial troponin was slightly elevated at 0.075. Lastly, a procalcitonin level was obtained which was 1.01 on admission. In the ER, she was given 300 mg of aspirin [place], 1 L of NS, and 60 mg of IV Solu-Medrol before being transferred to the ICU for close monitoring and observation overnight. The patient remained on ventilatory support for the next several days, and a repeat chest x-ray the following morning showed worsening of pleural effusions and patchy infiltrates. A repeat procalcitonin was also obtained the next morning which was elevated up to 4.0, so the patient was transitioned from IV Rocephin to IV Levaquin and routine COPD exacerbation treatments including IV steroids and DuoNebs were continued. On day 2 of hospitalization, the patient was started on broad-spectrum antibiotics due to her worsening chest x-ray by Pulmonology, Dr. Hema Desai, and blood, urine, and sputum cultures were ordered. However, on day 3 of hospitalization, Dr. Desai was able to have a family meeting which resulted in the patient being reverted back to a do not attempt resuscitation status and the patient was continued on ventilatory support up until day 4 of hospitalization when it was decided by the family to go forward with placement in inpatient hospice. Later that day, the patient was extubated and transferred to the oncology floor pending transfer to inpatient hospice. From this point only comfort care measures were continued including pain control and supplemental oxygen p.r.n. to maintain O2 sats greater than 85%. On day 5 of hospitalization, the patient's MPOA was able to sign the appropriate paperwork allowing her to be admitted to inpatient hospice under the care of Dr. Rios Isaac. DISPOSITION: Guarded. DISCHARGE INSTRUCTIONS: 1. Location: [facility]. 2. Diet: None. 3. Activity: Strict bedrest. 4. Followup: None. Job ID: [id number] MTDD
--- NOTE | 2019-02-10 21:10 | EKG ---
Test Reason : INTUBATION Blood Pressure : / mmHG Vent. Rate : 082 BPM Atrial Rate : 082 BPM P-R Int : 000 ms QRS Dur : 118 ms QT Int : 400 ms P-R-T Axes : 000 103 254 degrees QTc Int : 467 ms Electronic ventricular pacemaker Confirmed by VALENTÍN JACKMAN ([id number]), [employer] ([id number]) on 02/10/2019 9:10:05 PM Referred By: Confirmed By:VALENTÍN JACKMAN
== END 2019-02-09 14:56 | disposition hospice, inpatient (51) | DRG 208 ==
LOC: ERS 11:11 → CCU 13:42 → ONC 02-08 13:26
PROVIDERS: ADMIT Family Medicine; ATTEND Family Medicine
PROC: 0BH17EZ Insertion of Endotracheal Airway into Trachea, Via Natural or Artificial Opening (ICD-10-PCS; principal; 2019-02-05)
PROC: 5A1945Z Respiratory Ventilation, 24-96 Consecutive Hours (ICD-10-PCS; 2019-02-05)
DX: J96.21 Acute and chronic respiratory failure with hypoxia (principal); I50.33 Acute on chronic diastolic (congestive) heart failure; E46 Unspecified protein-calorie malnutrition; I42.9 Cardiomyopathy, unspecified; R64 Cachexia; J44.1 Chronic obstructive pulmonary disease with (acute) exacerbation; Z68.1 Body mass index [BMI] 19.9 or less, adult; I47.1 Supraventricular tachycardia; Z66 Do not resuscitate; I11.0 Hypertensive heart disease with heart failure; F17.210 Nicotine dependence, cigarettes, uncomplicated; J96.22 Acute and chronic respiratory failure with hypercapnia; I45.81 Long QT syndrome; I48.2 Chronic atrial fibrillation; G89.29 Other chronic pain; D64.9 Anemia, unspecified; Z88.0 Allergy status to penicillin; Z88.1 Allergy status to other antibiotic agents; Z88.6 Allergy status to analgesic agent; Z88.8 Allergy status to other drugs, medicaments and biological substances; Z79.52 Long term (current) use of systemic steroids; Z79.51 Long term (current) use of inhaled steroids; Z79.899 Other long term (current) drug therapy; Z90.710 Acquired absence of both cervix and uterus; Z95.0 Presence of cardiac pacemaker
CPT/HCPCS: 36415; 71045; 80048; 80053; 81003; 82553; 82805; 83605; 83880; 84145; 84484; 85025; 87040; 93005; 94002; 94003; 94640; 94760; J0696; J1650; J1940; J1956; J2060; J2270; J2920; J3010; J3370; J3490; J7620; S0028

== ENCOUNTER 2019-02-09 15:16 | Inpatient (IN) | payer OTHER ==
[2019-02-09] MEDS ORDERED: Haloperidol Lactate 5 MG/ML VIAL SLOW IVP PRN (15:55)
[2019-02-09] MEDS ORDERED: diphenhydrAMINE 50 MG/ML VIAL IVP PRN (15:55)
[2019-02-09] MEDS ORDERED: Scopolamine 1.5 mg/72 hour Patch TOP PRN (15:55)
[2019-02-09 16:25] VITALS: BMI 15.7
[2019-02-09] MEDS: Morphine 2 MG/ML SYRINGE SLOW IVP PRN ×2 (17:01→22:14)
[2019-02-09] MEDS: Lorazepam 2 MG/ML VIAL SLOW IVP PRN ×2 (17:57→22:15)
[2019-02-10] MEDS: Morphine 2 MG/ML SYRINGE SLOW IVP PRN ×7 (01:22→20:51)
[2019-02-10] MEDS: Lorazepam 2 MG/ML VIAL SLOW IVP PRN ×5 (04:42→22:30)
[2019-02-11] MEDS: Morphine 2 MG/ML SYRINGE SLOW IVP PRN (01:28)
[2019-02-11] MEDS: Lorazepam 2 MG/ML VIAL SLOW IVP PRN (05:58)
[2019-02-12 09:04] VITALS: BP 82/47; TEMP 99.5
== END 2019-02-12 10:57 | disposition expired | DRG 951 ==
LOC: ONC 15:16
PROVIDERS: ADMIT Family Medicine; ATTEND Family Medicine
PROC: 039Y3ZZ Drainage of Upper Artery, Percutaneous Approach (ICD-10-PCS; principal; 2019-02-09)
DX: Z51.5 Encounter for palliative care (principal); J44.9 Chronic obstructive pulmonary disease, unspecified; R09.2 Respiratory arrest; Z66 Do not resuscitate
CPT/HCPCS: J2060; J2270